=== PATIENT | female | born 1950 | race Caucasian/White ===

== ENCOUNTER → 2016-10-27 | Outpatient (CLI) | payer OTHER ==
[~2016-10-27] MED LIST: ADVIN25/60 INH; ALBINS/ INH; ATEN-173 PO; CHOL1000 PO; CMD5 PO; GABA600T PO; LACT1CAP4; LORA10TA5 PO; LSX/40 PO; MAGN400T5 PO; MONT1TAB3 PO; PANT40TA PO; PHEN1TAB85 PO; POLY335019 PO; POTA-327 PO; SENNTAB23; ZCRT/40 PO
[2016-10-27 19:17] LABS: URINE APPEARANCE CLEAR (CLEAR); URINE BILIRUBIN NEG (NEG); URINE COLOR YELLOW; URINE NITRITE NEG (NEG); URINE SPECIFIC GRAVITY 1.017 (1.000-1.030); UROBILINOGEN NEG (NEG)
[2016-10-27 19:32] LABS: MANUAL MICROSCOPIC REQUIRED? NO; REVIEW REQ? NO
== END | disposition home or self-care (01) ==
LOC: C.LABSPEC 17:30
PROVIDERS: ATTEND Family Medicine
DX: R53.83 Other fatigue (principal)

== ENCOUNTER → 2017-03-07 | Outpatient (CLI) | payer OTHER ==
--- NOTE | 2017-03-07 11:56 | DIAGNOSTIC IMAGING REPORT ---
CHEST CT WITHOUT CONTRAST CT DOSE: 642.27 mGycm HISTORY: Colon carcinoma Z12.11 Screening for colon [id number] Abnormal finding on imagist TECHNIQUE: Multiaxial CT images of the chest were performed without contrast. COMPARISON: None. FINDINGS: Stable postoperative changes consistent with a median sternotomy. Mild stable cardiomegaly. Calcified granuloma left base unchanged. No significant pulmonary nodularity. No significant mediastinal or hilar adenopathy. Small Calcified mediastinal and/or hilar nodes. Moderate atherosclerotic change thoracic aorta. IMPRESSION: Chronic and postoperative change. No acute process. Electronically signed by: Jean Mejia M.D. 03/07/2017 11:55 AM Dictated Date/Time: 03/07/2017 11:47 AM
== END | disposition home or self-care (01) ==
LOC: C.CTS 11:16
PROVIDERS: ATTEND Nurse Practitioner Adult Health
DX: R93.8 Abnormal findings on diagnostic imaging of other specified body structures (principal); Z12.11 Encounter for screening for malignant neoplasm of colon

== ENCOUNTER → 2017-09-04 | Outpatient (CLI) | payer OTHER ==
[~2017-09-04] MED LIST changes: -LORA10TA5 PO; +LORA10TA6 PO
[2017-09-04 13:05] LABS: BASO % 0.1 %; BASO ABS # 0.01 K/uL (0-0.2); EOS % 2.3 %; EOS ABS # 0.16 K/uL (0-0.5); HEMATOCRIT 47.3 % (37-47); HEMOGLOBIN 15.1 g/dL (12.0-16.0); IG# 0.01 K/uL (0.00-0.02); LYMPH % 28.1 %; LYMPH ABS # 1.98 K/uL (1.2-3.4); MEAN CELL VOLUME 92.7 fL (80-100); MEAN CORPUSCULAR HEMOGLOBIN 29.6 pg (25-34); MEAN CORPUSCULAR HGB CONC 31.9 g/dl (32-36); MEAN PLATELET VOLUME 11.1 fL (7.4-10.4); MONO % 9.2 %; MONO ABS # 0.65 K/uL (0.11-0.59); NEUT % 60.2 %; NEUT ABS # 4.24 K/uL (1.4-6.5); PLATELET COUNT 206 K/uL (130-400); RED CELL DISTRIBUTION WIDTH CV 14.4 % (11.5-14.5); RED CELL DISTRIBUTION WIDTH SD 48.9 fL (36.4-46.3); WHITE BLOOD COUNT 7.05 K/uL (4.8-10.8)
[2017-09-04 13:21] LABS: HEMOGLOBIN A1C 6.3 % (4.5-5.6)
[2017-09-04 13:29] LABS: ALBUMIN 3.5 gm/dl (3.4-5.0); ALKALINE PHOSPHATASE 96 U/L (45-117); ALT/SGPT 25 U/L (12-78); BLOOD UREA NITROGEN 23 mg/dl (7-18); CALCIUM 8.6 mg/dl (8.5-10.1); CARBON DIOXIDE 30 mmol/L (21-32); CHOLESTEROL 147 mg/dl (0-200); CREATININE 0.72 mg/dl (0.60-1.20); GLUCOSE 112 mg/dl (70-99); POTASSIUM 4.1 mmol/L (3.5-5.1); SODIUM 139 mmol/L (136-145); URIC ACID 6.7 mg/dl (2.6-7.2)
[2017-09-04 13:40] LABS: AST/SGOT 28 U/L (15-37); LDL CHOLESTEROL CALCULATED 72 mg/dl; TOTAL PROTEIN 8.1 gm/dl (6.4-8.2)
== END | disposition home or self-care (01) ==
LOC: C.LABPBG 07:42
PROVIDERS: ATTEND Family Medicine
DX: E78.5 Hyperlipidemia, unspecified (principal); I10 Essential (primary) hypertension; R73.03 Prediabetes; E79.0 Hyperuricemia without signs of inflammatory arthritis and tophaceous disease

== ENCOUNTER 2017-09-30 07:20 | Emergency (ER) | payer OTHER ==
[~2017-09-30] VITALS: Ht 165.1 cm; Wt 102.5 kg
[~2017-09-30 07:20] MED LIST changes: -SENNTAB23; +SENNTAB23 PO
[2017-09-30 07:25] VITALS: TEMP 36.5; Ht 165.1 cm; Wt 102.5 kg
[2017-09-30] MEDS ORDERED: SODIUM CHLORIDE 0.9% 1000ML 1,000 ML IV STA (07:50)
[2017-09-30] MEDS ORDERED: RANITIDINE HCL 50 MG/100 ML D5W IV STA (07:50)
[2017-09-30] MEDS ORDERED: ONDANSETRON INJ 2 MG/ML 2 ML VIAL IV STA (07:50)
[2017-09-30] MEDS ORDERED: ACETAMINOPHEN IV 650 MG in EMPTY BAG 0 ML IV ONE (08:00)
[2017-09-30] MEDS ORDERED: CETI10TA84 PO (08:27)
[2017-09-30] MEDS ORDERED: FLUT0.15 NAE (08:27)
[2017-09-30] MEDS ORDERED: GABA-112 PO (08:27)
[2017-09-30] MEDS ORDERED: FLUT1INH INH (08:27)
[2017-09-30] MEDS ORDERED: CHOL1TAB42 PO (08:27)
[2017-09-30] MEDS ORDERED: ESCI1TAB6 PO (08:27)
[2017-09-30] MEDS ORDERED: POTA10CA28 PO (08:27)
[2017-09-30] MEDS ORDERED: PHEN32.44 PO (08:27)
[2017-09-30] MEDS ORDERED: ATEN25TA PO (08:27)
[2017-09-30] MEDS ORDERED: ALLO100T57 PO (08:27)
[2017-09-30] MEDS ORDERED: RANI300T2 PO (08:27)
[2017-09-30] MEDS ORDERED: METO25TA56 PO (08:27)
[2017-09-30] MEDS ORDERED: WARF5TAB7 PO ×2 (08:27)
[2017-09-30 08:42] LABS: BASO % 0.2 %; BASO ABS # 0.01 K/uL (0-0.2); EOS % 1.2 %; EOS ABS # 0.06 K/uL (0-0.5); HEMOGLOBIN 15.7 g/dL (12.0-16.0); LYMPH ABS # 2.08 K/uL (1.2-3.4); MEAN CELL VOLUME 91.8 fL (80-100); MEAN CORPUSCULAR HGB CONC 32.7 g/dl (32-36); MEAN PLATELET VOLUME 10.9 fL (7.4-10.4); MONO % 13.7 %; MONO ABS # 0.71 K/uL (0.11-0.59); NEUT % 44.9 %; NEUT ABS # 2.34 K/uL (1.4-6.5); PLATELET COUNT 193 K/uL (130-400); RED CELL DISTRIBUTION WIDTH CV 14.2 % (11.5-14.5); RED CELL DISTRIBUTION WIDTH SD 48.1 fL (36.4-46.3)
[2017-09-30 08:50] LABS: ALBUMIN 3.5 gm/dl (3.4-5.0); CALCIUM 8.2 mg/dl (8.5-10.1); CREATININE 0.91 mg/dl (0.60-1.20); POTASSIUM 3.4 mmol/L (3.5-5.1)
[2017-09-30 08:53] LABS: TOTAL PROTEIN 8.1 gm/dl (6.4-8.2)
[2017-09-30 08:58] LABS: PTT PATIENT 40.6 SECONDS (21.0-31.0)
--- NOTE | 2017-09-30 09:05 | DIAGNOSTIC IMAGING REPORT ---
PA CHEST RADIOGRAPH AND UPRIGHT AND SUPINE AP RADIOGRAPHS OF THE ABDOMEN CLINICAL HISTORY: Abdominal pain. COMPARISON STUDY: CT of the abdomen and pelvis February 04, [address] March 07, 2017. FINDINGS: No pneumothorax or pleural effusion is noted. There is no consolidation or evidence for pulmonary edema. There are median sternotomy wires and a prosthetic mitral valve. Moderate cardiomegaly is noted. There is no free air. A few mildly dilated loops of small bowel are noted. However, there is scattered colonic gas. There is no convincing evidence for a small bowel obstruction. IMPRESSION: 1. No free air. 2. A few minimally dilated loops of small bowel without convincing evidence for a small bowel obstruction. 3. No acute cardiopulmonary findings. Electronically signed by: Aj Villegas M.D. 09/30/2017 9:04 AM Dictated Date/Time: 09/30/2017 9:01 AM
[2017-09-30 10:56] VITALS: BP 121/62; PULSE 78; O2SAT 95
--- NOTE | 2017-10-01 07:52 | EMERGENCY ROOM VISIT NOTE ---
ED Visit Note First contact with patient: 07:30 Chief Complaint: Abdominal pain, vomiting and diarrhea. History of Present Illness: Ms. Kong is a 67 year-old white female who ambulates into the ED accompanied by her complaining of diffuse abdominal pain. Historically patient reports gastric reflux, ventral hernia, is currently on anticoagulation therapy for mitral valve replacement and atrial fibrillation and status post appendectomy, hysterectomy and cholecystectomy. Patient reports a gradual onset of diffuse abdominal pain that started 3 days ago. Since that time her pain has been constant but has waxed and waned in intensity with her vomiting and diarrhea. She describes her pain as a crampy sensation. She currently rates her discomfort 7/10. She has not taken any medications for her pain but does report she has taken Pepto-Bismol for her diarrhea and nausea/vomiting. Associated with her pain she reports she's been having intermittent sensations of feeling hot and cold but has denied jose a fevers or diaphoresis. She reports having intermittent nausea and vomiting and since the onset of her pain she reports she has been having multiple episodes of watery stools. She does report today she had a bowel movement and reports that she felt like it was black and tarry which prompted her ED visit. Patient denies lightheadedness, dizziness, skin eruptions, skin color changes, upper respiratory tract symptoms, shortness of breath, chest pain, urinary symptoms, hematuria, vaginal bleeding, vaginal discharge, back/flank pain. Review of Systems: As noted above in history of present illness. All body systems were reviewed and found to be negative as noted above. Past Medical History: As previously noted and TIA, atrial fibrillation, seizure disorder, asthma, rheumatic heart disease, diabetes. Current Medications: Medications Dose Route/Sig Max Daily Dose Days Date Category Dose Instructions Vitamin D (Cholecalciferol) 5,000 Unit Tab 5,000 Units PO DAILY 09/30/17 Reported Phenobarbital 32.4 Mg Tab 32.4 Mg PO AMPM 09/30/17 Reported Neurontin (Gabapentin) 100 Mg Cap 100 Mg PO TID 09/30/17 Reported Tenormin (Atenolol) 25 Mg Tab 12.5 Mg PO QPM 09/30/17 Reported Micro-K Ext Rel (Potassium Chloride) 10 Meq Capcr 10 Meq PO DAILY 09/30/17 Reported Zyloprim (Allopurinol) 100 Mg Tab 100 Mg PO DAILY PRN 09/30/17 Reported Lexapro (Escitalopram Oxalate) 5 Mg Tab 5 Mg PO DAILY 09/30/17 Reported Jantoven (Warfarin Sodium) 5 Mg Tab 7.5 Mg PO WK 09/30/17 Reported FRIDAYS Jantoven (Warfarin Sodium) 5 Mg Tab 5 Mg PO 6XWK 09/30/17 Reported EVERYDAY EXCEPT FRIDAYS Lopressor (Metoprolol Tartrate) 25 Mg Tab 25 Mg PO BID 09/30/17 Reported Breo Ellipta (Fluticasone Furoate-Vilanterol) 1 Inh Inh 1 Puff INH DAILY 09/30/17 Reported Zyrtec (Cetirizine HCl) 10 Mg Tab 10 Mg PO DAILY 09/30/17 Reported Flonase Allergy Relief (Fluticasone Propionate (Nasal)) 50 Mcg/Act Spr 1 [place] OPHELIA BID 09/30/17 Reported Zantac (Ranitidine HCl) 300 Mg Tab 300 Mg PO HS 09/30/17 Reported Miralax (Polyethylene Glycol 3350) 1 Pow Pow 17 Gm PO DAILY 03/28/15 Reported Stool Softener (Sennosides-Docusate Sodium) 1 Tab Tab 1 Tab PO HS 03/28/15 Reported Zocor (Simvastatin) 40 Mg Tab 40 Mg PO QPM 03/28/15 Reported Singulair (Montelukast Sodium) 10 Mg Tab 10 Mg PO QPM 03/28/15 Reported Tenormin (Atenolol) 25 Mg Tab 25 Mg PO QAM 03/28/15 Reported Protonix (Pantoprazole Sodium) 40 Mg Tab 40 Mg PO BID 30 02/07/12 Rx Mag-Ox (Magnesium Oxide) 400 Mg Tab 400 Mg PO BID 02/05/12 Reported Lasix (Furosemide) 40 Mg Tab 40 Mg PO BID 02/05/12 Reported Proventil 0.083% 2.5MG/3ML (Albuterol Sulf) 2.5 Mg/3 Ml Nebu 2.5 Mg INH Q4-6HR PRN 02/04/12 Reported Allergies to Medications: Amlodipine, aspirin, astemizole, atorvastatin, caffeine, cephalosporins, codeine, dexamethasone, diphenhydramine erythromycin, hydrochlorothiazide, hydromorphone, ibuprofen, methylprednisone, metoprolol, orphenadrine, sodium benzoate, itch or psych clean, theophylline, sucralfate, omeprazole, ramipril, valacyclovir, contrast media. Social History: Patient is not employed; she feels safe in her home environment ; she denies tobacco and alcohol use. Physical Examination: Vital Signs: Date Time Temp Pulse Resp B/P (MAP) Pulse Ox O2 Delivery O2 Flow Rate FiO2 09/30/17 10:56 78 18 121/62 95 09/30/17 09:04 86 18 122/75 96 Room Air 09/30/17 07:43 109 09/30/17 07:25 36.5 96 18 102/62 95 Room Air GENERAL: 67-year-old female in mild to moderate distress due to pain, nontoxic- appearing, afebrile and hemodynamically stable. NEUROLOGICAL: Awake, alert and oriented to person, place and time. Answering questions appropriately and following commands. Normal gait. Good hand eye coordination. SKIN: Warm, dry and pink. No soft tissue eruptions or trauma noted. HEENT: Atraumatic and normocephalic. PERRLA. Sclera white and conjunctiva pink. Oral cavity moist and pink. Pharynx is nonerythematous or edematous. Speech normal. No lymphadenopathy. Trachea midline. No jugular venous distention. BACK: No tenderness over the bony spine. No CVA tenderness. THORAX: Lungs sounds are clear to auscultation and equal bilaterally with symmetrical chest wall. No wheezing, rales or rhonchi. No crepitus, tenderness , subcutaneous air or deformities noted. HEART: Regular rate and rhythm. No gallops, rubs or murmurs are appreciated. ABDOMEN: Obese and soft with mild diffuse pain with prominence in the epigastrium and left upper quadrant. Positive bowel sounds in all quadrants. No guarding, rigidity or organomegaly. EXTREMITIES: Moves all extremities well on command and with purpose. All distal neurovascular statuses are intact and equal bilaterally. ED Course: Patient is assessed as noted above. Patient's medication list was reviewed. Laboratory Testing: Test 09/30/17 07:40 09/30/17 07:45 Range/Units Urine Color DK YELLOW Urine Appearance CLEAR CLEAR Urine pH 5.0 4.5-7.5 Urine Specific [place] 1.025 1.000-1.030 Urine Protein NEG NEG Urine Glucose (UA) NEG NEG Urine Ketones NEG NEG Urine Occult Blood NEG NEG Urine Nitrite NEG NEG Urine Bilirubin NEG NEG Urine Urobilinogen NEG NEG Urine Leukocyte Esterase NEG NEG White Blood Count 5.20 4.8-10.8 K/uL Red Blood Count 5.23 4.2-5.4 M/uL Hemoglobin 15.7 12.0-16.0 g/dL Hematocrit 48.0 37-47 % Mean Corpuscular Volume 91.8 80-100 fL Mean Corpuscular Hemoglobin 30.0 25-34 pg Mean Corpuscular Hemoglobin Concent 32.7 32-36 g/dl Platelet Count 193 130-400 K/uL Mean Platelet Volume 10.9 7.4-10.4 fL Neutrophils (%) (Auto) 44.9 % Lymphocytes (%) (Auto) 40.0 % Monocytes (%) (Auto) 13.7 % Eosinophils (%) (Auto) 1.2 % Basophils (%) (Auto) 0.2 % Neutrophils # (Auto) 2.34 1.4-6.5 K/uL Lymphocytes # (Auto) 2.08 1.2-3.4 K/uL Monocytes # (Auto) 0.71 0.11-0.59 K/uL Eosinophils # (Auto) 0.06 0-0.5 K/uL Basophils # (Auto) 0.01 0-0.2 K/uL RDW Standard Deviation 48.1 36.4-46.3 fL RDW Coefficient of Variation 14.2 11.5-14.5 % Immature Granulocyte % (Auto) 0.0 % Immature Granulocyte # (Auto) 0.00 0.00-0.02 K/uL Prothrombin Time 31.3 9.0-12.0 SECONDS Prothromb Time International Ratio 3.0 0.9-1.1 Activated Partial Thromboplast Time 40.6 21.0-31.0 SECONDS Partial Thromboplastin Ratio 1.6 Sodium Level 137 136-145 mmol/L Potassium Level 3.4 3.5-5.1 mmol/L Chloride Level 101 98-107 mmol/L Carbon Dioxide Level 30 21-32 mmol/L Anion Gap 6.0 3-11 mmol/L Blood Urea Nitrogen 13 7-18 mg/dl Creatinine 0.91 0.60-1.20 mg/dl Est Creatinine Clear Calc Drug Dose 69.3 ml/min Estimated GFR () 74.6 Estimated GFR (Non- 64.4 BUN/Creatinine Ratio 14.1 10-20 Random Glucose 111 70-99 mg/dl Calcium Level 8.2 8.5-10.1 mg/dl Total Bilirubin 0.5 0.2-1 mg/dl Direct Bilirubin 0.2 0-0.2 mg/dl Aspartate Amino Transf (AST/SGOT) 44 15-37 U/L Alanine Aminotransferase (ALT/SGPT) 41 12-78 U/L Alkaline Phosphatase 87 45-117 U/L Total Protein 8.1 6.4-8.2 gm/dl Albumin 3.5 3.4-5.0 gm/dl Lipase 256 73-393 U/L Microbiology Results 09/30/17 C.difficile Toxin B Gene (PCR): No C. difficile toxin B gene detected 09/30/17 Rotavirus Antigen: Positive for Rotavirus Antigen 09/30/17 [place] Toxin Test: Pending 09/30/17 Stool Culture: Pending Prior to rectal examination patient was able to give me a stool sample. The sample was a dark greenish color but did not have the appearance or odor of melena. The sample was heme positive. Acute Abdominal X-Ray Series: Were read by myself and the radiologist and shows no acute infiltrates, effusions or pneumothorax. Enlarged heart silhouette and bony anatomy. Prosthetic mitral valve was noted. Abdominal component shows no free air, a few mildly dilated loops of small bowel without evidence of small bowel obstruction., they received for pain Patient was hydrated with normal saline, she was given 4 mg of Zofran IV for nausea, 650 mg of acetaminophen IV for pain and 50 mg of Zantac IV. Patient was reassessed multiple times during her stay in the emergency department. A gastric bleed score was performed and was 0. Patient's case was reviewed with Dr. Little; he independently assessed the patient we agreed on diagnostic approach, treatment, disposition and plan. Patient was educated about today's findings and instructed on her treatment plan ; she verbalized understanding and agreement with this plan. Clinical Impression: Acute abdominal pain. Diarrhea; positive rotavirus. Decision-Making: Initially my differential diagnosis I considered gastrointestinal bleeding, reflux, diverticulitis, bowel obstruction, colitis and other causes. Disposition: Patient discharged home in stable condition accompanied by her ; prior to departure she was reassessed and subjectively reported she was feeling better and rated her discomfort 2/10. Plan: Patient was encouraged to continue her current medications as prescribed. Patient was encouraged use acetaminophen 650 mg every 6 hours as needed for pain. Patient was encouraged to avoid Pepto-Bismol. Patient was encouraged to stay well-hydrated with increased clear fluids. Patient was encouraged to call her primary care provider and request follow-up care and treatment; specifically to reevaluate her H&H, obtain her stool culture results and recheck her INR. Patient was encouraged return ED for worsening pain, fevers, vomiting, bloody vomitus, worsening diarrhea, right red blood per rectum, any abnormal bleeding, any chest pain/shortness of breath, any episodes of passing out or any new/ concerning symptoms.
--- NOTE | 2017-10-03 02:19 | EMERGENCY ROOM VISIT NOTE ---
ED Visit Note First contact with patient: 07:30 I reviewed the patient's past medical history, medications, and visit nursing notes. I discussed the case with the physician stylist assistant, examined the patient, and agree with the findings and plan as documented in the physician assistants note.
== END 2017-09-30 10:55 | disposition home or self-care (01) ==
LOC: C.EDB 07:22
DX: A08.0 Rotaviral enteritis (principal); K21.9 Gastro-esophageal reflux disease without esophagitis; Z79.01 Long term (current) use of anticoagulants; I48.91 Unspecified atrial fibrillation; Z95.2 Presence of prosthetic heart valve; Z90.710 Acquired absence of both cervix and uterus; Z90.49 Acquired absence of other specified parts of digestive tract; Z86.73 Personal history of transient ischemic attack (TIA), and cerebral infarction without residual deficits; G40.909 Epilepsy, unspecified, not intractable, without status epilepticus; J45.909 Unspecified asthma, uncomplicated; E11.9 Type 2 diabetes mellitus without complications; Z79.899 Other long term (current) drug therapy

== ENCOUNTER → 2017-11-08 | Outpatient (CLI) | payer OTHER ==
[~2017-11-08] MED LIST changes: -ADVIN25/60 INH; +ALLO100T57 PO; +ATEN25TA PO; +CETI10TA84 PO; -CHOL1000 PO; +CHOL1TAB42 PO; -CMD5 PO; +ESCI1TAB6 PO; +FLUT0.15 NAE; +FLUT1INH INH; +GABA-112 PO; -GABA600T PO; -LACT1CAP4; -LORA10TA6 PO; +METO25TA56 PO; -PHEN1TAB85 PO; +PHEN32.44 PO; -POTA-327 PO; +POTA10CA28 PO; +RANI300T2 PO; +WARF5TAB7 PO
== END | disposition home or self-care (01) ==
LOC: C.LABPBG 07:47
PROVIDERS: ATTEND Physician Assistant
DX: R30.0 Dysuria (principal)

== ENCOUNTER → 2017-11-30 | Outpatient (CLI) | payer OTHER | END | disposition home or self-care (01) | LOC: C.LABPBG 10:16 | PROVIDERS: ATTEND Family Medicine | DX: N76.0 Acute vaginitis (principal); R63.5 Abnormal weight gain ==

== ENCOUNTER → 2018-03-16 | Outpatient (CLI) | payer OTHER | END | disposition home or self-care (01) | LOC: C.LABSPEC 13:56 | PROVIDERS: ATTEND Family Medicine | DX: N76.0 Acute vaginitis (principal); N89.8 Other specified noninflammatory disorders of vagina ==

== ENCOUNTER → 2018-04-17 | Outpatient (CLI) | payer OTHER ==
[~2018-04-17] MED LIST changes: +ACET-1256 PO; +AZIT-57 PO; +CHOL200010 PO; +LPR25 PO; +LSX80 PO; +VNTHFA/IN INH
--- NOTE | 2018-04-17 15:12 | MAMMOGRAPHY REPORT ---
BILATERAL DIGITAL SCREENING MAMMOGRAM TOMOSYNTHESIS WITH CAD: 04/17/2018 CLINICAL HISTORY: Routine screening. TECHNIQUE: The study was acquired using full field digital technology and interpreted from soft copy. Breast tomosynthesis in addition to standard 2D mammography was performed. Current study was also ev aluated with a Computer Aided Detection (CAD) system. COMPARISON: Comparison is made to exams dated: 08/15/2015 mammogram - [facility], 05/20/2014 mammogram, 07/13/2011 mammogram, 03/17/2010 mammogram, and 03/02/2009 mammogram - [facility]. BREAST COMPOSITION: The tissue of both breasts is almost entirely fatty. FINDINGS: There are benign calcifications in both breasts. No suspicious mass, architectural distortion or clu ster of microcalcifications is seen. IMPRESSION: ACR BI-RADS CATEGORY 2: BENIGN There is no mammographic evidence of malignancy. A 1 year screening mammogram is recommended.( [id number]) The patient will receive written notification of the results. Some breast cancers are not detected with mammography. A negative mammographic report should not chris y biopsy if a clinically suggestive mass is present. Angie Urbano M.D. ay/:04/17/2018 14:47:15 [employer]man: RT Gwen(Izabella)(M), [facility] letter sent: Normal 1/2 BI-RADS Code: ACR BI-RADS Category 2: Benign
== END | disposition home or self-care (01) ==
LOC: C.MAMM 13:33
PROVIDERS: ATTEND Family Medicine
DX: Z12.31 Encounter for screening mammogram for malignant neoplasm of breast (principal)

== ENCOUNTER → 2018-04-18 | Outpatient (CLI) | payer OTHER ==
[2018-04-18 12:55] LABS: HEMATOCRIT 46.2 % (37-47); HEMOGLOBIN 14.8 g/dL (12.0-16.0); MEAN CELL VOLUME 92.8 fL (80-100); MEAN CORPUSCULAR HEMOGLOBIN 29.7 pg (25-34); MEAN PLATELET VOLUME 11.6 fL (7.4-10.4); PLATELET COUNT 203 K/uL (130-400); RED CELL DISTRIBUTION WIDTH CV 14.7 % (11.5-14.5); RED CELL DISTRIBUTION WIDTH SD 49.7 fL (36.4-46.3); WHITE BLOOD COUNT 6.74 K/uL (4.8-10.8)
[2018-04-18 13:30] LABS: HEMOGLOBIN A1C 6.5 % (4.5-5.6)
[2018-04-18 13:48] LABS: ALBUMIN 3.5 gm/dl (3.4-5.0); ALKALINE PHOSPHATASE 89 U/L (45-117); ALT/SGPT 31 U/L (12-78); AST/SGOT 28 U/L (15-37); BLOOD UREA NITROGEN 22 mg/dl (7-18); CALCIUM 8.6 mg/dl (8.5-10.1); CARBON DIOXIDE 29 mmol/L (21-32); CHOLESTEROL 151 mg/dl (0-200); CREATININE 0.73 mg/dl (0.60-1.20); GLUCOSE 111 mg/dl (70-99); LDL CHOLESTEROL CALCULATED 78 mg/dl; POTASSIUM 4.1 mmol/L (3.5-5.1); SODIUM 139 mmol/L (136-145)
== END | disposition home or self-care (01) ==
LOC: C.LABPBG 08:27
PROVIDERS: ATTEND Family Medicine
DX: I48.91 Unspecified atrial fibrillation (principal); E78.5 Hyperlipidemia, unspecified; I10 Essential (primary) hypertension; I25.10 Atherosclerotic heart disease of native coronary artery without angina pectoris; R73.03 Prediabetes; E55.9 Vitamin D deficiency, unspecified

== ENCOUNTER 2018-04-24 16:57 | Emergency (ER) | payer OTHER ==
[~2018-04-24] VITALS: Ht 162.6 cm; Wt 103.8 kg
[~2018-04-24 16:57] MED LIST changes: -ACET-1256 PO; -AZIT-57 PO; -CHOL200010 PO; -LPR25 PO; -LSX80 PO; -VNTHFA/IN INH
[2018-04-24 16:59] VITALS: TEMP 36.7; Ht 162.6 cm; Wt 103.8 kg
[2018-04-24] MEDS ORDERED: SODIUM CHLORIDE 0.9% 1000ML 500 ML IV STA (17:12)
[2018-04-24] MEDS ORDERED: ONDANSETRON INJ 2 MG/ML 2 ML VIAL IV STA (17:12)
--- NOTE | 2018-04-24 17:27 | EMERGENCY ROOM VISIT NOTE ---
History Report prepared by Daly: Annmarie Mortensen Under the Supervision of: Dr. De Stiles M.D. First contact with patient: 17:02 Chief Complaint: DIZZY Stated Complaint: DIZZY STOMACH HURTS History of Present Illness The patient is a 67 year old female who presents to the Emergency Room with complaints of intermittent abdominal pain beginning 3 days ago. She reports the pain is a 9/10 in severity, and worsens with breathing. The patient states she is also experiencing weakness, dizziness, nausea, left ear pain, and a rapid heart rate. She also notes recent diarrhea, but notes only one episode today. The patient states her stools have been "like water" and much more frequent the past couple days. She notes all of these symptoms began following a recent camping trip in [facility]. The patient states she was seen by her PCP, Dr. Rayo, yesterday, who doubled her Metoprolol dose and prescribed Zithromax for a left ear infection. She notes her PCP was concerned due to her HR of 120 yesterday, and wanted the patient to be seen by Dr. Son. The patient denies vomiting, fever, cough, congestion, or burning or frequency of urinating. She denies recent drinking from streams or any trauma. The patient notes she has stayed hydrated recently. She reports a history of Afib, appendectomy, cholecystectomy, and hysterectomy. 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 Source of History: patient Onset: 3 days ago Position: abdomen Symptom Intensity: 9/10 Timing: intermittent Associated Symptoms: + diarrhea, + weakness, No fevers, No cough, No vomiting, No urinary symptoms Note: Associated symptoms: dizziness, left ear pain, rapid heart rate. Denies: congestion Review of Systems See HPI for pertinent positives & negatives. A total of 10 systems reviewed and were otherwise negative. Past Medical & Surgical Medical Problems: (1) Atrial fibrillation (2) Replacement of mitral valve (3) Transient ischemic attack Family History Cancer Gallbladder disease Heart disease Kidney disease Seizures Social History Smoking Status: Never Smoker Alcohol Use: none Marital Status: Housing Status: lives with family Current/Historical Medications Scheduled Albuterol Sulf (Proventil 0.083% 2.5MG/3ML), 2.5 MG INH Q4-6HR PRN Azithromycin (Azithromycin), PO UD Cetirizine (Zyrtec), 10 MG PO DAILY Cholecalciferol (Vitamin D), 1 TAB PO DAILY Fluticasone Furoate-Vilanterol (Breo Ellipta), 1 PUFFS INH DAILY Fluticasone Propionate (Nasal) (Flonase Allergy Relief), 1 SPRAY OPHELIA BID Furosemide (Furosemide), 40 MG PO BID Metoprolol Tartrate (Lopressor), 50 MG PO BID Montelukast Sodium (Singulair), 10 MG PO QAM Pantoprazole (Protonix), 40 MG PO BID Phenobarbital (Phenobarbital), 32.4 MG PO AMPM Polyethylene Glycol 3350 (Miralax), 17 GM PO DAILY Potassium Chloride (Micro-K Ext Rel), 10 MEQ PO DAILY Ranitidine Hcl (Zantac), 300 MG PO HS Simvastatin (Zocor), 40 MG PO QAM Warfarin Sod (Jantoven), 5 MG PO 6XWK Warfarin Sod (Jantoven), 7.5 MG PO WK Scheduled PRN Acetaminophen (Tylenol), 1,000 MG PO Q6 PRN for Headache or Pain Albuterol Hfa (Ventolin Hfa), 2 PUFF INH Q4 PRN for SOB/Wheezing Allopurinol (Zyloprim), 100 MG PO DAILY PRN for GOUT Allergies Coded Allergies: Irbesartan (Verified Allergy, Intermediate, hives, 03/28/15) Amlodipine (Unverified Allergy, Unknown, HIVES, 09/30/17) Aspirin (Verified Allergy, Unknown, UNKNOWN, 03/28/15) Astemizole (Verified Allergy, Unknown, UNKNOWN, 09/30/17) Atorvastatin (Unverified Allergy, Unknown, , 09/30/17) Caffeine (Verified Allergy, Unknown, UNKNOWN, 03/28/15) Cefixime (Verified Allergy, Unknown, UNKNOWN, 09/30/17) Cephalexin (Verified Allergy, Unknown, UNKNOWN, 09/30/17) Cephalosporins (Unverified Allergy, Unknown, , 09/30/17) Codeine (Verified Allergy, Unknown, UNKNOWN, 09/30/17) Dexamethasone (Verified Allergy, Unknown, UNKNOWN, 09/30/17) Diphenhydramine (Verified Allergy, Unknown, UNKNOWN, 09/30/17) Erythromycin (Verified Allergy, Unknown, UNKNOWN, 09/30/17) Hydrochlorothiazide (Unverified Allergy, Unknown, , 09/30/17) Hydromorphone (Verified Allergy, Unknown, UNKNOWN, 09/30/17) Ibuprofen (Verified Allergy, Unknown, UNKNOWN, 09/30/17) Iodinated Contrast Media (Verified Allergy, Unknown, UNKNOWN, 09/30/17) Methylprednisolone (Verified Allergy, Unknown, UNKNOWN, 09/30/17) Metoprolol (Verified Allergy, Unknown, UNKNOWN, 09/30/17) Omeprazole (Unverified Allergy, Unknown, , 09/30/17) Orphenadrine (Verified Allergy, Unknown, UNKNOWN, 09/30/17) Penicillins (Verified Allergy, Unknown, UNKNOWN, 09/30/17) Pentazocine (Verified Allergy, Unknown, UNKNOWN, 04/24/18) Ramipril (Verified Allergy, Unknown, UNKNOWN, 09/30/17) Sodium Benzoate (Verified Allergy, Unknown, UNKNOWN, 09/30/17) Sucralfate (Verified Allergy, Unknown, UNKNOWN, 09/30/17) Tetracycline (Verified Allergy, Unknown, UNKNOWN, 09/30/17) Theophylline (Verified Allergy, Unknown, UNKNOWN, 09/30/17) Valacyclovir (Unverified Allergy, Unknown, , 09/30/17) Physical Exam Vital Signs Date Time Temp Pulse Resp B/P (MAP) Pulse Ox O2 Delivery O2 Flow Rate FiO2 04/24/18 23:14 78 16 128/68 98 Room Air 04/24/18 20:45 127/62 04/24/18 20:44 111/71 04/24/18 20:42 109 04/24/18 20:41 105 129/74 04/24/18 20:40 129/74 04/24/18 18:58 106 18 146/85 93 Room Air 04/24/18 16:59 36.7 119 17 124/75 92 Room Air Physical Exam GENERAL: Patient is in no acute distress. HEENT: No acute trauma, normocephalic atraumatic, mucous membranes moist, no nasal congestion, no scleral icterus. Mild erythema to left TM, right TM clear. NECK: No stridor, no adenopathy, no meningismus, trachea is midline. LUNGS: Clear to auscultation bilaterally, no wheeze, no rhonchi, breath sounds equal. HEART: Tachycardic and irregular. No murmurs. CHEST: Tender to compression of bilateral ribs. ABDOMEN: Soft, bowel sounds positive, no hernias, no peritonitis. Diffusely moderately tender. EXTREMITIES: No cyanosis or edema, full range of motion of all the joints without pain or difficulty, no signs for acute trauma. NEUROLOGIC: Oriented x 3, no acute motor or sensory deficits, no focal weakness. SKIN: No rash, no jaundice, no diaphoresis. Medical Decision & Procedures ER Provider Diagnostic Interpretation: Radiology results as stated below per my review and radiologist interpretation: CHEST ONE VIEW PORTABLE CLINICAL HISTORY: Abdominal pain. COMPARISON STUDY: Chest radiograph October 10, 2017. FINDINGS: There is no pneumothorax or pleural effusion. There is no consolidation to suggest pneumonia. Moderate cardiomegaly is unchanged. There are median sternotomy wires and a prosthetic mitral valve. Note is made of pulmonary vascular congestion without evidence for pulmonary edema. IMPRESSION: 1. Pulmonary vascular congestion. 2. Moderate cardiomegaly. Electronically signed by: Aj Villegas M.D. 04/24/2018 5:36 PM Dictated Date/Time: 04/24/2018 5:[address] SCAN OF THE ABDOMEN AND PELVIS WITHOUT CONTRAST CLINICAL HISTORY: Lower abdominal pain. Possible diverticulitis. COMPARISON STUDY: January 2012 TECHNIQUE: CT scan of the abdomen and pelvis was performed from the lung bases to the proximal femurs. Images are reviewed in the axial, sagittal, and coronal planes. IV contrast was not administered for this examination. A dose lowering technique was utilized adhering to the principles of ALARA. CT DOSE: 1488.54 mGy.cm FINDINGS: Lower chest: There are coronary artery calcifications present. There is a left lower lobe calcified granuloma. The heart is mildly enlarged Liver: The unenhanced liver is normal in size, contour, and attenuation. There is no intrahepatic biliary ductal dilatation. Gallbladder: Surgically absent Spleen: Normal in size and attenuation. Pancreas: Unremarkable. Adrenal glands: Unremarkable. Kidneys: There is bilateral perinephric stranding. No renal, ureteral, or bladder calculi are visualized. Bowel: There are no transition zones indicate bowel obstruction. There is colonic diverticulosis. No acute peridiverticular inflammatory changes are visualized. The appendix was not visualized with certainty. Peritoneum: There is no intraperitoneal free air or abdominal ascites. Vasculature: The abdominal aorta is normal in course and caliber. Adenopathy: None. Pelvic viscera: The uterus is surgically absent. There is suspected pelvic floor relaxation. Skeletal structures: No destructive osseous lesions are seen. IMPRESSION: 1. No evidence of bowel obstruction. No evidence of free air 2. Diverticulosis. No evidence of acute diverticulitis 3. No renal, ureteral, or bladder calculi identified. Electronically signed by: Smith Kaiser M.D. 04/24/2018 7:56 PM Dictated Date/Time: 04/24/2018 7:52 PM Laboratory Results 04/24/18 17:44 Red Blood Count 4.99, Mean Corpuscular Volume 92.2, Mean Corpuscular Hemoglobin 29.3, Mean Corpuscular Hemoglobin Concent 31.7, Mean Platelet Volume 10.9, Neutrophils (%) (Auto) 72.2, Lymphocytes (%) (Auto) 19.2, Monocytes (%) (Auto) 7.8, Eosinophils (%) (Auto) 0.5, Basophils (%) (Auto) 0.1, Neutrophils # (Auto) 5.80, Lymphocytes # (Auto) 1.54, Monocytes # (Auto) 0.63, Eosinophils # (Auto) 0.04, Basophils # (Auto) 0.01 04/24/18 17:44 Test 04/24/18 17:44 04/24/18 18:43 04/24/18 18:56 04/24/18 22:02 White Blood Count 8.04 K/uL (4.8-10.8) Red Blood Count 4.99 M/uL (4.2-5.4) Hemoglobin 14.6 g/dL (12.0-16.0) Hematocrit 46.0 % (37-47) Mean Corpuscular Volume 92.2 fL (80-100) Mean Corpuscular Hemoglobin 29.3 pg (25-34) Mean Corpuscular Hemoglobin Concent 31.7 g/dl (32-36) Platelet Count 159 K/uL (130-400) Mean Platelet Volume 10.9 fL (7.4-10.4) Neutrophils (%) (Auto) 72.2 % Lymphocytes (%) (Auto) 19.2 % Monocytes (%) (Auto) 7.8 % Eosinophils (%) (Auto) 0.5 % Basophils (%) (Auto) 0.1 % Neutrophils # (Auto) 5.80 K/uL (1.4-6.5) Lymphocytes # (Auto) 1.54 K/uL (1.2-3.4) Monocytes # (Auto) 0.63 K/uL (0.11-0.59) Eosinophils # (Auto) 0.04 K/uL (0-0.5) Basophils # (Auto) 0.01 K/uL (0-0.2) RDW Standard Deviation 50.2 fL (36.4-46.3) RDW Coefficient of Variation 14.8 % (11.5-14.5) Immature Granulocyte % (Auto) 0.2 % Immature Granulocyte # (Auto) 0.02 K/uL (0.00-0.02) Anion Gap 8.0 mmol/L (3-11) Est Creatinine Clear Calc Drug Dose 56.2 ml/min Estimated GFR () 58.7 Estimated GFR (Non- 50.6 BUN/Creatinine Ratio 16.8 (10-20) Calcium Level 8.8 mg/dl (8.5-10.1) Magnesium Level 2.1 mg/dl (1.8-2.4) Total Bilirubin 0.4 mg/dl (0.2-1) Aspartate Amino Transf (AST/SGOT) 33 U/L (15-37) Alanine Aminotransferase (ALT/SGPT) 26 U/L (12-78) Alkaline Phosphatase 86 U/L (45-117) Troponin I < 0.015 ng/ml (0-0.045) Pro-B-Type Natriuretic Peptide 1931 pg/ml (0-900) Total Protein 8.2 gm/dl (6.4-8.2) Albumin 3.4 gm/dl (3.4-5.0) Globulin 4.8 gm/dl (2.5-4.0) Albumin/Globulin Ratio 0.7 (0.9-2) Lipase 192 U/L (73-393) Thyroid Stimulating Hormone (TSH) 1.380 uIu/ml (0.300-4.500) Free Thyroxine 0.99 ng/dl (0.80-1.60) Chemistry Specimen Hemolysis Phenobarbital Level 15.4 mcg/mL (15.0-40.0) Prothrombin Time 21.0 SECONDS (9.0-12.0) Prothromb Time International Ratio 2.0 (0.9-1.1) Activated Partial Thromboplast Time 40.4 SECONDS (21.0-31.0) Partial Thromboplastin Ratio 1.6 Urine Color DK YELLOW Urine Appearance CLEAR (CLEAR) Urine pH 5.0 (4.5-7.5) Urine Specific [place] 1.026 (1.000-1.030) Urine Protein 1+ (NEG) Urine Glucose (UA) NEG (NEG) Urine Ketones TRACE (NEG) Urine Occult Blood NEG (NEG) Urine Nitrite NEG (NEG) Urine Bilirubin NEG (NEG) Urine Urobilinogen NEG (NEG) Urine Leukocyte Esterase NEG (NEG) Urine WBC (Auto) 1-5 /hpf (0-5) Urine RBC (Auto) 0-4 /hpf (0-4) Urine Hyaline Casts (Auto) 1-5 /lpf (0-5) Urine Epithelial Cells (Auto) 5-10 /lpf (0-5) Urine Bacteria (Auto) NEG (NEG) Lactic Acid Level 1.1 mmol/L (0.4-2.0) Date/Time Source Procedure Growth Status 04/24/18 00:00 Stool C.difficile Toxin B Gene (PCR) - Final No C. difficile toxin B gene detected Complete Laboratory results reviewed by me. Medications Administered Medications (Trade) Dose Ordered Sig/Rebekah Route Start Time Stop Time Status Last Admin Dose Admin Sodium Chloride 500 ml @ 999 mls/hr Q31M STAT IV 04/24/18 17:12 04/24/18 17:42 DC 04/24/18 17:12 999 MLS/HR Acetaminophen (Tylenol Tab) 1,000 mg NOW STAT PO 04/24/18 18:05 04/24/18 18:07 DC 04/24/18 18:12 1,000 MG Metoprolol Tartrate (Lopressor Iv) 5 mg NOW STAT IV 04/24/18 20:34 04/24/18 20:36 DC 04/24/18 20:41 5 MG Potassium Chloride (Klor-Con M10) 40 meq NOW STAT PO 04/24/18 21:31 04/24/18 21:36 DC 04/24/18 21:50 40 MEQ ECG Per My Interpretation Indication: abdominal pain Rate (beats per minute): 125 Rhythm: atrial fibrillation Findings: nonspecific-ST abn (diffusely), other (no PVCs) ED Course 1703: The patient was evaluated in room B2. A complete history and physical exam was performed. 1711: Ordered Zofran Inj 4 mg IV, Sodium Chloride 500 ml @ 999 mls/hr IV. 1804: Ordered Tylenol Tab 1000 mg PO. 2027: I reevaluated and updated the patient. 2033: Ordered Lopressor Iv 5 mg IV. 2107: Discussed the patient's case with Dr. Xiong, [facility] hospitalist. He will evaluate the patient. 2202: Discussed the patient's case with Dr. Xiong [facility] hospitalist. If the patient's lactic acid is not elevated, he recommends discharge home. 2257: Reevaluated the patient. Discussed results and discharge instructions: she verbalized understanding and agreement. The patient is ready for discharge. Medical Decision Differential diagnoses include: viral illness, dehydration, PA, diverticulitis, foodborne or viral illness, bacterial intestinal infection, C diff. infection, hernia, renal failure. There is no leukocytosis or concerning anemia. Renal panel testing shows a mildly low potassium, this is of no emergent concern. No evidence for hepatitis. The patient appeared to be in a euthyroid state. EKG showed a rapid A. fib, no acute ischemic change. Cardiac enzyme testing 1 did not show evidence for acute cardiac injury. Chest film showed some potential mild CHF versus changes just from her body habitus, no pneumonia. Abdominal and pelvis CT did not show diverticulitis or abscess. There was no bowel obstruction. Urinalysis did not show infection. Phenobarbital level was not toxic. The patient presents with several complaints. She was diffusely tender on abdominal exam but there was no true peritonitis. She received IV saline, IV Zofran, IV Lopressor and oral Tylenol. She feels improved. Her heart rate is improved. I talked with the patient, I talked with her . Case management was involved. I discussed the case with the on-call hospitalist. The patient was seen by the hospitalist service. They felt the patient could be discharged if her lactic acid level returned normal. They ordered for this test and it did in fact return normal. The hospitalist service felt discharge was appropriate as the patient did seem improved. She is being discharged to follow with her doctor and to return here for worsening symptoms. At this point , the cause for her entire presentation is unclear. She will continue her Zithromax. Medication Reconcilliation Current Medication List: was personally reviewed by me Blood Pressure Screening Patient's blood pressure: Normal blood pressure Consults Time Called: 2051 Consulting Physician: Dr. Xiong [facility] hospitalist Returned Call: [phone]: Discussed the patient's case with Dr. Xiong [facility] hospitalist. He will evaluate the patient. 2202: Discussed the patient's case with Dr. Xiong [facility] hospitalist. If the patient's lactic acid is not elevated, he recommends discharge home. Impression Primary Impression: Atrial fibrillation, rapid Additional Impressions: Weakness Diffuse abdominal pain Diarrhea Failure of outpatient treatment Scribe Attestation The scribe's documentation has been prepared under my direction and personally reviewed by me in its entirety. I confirm that the note above accurately reflects all work, treatment, procedures, and medical decision making performed by me. Departure Information Dispostion Being Evaluated By Hospitalist Referrals Zainab Rayo DO (PCP) Forms HOME CARE DOCUMENTATION FORM, IMPORTANT VISIT INFORMATION Patient Instructions My [facility] Additional Instructions take your regular meds when you get home bland diet--crackers, soup, toast, gatorade, crackers, yougart see clotilde boyer this week return if worsening as we discussed lab testing today was all ok Problem Qualifiers Additional Impressions: Diarrhea Diarrhea type: unspecified type Qualified Codes: R19.7 - Diarrhea, unspecified
--- NOTE | 2018-04-24 17:37 | DIAGNOSTIC IMAGING REPORT ---
CHEST ONE VIEW PORTABLE CLINICAL HISTORY: Abdominal pain. COMPARISON STUDY: Chest radiograph October 10, 2017. FINDINGS: There is no pneumothorax or pleural effusion. There is no consolidation to suggest pneumonia. Moderate cardiomegaly is unchanged. There are median sternotomy wires and a prosthetic mitral valve. Note is made of pulmonary vascular congestion without evidence for pulmonary edema. IMPRESSION: 1. Pulmonary vascular congestion. 2. Moderate cardiomegaly. Electronically signed by: Aj Villegas M.D. 04/24/2018 5:36 PM Dictated Date/Time: 04/24/2018 5:34 PM
[2018-04-24] MEDS ORDERED: LSX80 PO (17:51)
[2018-04-24] MEDS ORDERED: AZIT-57 PO (17:51)
[2018-04-24] MEDS ORDERED: POTA10CA28 PO (17:51)
[2018-04-24] MEDS ORDERED: LPR25 PO (17:51)
[2018-04-24] MEDS ORDERED: CHOL200010 PO (17:51)
[2018-04-24] MEDS ORDERED: ACET-1256 PO (17:51)
[2018-04-24] MEDS ORDERED: FLUT1INH INH (17:51)
[2018-04-24 17:54] LABS: BASO % 0.1 %; BASO ABS # 0.01 K/uL (0-0.2); EOS % 0.5 %; EOS ABS # 0.04 K/uL (0-0.5); HEMOGLOBIN 14.6 g/dL (12.0-16.0); IG# 0.02 K/uL (0.00-0.02); LYMPH % 19.2 %; LYMPH ABS # 1.54 K/uL (1.2-3.4); MEAN CELL VOLUME 92.2 fL (80-100); MEAN CORPUSCULAR HEMOGLOBIN 29.3 pg (25-34); MEAN CORPUSCULAR HGB CONC 31.7 g/dl (32-36); MEAN PLATELET VOLUME 10.9 fL (7.4-10.4); MONO % 7.8 %; MONO ABS # 0.63 K/uL (0.11-0.59); NEUT % 72.2 %; PLATELET COUNT 159 K/uL (130-400); RED CELL DISTRIBUTION WIDTH CV 14.8 % (11.5-14.5); RED CELL DISTRIBUTION WIDTH SD 50.2 fL (36.4-46.3); WHITE BLOOD COUNT 8.04 K/uL (4.8-10.8)
[2018-04-24] MEDS ORDERED: VNTHFA/IN INH (17:56)
[2018-04-24] MEDS ORDERED: ACETAMINOPHEN 500 MG TAB PO STA (18:05)
[2018-04-24 18:20] LABS: ALBUMIN 3.4 gm/dl (3.4-5.0); ALT/SGPT 26 U/L (12-78); AST/SGOT 33 U/L (15-37); BLOOD UREA NITROGEN 19 mg/dl (7-18); CALCIUM 8.8 mg/dl (8.5-10.1); CARBON DIOXIDE 30 mmol/L (21-32); CREATININE 1.11 mg/dl (0.60-1.20); GLUCOSE 142 mg/dl (70-99); LIPASE 192 U/L (73-393); POTASSIUM 3.1 mmol/L (3.5-5.1); SODIUM 138 mmol/L (136-145)
[2018-04-24 18:34] LABS: ALKALINE PHOSPHATASE 86 U/L (45-117); TOTAL PROTEIN 8.2 gm/dl (6.4-8.2)
[2018-04-24 19:24] LABS: PTT PATIENT 40.4 SECONDS (21.0-31.0)
--- NOTE | 2018-04-24 19:58 | DIAGNOSTIC IMAGING REPORT ---
CT SCAN OF THE ABDOMEN AND PELVIS WITHOUT CONTRAST CLINICAL HISTORY: Lower abdominal pain. Possible diverticulitis. COMPARISON STUDY: January 2012 TECHNIQUE: CT scan of the abdomen and pelvis was performed from the lung bases to the proximal femurs. Images are reviewed in the axial, sagittal, and coronal planes. IV contrast was not administered for this examination. A dose lowering technique was utilized adhering to the principles of ALARA. CT DOSE: 1488.54 mGy.cm FINDINGS: Lower chest: There are coronary artery calcifications present. There is a left lower lobe calcified granuloma. The heart is mildly enlarged Liver: The unenhanced liver is normal in size, contour, and attenuation. There is no intrahepatic biliary ductal dilatation. Gallbladder: Surgically absent Spleen: Normal in size and attenuation. Pancreas: Unremarkable. Adrenal glands: Unremarkable. Kidneys: There is bilateral perinephric stranding. No renal, ureteral, or bladder calculi are visualized. Bowel: There are no transition zones indicate bowel obstruction. There is colonic diverticulosis. No acute peridiverticular inflammatory changes are visualized. The appendix was not visualized with certainty. Peritoneum: There is no intraperitoneal free air or abdominal ascites. Vasculature: The abdominal aorta is normal in course and caliber. Adenopathy: None. Pelvic viscera: The uterus is surgically absent. There is suspected pelvic floor relaxation. Skeletal structures: No destructive osseous lesions are seen. IMPRESSION: 1. No evidence of bowel obstruction. No evidence of free air 2. Diverticulosis. No evidence of acute diverticulitis 3. No renal, ureteral, or bladder calculi identified. Electronically signed by: Smith Kaiser M.D. 04/24/2018 7:56 PM Dictated Date/Time: 04/24/2018 7:52 PM
[2018-04-24] MEDS ORDERED: METOPROLOL TARTRATE 1 MG/ML VIAL IV STA (20:34)
[2018-04-24] MEDS ORDERED: POTASSIUM CHLORIDE 10 MEQ TABCR PO STA (21:31)
--- NOTE | 2018-04-24 22:03 | Medical Consult ---
Consultation Date of Consultation: Apr 24, 2018. Attending Physician: Reason for Consultation: Dizziness History of Present Illness Patient is a 67 year old female with a PMH of Afib, asthma, gout, gerd and recent otitis media that presented to [facility] with 2 day history of diarrhea, abdominal pain and dizziness. She notes that her symptoms started on Monday after she returned from a camping trip. Since coming back from the trip she has had 3 episodes of non painful, non bloody diarrhea per day. She has had diffuse abdominal pain that is crampy in nature. She notes that she occasionally becomes dizzy when walking. She feels slightly nauseated, but has not vomited. She denies any fevers, decrease appetite, urinary symptoms, sore throat, nasal congestion, rashes, joint pain. She notes she went to see her PCP on Monday morning and was found to have an elevated HR and a left otitis media. She was therefore put on antibiotics yesterday. She does note that her symptoms of diarrhea and abdominal pain have been improving. She notes she is able to tolerate a diet, she is drinking plenty of water and she is able to ambulate without difficulty. Her is able to look after her at home. In the ED her vitals were remarkable for an elevated HR in 106 and was in afib. Her labs were significant for a potassium of 3.1 and her BNP was 1931. Her CXR showed pulmonary vascular congestion without pulmonary edema. Her CT of the abdomen/pelvis did not show any acute findings. She was given 5mg of metoprolol, 4mg of zofran and 1 Litre of IVF Resident Physician Supervision Note: I was present with Dr. Neely during the history and exam. I discussed the case with the resident and agree with the findings and plan as documented in the note. Any exceptions or clarifications are listed here: 67 y/o F Hx AF, asthma, gout, obese - presenting with abdominal pain and diarrhea - denies n/v and has been tolerating a full diet. She was mildly tachycardic on arrival, however, her rate trended toward normal with IVF. OE AAO x 3 S1, 2 - borderline tachy/irreg Abdomen is diffusely tender - no guarding No CCE No defecits P: As the lactic is WNL and no findings are present on imaging, we believe her diarrhea is more likely due to viral etiology She will be DCd from the ER We have instructed her to return if she develops worsening symptoms, fever, N/V or if her condition does not improve. Documented By: Chalino Xiong Past Medical/Surgical History Medical Problems: (1) Abdominal pain Status: Acute (2) Atrial fibrillation, rapid Status: Acute (3) Diarrhea Status: Acute (4) Diffuse abdominal pain Status: Acute (5) Failure of outpatient treatment Status: Acute (6) Weakness Status: Acute Family History Cancer Gallbladder disease Heart disease Kidney disease Seizures Social History Smoking Status: Never Smoker Alcohol Use: none Drug Use: none Marital Status: Housing Status: lives with family Allergies Coded Allergies: Irbesartan (Verified Allergy, Intermediate, hives, 03/28/15) Amlodipine (Unverified Allergy, Unknown, HIVES, 09/30/17) Aspirin (Verified Allergy, Unknown, UNKNOWN, 03/28/15) Astemizole (Verified Allergy, Unknown, UNKNOWN, 09/30/17) Atorvastatin (Unverified Allergy, Unknown, , 09/30/17) Caffeine (Verified Allergy, Unknown, UNKNOWN, 03/28/15) Cefixime (Verified Allergy, Unknown, UNKNOWN, 09/30/17) Cephalexin (Verified Allergy, Unknown, UNKNOWN, 09/30/17) Cephalosporins (Unverified Allergy, Unknown, , 09/30/17) Codeine (Verified Allergy, Unknown, UNKNOWN, 09/30/17) Dexamethasone (Verified Allergy, Unknown, UNKNOWN, 09/30/17) Diphenhydramine (Verified Allergy, Unknown, UNKNOWN, 09/30/17) Erythromycin (Verified Allergy, Unknown, UNKNOWN, 09/30/17) Hydrochlorothiazide (Unverified Allergy, Unknown, , 09/30/17) Hydromorphone (Verified Allergy, Unknown, UNKNOWN, 09/30/17) Ibuprofen (Verified Allergy, Unknown, UNKNOWN, 09/30/17) Iodinated Contrast Media (Verified Allergy, Unknown, UNKNOWN, 09/30/17) Methylprednisolone (Verified Allergy, Unknown, UNKNOWN, 09/30/17) Metoprolol (Verified Allergy, Unknown, UNKNOWN, 09/30/17) Omeprazole (Unverified Allergy, Unknown, , 09/30/17) Orphenadrine (Verified Allergy, Unknown, UNKNOWN, 09/30/17) Penicillins (Verified Allergy, Unknown, UNKNOWN, 09/30/17) Pentazocine (Verified Allergy, Unknown, UNKNOWN, 04/24/18) Ramipril (Verified Allergy, Unknown, UNKNOWN, 09/30/17) Sodium Benzoate (Verified Allergy, Unknown, UNKNOWN, 09/30/17) Sucralfate (Verified Allergy, Unknown, UNKNOWN, 09/30/17) Tetracycline (Verified Allergy, Unknown, UNKNOWN, 09/30/17) Theophylline (Verified Allergy, Unknown, UNKNOWN, 09/30/17) Valacyclovir (Unverified Allergy, Unknown, , 09/30/17) Home Medications Albuterol Allopurinol Azithromycin Zyrtec Fluticasone Furosemide Metoprolol Singulair Pantoprazole Ranitidine Simvastatin Warfarin Current Inpatient Medications Current Inpatient Medications Medications (Trade) Dose Ordered Sig/Rebekah Route Start Time Stop Time Status Last Admin Dose Admin Potassium Chloride (Klor-Con M10) 40 meq NOW STAT PO 04/24/18 21:31 04/24/18 21:32 Review of Systems 10 systems reviewed and negative except as noted in the HPI Physical Exam Date Time Temp Pulse Resp B/P (MAP) Pulse Ox O2 Delivery O2 Flow Rate FiO2 04/24/18 20:45 127/62 04/24/18 20:44 111/71 04/24/18 20:42 109 04/24/18 20:41 105 129/74 04/24/18 20:40 129/74 04/24/18 18:58 106 18 146/85 93 Room Air 04/24/18 16:59 36.7 119 17 124/75 92 Room Air General Appearance: WD/WN, no apparent distress Eyes: PERRL, EOMI ENT: hearing grossly normal, pharynx normal Neck: supple, no adenopathy, no JVD, no carotid bruits, trachea midline Respiratory/Chest: lungs clear, no respiratory distress, no accessory muscle use Cardiovascular: no edema, no murmur, normal peripheral pulses, + irregularly irregular Abdomen/GI: normal bowel sounds, soft, + tenderness (mild diffuse tenderness, no rebound or guarding) Back: normal inspection, no muscle spasm Extremities/Musculoskelatal: normal inspection, no calf tenderness, no pedal edema, non-tender Neurologic/Psych: no motor/sensory deficits, alert, normal mood/affect, oriented x 3 Skin: normal color, warm/dry, no rash Laboratory Results Last 24 Hours Test 04/24/18 17:44 04/24/18 18:43 04/24/18 18:56 White Blood Count 8.04 K/uL Red Blood Count 4.99 M/uL Hemoglobin 14.6 g/dL Hematocrit 46.0 % Mean Corpuscular Volume 92.2 fL Mean Corpuscular Hemoglobin 29.3 pg Mean Corpuscular Hemoglobin Concent 31.7 g/dl Platelet Count 159 K/uL Mean Platelet Volume 10.9 fL Neutrophils (%) (Auto) 72.2 % Lymphocytes (%) (Auto) 19.2 % Monocytes (%) (Auto) 7.8 % Eosinophils (%) (Auto) 0.5 % Basophils (%) (Auto) 0.1 % Neutrophils # (Auto) 5.80 K/uL Lymphocytes # (Auto) 1.54 K/uL Monocytes # (Auto) 0.63 K/uL Eosinophils # (Auto) 0.04 K/uL Basophils # (Auto) 0.01 K/uL RDW Standard Deviation 50.2 fL RDW Coefficient of Variation 14.8 % Immature Granulocyte % (Auto) 0.2 % Immature Granulocyte # (Auto) 0.02 K/uL Sodium Level 138 mmol/L Potassium Level 3.1 mmol/L Chloride Level 100 mmol/L Carbon Dioxide Level 30 mmol/L Anion Gap 8.0 mmol/L Blood Urea Nitrogen 19 mg/dl Creatinine 1.11 mg/dl Est Creatinine Clear Calc Drug Dose 56.2 ml/min Estimated GFR () 58.7 Estimated GFR (Non- 50.6 BUN/Creatinine Ratio 16.8 Random Glucose 142 mg/dl Calcium Level 8.8 mg/dl Magnesium Level 2.1 mg/dl Total Bilirubin 0.4 mg/dl Aspartate Amino Transf (AST/SGOT) 33 U/L Alanine Aminotransferase (ALT/SGPT) 26 U/L Alkaline Phosphatase 86 U/L Troponin I < 0.015 ng/ml Pro-B-Type Natriuretic Peptide 1931 pg/ml Total Protein 8.2 gm/dl Albumin 3.4 gm/dl Globulin 4.8 gm/dl Albumin/Globulin Ratio 0.7 Lipase 192 U/L Thyroid Stimulating Hormone (TSH) 1.380 uIu/ml Free Thyroxine 0.99 ng/dl Chemistry Specimen Hemolysis Phenobarbital Level 15.4 mcg/mL Prothrombin Time 21.0 SECONDS Prothromb Time International Ratio 2.0 Activated Partial Thromboplast Time 40.4 SECONDS Partial Thromboplastin Ratio 1.6 Urine Color DK YELLOW Urine Appearance CLEAR Urine pH 5.0 Urine Specific [place] 1.026 Urine Protein 1+ Urine Glucose (UA) NEG Urine Ketones TRACE Urine Occult Blood NEG Urine Nitrite NEG Urine Bilirubin NEG Urine Urobilinogen NEG Urine Leukocyte Esterase NEG Urine WBC (Auto) 1-5 /hpf Urine RBC (Auto) 0-4 /hpf Urine Hyaline Casts (Auto) 1-5 /lpf Urine Epithelial Cells (Auto) 5-10 /lpf Urine Bacteria (Auto) NEG Assessment & Plan Patient is a 67 year old female with a PMH of Afib, asthma, gout, gerd and recent otitis media that presented to [facility] with 2 day history of diarrhea, abdominal pain and dizziness. She notes that her symptoms started on Monday after she returned from a camping trip. Since coming back from the trip she has had 3 episodes of non painful, non bloody diarrhea per day. She has had diffuse abdominal pain that is crampy in nature. She notes that she occasionally becomes dizzy when walking. She feels slightly nauseated, but has not vomited. She denies any fevers, decrease appetite, urinary symptoms, sore throat, nasal congestion, rashes, joint pain. She notes she went to see her PCP on Monday morning and was found to have an elevated HR and a left otitis media. She was therefore put on antibiotics yesterday. She does note that her symptoms of diarrhea and abdominal pain have been improving. She notes she is able to tolerate a diet, she is drinking plenty of water and she is able to ambulate without difficulty. Her is able to look after her at home. In the ED her vitals were remarkable for an elevated HR in 106 and was in afib. Her labs were significant for a potassium of 3.1 and her BNP was 1931. Her CXR showed pulmonary vascular congestion without pulmonary edema. Her CT of the abdomen/pelvis did not show any acute findings. She was given 5mg of metoprolol, 4mg of zofran and 1 Litre of IVF After evaluating the patient and talking to Dr. Xiong it was decided that the patient likely has a viral illness causing her symptoms. She notes that her symptoms have been resolving since yesterday. She is able to tolerate a diet, she is able to ambulate without difficulty and she has someone to help her at home. We will replete her potassium with 40meq of PO potassium. Her heart rates appears to be better controlled after receiving metoprolol and IV fluids. We will check a lactate to rule out an ischemic bowel. If this lab result is negative then the patient would be able to be discharged safely with PCP follow up.
[2018-04-24 23:14] VITALS: BP 128/68; PULSE 78; O2SAT 98
== END 2018-04-24 23:00 | disposition home or self-care (01) ==
LOC: C.EDB 16:58
DX: I48.91 Unspecified atrial fibrillation (principal); R53.1 Weakness; R19.7 Diarrhea, unspecified; R10.9 Unspecified abdominal pain; Z95.2 Presence of prosthetic heart valve; Z79.01 Long term (current) use of anticoagulants; Z88.0 Allergy status to penicillin; Z88.1 Allergy status to other antibiotic agents; Z88.6 Allergy status to analgesic agent; Z88.8 Allergy status to other drugs, medicaments and biological substances; Z91.048 Other nonmedicinal substance allergy status; Z91.041 Radiographic dye allergy status

== ENCOUNTER 2020-04-21 15:16 | Observation (INO) ==
[2020-04-21] MEDS ORDERED: ERTAPENEM SODIUM 10 ML IV STA (15:31)
[2020-04-21] MEDS ORDERED: METOPROLOL TARTRATE 1 MG/ML VIAL IV STA (15:31)
--- NOTE | 2020-04-21 15:42 | Emergency Department Note ---
Impression & Plan Sepsis, Atrial fibrillation with RVR, Acute UTI, Failure of outpatient treatment, Low back pain ED Provider Note NAME: GRZEGORZ BEARD AGE: 69 SEX: F : 1950 ARRIVES VIA: Ambulance INFORMANT: [Patient][ems, nurses] ED PROVIDER(S): [De Stiles MD] CHIEF COMPLAINT: Weakness, infection HISTORY OF PRESENT ILLNESS: The patient is a 69-year-old female who was brought by EMS. The patient has had 3 to 4 days of urinary burning and some urinary symptoms. She saw her doctors office yesterday and was diagnosed with a UTI. She was placed on Macrobid and Pyridium. Patient states that she has felt awful all day today, she has been in bed, she has been fatigued. The patient states that she has been weak. She was nauseated. She slid out of bed and since the slide, her low back is sore. The patient describes the pain in the area of the bladder as a moderate discomfort. It is worse with urination. Patient has not noticed a fever at home but she was told by the EMS crew that they recorded a temperature of over 100 degrees. She received some Zofran on t he way here for nausea. The patient does have a history of A. fib, she takes Coumadin and some rate controlling meds, she states she took her medications this morning as prescribed. There has been some slight shortness of breath, no increased cough. No stuffy nose or sore throat. No known coronavirus exposures. She has not had chest pain. No diarrhea. She has been quite nauseated but there has been no actual vomiting. REVIEW OF SYSTEMS: See HPI for pertinent positives and negatives. A total of ten systems were reviewed and were otherwise negative. PMHx/PSHx: See Below SOCIAL HISTORY: See Below. PHYSICAL EXAM: GENERAL: Patient is in no acute distress. HEENT: No acute trauma, normocephalic atraumatic, mucous membranes moist, no nasal congestion, no scleral icterus. NECK: No stridor, no adenopathy, no meningismus, trachea is midline. LUNGS: Clear to auscultation bilaterally when listening anterior, no wheeze, no rhonchi, breath sounds equal. HEART: Tachycardic, irregular rhythm, no murmurs. ABDOMEN: Soft, tender to palpate in the area of the bladder, bowel sounds positive, no hernias, no peritonitis. EXTREMITIES: No cyanosis or edema, full range of motion of all the joints without pain or difficulty, no signs for acute trauma. NEUROLOGIC: Oriented x 3, no acute motor or sensory deficits, no focal weakness. SKIN: No rash, no jaundice, no diaphoresis. DIFFERENTIAL DIAGNOSIS: Sepsis, UTI, pneumonia, metabolic, electrolyte abnormalities, pyelonephritis, hydronephrosis, lumbar fracture, coronavirus, uncontrolled A. fib, NM, failed o utpatient treatment, cardiac sources, intracerebral event, toxicologic, neurologic, as well as other pathologies. EMERGENCY DEPARTMENT COURSE/PROCEDURES: ECG: Indication was tachycardia. The ECG shows a rapid atrial fibrillation with a rate of 125. There is no ST elevation, no PVCs. The QTc is 430. Continuous Cardiac Monitoring: An order was placed for continuous cardiac monitoring. The monitor shows a rate of 91 with atrial fibrillation. Critical Care Note: I have personally spent greater than 54 minutes of critical care time in the direct management of this patient. This includes bedside care, interpretation of diagnostic studies, and testing, discussion with consultants, patient, and family members, and other required patient management activities. This 54 minutes is in excess of all separately billable procedures. MEDICAL DECISION MAKING: There is a mild leukocytosis, this could be consistent with infection. No anemia. INR is elevated at 5.3, consistent with her Coumadin use although, she is over anticoagulated. No significant electrolyte abnormality or kidney failure. Lactic acid level was somewhat elevated at 2.3 consistent with infection. No worrisome liver enzyme elevation. BNP was not elevated making fluid overload less likely. Procalcitonin level was normal. ECG showed a rapid A. fib, no acute ischemia. Cardiac enzyme testing x1 is not consistent with acute cardiac injury. Urinalysis does not show any obvious infection. Urine culture from yesterday has grown out E. coli. Phenobarbital level was low at 12.5. Coronavirus testing is pending. Chest film showed potential fluid overload versus changes from her body habitus. No pneumonia. Lumbar CT scan does not show any evidence for acute fracture. Abdominal and pelvis CT does not show any evidence for hydronephrosis or ureteral stone. No bowel obstruction. The patient was given IV saline, 1 L. She received IV Lopressor, 2.5 mg. She received IV ertapenem, she received albuterol via MDI. The patient presents with what appears to be sepsis from a urinary source. She was in rapid A. fib. Despite the x-ray findings of potential fluid overload, I doubt CHF as the BNP is not elevated and as the patient clinically seems dehydrated. Given her findings, given her presentation, hospitalization is warranted. She has done well with her treatment while here in the ED. I did speak to the patient and case management. The on-call hospitalist was consulted. Past Med/Surg History Medical History Arthritis Asthma Atrial fibrillation (02/04/12) Bilateral carotid artery stenosis Bladder prolapse Chronic anticoagulation Chronic constipation Chronic diastolic heart failure, NYHA class 1 Chronic obstructive pulmonary disease Coronary artery disease Depression with anxiety Diabetes Gastroparesis GERD (gastroesophageal reflux disease) History of DVT (deep vein thrombosis) History of TIA (transient ischemic attack) Hx of rheumatic fever Hyperlipidemia Hypertension Kidney stones Mitral valve disorder Obese Osteoarthritis Pulmonary nodule Restrictive lung disease secondary to obesity Seizure Tubular adenoma of colon Vitamin D deficiency Surgical History History of appendectomy History of cholecystectomy History of esophagogastroduodenoscopy (EGD) History of mitral valve replacement (11/2011) 11[place]2011 [place] [facility] [place]follows with Dr. Son History of total abdominal hysterectomy and bilateral salpingo-oophorectomy Replacement of mitral valve (02/04/12) S/P balloon mitral valvuloplasty Status post biopsy of thyroid gland benign Family History Brother Congestive heart failure Family/Other Family history of diabetes mellitus maternal aunt Family hx of colon cancer maternal aunt Mother Colorectal cancer Migraine headache Ovarian cancer Father Prostate cancer Denies family history of Breast cancer Lung cancer Social History Smoking Status: Never smoker Second Hand Exposure: Yes (father smoked); Hx Alcohol Use: Yes Alcohol type: beer Hx Substance Use: No Preferred Language: Czech Communication Ability: Effective Visual Impairment: No Limitations Hearing Ability: Normal Eligibility Supervisor Required: No Beliefs That Will Affect Care: Gnosticism Gnosticism Beliefs: Sabianism marital status: Current Living Situation: Spouse current occupational status: retired Feels Safe at Home: Yes Childhood Exposure to Second-Hand Smoke: Yes Diet Comment: liquid , caffeine: No during the past year weight has: other Dental Care, Regularly: No Physical Activity Frequency: Other Physical Activity Frequency Comment: housework Seatbelt Use: always Sunscreen Use: No Allergies Allergies Allergy/AdvReac Type Severity Reaction Status Date / Time irbesartan Allergy Intermediate hives Verified 04/20/20 11:32 amlodipine Allergy Unknown HIVES Verified 04/20/20 11:32 aspirin Allergy Unknown UNKNOWN Verified 04/20/20 11:32 astemizole Allergy Unknown UNKNOWN Verified 04/20/20 11:32 atorvastatin Allergy Unknown Verified 04/20/20 11:32 caffeine Allergy Unknown UNKNOWN Verified 04/20/20 11:32 cefixime Allergy Unknown UNKNOWN Verified 04/20/20 11:32 cephalexin Allergy Unknown UNKNOWN Verified 04/20/20 11:32 Cephalosporins Allergy Unknown Verified 04/20/20 11:32 codeine Allergy Unknown UNKNOWN Verified 04/20/20 11:32 dexamethasone Allergy Unknown UNKNOWN Verified 04/20/20 11:32 diphenhydramine Allergy Unknown UNKNOWN Verified 04/20/20 11:32 erythromycin base Allergy Unknown UNKNOWN Verified 04/20/20 11:32 hydrochlorothiazide Allergy Unknown Verified 04/20/20 11:32 hydromorphone Allergy Unknown UNKNOWN Verified 04/20/20 11:32 ibuprofen Allergy Unknown UNKNOWN Verified 04/20/20 11:32 Iodinated Contrast Media Allergy Unknown UNKNOWN Verified 04/20/20 11:32 methylprednisolone Allergy Unknown UNKNOWN Verified 04/20/20 11:32 omeprazole Allergy Unknown Verified 04/20/20 11:32 orphenadrine Allergy Unknown UNKNOWN Verified 04/20/20 11:32 Penicillins Allergy Unknown UNKNOWN Verified 04/20/20 11:32 pentazocine Allergy Unknown UNKNOWN Verified 04/20/20 11:32 ramipril Allergy Unknown UNKNOWN Verified 04/20/20 11:32 sodium benzoate Allergy Unknown UNKNOWN Verified 04/20/20 11:32 sucralfate Allergy Unknown UNKNOWN Verified 04/20/20 11:32 tetracycline Allergy Unknown UNKNOWN Verified 04/20/20 11:32 theophylline Allergy Unknown UNKNOWN Verified 04/20/20 11:32 valacyclovir Allergy Unknown Verified 04/20/20 11:32 metoprolol [From Toprol XL] Allergy Unknown Verified 08/25/20 16:53 polymyxin B Allergy Unknown Verified 04/21/20 16:53 sodium bicarbonate Allergy Unknown Verified 04/21/20 16:53 [From Zegerid] nitrofurantoin AdvReac Severe shaky, Verified 04/21/20 16:53 chills, landeros, nausea Home Meds Home Medications Medication Instructions Recorded Confirmed cetirizine [Zyrtec] 10 mg PO QAM 06/20/18 04/21/20 fluticasone propionate [Flonase 1 spray INTRANASAL BID PRN 06/20/18 04/21/20 Allergy Relief] polyethylene glycol 3350 [Miralax] 1 dose PO QPM 06/20/18 04/21/20 potassium chloride 10 meq PO QAM 06/20/18 04/21/20 allopurinol 100 mg PO DAILY 10/02/18 04/21/20 furosemide [Lasix] 40 mg PO BID 04/21/20 04/21/20 warfarin [Jantoven] 5 mg PO DAILY 04/21/20 04/21/20 Previous Rx's Medication Instructions Recorded ondansetron HCl 4 mg tablet See Rx Instructions .ROUTE 05/15/19 .COMPLEX #30 tablet cholecalciferol (vitamin D3) 50 2,000 units PO DAILY #90 cap 06/20/19 mcg (2,000 unit) capsule metformin 500 mg tablet 500 mg PO DAILY #90 tab 10/24/19 albuterol sulfate 90 mcg/actuation See Rx Instructions .ROUTE 11/25/19 breath activated powder inhaler .COMPLEX #1 ea famotidine 20 mg tablet 20 mg PO BID #180 tab 11/25/19 fluticasone furoate 100 1 inh INHALATION QAM #28 ea 11/25/19 mcg-vilanterol 25 mcg/dose inhalation powder pantoprazole 40 mg tablet,delayed 40 mg PO BID #60 tab 12/02/19 release montelukast 10 mg tablet 10 mg PO DAILY #90 tab 12/11/19 phenobarbital 32.4 mg tablet 32.4 mg PO BID #60 tab 01/13/20 metoprolol tartrate 100 mg tablet 100 mg PO BID #180 tab 03/11/20 simvastatin 40 mg tablet 40 mg PO HS #90 tab 04/01/20 nitrofurantoin 100 mg PO BID 7 Days #14 cap 04/20/20 monohydrate/macrocrystals 100 mg capsule Results & Data (ED) Vital Signs Vital Signs - 24 hr 04/21/20 15:25 04/21/20 15:27 04/21/20 15:30 Temperature Temperature Source Pulse Rate 115 H 142 H 122 H Pulse Rate from SpO2 Sensor 122 H 140 H Respiratory Rate 26 H 23 22 Respiratory Effort / Characteristics Respiratory Depth Respiratory Pattern Blood Pressure 151/90 H Blood Pressure Mean 109 Blood Pressure Position Pulse Oximetry 89 L 88 L Oxygen Delivery Method Oxygen Flow Rate Sepsis Recent Fever Within 48 Hours Sepsis New/Unexplained Change in Mental Status Sepsis Action Taken by Nursing 04/21/20 15:33 04/21/20 15:41 04/21/20 15:46 Temperature 36.9 C Temperature Source Oral Pulse Rate 133 H 130 H 110 H Pulse Rate from SpO2 Sensor 132 H 111 H Respiratory Rate 30 H 27 H 25 H Respiratory Effort / Characteristics Spontaneous Labored Short of Breath Respiratory Depth Shallow Respiratory Pattern Tachypnea Blood Pressure 150/84 H 115/62 Blood Pressure Mean 106 82 Blood Pressure Position Sitting Pulse Oximetry 93 83 L 99 Oxygen Delivery Method Room Air Room Air Nasal Cannula Oxygen Flow Rate 3 Sepsis Recent Fever Within 48 Hours Yes Sepsis New/Unexplained Change in Mental Status No Sepsis Action Taken by Nursing Physician Notified 04/21/20 15:50 04/21/20 15:54 04/21/20 15:55 Temperature Temperature Source Pulse Rate 113 H 111 H 106 H Pulse Rate from SpO2 Sensor 127 H 112 H 111 H Respiratory Rate 26 H 30 H 27 H Respiratory Effort / Characteristics Respiratory Depth Respiratory Pattern Blood Pressure 119/84 Blood Pressure Mean 89 Blood Pressure Position Pulse Oximetry 99 100 99 Oxygen Delivery Method Oxygen Flow Rate Sepsis Recent Fever Within 48 Hours Sepsis New/Unexplained Change in Mental Status Sepsis Action Taken by Nursing 04/21/20 15:57 04/21/20 16:00 04/21/20 16:01 Temperature Temperature Source Pulse Rate 97 H 107 H Pulse Rate from SpO2 Sensor 107 H 105 H Respiratory Rate 27 H 27 H Respiratory Effort / Characteristics Respiratory Depth Respiratory Pattern Blood Pressure 150/63 H Blood Pressure Mean 92 Blood Pressure Position Pulse Oximetry 99 99 99 Oxygen Delivery Method Nasal Cannula Oxygen Flow Rate 3 Sepsis Recent Fever Within 48 Hours Sepsis New/Unexplained Change in Mental Status Sepsis Action Taken by Nursing 04/21/20 16:10 04/21/20 16:15 04/21/20 16:20 Temperature Temperature Source Pulse Rate 101 H 108 H 101 H Pulse Rate from SpO2 Sensor 101 H 110 H 104 H Respiratory Rate 25 H 27 H 28 H Respiratory Effort / Characteristics Respiratory Depth Respiratory Pattern Blood Pressure 128/73 Blood Pressure Mean 119 Blood Pressure Position Pulse Oximetry 100 99 98 Oxygen Delivery Method Oxygen Flow Rate Sepsis Recent Fever Within 48 Hours Sepsis New/Unexplained Change in Mental Status Sepsis Action Taken by Nursing 04/21/20 16:30 04/21/20 16:31 04/21/20 16:40 Temperature Temperature Source Pulse Rate 106 H 94 H 108 H Pulse Rate from SpO2 Sensor 105 H 95 H 103 H Respiratory Rate 28 H 30 H 29 H Respiratory Effort / Characteristics Respiratory Depth Respiratory Pattern Blood Pressure 117/85 Blood Pressure Mean 94 Blood Pressure Position Pulse Oximetry 98 98 99 Oxygen Delivery Method Oxygen Flow Rate Sepsis Recent Fever Within 48 Hours Sepsis New/Unexplained Change in Mental Status Sepsis Action Taken by Nursing 04/21/20 16:45 04/21/20 16:46 04/21/20 16:49 Temperature Temperature Source Pulse Rate 98 H 108 H Pulse Rate from SpO2 Sensor 111 H 113 H Respiratory Rate 22 28 H Respiratory Effort / Characteristics Labored Short of Breath Respiratory Depth Shallow Respiratory Pattern Tachypnea Blood Pressure 139/66 Blood Pressure Mean 82 Blood Pressure Position Pulse Oximetry 98 99 Oxygen Delivery Method Oxygen Flow Rate Sepsis Recent Fever Within 48 Hours Sepsis New/Unexplained Change in Mental Status Sepsis Action Taken by Nursing 04/21/20 16:50 04/21/20 17:00 04/21/20 17:01 Temperature Temperature Source Pulse Rate 92 H 95 H 91 H Pulse Rate from SpO2 Sensor 94 H 93 H 91 H Respiratory Rate 23 23 25 H Respiratory Effort / Characteristics Respiratory Depth Respiratory Pattern Blood Pressure 118/63 Blood Pressure Mean 72 Blood Pressure Position Pulse Oximetry 98 98 98 Oxygen Delivery Method Oxygen Flow Rate Sepsis Recent Fever Within 48 Hours Sepsis New/Unexplained Change in Mental Status Sepsis Action Taken by Nursing 04/21/20 17:26 04/21/20 17:30 04/21/20 17:31 Temperature Temperature Source Pulse Rate 103 H 102 H 113 H Pulse Rate from SpO2 Sensor 110 H 110 H 114 H Respiratory Rate 23 23 22 Respiratory Effort / Characteristics Respiratory Depth Respiratory Pattern Blood Pressure 120/82 Blood Pressure Mean 98 Blood Pressure Position Pulse Oximetry 98 98 98 Oxygen Delivery Method Oxygen Flow Rate Sepsis Recent Fever Within 48 Hours Sepsis New/Unexplained Change in Mental Status Sepsis Action Taken by Nursing 04/21/20 17:40 04/21/20 17:45 04/21/20 17:50 Temperature Temperature Source Pulse Rate 105 H 106 H 94 H Pulse Rate from SpO2 Sensor 121 H 107 H 103 H Respiratory Rate 23 23 24 Respiratory Effort / Characteristics Respiratory Depth Respiratory Pattern Blood Pressure 127/64 Blood Pressure Mean 67 Blood Pressure Position Pulse Oximetry 98 99 98 Oxygen Delivery Method Oxygen Flow Rate Sepsis Recent Fever Within 48 Hours Sepsis New/Unexplained Change in Mental Status Sepsis Action Taken by Prison Medications Current Medication List: was personally reviewed by me Laboratory Data Attestation: I reviewed the patient's lab results. Result diagrams: 04/21/20 15:01 04/21/20 15:01 Lab Results 04/21/20 04/21/20 04/21/20 Range/Units 15:01 15:01 15:01 WBC 12.09 H (4.8-10.8) K/uL RBC 4.59 (4.2-5.4) M/uL Hgb 13.8 (12.0-16.0) g/dL Hct 43.0 (37-47) % MCV 93.7 (80-100) fL MCH 30.1 (25-34) pg MCHC 32.1 (32-36) g/dL RDW Std Deviation 47.7 H (36.4-46.3) fL RDW Coeff of Trey 13.9 (11.5-14.5) % Plt Count 195 (130-400) K/uL MPV 10.8 H (7.4-10.4) fL Immature Gran % (Auto) 0.2 % Neut % (Auto) 89.2 % Lymph % (Auto) 5.1 % Desha % (Auto) 5.1 % Eos % (Auto) 0.3 % Baso % (Auto) 0.1 % Neut # (Auto) 10.77 H (1.4-6.5) K/uL Lymph # (Auto) 0.62 L (1.2-3.4) K/uL Desha # (Auto) 0.62 H (0.11-0.59) K/uL Eos # (Auto) 0.04 (0-0.5) K/uL Baso # (Auto) 0.01 (0-0.2) K/uL Immature Gran # (Auto) 0.03 H (0.00-0.02) K/uL PT 51.0 H (9.0-12.0) Seconds INR 5.3 H (0.9-1.1) APTT 45.0 H (21.0-31.0) Seconds PTT Ratio 1.6 Sodium 137 (136-145) mmol/L Potassium 3.8 (3.5-5.1) mmol/L Chloride 102 (98-107) mmol/L Carbon Dioxide 29 (21-32) mmol/L Anion Gap 7.0 (3-11) BUN 16 (7-18) mg/dl Creatinine 0.81 (0.6-1.2) mg/dl Est Cr Clr Drug Dosing 76.8 ml/min Est GFR ( Amer) 84.7 Est GFR (Non-Af Amer) 73.1 BUN/Creatinine Ratio 19.9 (10-20) Glucose 151 H (70-99) mg/dl Lactate (0.4-2.0) mmol/L Calcium 8.7 (8.5-10.1) mg/dl Magnesium 2.1 (1.8-2.4) mg/dl Total Bilirubin 0.5 (0.2-1) mg/dl AST 29 (15-37) U/L ALT 28 (12-78) U/L Alkaline Phosphatase 85 (45-117) U/L Troponin I < 0.015 (0-0.045) ng/ml NT-Pro-B Natriuret Pep 708 (0-900) pg/ml Total Protein 8.1 (6.4-8.2) gm/dl Albumin 3.2 L (3.4-5.0) gm/dl Globulin 4.9 H (2.5-4.0) gm/dl Albumin/Globulin Ratio 0.7 L (0.9-2) Procalcitonin (0-0.5) ng/ml Urine Color Urine Appearance (Clear) Urine pH (4.5-7.5) Ur Specific [place] (1.000-1.030) Urine Protein (Negative) Urine Glucose (UA) (Negative) Urine Ketones (Negative) Urine Blood (Negative) Urine Nitrite (Negative) Urine Bilirubin (Negative) Urine Urobilinogen (Negative) Ur Leukocyte Esterase (Negative) Urine WBC (Auto) (0-5) /hpf Urine RBC (Auto) (0-4) /hpf U Hyaline Cast (Auto) (0-5) /lpf U Epithel Cells (Auto) (0-5) /lpf Urine Bacteria (Auto) (Negative) Phenobarbital (15-40) mcg/mL COVID-19 Eval Order SARS-CoV-2 RNA (RT-PCR) 04/21/20 04/21/20 04/21/20 Range/Units 15:01 15:01 15:01 WBC (4.8-10.8) K/uL RBC (4.2-5.4) M/uL Hgb (12.0-16.0) g/dL Hct (37-47) % MCV (80-100) fL MCH (25-34) pg MCHC (32-36) g/dL RDW Std Deviation (36.4-46.3) fL RDW Coeff of Trey (11.5-14.5) % Plt Count (130-400) K/uL MPV (7.4-10.4) fL Immature Gran % (Auto) % Neut % (Auto) % Lymph % (Auto) % Desha % (Auto) % Eos % (Auto) % Baso % (Auto) % Neut # (Auto) (1.4-6.5) K/uL Lymph # (Auto) (1.2-3.4) K/uL Desha # (Auto) (0.11-0.59) K/uL Eos # (Auto) (0-0.5) K/uL Baso # (Auto) (0-0.2) K/uL Immature Gran # (Auto) (0.00-0.02) K/uL PT (9.0-12.0) Seconds INR (0.9-1.1) APTT (21.0-31.0) Seconds PTT Ratio Sodium (136-145) mmol/L Potassium (3.5-5.1) mmol/L Chloride (98-107) mmol/L Carbon Dioxide (21-32) mmol/L Anion Gap (3-11) BUN (7-18) mg/dl Creatinine (0.6-1.2) mg/dl Est Cr Clr Drug Dosing ml/min Est GFR ( Amer) Est GFR (Non-Af Amer) BUN/Creatinine Ratio (10-20) Glucose (70-99) mg/dl Lactate (0.4-2.0) mmol/L Calcium (8.5-10.1) mg/dl Magnesium (1.8-2.4) mg/dl Total Bilirubin (0.2-1) mg/dl AST (15-37) U/L ALT (12-78) U/L Alkaline Phosphatase (45-117) U/L Troponin I (0-0.045) ng/ml NT-Pro-B Natriuret Pep Cancelled (0-900) pg/ml Total Protein (6.4-8.2) gm/dl Albumin (3.4-5.0) gm/dl Globulin (2.5-4.0) gm/dl Albumin/Globulin Ratio (0.9-2) Procalcitonin < 0.05 (0-0.5) ng/ml Urine Color Urine Appearance (Clear) Urine pH (4.5-7.5) Ur Specific [place] (1.000-1.030) Urine Protein (Negative) Urine Glucose (UA) (Negative) Urine Ketones (Negative) Urine Blood (Negative) Urine Nitrite (Negative) Urine Bilirubin (Negative) Urine Urobilinogen (Negative) Ur Leukocyte Esterase (Negative) Urine WBC (Auto) (0-5) /hpf Urine RBC (Auto) (0-4) /hpf U Hyaline Cast (Auto) (0-5) /lpf U Epithel Cells (Auto) (0-5) /lpf Urine Bacteria (Auto) (Negative) Phenobarbital 12.5 L (15-40) mcg/mL COVID-19 Eval Order SARS-CoV-2 RNA (RT-PCR) 04/21/20 04/21/20 04/21/20 Range/Units 16:01 16:15 16:15 WBC (4.8-10.8) K/uL RBC (4.2-5.4) M/uL Hgb (12.0-16.0) g/dL Hct (37-47) % MCV (80-100) fL MCH (25-34) pg MCHC (32-36) g/dL RDW Std Deviation (36.4-46.3) fL RDW Coeff of Trey (11.5-14.5) % Plt Count (130-400) K/uL MPV (7.4-10.4) fL Immature Gran % (Auto) % Neut % (Auto) % Lymph % (Auto) % Desha % (Auto) % Eos % (Auto) % Baso % (Auto) % Neut # (Auto) (1.4-6.5) K/uL Lymph # (Auto) (1.2-3.4) K/uL Desha # (Auto) (0.11-0.59) K/uL Eos # (Auto) (0-0.5) K/uL Baso # (Auto) (0-0.2) K/uL Immature Gran # (Auto) (0.00-0.02) K/uL PT (9.0-12.0) Seconds INR (0.9-1.1) APTT (21.0-31.0) Seconds PTT Ratio Sodium (136-145) mmol/L Potassium (3.5-5.1) mmol/L Chloride (98-107) mmol/L Carbon Dioxide (21-32) mmol/L Anion Gap (3-11) BUN (7-18) mg/dl Creatinine (0.6-1.2) mg/dl Est Cr Clr Drug Dosing ml/min Est GFR ( Amer) Est GFR (Non-Af Amer) BUN/Creatinine Ratio (10-20) Glucose (70-99) mg/dl Lactate (0.4-2.0) mmol/L Calcium (8.5-10.1) mg/dl Magnesium (1.8-2.4) mg/dl Total Bilirubin (0.2-1) mg/dl AST (15-37) U/L ALT (12-78) U/L Alkaline Phosphatase (45-117) U/L Troponin I (0-0.045) ng/ml NT-Pro-B Natriuret Pep (0-900) pg/ml Total Protein (6.4-8.2) gm/dl Albumin (3.4-5.0) gm/dl Globulin (2.5-4.0) gm/dl Albumin/Globulin Ratio (0.9-2) Procalcitonin (0-0.5) ng/ml Urine Color Dark Yellow Urine Appearance Clear (Clear) Urine pH 6.0 (4.5-7.5) Ur Specific [place] 1.021 (1.000-1.030) Urine Protein Trace H (Negative) Urine Glucose (UA) Negative (Negative) Urine Ketones Negative (Negative) Urine Blood Negative (Negative) Urine Nitrite Negative (Negative) Urine Bilirubin Negative (Negative) Urine Urobilinogen Negative (Negative) Ur Leukocyte Esterase Trace H (Negative) Urine WBC (Auto) 1-5 (0-5) /hpf Urine RBC (Auto) 0-4 (0-4) /hpf U Hyaline Cast (Auto) 1-5 (0-5) /lpf U Epithel Cells (Auto) 10-20 H (0-5) /lpf Urine Bacteria (Auto) Negative (Negative) Phenobarbital (15-40) mcg/mL COVID-19 Eval Order Covid19 Sent to[facility] SARS-CoV-2 RNA (RT-PCR) Cancelled 04/21/20 Range/Units 16:21 WBC (4.8-10.8) K/uL RBC (4.2-5.4) M/uL Hgb (12.0-16.0) g/dL Hct (37-47) % MCV (80-100) fL MCH (25-34) pg MCHC (32-36) g/dL RDW Std Deviation (36.4-46.3) fL RDW Coeff of Trey (11.5-14.5) % Plt Count (130-400) K/uL MPV (7.4-10.4) fL Immature Gran % (Auto) % Neut % (Auto) % Lymph % (Auto) % Desha % (Auto) % Eos % (Auto) % Baso % (Auto) % Neut # (Auto) (1.4-6.5) K/uL Lymph # (Auto) (1.2-3.4) K/uL Desha # (Auto) (0.11-0.59) K/uL Eos # (Auto) (0-0.5) K/uL Baso # (Auto) (0-0.2) K/uL Immature Gran # (Auto) (0.00-0.02) K/uL PT (9.0-12.0) Seconds INR (0.9-1.1) APTT (21.0-31.0) Seconds PTT Ratio Sodium (136-145) mmol/L Potassium (3.5-5.1) mmol/L Chloride (98-107) mmol/L Carbon Dioxide (21-32) mmol/L Anion Gap (3-11) BUN (7-18) mg/dl Creatinine (0.6-1.2) mg/dl Est Cr Clr Drug Dosing ml/min Est GFR ( Amer) Est GFR (Non-Af Amer) BUN/Creatinine Ratio (10-20) Glucose (70-99) mg/dl Lactate 2.3 H* (0.4-2.0) mmol/L Calcium (8.5-10.1) mg/dl Magnesium (1.8-2.4) mg/dl Total Bilirubin (0.2-1) mg/dl AST (15-37) U/L ALT (12-78) U/L Alkaline Phosphatase (45-117) U/L Troponin I (0-0.045) ng/ml NT-Pro-B Natriuret Pep (0-900) pg/ml Total Protein (6.4-8.2) gm/dl Albumin (3.4-5.0) gm/dl Globulin (2.5-4.0) gm/dl Albumin/Globulin Ratio (0.9-2) Procalcitonin (0-0.5) ng/ml Urine Color Urine Appearance (Clear) Urine pH (4.5-7.5) Ur Specific [place] (1.000-1.030) Urine Protein (Negative) Urine Glucose (UA) (Negative) Urine Ketones (Negative) Urine Blood (Negative) Urine Nitrite (Negative) Urine Bilirubin (Negative) Urine Urobilinogen (Negative) Ur Leukocyte Esterase (Negative) Urine WBC (Auto) (0-5) /hpf Urine RBC (Auto) (0-4) /hpf U Hyaline Cast (Auto) (0-5) /lpf U Epithel Cells (Auto) (0-5) /lpf Urine Bacteria (Auto) (Negative) Phenobarbital (15-40) mcg/mL COVID-19 Eval Order SARS-CoV-2 RNA (RT-PCR) Administered Medications Discontinued Medications Albuterol (Albuterol Hfa 8 Gm Inhaler) 2 puffs INH NOW ONE Stop: 04/21/20 17:00 Last Admin: 04/21/20 17:05 Dose: 2 puffs Documented by: [id number] Sodium Chloride (Nss 1000ml) 1,000 mls @ 999 mls/hr IV .Q1H1M LEE Stop: 04/21/20 16:45 Last Infusion: 04/21/20 16:48 Dose: 0 mls/hr Documented by: [id number] Admin: 04/21/20 15:46 Dose: 999 mls/hr Documented by: [id number] Ertapenem (Invanz) 10 mls @ 2 mls/min IV NOW STA Stop: 04/21/20 15:35 Last Admin: 04/21/20 16:47 Dose: 2 mls/min Documented by: [id number] Metoprolol Tartrate (Metoprolol Tartrate 1 Mg/Ml Vial) 2.5 mg IV NOW STA Stop: 04/21/20 15:32 Last Admin: 04/21/20 15:46 Dose: 2.5 mg Documented by: [id number] Imaging Data Radiologist's Impression: XR chest 1V portable CLINICAL HISTORY: SEPSIS COMPARISON STUDY: 10/02/2018 FINDINGS: The heart remains enlarged. There are postsurgical changes of a midline sternotomy and valvular replacement. There is an atrial band occluder. There is soft tissue prominence of the main pulmonary artery segment, similar to the prior study. There is diffuse elevation of interstitium consistent with congestive failure/fluid overload. There is no lobar consolidation..[ IMPRESSION: Cardiomegaly and radiographic evidence of congestive failure/fluid overload. LUMBAR SPINE CT CT DOSE: HISTORY: fall, back pain TECHNIQUE: Multiaxial CT images of the lumbar spine were performed and reformat chucky in the sagittal and coronal plane without the use of contrast. A dose lowering technique was utilized adhering to the principles of ALARA. COMPARISON: None. FINDINGS: No fracture or subluxation. Paraspinal soft tissues are unremarkable. Severe disc space narrowing with probable fusion of the L5-S1 level. The remaining disc spaces demonstrate mild disc space narrowing. The visualized sacrum appears intact. Mild central canal and mild bilateral neural foraminal narrowing at L3-L4, L4-L5. IMPRESSION: No fractures within the lumbar spine. ABDOMEN AND PELVIS CT WITHOUT CONTRAST CT DOSE: 1265.78 mGycm HISTORY: Back pain. poss hydro TECHNIQUE: Multiaxial CT images of the abdomen and pelvis were performed without contrast. A dose lowering technique was utilized adhering to the principles of ALARA. COMPARISON STUDY: Abdomen and pelvis CT 04/16/2018. FINDINGS: Interlobular thickening within the lung bases. This calcified granuloma within the left lower lobe. There are poststernotomy changes. A mitral valve prosthesis is noted. The heart is mildly enlarged. No pleural effusions. No pneumoperitoneum. No pneumatosis. No acute fractures within the visualized osseous structures. Prior cholecystectomy. The unenhanced liver, spleen, adrenal glands, pancreas, and kidneys are within normal limits. Mild bilateral perinephric edema, unchanged. This is likely chronic. No renal or ureteral stones. No hydronephrosis. The bladder is completely decompressed by Basurto catheter. The uterus is surgically absent. No retroperitoneal lymphadenopathy. Moderate calcified plaque within the normal caliber abdominal aorta. No pelvic lymphadenopathy. Suboptimal evaluation for bowel pathology due to the lack of intravenous and oral contrast. However, there is no definite bowel wall thickening or obstruction. The appendix is not identified and likely surgically absent. A few scattered colonic diverticula. No evidence for diverticulitis. IMPRESSION: 1. No bowel wall thickening or obstruction. 2. Colonic diverticulosis. No evidence for diverticulitis. 3. The bladder is completely decompressed by a Basurto catheter. 4. No hydronephrosis. 5. Cholecystectomy and hysterectomy. Blood Pressure Blood Pressure Findings: Elevated blood pressure Blood Pressure Disposition: further management by hospitalist Head Trauma GCS Score: 15 Discharge Plan Visit Data Chief Complaint: Urinary Symptoms Stated Complaint: AB & BACK PAIN, FEVER, URINARY SX ED Provider: De Stiles Discharge Problem: Sepsis, Atrial fibrillation with RVR, Acute UTI, Failure of outpatient treatment, Low back pain Patient Disposition: Admitted As Inpatient Condition: Fair Forms Stand Alone Forms: My [facility] Prescriptions Prescriptions: No Action ondansetron HCl 4 mg tablet See Rx Instructions .ROUTE .COMPLEX Qty: 30 RF: 0 cholecalciferol (vitamin D3) 2,000 unit capsule 2,000 units PO DAILY Qty: 90 RF: 0 metformin 500 mg tablet 500 mg PO DAILY Qty: 90 RF: 2 pantoprazole [Protonix] 40 mg tablet,delayed release (DR/EC) 40 mg PO BID Qty: 60 RF: 5 montelukast 10 mg tablet 10 mg PO DAILY Qty: 90 RF: 1 phenobarbital 32.4 mg tablet 32.4 mg PO BID Qty: 60 RF: 3 metoprolol tartrate 100 mg tablet 100 mg PO BID Qty: 180 RF: 1 simvastatin 40 mg tablet 40 mg PO HS Qty: 90 RF: 1 nitrofurantoin monohyd/m-cryst [Macrobid] 100 mg capsule 100 mg PO BID 7 Days Qty: 14 RF: 0 albuterol sulfate 90 mcg/actuation aerosol powdr breath activated See Rx Instructions .Route .COMPLEX Qty: 1 RF: 0 famotidine 20 mg tablet 20 mg PO BID Qty: 180 RF: 1 Breo Ellipta 100-25 mcg/dose blister with device 1 inh INHALATION QAM Qty: 28 RF: 0 cetirizine [Zyrtec] 10 mg Tablet 10 mg PO QAM RF: 0 potassium chloride 10 mEq Tablet Extended Release 10 meq PO QAM RF: 0 polyethylene glycol 3350 [Miralax] 17 gram/dose Powder 1 dose PO QPM RF: 0 fluticasone propionate [Flonase Allergy Relief] 50 mcg/actuation [place],Suspension 1 spray INTRANASAL BID PRN (Reason: Nasal Congestion) RF: 0 warfarin [Jantoven] 5 mg tablet 5 mg PO DAILY RF: 0 furosemide [Lasix] 80 mg tablet 40 mg PO BID RF: 0 allopurinol 100 mg Tablet 100 mg PO DAILY RF: 0 Referrals Referrals: Zainab Rayo DO [Primary Care Provider] - Discharge Problem: Sepsis Qualifiers: Sepsis type: sepsis due to unspecified organism Sepsis acute organ dysfunction status: without acute organ dysfunction Qualified Code(s): A41.9 - Sepsis, unspecified organism Low back pain Qualifiers: Chronicity: acute Back pain laterality: midline Sciatica presence: without sciatica Qualified Code(s): M54.5 - Low back pain
[2020-04-21] MEDS ORDERED: SODIUM CHLORIDE 0.9% 1000ML 1,000 ML IV SCH (15:45)
[2020-04-21 16:14] LABS: Basophils # (auto) 0.01 K/uL (0-0.2); Basophils % (auto) 0.1 %; Eosinophils # (auto) 0.04 K/uL (0-0.5); Eosinophils % (auto) 0.3 %; Hemoglobin 13.8 g/dL (12.0-16.0); Immature Granulocytes # (auto) 0.03 K/uL (0.00-0.02); Immature Granulocytes % (auto) 0.2 %; Lymphocytes # (auto) 0.62 K/uL (1.2-3.4); Lymphocytes % (auto) 5.1 %; Mean Corpuscular Hemoglobin 30.1 pg (25-34); Mean Corpuscular Hgb Conc 32.1 g/dL (32-36); Mean Corpuscular Volume 93.7 fL (80-100); Mean Platelet Volume 10.8 fL (7.4-10.4); Monocytes # (auto) 0.62 K/uL (0.11-0.59); Monocytes % (auto) 5.1 %; Neutrophils # (auto) 10.77 K/uL (1.4-6.5); Neutrophils % (auto) 89.2 %; Platelet Count 195 K/uL (130-400); RDW Coefficient of Variation 13.9 % (11.5-14.5); RDW Standard Deviation 47.7 fL (36.4-46.3); Red Blood Count 4.59 M/uL (4.2-5.4); White Blood Count 12.09 K/uL (4.8-10.8)
[2020-04-21 16:15] LABS: Appearance Urine Clear (Clear); Bacteria Urine Automated Negative (Negative); Bilirubin Urine Negative (Negative); Blood Urine Negative (Negative); Color Urine Dark Yellow; Glucose Urine UA Negative (Negative); Ketones Urine Negative (Negative); Leukocyte Esterase Urine Trace (Negative); Nitrite Urine Negative (Negative); Protein Urine Trace (Negative); RBC Urine Automated 0-4 /hpf (0-4); Specific Gravity Urine 1.021 (1.000-1.030); Urobilinogen Urine Negative (Negative)
[2020-04-21 16:37] LABS: Alanine Aminotransferase 28 U/L (12-78); Albumin Level 3.2 gm/dl (3.4-5.0); Aspartate Aminotransferase 29 U/L (15-37); BUN Creatinine Ratio 19.9 (10-20); Blood Urea Nitrogen 16 mg/dl (7-18); Calcium 8.7 mg/dl (8.5-10.1); Carbon Dioxide 29 mmol/L (21-32); Chloride 102 mmol/L (98-107); Creatinine Clr Calc Pharmacy 76.8 ml/min; Est GFR (African American) 84.7; Est GFR (Non-African American) 73.1; Glucose 151 mg/dl (70-99); Magnesium 2.1 mg/dl (1.8-2.4); Potassium 3.8 mmol/L (3.5-5.1); Sodium 137 mmol/L (136-145)
--- NOTE | 2020-04-21 16:37 | XRay Report ---
XR chest 1V portable CLINICAL HISTORY: SEPSIS COMPARISON STUDY: 10/02/2018 FINDINGS: The heart remains enlarged. There are postsurgical changes of a midline sternotomy and valv ular replacement. There is an atrial band occluder. There is soft tissue prominence of the main pulmo nary artery segment, similar to the prior study. There is diffuse elevation of interstitium consisten t with congestive failure/fluid overload. There is no lobar consolidation..[ IMPRESSION: Cardiomegaly and radiographic evidence of congestive failure/fluid overload. ACT 112: Negative or not required by law. Electronically signed by: Smith Kaiser M.D. 04/21/2020 4:35 PM
[2020-04-21 16:39] LABS: INR 5.3 (0.9-1.1); Partial Thromboplastin Ratio 1.6
[2020-04-21 16:41] LABS: Albumin Globulin Ratio 0.7 (0.9-2); Alkaline Phosphatase 85 U/L (45-117); Bilirubin,Total 0.5 mg/dl (0.2-1); Globulin 4.9 gm/dl (2.5-4.0); Total Protein 8.1 gm/dl (6.4-8.2); Troponin I < 0.015 ng/ml (0-0.045)
[2020-04-21] MEDS ORDERED: ALBUTEROL HFA 8 GM INHALER INH ONE (16:59)
[2020-04-21 17:02] LABS: NT Pro B Type Natriuretic Pept 708 pg/ml (0-900)
--- NOTE | 2020-04-21 17:16 | Electrocardiogram Report ---
Test Reason : Blood Pressure : / mmHG Vent. Rate : 125 BPM Atrial Rate : 147 BPM P-R Int : 000 ms QRS Dur : 076 ms QT Int : 298 ms P-R-T Axes : 000 090 055 degrees QTc Int : 430 ms Atrial fibrillation with rapid ventricular response Rightward axis Abnormal ECG When compared with ECG of 02-OCT-2018 14:01, HR has increased by 29 bpm Otherwise no significant change Confirmed by Giancarlo Tinoco ([id number]) on 04/21/2020 5:16:19 PM Referred By: Confirmed By:Giancarlo Tinoco
--- NOTE | 2020-04-21 17:20 | History & Physical Report ---
Date of Service April 21, 2020 Assessment & Plan (1) Sepsis: -Admit to PCU -Appears to be due to to UTI versus COVID-19 which is currently in process -Tachycardia, elevated lactic acid, subjective fever/chills/rigors, WBC = 12.09 (2) UTI (urinary tract infection): Admit to PCU -Patient received 1 mL NSS in the ER, no further fluids at this time with possible CHF exacerbation -Continue IV ertapenem started in the ER, had taken 2 doses of Macrobid prior to ER arrival - multiple allergies to antibiotics -Follow urine culture, growing >80,000 gram-negative bacilli -Basurto catheter inserted in the ER -LA elevated at 2.3 on arrival, recheck in process (3) Chronic obstructive pulmonary disease: -Non-smoker, secondhand exposure(father and ) -restrictive lung disease due to body habitus -Checking COVID-19 with sepsis and increased work of breathing. More likely fluid accumulation associated with cardiac standpoint but need to rule out. (4) Atrial fibrillation with RVR: -Chronic A. fib - RVR worsened with acute infection as above -INR elevated at >5, hold home Coumadin dosing with supratherapeutic level, follow am INR -Patient did not miss any morning medications, will give evening dose of metoprolol now, can use IV Lopressor as needed -holding coumadin as above (5) Chronic diastolic heart failure, NYHA class 1: -Lasix as above -CXR demonstrates mild pulmonary vascular congestion -Continue beta-blockade -Patient reports her dry weight is 228, trigger weight up to 31 pounds, she reports being up around 231 on admission -Check 2D echo (6) History of mitral valve replacement: -hx of rheumatic mitral valve disease, 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 Son as an outpatient (7) Hyperlipidemia: -Continue simvastatin 40mg HS (8) Hypertension: -Continue metoprolol, Lasix (9) Coronary artery disease: -Lipid panel in January 2020 well-controlled. No need for repeat (10) Bilateral carotid artery stenosis: - Included in record, cannot find imaging or written in the records (11) History of DVT (deep vein thrombosis): (12) Diabetes: - a1c= 6.5 in January - ISS with acuchecks achs - Hold metformin while inpt (13) Gastroparesis: - hx of such, pt c/o abdominal pain on admission- reports diarrhea x 1 day. Was placed on macrobid as outpt and took 2 doses. Most likely gastritis vs antibiotic adverse reaction from macrobid vs c. diff. - Checking CT abd/pelvis (14) Depression with anxiety: - well controlled on phenobarbital (15) DVT prophylaxis: - teds, scds, supratherapeutic INR, holding Coumadin for now CODE: DNR Dispo: From home, likely to remain in the hospital x 1-2 days History of Present Illness Primary Care Provider: Zainab Rayo DO This is a 69 yo F with PMHx of chronic CAD, afib on coumadin, HTN, HLD, bilateral carotid artery stenosis, hx of mitral valve replacement,seizure, hx of TIA, Vit D, COPD, DVT, arthritis, obesity with BMI of 38.7, and gastroparesis who presents with urinary symptoms including which started several days ago. She went to her PCPs office yesterday for a urine culture was taken, it is currently growing >80,000 gram-negative bacilli, and she was started on Macrobid. She had taken 1 dose last evening. This morning the patient woke up to take her regularly scheduled medications at 8 AM including the Macrobid, but then proceeded to feel very lousy, chills, shakes, states that she "could just not get warm" and crawl back in bed. She awoke to the phone ringing and attempted to answer it, however fell out of bed and was too weak that she was unable to get herself back up, duration of time on the ground unknown, patient states "I layed there all afternoon". She denies fever, took her temperature this morning which was 98.5, but had taken Tylenol with her morning medications. She reports that she went camping last week and was around a cousin who had come up to visit 1 day. He had been wearing a mask and reported a cough, diarrhea, weakness and fatigue and was considering going to be tested for COVID- 19. Pt is unaware if he got tested or whereabouts of the results. She admits to having diarrhea today. Denies cough, sore throat, headache loss of taste or smell. She admits to eating more junk food while camping last week, and reports her dry weight is 228 pounds however has gained ~3 pounds, she denies feeling significantly short of breath but notices increased work of breathing on exertion. At baseline she does not require supplemental O2, and currently needs 3 L to maintain sats of 97 to 98%. Another complaint is increased swelling of her abdomen today which typically occurs whenever her weight increases due to fl uid. Allergies Allergy/AdvReac Type Severity Reaction Status Date / Time irbesartan Allergy Intermediate hives Verified 04/21/20 18:48 amlodipine Allergy Unknown HIVES Verified 04/21/20 18:48 aspirin Allergy Unknown UNKNOWN Verified 04/21/20 18:48 astemizole Allergy Unknown UNKNOWN Verified 04/21/20 18:48 atorvastatin Allergy Unknown Verified 04/21/20 18:48 caffeine Allergy Unknown UNKNOWN Verified 04/21/20 18:48 cefixime Allergy Unknown UNKNOWN Verified 04/21/20 18:48 cephalexin Allergy Unknown UNKNOWN Verified 04/21/20 18:48 Cephalosporins Allergy Unknown Verified 04/21/20 18:48 codeine Allergy Unknown UNKNOWN Verified 04/21/20 18:48 dexamethasone Allergy Unknown UNKNOWN Verified 04/21/20 18:48 diphenhydramine Allergy Unknown UNKNOWN Verified 04/21/20 18:48 erythromycin base Allergy Unknown UNKNOWN Verified 04/21/20 18:48 hydrochlorothiazide Allergy Unknown Verified 04/21/20 18:48 hydromorphone Allergy Unknown UNKNOWN Verified 04/21/20 18:48 ibuprofen Allergy Unknown UNKNOWN Verified 04/21/20 18:48 Iodinated Contrast Media Allergy Unknown UNKNOWN Verified 04/21/20 18:48 methylprednisolone Allergy Unknown UNKNOWN Verified 04/21/20 18:48 omeprazole Allergy Unknown Verified 04/21/20 18:48 orphenadrine Allergy Unknown UNKNOWN Verified 04/21/20 18:48 Penicillins Allergy Unknown UNKNOWN Verified 04/21/20 18:48 pentazocine Allergy Unknown UNKNOWN Verified 04/21/20 18:48 ramipril Allergy Unknown UNKNOWN Verified 04/21/20 18:48 sodium benzoate Allergy Unknown UNKNOWN Verified 04/21/20 18:48 sucralfate Allergy Unknown UNKNOWN Verified 04/21/20 18:48 tetracycline Allergy Unknown UNKNOWN Verified 04/21/20 18:48 theophylline Allergy Unknown UNKNOWN Verified 04/21/20 18:48 valacyclovir Allergy Unknown Verified 04/21/20 18:48 metoprolol [From Toprol XL] Allergy Unknown Verified 04/21/20 18:48 polymyxin B Allergy Unknown Verified 04/21/20 18:48 sodium bicarbonate Allergy Unknown Verified 04/21/20 18:48 [From Zegerid] nitrofurantoin AdvReac Severe shaky, Verified 04/21/20 18:48 chills, landeros, nausea Home Medications Home Medications Medication Instructions Recorded Confirmed Type cetirizine [Zyrtec] 10 mg PO QAM 06/20/18 04/21/20 History fluticasone propionate [Flonase 1 spray INTRANASAL BID PRN 06/20/18 04/21/20 History Allergy Relief] polyethylene glycol 3350 [Miralax] 1 dose PO QPM 06/20/18 04/21/20 History potassium chloride 10 meq PO QAM 06/20/18 04/21/20 History allopurinol 100 mg PO DAILY 10/02/18 04/21/20 History ondansetron HCl 4 mg tablet See Rx Instructions .ROUTE 05/15/19 04/21/20 Rx .COMPLEX #30 tablet cholecalciferol (vitamin D3) 50 2,000 units PO DAILY #90 cap 06/20/19 04/21/20 Rx mcg (2,000 unit) capsule metformin 500 mg tablet 500 mg PO DAILY #90 tab 10/24/19 04/21/20 Rx albuterol sulfate 90 mcg/actuation See Rx Instructions .ROUTE 11/25/19 04/21/20 Rx breath activated powder inhaler .COMPLEX #1 ea famotidine 20 mg tablet 20 mg PO BID #180 tab 11/25/19 04/21/20 Rx fluticasone furoate 100 1 inh INHALATION QAM #28 ea 11/25/19 04/21/20 Rx mcg-vilanterol 25 mcg/dose inhalation powder pantoprazole 40 mg tablet,delayed 40 mg PO BID #60 tab 12/02/19 04/21/20 Rx release montelukast 10 mg tablet 10 mg PO DAILY #90 tab 12/11/19 04/21/20 Rx phenobarbital 32.4 mg tablet 32.4 mg PO BID #60 tab 01/13/20 04/21/20 Rx metoprolol tartrate 100 mg tablet 100 mg PO BID #180 tab 03/11/20 04/21/20 Rx simvastatin 40 mg tablet 40 mg PO HS #90 tab 04/01/20 04/21/20 Rx nitrofurantoin 100 mg PO BID 7 Days #14 cap 04/20/20 04/21/20 Rx monohydrate/macrocrystals 100 mg capsule furosemide [Lasix] 40 mg PO BID 04/21/20 04/21/20 History warfarin [Jantoven] 5 mg PO DAILY 04/21/20 04/21/20 History Past Med/Surg History Medical History Arthritis Asthma Atrial fibrillation (02/04/12) Bilateral carotid artery stenosis Bladder prolapse Chronic anticoagulation Chronic constipation Chronic diastolic heart failure, NYHA class 1 Chronic obstructive pulmonary disease Coronary artery disease Depression with anxiety Diabetes Gastroparesis GERD (gastroesophageal reflux disease) History of DVT (deep vein thrombosis) History of TIA (transient ischemic attack) Hx of rheumatic fever Hyperlipidemia Hypertension Kidney stones Mitral valve disorder Obese Osteoarthritis Pulmonary nodule Restrictive lung disease secondary to obesity Seizure Tubular adenoma of colon Vitamin D deficiency Surgical History History of appendectomy History of cholecystectomy History of esophagogastroduodenoscopy (EGD) History of mitral valve replacement (11/2011) 11/2011 @ [facility] – [place]--follows with Dr. Son History of total abdominal hysterectomy and bilateral salpingo-oophorectomy Replacement of mitral valve (02/04/12) S/P balloon mitral valvuloplasty Status post biopsy of thyroid gland benign Family History Brother Congestive heart failure Family/Other Family history of diabetes mellitus maternal aunt Family hx of colon cancer maternal aunt Mother Colorectal cancer Migraine headache Ovarian cancer Father Prostate cancer Denies family history of Breast cancer Lung cancer Social History Smoking Status: Never smoker Second Hand Exposure: Yes (father smoked); Hx Alcohol Use: Yes Alcohol type: beer Hx Substance Use: No Preferred Language: Bulgarian Communication Ability: Effective Visual Impairment: No Limitations Hearing Ability: Normal Plastic Mould Maker Required: No Beliefs That Will Affect Care: Zoroastrian Zoroastrian Beliefs: Temple marital status: Current Living Situation: Spouse current occupational status: retired Feels Safe at Home: Yes Childhood Exposure to Second-Hand Smoke: Yes Diet Comment: liquid , caffeine: No during the past year weight has: other Dental Care, Regularly: No Physical Activity Frequency: Other Physical Activity Frequency Comment: housework Seatbelt Use: always Sunscreen Use: No Review of Systems Review of Systems: Constitutional: As per HPI, afebrile, + sweats, chills and rigors Eyes: No diplopia, no worsening or blurred vision ENT: normal hearing, no trouble swallowing, no sore throat Respiratory: No cough, sputum, dyspnea at rest, + dyspnea on exertion Cardiovascular: No chest pain, tightness or palpitations Abdomen: Increased swelling, no pain, nausea, vomiting, + diarrhea, no constipation Musculoskeletal: No joint pain, calf pain, swelling Neurologic: + Generalized weakness, + fall while attempting to get out of bed today, no numbness/tingling, no LOC, typically no balance problems Psychiatric: No anxiety or depression Skin: No rash or itch Physical Exam Physical Exam: General: awake, alert, no apparent distress, morbidly obese, fatigued Head: Normocephalic, atraumatic ENT: PERRL, EOMI, no pharyngeal exudate, mucous membranes slightly dry Chest: On 3L via NC, crackles at bases bilaterally, no wheeze or Rales Cardiac: +Irregularly irregular, HR between 90s to low 100s at bedside, no murmur, unable to determine JVD due to body habitus, normal peripheral pulses, good capillary refill Abdominal: NABS x 4 quadrants, soft, + slightly distended, +tender to palpation, no rebound, guarding or tenderness : Basurto catheter in place, draining dark yellow urine Extremities: Normal inspection, no peripheral edema or erythema, calfs nontender to palpation Psych: Normal mood and affect Neuro: AAO x 3, no gross motor deficits, speech is clear, no peripheral sensory deficits Skin: no rash or erythema Results & Data Results & Data ([facility]) Vital Signs (Past 12 Hours) Vital Signs Temp Pulse Resp BP Pulse Ox 04/21/20 16:45 98 H 22 139/66 98 04/21/20 16:40 108 H 29 H 99 04/21/20 16:31 94 H 30 H 98 04/21/20 16:30 106 H 28 H 117/85 98 04/21/20 16:20 101 H 28 H 98 04/21/20 16:15 108 H 27 H 128/73 99 04/21/20 16:10 101 H 25 H 100 04/21/20 16:01 107 H 27 H 99 04/21/20 16:00 97 H 27 H 150/63 H 99 04/21/20 15:57 99 04/21/20 15:55 106 H 27 H 99 04/21/20 15:54 111 H 30 H 119/84 100 04/21/20 15:50 113 H 26 H 99 04/21/20 15:46 110 H 25 H 115/62 99 04/21/20 15:41 130 H 27 H 83 L 04/21/20 15:33 36.9 C 133 H 30 H 150/84 H 93 04/21/20 15:30 122 H 22 04/21/20 15:27 142 H 23 88 L 04/21/20 15:25 115 H 26 H 151/90 H 89 L Diagnostic Findings XR chest 1V portable CLINICAL HISTORY: SEPSIS COMPARISON STUDY: 10/02/2018 FINDINGS: The heart remains enlarged. There are postsurgical changes of a midline sternotomy and valvular replacement. There is an atrial band occluder. There is soft tissue prominence of the main pulmonary artery segment, similar to the prior study. There is diffuse elevation of interstitium consistent with congestive failure/fluid overload. There is no lobar consolidation..[ IMPRESSION: Cardiomegaly and radiographic evidence of congestive failure/fluid overload. ECG Additional Comments: 21-APR-2020 15:29:06 [facility]-EDSTAT ROUTINE RETRIEVAL Atrial fibrillation with rapid ventricular response Rightward axis Abnormal ECG When compared with ECG of 02-OCT-2018 14:01, HR has increased by 29 bpm Otherwise no significant change Confirmed by Giancarlo Tinoco ([id number]) on 04/21/2020 5:16:19 PM 25mm/s 10mm/mV 150Hz 9.0.9 12SL 241 CORA: 15 Confirmed By: Giancarlo Tinoco Vent. rate 125 BPM AK interval * ms QRS duration 76 ms QT/QTc 298/430 ms P-R-T axes * 90 55 Code Status & VTE Plan Code Status DNR-discussed with the patient at bedside Supervising Physician Co-Signing Physician Notes Patient was seen and examined independently I discussed the case with Yahaira Gomez PAC I reviewed pertinent past medical social family history and also the plan of care and agree with the plan of care. Patient is somewhat lethargic complained of diffuse abdominal pain reportedly her exposure was to an ill family member who never was tested for COVID approximately 1 week ago she kept her social distance and both parties had masks on. There is a cover test pending on presentation. Patient has an previous urine culture with 80,000 gram-negative bacteria and with multiple drug allergies she will be continued on ertapenem. There is a pending CT scan abdomen pelvis on presentation due to her diffuse nature of abdominal pain to try to evaluate for any anatomic anomaly of her urinary system which could predispose her to a more serious upper urinary tract infection. Physical exam she is awake alert appropriate her cardiac exam does contain a systolic murmur she does have a history of aortic valve replacement. Patient's lungs are clear but diminished at the bases due to likely her obese body habitus her abdomen is normal active bowel sounds soft and diffusely tender without rebound or guarding In for sepsis from urinary source present on admission with treatment with ertapenem with a pending COVID test for possible exposure to an ill family member Any exceptions will be noted below PG Care Time/CCT Total # of Minutes Spent Total Time Spent with Patient: Total time spent is greater than 50% in coordination of care (as documented) at patient's floor/unit and/or counseling patient: Coding Level of Care Code 00521 Initial Inpt Care Lvl 3 Diagnoses Sepsis A41.9 UTI (urinary tract infection) N39.0 Chronic obstructive pulmonary disease J44.9 Atrial fibrillation with RVR I48.91 Chronic diastolic heart failure, NYHA class 1 I50.32 History of mitral valve replacement Z95.2 Hyperlipidemia E78.5 Hypertension I10 Coronary artery disease I25.10 Bilateral carotid artery stenosis I65.23 History of DVT (deep vein thrombosis) Z86.718 Diabetes E11.9 Gastroparesis K31.84 Depression with anxiety F41.8 DVT prophylaxis Z29.9
--- NOTE | 2020-04-21 17:35 | CT Scan Report ---
LUMBAR SPINE CT CT DOSE: HISTORY: fall, back pain TECHNIQUE: Multiaxial CT images of the lumbar spine were performed and reformatted in the sagittal an d coronal plane without the use of contrast. A dose lowering technique was utilized adhering to the principles of ALARA. COMPARISON: None. FINDINGS: No fracture or subluxation. Paraspinal soft tissues are unremarkable. Severe disc space zoey rowing with probable fusion of the L5-S1 level. The remaining disc spaces demonstrate mild disc space narrowing. The visualized sacrum appears intact. Mild central canal and mild bilateral neural forami nal narrowing at L3-L4, L4-L5. IMPRESSION: No fractures within the lumbar spine. ACT 112: Negative or not required by law. Electronically signed by: Blane Stewart M.D. 04/21/2020 5:34 PM
--- NOTE | 2020-04-21 17:41 | CT Scan Report ---
ABDOMEN AND PELVIS CT WITHOUT CONTRAST CT DOSE: 1265.78 mGycm HISTORY: Back pain. poss hydro TECHNIQUE: Multiaxial CT images of the abdomen and pelvis were performed without contrast. A dose lo wering technique was utilized adhering to the principles of ALARA. COMPARISON STUDY: Abdomen and pelvis CT 04/16/2018. FINDINGS: Interlobular thickening within the lung bases. This calcified granuloma within the left low er lobe. There are poststernotomy changes. A mitral valve prosthesis is noted. The heart is mildly en larged. No pleural effusions. No pneumoperitoneum. No pneumatosis. No acute fractures within the visu alized osseous structures. Prior cholecystectomy. The unenhanced liver, spleen, adrenal glands, pancr eas, and kidneys are within normal limits. Mild bilateral perinephric edema, unchanged. This is likel y chronic. No renal or ureteral stones. No hydronephrosis. The bladder is completely decompressed by Basurto catheter. The uterus is surgically absent. No retroperitoneal lymphadenopathy. Moderate calcifi ed plaque within the normal caliber abdominal aorta. No pelvic lymphadenopathy. Suboptimal evaluation for bowel pathology due to the lack of intravenous and oral contrast. However, there is no definite bowel wall thickening or obstruction. The appendix is not identified and likely surgically absent. A few scattered colonic diverticula. No evidence for diverticulitis. IMPRESSION: 1. No bowel wall thickening or obstruction. 2. Colonic diverticulosis. No evidence for diverticulitis. 3. The bladder is completely decompressed by a Basurto catheter. 4. No hydronephrosis. 5. Cholecystectomy and hysterectomy. ACT 112: Negative or not required by law. Electronically signed by: Blane Stewart M.D. 04/21/2020 5:40 PM
[2020-04-21] MEDS ORDERED: FUROSEMIDE 40 MG/4 ML VIAL IV STA (18:14)
[2020-04-21] MEDS ORDERED: METOPROLOL TARTRATE 100 MG TAB PO SCH (18:15)
[2020-04-21] MEDS ORDERED: GLUCAGON FOR INJ 1 MG VIAL SQ PRN (20:52)
[2020-04-21] MEDS ORDERED: GLUCOSE 40% GEL 15 GM TUBE PO PRN (20:52)
[2020-04-21] MEDS ORDERED: DEXTROSE 50% 50 ML SYRINGE IV PRN (20:52)
[2020-04-21] MEDS ORDERED: METOPROLOL TARTRATE 1 MG/ML VIAL IV PRN (20:52)
[2020-04-21] MEDS ORDERED: GLUCOSE 10 TABS/TUBE PO PRN (20:52)
[2020-04-21] MEDS ORDERED: ONDANSETRON INJ 2 MG/ML 2 ML VIAL IV PRN (20:52)
[2020-04-21] MEDS ORDERED: FLUTICASONE PROPIONATE NA SPR 16 GM BTL PRN (20:52)
[2020-04-21] MEDS ORDERED: CARBOHYDRATES FOR HYPOGLYCEMIA PO PRN (20:52)
[2020-04-21] MEDS ORDERED: ALBUTEROL HFA 8 GM INHALER INH PRN (21:15)
[2020-04-21] MEDS: METOPROLOL TARTRATE 100 MG TAB PO SCH (21:25)
[2020-04-21] MEDS: ACETAMINOPHEN 325 MG TAB PO PRN (22:12)
[2020-04-21] MEDS: PANTOprazole 40 MG TAB PO SCH (22:13)
[2020-04-21] MEDS: FAMOTIDINE 20 MG TAB PO SCH (22:13)
[2020-04-21] MEDS: SIMVASTATIN 40 MG TAB PO SCH (22:13)
[2020-04-21] MEDS: POLYETHYLENE (MIRALAX) 17 GM PACK PO SCH (22:28)
[2020-04-21] MEDS: INSULIN ASPART 100 UNITS/ML 3 ML PEN SC SCH (22:28)
[2020-04-22 06:36] LABS: Hematocrit (blood only) 41.4 % (37-47); Hemoglobin 12.6 g/dL (12.0-16.0); Mean Corpuscular Hemoglobin 29.1 pg (25-34); Mean Corpuscular Hgb Conc 30.4 g/dL (32-36); Mean Corpuscular Volume 95.6 fL (80-100); Mean Platelet Volume 9.9 fL (7.4-10.4); Platelet Count 157 K/uL (130-400); RDW Coefficient of Variation 14.2 % (11.5-14.5); Red Blood Count 4.33 M/uL (4.2-5.4); White Blood Count 11.66 K/uL (4.8-10.8)
[2020-04-22 06:55] LABS: INR 5.1 (0.9-1.1); Prothrombin Time 49.6 Seconds (9.0-12.0)
[2020-04-22] MEDS ORDERED: PERFLUTREN LIPID MICROSPHERE (DEFINITY) IV ONE (06:59)
[2020-04-22 07:05] LABS: Alanine Aminotransferase 22 U/L (12-78); Albumin Level 2.7 gm/dl (3.4-5.0); Aspartate Aminotransferase 23 U/L (15-37); BUN Creatinine Ratio 18.8 (10-20); Blood Urea Nitrogen 17 mg/dl (7-18); Calcium 8.3 mg/dl (8.5-10.1); Carbon Dioxide 33 mmol/L (21-32); Chloride 101 mmol/L (98-107); Creatinine Clr Calc Pharmacy 66.9 ml/min; Est GFR (African American) 72.6; Est GFR (Non-African American) 62.6; Glucose 113 mg/dl (70-99); Magnesium 2.2 mg/dl (1.8-2.4); Potassium 3.8 mmol/L (3.5-5.1); Sodium 139 mmol/L (136-145)
[2020-04-22 07:11] LABS: Albumin Globulin Ratio 0.6 (0.9-2); Alkaline Phosphatase 76 U/L (45-117); Bilirubin,Total 0.5 mg/dl (0.2-1); Globulin 4.6 gm/dl (2.5-4.0); Phosphorus 3.3 mg/dl (2.5-4.9); Total Protein 7.3 gm/dl (6.4-8.2); Troponin I < 0.015 ng/ml (0-0.045)
[2020-04-22] MEDS: METOPROLOL TARTRATE 100 MG TAB PO SCH ×2 (08:31→20:12)
[2020-04-22] MEDS: FLUTICASONE/VILANTEROL 100/25MCG 14 PUFFS/INHALER INH SCH (08:31)
[2020-04-22] MEDS: POTASSIUM CHLORIDE 10 MEQ TABCR PO SCH (08:31)
[2020-04-22] MEDS: allopurinoL 100 MG TAB PO SCH (08:31)
[2020-04-22] MEDS: MONTELUKAST SODIUM 10 MG TABLET PO SCH (08:31)
[2020-04-22] MEDS: INSULIN ASPART 100 UNITS/ML 3 ML PEN SC SCH ×4 (08:31→21:27)
[2020-04-22] MEDS: FAMOTIDINE 20 MG TAB PO SCH ×2 (08:31→20:12)
[2020-04-22] MEDS: CHOLECALCIFEROL 1,000 UNITS 25 MCG TAB PO SCH (08:31)
[2020-04-22] MEDS: PANTOprazole 40 MG TAB PO SCH ×2 (08:31→20:12)
[2020-04-22] MEDS: CETIRIZINE HCL 10 MG TABLET PO SCH (08:31)
[2020-04-22] MEDS: ACETAMINOPHEN 325 MG TAB PO PRN ×2 (09:25→20:11)
--- NOTE | 2020-04-22 10:43 | XCELERA ---
[id number] \\[id number]}___[id number]
--- NOTE | 2020-04-22 13:56 | Hospitalist Progress Note ---
Date of Service April 22, 2020 Assessment & Plan (1) UTI (urinary tract infection): Urine cx from 04/20 growing Klebsiella, resistant only to Bactrim. - Continue ertapenem (2) Sepsis: SIRS positive. Tachycardia, elevated lactic acid, subjective fe clayton/chills/rigors, WBC = 12.09. - Resolving with UTI treatment. (3) Chronic obstructive pulmonary disease: Non-smoker, second-hand exposure (father and ). - Breathing presently at baseline. (4) Atrial fibrillation with RVR: Chronic A. fib - RVR worsened with acute infection as above. - Continue home metoprolol 100 mg PO BID - Holding warfarin for INR > 5. No signs/symptoms of bleeding; no reversal at this time. (5) Chronic diastolic heart failure, NYHA class 1: EF 60-65% on echo this admission. - Continue beta-campbell as above - Patient reports her dry weight is 228 lbs; she reports being up around 231 on admission. - Given one dose of Lasix 40 mg IV on 04/21. Today's weight is 228 lbs. Appears euvolemic on exam. Hold Lasix for BP of 100/60 today. (6) Hypertension: BP 100/60 at present. - Continue metoprolol (7) History of mitral valve replacement: Hx of rheumatic mitral valve disease, bioprosthetic placed November 2011. - Follows with Dr. Son as an outpatient (8) Hyperlipidemia: Lipid panel in January 2020 well-controlled. No need for repeat. - Continue simvastatin 40mg HS (9) Bilateral carotid artery stenosis: - Included in record, cannot find imaging or written in the records (10) History of DVT (deep vein thrombosis): Unclear timeframe. No imaging in the chart to date this issue. - Continue monitoring INR and restart warfarin as needed. (11) Diabetes: A1c= 6.5 in January. - Refusing sliding scale insulin - Restart metformin on discharge (12) Gastroparesis: Hx of such, pt c/o abdominal pain on admission- reports diarrhea x 1 day. Was placed on Macrobid as outpt and took 2 doses. Most likely gastritis vs antibiotic adverse reaction from macrobid vs c. diff. - CT abd/pelvis on 04/21 showed no acute issues. (13) Depression with anxiety: Well controlled on phenobarbital. - Continue (14) DVT prophylaxis: - teds, scds, supratherapeutic INR, holding Coumadin for now Admission and Anticipated Discharge Date Admission Date: April 21, 2020 Subjective Reports general fatigue and dysuria. Otherwise, no focal issues. Reports no fevers/chills, chest pain, shortness of breath, abdominal pain, nausea, or vomiting. Physical Exam Constitutional: WD/WN, vitals as above Eyes: EOM intact bilaterally; no conjunctival abnormality ENMT: external ear and nose normal, oropharynx normal Neck: trachea midline, no thyromegaly normal visual inspection Respiratory: normal respiratory effort, lungs clear to auscultation no respiratory distress Cardiovascular: RRR, no murmur, no edema Gastrointestinal (Abdomen): Inspection/Auscultation: abdomen normal to inspection; abdomen not distended Musculoskeletal: no cyanosis or clubbing, extremities motor strength 5/5 Skin: no rashes, warm and dry Neurologic: moves all extremities and awake Psychiatric: Orientation: alert, oriented to person and cooperative Results & Data Results & Data ([facility]) Vital Signs (Past 12 Hours) Vital Signs Temp Pulse Pulse Pulse Resp BP Pulse Ox 04/22/20 11:08 36.9 C 95 H 18 99/59 L 91 04/22/20 08:00 88 04/22/20 07:13 36.9 C 98 H 20 113/67 99 04/22/20 04:00 36.9 C 86 18 105/65 96 PG Care Time/CCT Total # of Minutes Spent Total Time Spent with Patient: Total time spent is greater than 50% in coordination of care (as documented) at patient's floor/unit and/or counseling patient: Coding Level of Care Code 07152 Subseq Hosp Care Lvl 3 Diagnoses UTI (urinary tract infection) N39.0 Sepsis A41.9 Chronic obstructive pulmonary disease J44.9 Atrial fibrillation with RVR I48.91 Chronic diastolic heart failure, NYHA class 1 I50.32 Hypertension I10 History of mitral valve replacement Z95.2 Hyperlipidemia E78.5 Bilateral carotid artery stenosis I65.23 History of DVT (deep vein thrombosis) Z86.718 Diabetes E11.9 Gastroparesis K31.84 Depression with anxiety F41.8 DVT prophylaxis Z29.9
[2020-04-22] MEDS ORDERED: ERTAPENEM SODIUM 1,000 MG in SODIUM CHLORIDE 0.9% 50 ML IV SCH (16:00)
[2020-04-22] MEDS: POLYETHYLENE (MIRALAX) 17 GM PACK PO SCH (20:13)
[2020-04-22] MEDS: SIMVASTATIN 40 MG TAB PO SCH (20:13)
[2020-04-23 05:04] LABS: Hematocrit (blood only) 37.9 % (37-47); Hemoglobin 11.8 g/dL (12.0-16.0); Mean Corpuscular Hemoglobin 29.3 pg (25-34); Mean Corpuscular Hgb Conc 31.1 g/dL (32-36); Mean Platelet Volume 10.4 fL (7.4-10.4); Platelet Count 157 K/uL (130-400); RDW Coefficient of Variation 14.3 % (11.5-14.5); RDW Standard Deviation 49.2 fL (36.4-46.3); Red Blood Count 4.03 M/uL (4.2-5.4); White Blood Count 8.72 K/uL (4.8-10.8)
[2020-04-23 05:30] LABS: Albumin Level 2.6 gm/dl (3.4-5.0); BUN Creatinine Ratio 27.8 (10-20); Calcium 8.3 mg/dl (8.5-10.1); Creatinine Clr Calc Pharmacy 85.5 ml/min; Est GFR (African American) 97.7; Est GFR (Non-African American) 84.3; Magnesium 2.5 mg/dl (1.8-2.4); Potassium 3.7 mmol/L (3.5-5.1)
[2020-04-23 05:32] LABS: Albumin Globulin Ratio 0.6 (0.9-2); Bilirubin,Total 0.5 mg/dl (0.2-1); Globulin 4.5 gm/dl (2.5-4.0); Total Protein 7.1 gm/dl (6.4-8.2)
[2020-04-23 05:51] LABS: INR 2.3 (0.9-1.1); Prothrombin Time 23.2 Seconds (9.0-12.0)
[2020-04-23] MEDS: FLUTICASONE/VILANTEROL 100/25MCG 14 PUFFS/INHALER INH SCH (07:47)
[2020-04-23] MEDS: POTASSIUM CHLORIDE 10 MEQ TABCR PO SCH (07:47)
[2020-04-23] MEDS: METOPROLOL TARTRATE 100 MG TAB PO SCH (07:48)
[2020-04-23] MEDS: PANTOprazole 40 MG TAB PO SCH (07:48)
[2020-04-23] MEDS: FAMOTIDINE 20 MG TAB PO SCH (07:48)
[2020-04-23] MEDS: MONTELUKAST SODIUM 10 MG TABLET PO SCH (07:48)
[2020-04-23] MEDS: allopurinoL 100 MG TAB PO SCH (07:49)
[2020-04-23] MEDS: CHOLECALCIFEROL 1,000 UNITS 25 MCG TAB PO SCH (07:49)
[2020-04-23] MEDS: CETIRIZINE HCL 10 MG TABLET PO SCH (07:49)
[2020-04-23] MEDS: INSULIN ASPART 100 UNITS/ML 3 ML PEN SC SCH ×3 (07:52→12:14)
[2020-04-23] MEDS ORDERED: CIPROFLOXACIN 500 MG TAB PO STA (09:42)
--- NOTE | 2020-04-23 15:38 | Discharge Summary ---
Date of Service April 23, 2020 Admission HPI Per Admitting Provider This is a 69 yo F with PMHx of chronic CAD, afib on coumadin, HTN, HLD, bilateral carotid artery stenosis, hx of mitral valve replacement,seizure, hx of TIA, Vit D, COPD, DVT, arthritis, obesity with BMI of 38.7, and gastroparesis who presents with urinary symptoms including which started several days ago. She went to her PCPs office yesterday for a urine culture was taken, it is currently growing >80,000 gram-negative bacilli, and she was started on Macrobid. She had taken 1 dose last evening. This morning the patient woke up to take her regularly scheduled medications at 8 AM including the Macrobid, but then proceeded to feel very lousy, chills, shakes, states that she "could just not get warm" and crawl back in bed. She awoke to the phone ringing and attempted to answer it, however fell out of bed and was too weak that she was unable to get herself back up, duration of time on the ground unknown, patient states "I layed there all afternoon". She denies fever, took her temperature this morning which was 98.5, but had taken Tylenol with her morning medications. She reports that she went camping last week and was around a cousin who had come up to visit 1 day. He had been wearing a mask and reported a cough, diarrhea, weakness and fatigue and was considering going to be tested for COVID- 19. Pt is unaware if he got tested or whereabouts of the results. She admits to having diarrhea today. Denies cough, sore throat, headache loss of taste or smell. She admits to eating more junk food while camping last week, and reports her dry weight is 228 pounds however has gained ~3 pounds, she denies feeling significantly short of breath but notices increased work of breathing on exertion. At baseline she does not require supplemental O2, and currently needs 3 L to maintain sats of 97 to 98%. Another complaint is increased swelling of her abdomen today which typically occurs whenever her weight increases due to fluid. Principal Diagnosis UTI with sepsis Discharge Exam Constitutional WD/WN, vitals as above Eyes EOM intact bilaterally; no conjunctival abnormality ENMT external ear and nose normal, oropharynx normal Neck trachea midline, no thyromegaly normal visual inspection Respiratory normal respiratory effort, lungs clear to auscultation no respiratory distress Cardiovascular RRR, no murmur, no edema Gastrointestinal (Abdomen) Inspection/Auscultation: abdomen normal to inspection; abdomen not distended Musculoskeletal no cyanosis or clubbing, extremities motor strength 5/5 Skin no rashes, warm and dry Neurologic moves all extremities and awake Psychiatric Orientation: alert, oriented to person and cooperative Discharge Data Allergies Allergy/AdvReac Type Severity Reaction Status Date / Time irbesartan Allergy Intermediate hives Verified 04/21/20 18:48 amlodipine Allergy Unknown HIVES Verified 04/21/20 18:48 aspirin Allergy Unknown UNKNOWN Verified 04/21/20 18:48 astemizole Allergy Unknown UNKNOWN Verified 04/21/20 18:48 atorvastatin Allergy Unknown Verified 04/21/20 18:48 caffeine Allergy Unknown UNKNOWN Verified 04/21/20 18:48 cefixime Allergy Unknown UNKNOWN Verified 04/21/20 18:48 cephalexin Allergy Unknown UNKNOWN Verified 04/21/20 18:48 Cephalosporins Allergy Unknown Verified 04/21/20 18:48 codeine Allergy Unknown UNKNOWN Verified 04/21/20 18:48 dexamethasone Allergy Unknown UNKNOWN Verified 04/21/20 18:48 diphenhydramine Allergy Unknown UNKNOWN Verified 04/21/20 18:48 erythromycin base Allergy Unknown UNKNOWN Verified 04/21/20 18:48 hydrochlorothiazide Allergy Unknown Verified 04/21/20 18:48 hydromorphone Allergy Unknown UNKNOWN Verified 04/21/20 18:48 ibuprofen Allergy Unknown UNKNOWN Verified 04/21/20 18:48 Iodinated Contrast Media Allergy Unknown UNKNOWN Verified 04/21/20 18:48 methylprednisolone Allergy Unknown UNKNOWN Verified 04/21/20 18:48 omeprazole Allergy Unknown Verified 04/21/20 18:48 orphenadrine Allergy Unknown UNKNOWN Verified 04/21/20 18:48 Penicillins Allergy Unknown UNKNOWN Verified 04/21/20 18:48 pentazocine Allergy Unknown UNKNOWN Verified 04/21/20 18:48 ramipril Allergy Unknown UNKNOWN Verified 04/21/20 18:48 sodium benzoate Allergy Unknown UNKNOWN Verified 04/21/20 18:48 sucralfate Allergy Unknown UNKNOWN Verified 04/21/20 18:48 tetracycline Allergy Unknown UNKNOWN Verified 04/21/20 18:48 theophylline Allergy Unknown UNKNOWN Verified 04/21/20 18:48 valacyclovir Allergy Unknown Verified 04/21/20 18:48 metoprolol [From Toprol XL] Allergy Unknown Verified 04/21/20 18:48 polymyxin B Allergy Unknown Verified 04/21/20 18:48 sodium bicarbonate Allergy Unknown Verified 04/21/20 18:48 [From Zegerid] nitrofurantoin AdvReac Severe shaky, Verified 04/21/20 18:48 chills, landeros, nausea Consultations 04/21/20 20:52 Consult Case Management - Discharge Planning Routine Ordered Studies 04/21/20 15:31 CT abd pelvis wo con Stat CT lumbar spine wo con Stat Hospital Course (1) UTI (urinary tract infection): Urine cx from 04/20 growing Klebsiella, resistant only to Bactrim. - Switched to ciprofloxacin on discharge. Did a total of a 5-day course. Per UpToDate, fluoroquinolones only need 5-7 days, and given her age, shorter course would be preferable to avoid tendon injury. She was non-septic within 24 hours of antibiotics. (2) Chronic obstructive pulmonary disease: Non-smoker, second-hand exposure (father and ). - Breathing presently at baseline. - Patient was noted to be hypoxemic at times during admission. As low as 85-86% at rest on room air, and down to 80% transiently with exercise. She felt at her baseline and denied shortness of breath. I did discuss home O2 for her. She reported that given her minimal symptoms, she was not interested in home O2 given the extra hassles it would entail. I did reassure it would be paid for by insurance given her oxygen levels, but she deferred. I reassured her she could see her PCP for home O2 testing at any time if she changed her mind. (3) Sepsis: Gram(-) sepsis, POA. SIRS positive. Tachycardia, elevated lactic acid, subjective fever/chills/rigors, WBC = 12.09. - Resolved with UTI treatment. (4) Atrial fibrillation with RVR: Chronic A. fib - RVR worsened with acute infection as above. - Continue home metoprolol 100 mg PO BID - Holding warfarin for INR > 5. No signs/symptoms of bleeding; no reversal at this time. - By 04/23, INR was down to 2.3. Encouraged to restart warfarin tomorrow. Will need INR check in the next few days to make sure she doesn't get too high while on Cipro. (5) Chronic diastolic heart failure, NYHA class 1: EF 60-65% on echo this admission. - Continue beta-campbell as above - Patient reports her dry weight is 228 lbs; she reports being up around 231 on admission. - Given one dose of Lasix 40 mg IV on 04/21. Today's weight is 228 lbs. Appears euvolemic on exam. Return to home dosing. (6) Hypertension: BP 100/60 at present. - Continue metoprolol (7) History of mitral valve replacement: Hx of rheumatic mitral valve disease, bioprosthetic placed November 2011. - Follows with Dr. Son as an outpatient (8) Hyperlipidemia: Lipid panel in January 2020 well-controlled. No need for repeat. - Continue simvastatin 40mg HS (9) Bilateral carotid artery stenosis: - Included in record, cannot find imaging or written in the records (10) History of DVT (deep vein thrombosis): Unclear timeframe. No imaging in the chart to date this issue. - Continue monitoring INR and restart warfarin tomorrow. (11) Diabetes: A1c= 6.5 in January. - Refusing sliding scale insulin - Restart metformin on discharge (12) Gastroparesis: Hx of such, pt c/o abdominal pain on admission- reports diarrhea x 1 day. Was placed on Macrobid as outpt and took 2 doses. Most likely gastritis vs antibiotic adverse reaction from macrobid vs c. diff. - CT abd/pelvis on 04/21 showed no acute issues. (13) Depression with anxiety: Well controlled on phenobarbital. - Continue (14) DVT prophylaxis: - teds, scds, supratherapeutic INR, holding Coumadin for now Total Time Total Time Spent Total Time Spent (In Minutes): 35 Discharge Plan Discharge Items Patient Disposition: Home - Home Health Services Reason For Visit: UTI, SEPSIS, AFIB WITH RVR Discharge Diagnosis: UTI Condition on Discharge: Fair Activity: Resume your previous activity Non-emergency contact: Primary Care Provider Call non-emergency contact if: your symptoms worsen Follow-up/Referrals: Zainab Rayo DO [Primary Care Provider] - 04/27/20 9:20 am Diet: Heart Healthy Addtl Attending Provider Instructions: You were admitted to the hospital with concern for infection. Luckily Covid testing came back negative. However, you do have a UTI which we feel caused you to feel poorly. We have switched your antibiotic to one that comes in pill from and also does not cause a reaction. You can STOP the other antibiotic that your PCP prescribed for you. Please take your next dose of antibiotic tonight before bedtime, then twice a day after that for 3 more days. Then you should be done. Please see Dr. Rayo in 1-2 weeks to be sure you are feeling back to normal. Finally, your INR was high when you came in. This was likely because you had not been eating well for a few days when you were sick, and this allowed your warfarin to "build up" in your system. Please skip today's dose, then return to your usual dosing tomorrow. Please have your usual provider who monitors your warfarin check it Monday or Monday. Sometimes the ciprofloxacin can affect your warfarin, so I don't want you do go too high again. Pending Studies at Discharge: No Stand-Alone Forms: My [facility], Smoking Cessation Medications and DC Order Prescriptions: New ciprofloxacin HCl 500 mg tablet 500 mg PO BID Qty: 7 RF: 0 Continued ondansetron HCl 4 mg tablet See Rx Instructions .ROUTE .COMPLEX Qty: 30 RF: 0 cholecalciferol (vitamin D3) 2,000 unit capsule 2,000 units PO DAILY Qty: 90 RF: 0 metformin 500 mg tablet 500 mg PO DAILY Qty: 90 RF: 2 pantoprazole [Protonix] 40 mg tablet,delayed release (DR/EC) 40 mg PO BID Qty: 60 RF: 5 montelukast 10 mg tablet 10 mg PO DAILY Qty: 90 RF: 1 phenobarbital 32.4 mg tablet 32.4 mg PO BID Qty: 60 RF: 3 metoprolol tartrate 100 mg tablet 100 mg PO BID Qty: 180 RF: 1 simvastatin 40 mg tablet 40 mg PO HS Qty: 90 RF: 1 albuterol sulfate 90 mcg/actuation aerosol powdr breath activated See Rx Instructions .Route .COMPLEX Qty: 1 RF: 0 famotidine 20 mg tablet 20 mg PO BID Qty: 180 RF: 1 Breo Ellipta 100-25 mcg/dose blister with device 1 inh INHALATION QAM Qty: 28 RF: 0 cetirizine [Zyrtec] 10 mg Tablet 10 mg PO QAM RF: 0 potassium chloride 10 mEq Tablet Extended Release 10 meq PO QAM RF: 0 polyethylene glycol 3350 [Miralax] 17 gram/dose Powder 1 dose PO QPM RF: 0 fluticasone propionate [Flonase Allergy Relief] 50 mcg/actuation [place],Suspension 1 spray INTRANASAL BID PRN (Reason: Nasal Congestion) RF: 0 warfarin [Jantoven] 5 mg tablet 5 mg PO DAILY RF: 0 furosemide [Lasix] 80 mg tablet 40 mg PO BID RF: 0 allopurinol 100 mg Tablet 100 mg PO DAILY RF: 0 Discontinued nitrofurantoin monohyd/m-cryst [Macrobid] 100 mg capsule 100 mg PO BID 7 Days Qty: 14 RF: 0 Discharge Orders: Discharge Order (Routine); Ordered 04/23/20 Ordered By: Heri Guo Admission Data Admit Date/Time: 04/21/20 17:27 Attending Provider: Heri Guo Admit Provider: Miguel A Morales Primary Care Provider: Zainab Rayo Other Interventions: Discharge Summary Assessment (RN) Last Done: 04/23/20 13:11 Coding Level of Care Code D/C Day Management >30 mins Diagnoses UTI (urinary tract infection) N39.0 Chronic obstructive pulmonary disease J44.9 Sepsis A41.9 Atrial fibrillation with RVR I48.91 Chronic diastolic heart failure, NYHA class 1 I50.32 Hypertension I10 History of mitral valve replacement Z95.2 Hyperlipidemia E78.5 Bilateral carotid artery stenosis I65.23 History of DVT (deep vein thrombosis) Z86.718 Diabetes E11.9 Gastroparesis K31.84 Depression with anxiety F41.8 DVT prophylaxis Z29.9
--- NOTE | 2020-04-28 12:26 | Coding Query ---
To promote full compliance with coding requirements relating to patient care, provider participation is requested in all cases of v belt inspector uncertainty. Please assist us with the question(s) below: Coding Question(s): The diagnosis below was documented in the H&P then subsequently fell off all further documentation. Please indicate if it is still a possible diagnosis or ruled out. Physician's Response(s): CHRONIC DIASTOLIC HEART FAILURE EXACERBATION ( ) Diagnosed and POA ( ) Diagnosed and not POA ( x ) Ruled out ( ) Other (please specify) MTDD
== END 2020-04-23 16:31 | disposition home health service (06) ==
LOC: ED 15:16 → SUATTDRO 17:27 → INTOOBSV 17:27 → 2S 17:27

== ENCOUNTER 2024-09-30 16:03 | Inpatient (IN) ==
--- NOTE | 2024-09-30 17:14 | XRay Report ---
INDICATION: Shortness of breath. TECHNIQUE: Frontal radiograph of the chest. COMPARISON: Radiograph from 04/21/2020. FINDINGS: Cardiomegaly. Mild pulmonary vascular congestion. Sternal wires again noted. No infiltrate, pleural effusion or pneumothorax. No acute osseous abnormality evident. IMPRESSION: Mild pulmonary vascular congestion. Electronically signed by Schuyler Pendleton 09-30-2024 5:13 PM
[2024-09-30 17:19] LABS: Basophils # (auto) 0.02 K/uL (0.00-0.20); Basophils % (auto) 0.4 %; Eosinophils # (auto) 0.09 K/uL (0.00-0.50); Eosinophils % (auto) 1.7 %; Hematocrit (blood only) 42.6 % (37.0-47.0); Hemoglobin 13.2 g/dl (12.0-16.0); Immature Granulocytes # (auto) 0.02 K/uL (0.01-0.20); Immature Granulocytes % (auto) 0.4 %; Lymphocytes # (auto) 1.44 K/uL (1.20-3.40); Lymphocytes % (auto) 26.8 %; Mean Corpuscular Hemoglobin 28.6 pg (25.0-34.0); Mean Corpuscular Volume 92.4 fL (80.0-100.0); Mean Platelet Volume 11.1 fL (9.4-12.4); Monocytes # (auto) 0.69 K/uL (0.11-0.59); Monocytes % (auto) 12.8 %; Neutrophils # (auto) 3.11 K/uL (1.40-6.50); Neutrophils % (auto) 57.9 %; Platelet Count 170 K/uL (130-400); RDW Coefficient of Variation 15.4 % (11.5-14.5); RDW Standard Deviation 52.5 fL (36.4-46.3); Red Blood Count 4.61 M/uL (4.20-5.40); White Blood Count 5.37 K/ul (4.8-10.8)
[2024-09-30 17:36] LABS: INR 2.8 (0.9-1.1); Partial Thromboplastin Ratio 1.4; Partial Thromboplastin Time 38 Seconds (21-31); Prothrombin Time 27.4 Seconds (9.0-12.0)
[2024-09-30 17:42] LABS: Anion Gap 6 (3-11); Bilirubin,Total 0.8 mg/dl (0.2-1.0); Calcium 9.9 mg/dl (8.6-10.3); Carbon Dioxide 35 mmol/L (21-32); Chloride 99 mmol/L (98-107); Potassium 3.7 mmol/L (3.5-5.1); Sodium 140 mmol/L (136-145)
[2024-09-30 17:46] LABS: Adenovirus PCR Not Detected (NotDetected); Bordetella parapertussis PCR Not Detected (NotDetected); Bordetella pertussis PCR Not Detected (NotDetected); Chlamydia pneumoniae PCR Not Detected (NotDetected); Coronavirus 229E PCR Not Detected (NotDetected); Coronavirus CoV-2 (COVID19)PCR Not Detected (NotDetected); Coronavirus HKU1 PCR Not Detected (NotDetected); Coronavirus NL63 PCR Not Detected (NotDetected); Coronavirus OC43PCR Not Detected (NotDetected); Human Metapneumovirus PCR Not Detected (NotDetected); Influenza A PCR Not Detected (NotDetected); Influenza B PCR Not Detected (NotDetected); Mycoplasma pneumoniae PCR Not Detected (NotDetected); Parainfluenza Virus 1 PCR Not Detected (NotDetected); Parainfluenza Virus 2 PCR Not Detected (NotDetected); Parainfluenza Virus 3 PCR Not Detected (NotDetected); Parainfluenza Virus 4 PCR Not Detected (NotDetected); Respiratory Syncytial VirusPCR Not Detected (NotDetected); Rhinovirus/Enterovirus PCR Not Detected (NotDetected)
[2024-09-30 17:48] LABS: Alanine Aminotransferase 13 U/L (7-52); Alkaline Phosphatase 82 U/L (34-104); Aspartate Aminotransferase 26 U/L (13-39); BUN Creatinine Ratio 31.9 (10-20); Blood Urea Nitrogen 23 mg/dl (6-23); Globulin 4.2 gm/dl (2.5-4.0); Glucose 96 mg/dl (70-99(Fasting)); Total Protein 8.2 gm/dl (6.0-8.3)
[2024-09-30 17:52] LABS: Troponin I High Sensitivity 12.9 pg/ml (0-14)
[2024-09-30 20:00] LABS: Troponin I High Sensitivity 11.5 pg/ml (0-14)
[2024-09-30] MEDS: ACETAMINOPHEN 500 MG TAB PO STA (21:04)
--- NOTE | 2024-09-30 21:13 | Emergency Department Note ---
Impression & Plan Pulmonary vascular congestion, Atrial fibrillation, Chronic anticoagulation, Abdominal ascites ED Provider Note CHIEF COMPLAINT: Shortness of breath, chest pressure HISTORY OF PRESENT ILLNESS: This 74-year-old female patient with past medical history of COPD, sleep apnea, aortic stenosis, DVT, atrial fibrillation, asthma, carotid artery stenosis bilaterally, CAD, heart failure, gastroparesis presents to the emergency department with complaints of epigastric pain and chest pain since "Thanksgi." Patient states she has been tolerating the symptoms however over the last 24 hours things seem to have progressed. She came to the emergency department today because she promised her sister she would do so. She denies any recent fevers, chills, abdominal pain, vomiting or diarrhea. She does believe the symptoms in the epigastric region are worse after eating. She has been taking her medications as prescribed. REVIEW OF SYSTEMS: A review of systems was performed with positives and pertinent negatives listed in the history of present illness. 10 systems were reviewed and are otherwise negative. ALLERGIES: see below MEDICATIONS: see below PMH: see below SOCIAL HISTORY: see below DDx: Congestive heart failure, pneumonia, cardiac arrhythmia, electrolyte abnormality among others. PHYSICAL EXAM: Vital signs reviewed. General: Chronically ill-appearing 74-year-old female, in no significant distress. HEENT: No scleral icterus, PERRLA, neck supple. Moist mucous membranes Cardiovascular: Irregular but rate controlled, no extra sounds. Nasal cannula oxygen in place. Pulmonary: Clear to auscultation bilaterally, normal work of breathing. Abdomen: Soft, obese, nontender, nondistended, positive bowel sounds. Musculoskeletal: Atraumatic, no peripheral edema. Neurologic: Patient awake alert and oriented x 3, speech is clear Skin: Warm, dry, no rash EMERGENCY DEPARTMENT COURSE/MDM: This patient was evaluated and appeared to be in no significant distress. IV access was obtained and laboratory work was drawn. The patient was placed on the cafeteria monitor noted to be in atrial fibrillation with slight RVR. Patient's laboratory work reveals a negative troponin. INR is 2.8. Chest x-ray reveals some mild congestive changes. EKG reveals atrial fibrillation with RVR at 112. There is no evidence of acute ischemia. Patient's troponin is negative. The patient did receive 1 g of oral acetaminophen for headache. She was given 60 mg of IV Lasix. CT imaging of the abdomen pelvis was performed and reveals evidence of chronic liver disease, ascites and mild anasarca. Given the patient is atrial fibrillation with RVR, pulmonary vascular congestion, fluid overload, aortic stenosis and pulmonary hypertension, I feel is in her best interest to be evaluated by the hospitalist service for admission and further management. Patient and family are aware of plan and agreed. MONITORING: An order for cardiac monitoring was placed and the patient is noted to be in a atrial fibrillation at 91 beats per minute. RADIOLOGY: Chest x-ray to my interpretation reveals mild pulmonary vascular congestion, poststernotomy changes. CT of the abdomen pelvis: IMPRESSION: 1. No evidence of acute pancreatitis at present. 2. Mild free fluid in perihepatic, perisplenic regions and pelvis with mesenteric haziness and mild generalized anasarca. New interval finding 3. Chronic liver parenchymal disease, also seen in prior CT study. Recommended correlation with liver function tests. 4. Sections of the lower thorax show mild bilateral pleural effusion, predominant on right side. Moderate cardiomegaly with left atrial dilatation. New interval findings EKG: To my interpretation reveals atrial fibrillation at [address] segments. QTc of 464. PVC versus a barely conducted complexes. DISPOSITION: Admission Past Med/Surg History Problem List (Updated 10/05/24 @ 15:46 by Nieves Carson MD) Abdominal ascites (Acute) Pulmonary vascular congestion (Acute) Cor pulmonale, chronic Chronic obstructive pulmonary disease with hypoxia Mild aortic stenosis S/P mitral valve replacement with bioprosthetic valve (2011) Permanent atrial fibrillation (HFpEF) heart failure with preserved ejection fraction Moderate pulmonary hypertension Acute on chronic diastolic (congestive) heart failure Shortness of breath Lichen sclerosus Atrophic vaginitis Joana Omalley syndrome (geniculate herpes zoster) VALERIA (obstructive sleep apnea) Mild persistent asthma Urinary incontinence Aortic stenosis Thyroid Nodule Daytime hypersomnia Osteoarthritis History of DVT (deep vein thrombosis) Chronic obstructive pulmonary disease History of mitral valve replacement (11/2011) 11/2011 @ [facility] [place]follows with Dr. Son Hiatal hernia GERD (gastroesophageal reflux disease) Diabetes Hx of rheumatic fever Hypertension Hyperlipidemia Seizure Obese History of TIA (transient ischemic attack) Vitamin D deficiency Restrictive lung disease secondary to obesity Pulmonary nodule Mitral valve disorder Gastroparesis Depression with anxiety Coronary artery disease Chronic diastolic heart failure, NYHA class 1 Chronic constipation Bladder prolapse Bilateral carotid artery stenosis Asthma Chronic anticoagulation (Acute) Atrial fibrillation (02/04/12) Medical History Dyspnea on exertion Vaccination hesitancy by patient Respiratory failure Tubular adenoma of colon Kidney stones Surgical History S/P balloon mitral valvuloplasty History of total abdominal hysterectomy and bilateral salpingo-oophorectomy History of appendectomy History of cholecystectomy History of esophagogastroduodenoscopy (EGD) Status post biopsy of thyroid gland benign Family History Brother Congestive heart failure Family/Other Family history of diabetes mellitus maternal aunt Family hx of colon cancer maternal aunt Mother Colorectal cancer Migraine headache Ovarian cancer Father Prostate cancer Denies family history of Breast cancer Lung cancer Social History Smoking Status: Never smoker Second Hand Exposure: Yes (father smoked); Do You Dip or Chew Tobacco: No; Hx Alcohol Use: Yes Alcohol type: wine Hx Substance Use: No Preferred Language: Azeri Communication Ability: Effective Visual Impairment: No Limitations Hearing Ability: Normal Archivist Economic History Required: No Beliefs That Will Affect Care: None marital status: Current Living Situation: Spouse current occupational status: retired How many Children do You have: 4 Feels Safe at Home: Yes Childhood Exposure to Second-Hand Smoke: Yes Diet: regular Diet Comment: regular caffeine: No during the past year weight has: remained stable Dental Care, Regularly: No Physical Activity Frequency: Other Physical Activity Frequency Comment: housework Seatbelt Use: always Sunscreen Use: No Assistive Devices: Glasses and Oxygen - Continuous Allergies Allergies Allergy/AdvReac Type Severity Reaction Status Date / Time irbesartan Allergy Intermediate hives Verified 09/24/24 11:02 prednisone Allergy Intermediate Hives Verified 09/24/24 11:02 amlodipine Allergy Unknown HIVES Verified 09/24/24 11:02 aspirin Allergy Unknown UNKNOWN Verified 09/24/24 11:02 astemizole Allergy Unknown UNKNOWN Verified 09/24/24 11:02 atorvastatin Allergy Unknown Verified 09/24/24 11:02 caffeine Allergy Unknown UNKNOWN Verified 09/24/24 11:02 cefixime Allergy Unknown UNKNOWN Verified 09/24/24 11:02 cephalexin Allergy Unknown UNKNOWN Verified 09/24/24 11:02 Cephalosporins Allergy Unknown Verified 09/24/24 11:02 codeine Allergy Unknown UNKNOWN Verified 09/24/24 11:02 dexamethasone Allergy Unknown UNKNOWN Verified 09/24/24 11:02 diphenhydramine Allergy Unknown UNKNOWN Verified 09/24/24 11:02 erythromycin base Allergy Unknown UNKNOWN Verified 09/24/24 11:02 hydrochlorothiazide Allergy Unknown Verified 09/24/24 11:02 hydromorphone Allergy Unknown UNKNOWN Verified 09/24/24 11:02 ibuprofen Allergy Unknown UNKNOWN Verified 09/24/24 11:02 Iodinated Contrast Media Allergy Unknown UNKNOWN Verified 09/24/24 11:02 methylprednisolone Allergy Unknown UNKNOWN Verified 09/24/24 11:02 omeprazole Allergy Unknown Verified 09/24/24 11:02 orphenadrine Allergy Unknown UNKNOWN Verified 09/24/24 11:02 Penicillins Allergy Unknown UNKNOWN Verified 09/24/24 11:02 pentazocine Allergy Unknown UNKNOWN Verified 09/24/24 11:02 ramipril Allergy Unknown UNKNOWN Verified 09/24/24 11:02 sodium benzoate Allergy Unknown UNKNOWN Verified 09/24/24 11:02 sucralfate Allergy Unknown UNKNOWN Verified 09/24/24 11:02 tetracycline Allergy Unknown UNKNOWN Verified 09/24/24 11:02 theophylline Allergy Unknown UNKNOWN Verified 09/24/24 11:02 valacyclovir Allergy Unknown Verified 09/24/24 11:02 metoprolol [From Toprol XL] Allergy Unknown Verified 09/24/24 11:02 polymyxin B Allergy Unknown Verified 09/24/24 11:02 sodium bicarbonate Allergy Unknown Verified 09/24/24 11:02 [From Zegerid] nitrofurantoin AdvReac Severe shaky, Verified 09/24/24 11:02 chills, landeros, nausea Home Meds Home Medications Medication Instructions Recorded Confirmed polyethylene glycol 3350 17 1 dose PO QPM 06/20/18 09/30/24 gram/dose oral powder (Miralax) potassium chloride 10 mEq 10 meq PO QAM 06/20/18 09/30/24 tablet,extended release allopurinol 100 mg tablet 100 mg PO DAILY 10/02/18 09/30/24 ondansetron HCl 4 mg tablet See Rx Instructions .Route 08/30/21 09/30/24 .COMPLEX PRN Nausea clindamycin phosphate 1 % topical 1 applic topical DAILY PRN Back 01/03/23 09/30/24 gel Pain cholecalciferol (vitamin D3) 125 125 mcg PO DAILY 05/05/23 09/30/24 mcg (5,000 unit) capsule cetirizine 10 mg tablet (Zyrtec) 10 mg PO BID 08/14/23 09/30/24 Oil of Oregano 1,500 mg PO DAILY 09/07/23 09/30/24 ascorbate calcium (vitamin C) 500 500 mg PO DAILY 09/07/23 09/30/24 mg tablet milk thistle mg PO DAILY 09/07/23 09/24/24 clobetasol 0.05 % topical cream 1 applic topical DAILY 04/01/24 09/24/24 conjugated estrogens 0.625 mg/gram 0.625 mg vaginal .2 times per week 04/01/24 09/24/24 vaginal cream (Premarin) clobetasol 0.05 % topical ointment 1 applic topical BID 04/12/24 09/24/24 estradiol 0.01% (0.1 mg/gram) 1 appful vaginal .2 times per week 04/12/24 09/24/24 vaginal cream budesonide 160 mcg-glycopyr 9 2 inh inhalation BID 09/30/24 09/30/24 mcg-formot 4.8 mcg/actuation HFA inhaler Previous Rx's Medication Instructions Recorded Oxygen Home #1 ea 04/27/20 spironolactone 25 mg tablet 25 mg PO DAILY #30 tabs 09/07/20 CPAP Machine #1 ea 02/11/21 CPAP Supplies #1 ea 07/14/21 fluticasone propionate 50 1 spray intranasal BID PRN Nasal 04/21/22 mcg/actuation nasal Congestion #15.8 mL spray,suspension (Flonase Allergy Relief) cyclobenzaprine 5 mg tablet 5 mg PO TID PRN muscle spasm #10 10/24/22 tabs nystatin 100,000 unit/gram topical 1 applic topical DAILY #30 grams 12/19/22 cream betamethasone dipropionate 0.05 % 1 applic topical BID PRN skin 01/10/23 topical cream irritation #45 grams omega 2-dqc-ygg-fish oil 60 mg-90 1 cap PO DAILY #30 caps 01/12/23 mg-500 mg capsule (Fish Oil) levalbuterol tartrate 45 1 inh inhalation Q6H #15 grams 03/13/23 mcg/actuation aerosol inhaler warfarin 4 mg tablet 4 mg PO .COMPLEX #90 tabs 05/17/23 warfarin 1 mg tablet 1 mg PO DAILY #90 tabs 07/05/23 hydroxyzine pamoate 25 mg capsule 25 mg PO Q8H PRN itching #30 caps 08/14/23 (Vistaril) triamcinolone acetonide 0.1 % 1 applic topical BID #30 grams 08/14/23 topical cream famotidine 20 mg tablet 20 mg PO BID #180 tabs 10/06/23 pantoprazole 40 mg tablet,delayed 40 mg PO DAILY #90 tabs 12/25/23 release (Protonix) furosemide 80 mg tablet (Lasix) See Rx Instructions .Route 01/05/24 .COMPLEX #90 tabs simvastatin 40 mg tablet 40 mg PO HS #90 tabs 03/22/24 phenobarbital 32.4 mg tablet 32.4 mg PO BID #180 tabs 04/02/24 metformin 500 mg tablet 500 mg PO DAILY #100 tabs 05/13/24 montelukast 10 mg tablet 10 mg PO DAILY #90 tabs 05/13/24 fluticasone 100 mcg-salmeterol 50 1 inh inhalation BID #60 ea 08/13/24 mcg/dose blistr powdr for inhalation warfarin 5 mg tablet (Jantoven) 5 mg PO DAILY #90 tabs 08/13/24 metoprolol tartrate 100 mg tablet 100 mg PO BID #180 tabs 09/02/24 ipratropium 0.5 mg-albuterol 3 mg 3 ml inhalation Q6H PRN wheezing 09/24/24 (2.5 mg base)/3 mL nebulization #180 mL soln nebulizer accessories #1 ea 09/24/24 Results & Data (ED) Vital Signs Vital Signs - 24 hr 09/30/24 16:15 09/30/24 16:23 09/30/24 18:24 Temperature 36.9 C Temperature Source Temporal Artery Scan Pulse Rate 77 Pulse Rate [Apical] 93 H Pulse Rhythm [Apical] Irregular Respiratory Rate 24 20 Respiratory Effort / Characteristics Non-Labored Respiratory Depth Normal Respiratory Pattern Blood Pressure 118/60 Blood Pressure [Left Arm] 138/51 L Blood Pressure Mean 79 Blood Pressure Mean [Left Arm] 80 Pulse Oximetry 88 L 88 L 93 Oxygen Delivery Method Room Air Room Air Nasal Cannula Oxygen Flow Rate 0 2 Sepsis Recent Fever Within 48 Hours No Sepsis New/Unexplained Change in Mental Status No Sepsis Action Taken by Nursing No Action Required Oxygen Flow Rate - Titration 2 Pulse Oximetry Post Tiitration 94 09/30/24 18:24 09/30/24 18:24 09/30/24 18:26 Temperature Temperature Source Pulse Rate 105 H Pulse Rate [Apical] Pulse Rhythm [Apical] Respiratory Rate Respiratory Effort / Characteristics Respiratory Depth Respiratory Pattern Blood Pressure Blood Pressure [Left Arm] Blood Pressure Mean Blood Pressure Mean [Left Arm] Pulse Oximetry 95 95 Oxygen Delivery Method Nasal Cannula Nasal Cannula Oxygen Flow Rate 2 2 Sepsis Recent Fever Within 48 Hours Sepsis New/Unexplained Change in Mental Status Sepsis Action Taken by Nursing Oxygen Flow Rate - Titration Pulse Oximetry Post Tiitration 09/30/24 20:00 09/30/24 22:00 09/30/24 22:22 Temperature Temperature Source Pulse Rate 90 Pulse Rate [Apical] 91 H 99 H Pulse Rhythm [Apical] Irregular Respiratory Rate 18 26 H Respiratory Effort / Characteristics Non-Labored Spontaneous Spontaneous Labored Respiratory Depth Normal Normal Respiratory Pattern Regular Blood Pressure Blood Pressure [Left Arm] 147/69 H 128/66 Blood Pressure Mean Blood Pressure Mean [Left Arm] 95 86 Pulse Oximetry 94 94 Oxygen Delivery Method Room Air Nasal Cannula Oxygen Flow Rate 2 Sepsis Recent Fever Within 48 Hours Sepsis New/Unexplained Change in Mental Status Sepsis Action Taken by Nursing Oxygen Flow Rate - Titration Pulse Oximetry Post Tiitration Home Medications Current Medication List: was personally reviewed by me Laboratory Data Attestation: I reviewed the patient's lab results. 10/03/24 09:13 10/04/24 05:44 Lab Results 09/30/24 09/30/24 Range/Units 16:40 19:19 WBC 5.37 (4.8-10.8) K/ul RBC 4.61 (4.20-5.40) M/uL Hgb 13.2 (12.0-16.0) g/dl Hct 42.6 (37.0-47.0) % MCV 92.4 (80.0-100.0) fL MCH 28.6 (25.0-34.0) pg MCHC 31.0 L (32.0-36.0) g/dL RDW Std Deviation 52.5 H (36.4-46.3) fL RDW Coeff of Trey 15.4 H (11.5-14.5) % Plt Count 170 (130-400) K/uL MPV 11.1 (9.4-12.4) fL Immature Gran % (Auto) 0.4 % Neut % (Auto) 57.9 % Lymph % (Auto) 26.8 % [place] % (Auto) 12.8 % Eos % (Auto) 1.7 % Baso % (Auto) 0.4 % Neut # (Auto) 3.11 (1.40-6.50) K/uL Lymph # (Auto) 1.44 (1.20-3.40) K/uL [place] # (Auto) 0.69 H (0.11-0.59) K/uL Eos # (Auto) 0.09 (0.00-0.50) K/uL Baso # (Auto) 0.02 (0.00-0.20) K/uL Immature Gran # (Auto) 0.02 (0.01-0.20) K/uL PT 27.4 H (9.0-12.0) Seconds INR 2.8 H (0.9-1.1) APTT 38 H (21-31) Seconds PTT Ratio 1.4 Sodium 140 (136-145) mmol/L Potassium 3.7 (3.5-5.1) mmol/L Chloride 99 (98-107) mmol/L Carbon Dioxide 35 H (21-32) mmol/L Anion Gap 6 (3-11) BUN 23 (6-23) mg/dl Creatinine 0.72 (0.6-1.2) mg/dl Est Cr Clr Drug Dosing Not Reportable eGFR 86.60 BUN/Creatinine Ratio 31.9 H (10-20) Glucose 96 (70-99(Fasting)) mg/dl Calcium 9.9 (8.6-10.3) mg/dl Phosphorus 4.1 (2.5-4.9) mg/dl Magnesium 2.0 (1.7-2.4) mg/dl Total Bilirubin 0.8 (0.2-1.0) mg/dl AST 26 (13-39) U/L ALT 13 (7-52) U/L Alkaline Phosphatase 82 (34-104) U/L Troponin I High Sens 12.9 11.5 (0-14) pg/ml B-Natriuretic Peptide 468 H (0-100) pg/ml Total Protein 8.2 (6.0-8.3) gm/dl Albumin 4.0 (3.4-5.0) gm/dl Globulin 4.2 H (2.5-4.0) gm/dl Albumin/Globulin Ratio 1.0 (0.9-2) Adenovirus (PCR) Not Detected (NotDetected) B. pertussis DNA (PCR) Not Detected (NotDetected) B.parapertussis DNA PCR Not Detected (NotDetected) C. pneumoniae DNA (PCR) Not Detected (NotDetected) Coronavirus OC43 (PCR) Not Detected (NotDetected) Coronavirus HKU1 (PCR) Not Detected (NotDetected) Coronavirus 229E (PCR) Not Detected (NotDetected) SARS-CoV-2 (PCR) Not Detected (NotDetected) Coronavirus NL63 (PCR) Not Detected (NotDetected) Human Metapneumovir PCR Not Detected (NotDetected) Influenza Type A (PCR) Not Detected (NotDetected) Influenza Type B (PCR) Not Detected (NotDetected) M. pneumoniae (PCR) Not Detected (NotDetected) Parainfluenza 1 (PCR) Not Detected (NotDetected) Parainfluenza 2 (PCR) Not Detected (NotDetected) Parainfluenza 3 (PCR) Not Detected (NotDetected) Parainfluenza 4 (PCR) Not Detected (NotDetected) RSV (PCR) Not Detected (NotDetected) Entero/Rhino (PCR) Not Detected (NotDetected) Administered Medications Acetaminophen (Acetaminophen 325 Mg Tab) 650 mg PO Q4H PRN PRN Reason: Pain or Fever Stop: 10/31/24 01:16 Last Admin: 10/04/24 14:38 Dose: 650 mg Documented By: Admin: 10/03/24 20:09 Dose: 650 mg Documented By: Admin: 10/03/24 12:35 Dose: 650 mg Documented By: Admin: 10/03/24 03:01 Dose: 650 mg Documented By: Admin: 10/01/24 23:47 Dose: 650 mg Documented By: Admin: 10/01/24 07:44 Dose: 650 mg Documented By: KAILA Allopurinol (Allopurinol 100 Mg Tab) 100 mg PO DAILY LEE Stop: 10/31/24 08:59 Last Admin: 10/05/24 08:45 Dose: 100 mg Documented By: Admin: 10/04/24 07:28 Dose: 100 mg Documented By: Admin: 10/03/24 08:21 Dose: 100 mg Documented By: Admin: 10/02/24 08:41 Dose: 100 mg Documented By: Admin: 10/01/24 09:15 Dose: 100 mg Documented By: KAILA Cetirizine HCl (Cetirizine Hcl 10 Mg Tablet) 10 mg PO BID LEE Stop: 10/31/24 08:59 Last Admin: 10/05/24 08:45 Dose: 10 mg Documented By: Admin: 10/04/24 21:35 Dose: 10 mg Documented By: Admin: 10/04/24 07:28 Dose: 10 mg Documented By: Admin: 10/03/24 20:08 Dose: 10 mg Documented By: Admin: 10/03/24 08:21 Dose: 10 mg Documented By: Admin: 10/02/24 20:37 Dose: 10 mg Documented By: Admin: 10/02/24 08:41 Dose: 10 mg Documented By: Admin: 10/01/24 21:23 Dose: 10 mg Documented By: Admin: 10/01/24 09:15 Dose: 10 mg Documented By: KAILA Famotidine (Famotidine 20 Mg Tab) 20 mg PO BID LEE Stop: 10/31/24 08:59 Last Admin: 10/05/24 08:47 Dose: 20 mg Documented By: Admin: 10/04/24 21:34 Dose: 20 mg Documented By: Admin: 10/04/24 07:28 Dose: 20 mg Documented By: Admin: 10/03/24 20:05 Dose: 20 mg Documented By: Admin: 10/03/24 08:21 Dose: 20 mg Documented By: Admin: 10/02/24 20:37 Dose: 20 mg Documented By: Admin: 10/02/24 08:41 Dose: 20 mg Documented By: Admin: 10/01/24 21:23 Dose: 20 mg Documented By: Admin: 10/01/24 09:15 Dose: 20 mg Documented By: RRR Fluticasone Furoate (For Jaeli~Fluticasone Furoate 200mcg 14 Puffs/Inhaler) 1 puffs INH DAILY [facility] Stop: 10/31/24 08:59 Last Admin: 10/05/24 08:45 Dose: 1 puffs Documented By: Admin: 10/04/24 07:28 Dose: 1 puffs Documented By: Admin: 10/03/24 08:21 Dose: 1 puffs Documented By: Admin: 10/02/24 08:42 Dose: 1 puffs Documented By: Admin: 10/01/24 09:15 Dose: 1 puffs Documented By: RRR Furosemide (Furosemide 40 Mg/4 Ml Vial) 80 mg IV BID17 [facility] Stop: 10/31/24 16:59 Last Admin: 10/01/24 17:28 Dose: 80 mg Documented By: RRR Insulin Aspart (Insulin Aspart Per Unit Charge) 0 units SC ACHS LEE Stop: 10/31/24 07:29 Last Admin: 10/05/24 12:59 Dose: Not Given Documented By: Jamila Admin: 10/05/24 08:49 Dose: Not Given Documented By: Jamila Admin: 10/04/24 21:35 Dose: Not Given Documented By: Admin: 10/04/24 17:30 Dose: Not Given Documented By: Admin: 10/04/24 12:41 Dose: Not Given Documented By: Admin: 10/04/24 08:43 Dose: Not Given Documented By: Admin: 10/03/24 20:05 Dose: Not Given Documented By: Admin: 10/03/24 17:49 Dose: Not Given Documented By: Admin: 10/03/24 12:56 Dose: Not Given Documented By: Admin: 10/03/24 08:45 Dose: Not Given Documented By: Admin: 10/02/24 20:37 Dose: Not Given Documented By: Admin: 10/02/24 17:13 Dose: Not Given Documented By: Admin: 10/02/24 12:30 Dose: Not Given Documented By: Admin: 10/02/24 08:31 Dose: Not Given Documented By: Admin: 10/01/24 20:42 Dose: Not Given Documented By: Admin: 10/01/24 18:09 Dose: Not Given Documented By: Admin: 10/01/24 13:08 Dose: Not Given Documented By: Admin: 10/01/24 09:10 Dose: Not Given Documented By: ROSASR Levofloxacin (Levofloxacin 500 Mg Tab) 500 mg PO DAILY@1100 LEE; Protocol Stop: 10/09/24 12:04 Last Admin: 10/05/24 11:52 Dose: 500 mg Documented By: Admin: 10/04/24 13:05 Dose: 500 mg Documented By: EDEN Metoprolol Tartrate (Metoprolol Tartrate 25 Mg Tab) 25 mg PO BID [facility] Stop: 11/03/24 20:59 Last Admin: 10/05/24 08:46 Dose: 25 mg Documented By: Admin: 10/04/24 21:35 Dose: 25 mg Documented By: MG Miconazole Nitrate (Miconazole Nitrate Powder 85 Gm) 1 appln EXT PRN PRN PRN Reason: skin Stop: 10/31/24 02:09 Last Admin: 10/02/24 08:42 Dose: 1 appln Documented By: TANJA Montelukast Sodium (Montelukast Sodium 10 Mg Tablet) 10 mg PO DAILY [facility] Stop: 10/31/24 08:59 Last Admin: 10/05/24 08:45 Dose: 10 mg Documented By: Admin: 10/04/24 07:28 Dose: 10 mg Documented By: Admin: 10/03/24 08:20 Dose: 10 mg Documented By: Admin: 10/02/24 08:41 Dose: 10 mg Documented By: Admin: 10/01/24 09:15 Dose: 10 mg Documented By: KAILA Nystatin (Nystatin Cr 15 Gm Tube) 1 appln EXT DAILY [facility] Stop: 10/31/24 08:59 Last Admin: 10/05/24 08:47 Dose: 1 appln Documented By: Admin: 10/04/24 07:30 Dose: 1 appln Documented By: Admin: 10/03/24 08:21 Dose: 1 appln Documented By: Admin: 10/02/24 08:42 Dose: 1 appln Documented By: Admin: 10/01/24 09:25 Dose: Not Given Documented By: RRR Ondansetron HCl (Ondansetron Inj 2 Mg/Ml 2 Ml Vial) 4 mg IV Q6H PRN PRN Reason: Nausea And Vomiting Stop: 10/31/24 01:16 Last Admin: 10/01/24 12:59 Dose: 4 mg Documented By: ROSASR Pantoprazole Sodium (Pantoprazole 40 Mg Tab) 40 mg PO DAILY [facility] Stop: 10/31/24 08:59 Last Admin: 10/05/24 08:45 Dose: 40 mg Documented By: Admin: 10/04/24 07:29 Dose: 40 mg Documented By: Admin: 10/03/24 08:20 Dose: 40 mg Documented By: Admin: 10/02/24 08:41 Dose: 40 mg Documented By: Admin: 10/01/24 09:15 Dose: 40 mg Documented By: ROSASR Phenobarbital (Phenobarbital 30 Mg Tab) 30 mg PO BID [facility] Stop: 10/31/24 08:59 Last Admin: 10/05/24 08:53 Dose: 30 mg Documented By: Admin: 10/04/24 21:34 Dose: 30 mg Documented By: Admin: 10/04/24 07:33 Dose: 30 mg Documented By: Admin: 10/03/24 20:06 Dose: 30 mg Documented By: Admin: 10/03/24 09:32 Dose: 30 mg Documented By: Admin: 10/02/24 20:37 Dose: 30 mg Documented By: Admin: 10/02/24 08:42 Dose: 30 mg Documented By: Admin: 10/01/24 21:23 Dose: 30 mg Documented By: Admin: 10/01/24 09:18 Dose: 30 mg Documented By: ROSASR Polyethylene Glycol (Polyethylene (Miralax) 17 Gm Pack) 17 gm PO QPM LEE Stop: 10/31/24 20:59 Last Admin: 10/04/24 21:35 Dose: 17 gm Documented By: Admin: 10/03/24 20:07 Dose: 17 gm Documented By: Admin: 10/02/24 20:37 Dose: 17 gm Documented By: Admin: 10/01/24 21:23 Dose: 17 gm Documented By: ERIN Potassium Chloride (Potassium Chloride Crtab 20 Meq Tabcr) 40 meq PO QAM LEE Stop: 10/31/24 10:44 Last Admin: 10/04/24 07:33 Dose: 40 meq Documented By: Admin: 10/03/24 08:20 Dose: 40 meq Documented By: Admin: 10/02/24 08:41 Dose: 40 meq Documented By: Admin: 10/01/24 11:43 Dose: 40 meq Documented By: KAILA Simvastatin (Simvastatin 40 Mg Tab) 40 mg PO HS LEE Stop: 10/31/24 20:59 Last Admin: 10/04/24 21:35 Dose: 40 mg Documented By: Admin: 10/03/24 20:06 Dose: 40 mg Documented By: Admin: 10/02/24 20:37 Dose: 40 mg Documented By: Admin: 10/01/24 21:23 Dose: 40 mg Documented By: ERIN Spironolactone (Spironolactone 25 Mg Tab) 25 mg PO DAILY LEE Stop: 10/31/24 08:59 Last Admin: 10/05/24 08:46 Dose: 25 mg Documented By: Admin: 10/04/24 07:29 Dose: 25 mg Documented By: Admin: 10/03/24 08:20 Dose: 25 mg Documented By: Admin: 10/02/24 08:42 Dose: 25 mg Documented By: Admin: 10/01/24 09:15 Dose: 25 mg Documented By: KAILA Umeclidinium/Vilanterol (For Breztri~Umeclidinium/Vilanterol 62.5/25mcg 7 Puffs/Inhaler) 1 puffs INH DAILY LEE Stop: 10/31/24 08:59 Last Admin: 10/05/24 08:45 Dose: 1 puffs Documented By: Admin: 10/04/24 07:28 Dose: 1 puffs Documented By: Admin: 10/03/24 08:21 Dose: 1 puffs Documented By: Admin: 10/02/24 08:42 Dose: 1 puffs Documented By: Admin: 10/01/24 09:16 Dose: 1 puffs Documented By: KAILA Warfarin Sodium (Warfarin Sod 5 Mg Tab) 5 mg PO DAILY@1600 [facility] Stop: 10/31/24 15:59 Last Admin: 10/04/24 15:30 Dose: 5 mg Documented By: Admin: 10/03/24 15:10 Dose: 5 mg Documented By: Admin: 10/02/24 16:03 Dose: 5 mg Documented By: Admin: 10/01/24 16:12 Dose: 5 mg Documented By: RRR Discontinued Medications Acetaminophen (Acetaminophen 500 Mg Tab) 1,000 mg PO NOW STA Stop: 09/30/24 21:01 Last Admin: 09/30/24 21:04 Dose: 1,000 mg Documented By: QGV Furosemide (Furosemide 40 Mg/4 Ml Vial) 60 mg IV ONE ONE Stop: 09/30/24 21:32 Last Admin: 09/30/24 21:52 Dose: 60 mg Documented By: SALEEM Furosemide (Furosemide 40 Mg/4 Ml Vial) 80 mg IV DAILY LEE Stop: 10/31/24 08:59 Last Admin: 10/01/24 09:15 Dose: 80 mg Documented By: ROSASR Furosemide (Furosemide 40 Mg/4 Ml Vial) 40 mg IV ONE ONE Stop: 10/02/24 14:14 Last Admin: 10/02/24 14:57 Dose: 40 mg Documented By: TANJA Furosemide (Furosemide 40 Mg/4 Ml Vial) 40 mg IV ONE ONE Stop: 10/03/24 10:31 Last Admin: 10/03/24 12:22 Dose: 40 mg Documented By: EDEN Furosemide (Furosemide 40 Mg/4 Ml Vial) 40 mg IV ONE ONE Stop: 10/04/24 08:56 Last Admin: 10/04/24 10:18 Dose: 40 mg Documented By: EDEN Acetazolamide 250 mg/ Syringe 2.5 mls @ 0.833 mls/min IV ONE STA Stop: 10/03/24 10:30 Last Admin: 10/03/24 12:22 Dose: 0.833 mls/min Documented By: EDEN Acetazolamide 500 mg/ Syringe 5 mls @ 1.667 mls/min IV ONE STA Stop: 10/04/24 08:56 Last Admin: 10/04/24 10:18 Dose: 1.667 mls/min Documented By: EDEN Metoprolol Tartrate (Metoprolol Tartrate 100 Mg Tab) 100 mg PO BID LEE Stop: 10/31/24 08:59 Last Admin: 10/01/24 21:23 Dose: 100 mg Documented By: Admin: 10/01/24 09:15 Dose: 100 mg Documented By: KAILA Metoprolol Tartrate (Metoprolol Tartrate 50 Mg Tab) 50 mg PO BID [facility] Stop: 11/01/24 08:59 Last Admin: 10/02/24 08:38 Dose: Not Given Documented By: TANJA Metoprolol Tartrate (Metoprolol Tartrate 25 Mg Tab) 25 mg PO ONE ONE Stop: 10/02/24 14:54 Last Admin: 10/02/24 16:03 Dose: 25 mg Documented By: TANJA Metoprolol Tartrate (Metoprolol Tartrate 50 Mg Tab) 50 mg PO BID [facility] Stop: 11/01/24 20:59 Last Admin: 10/04/24 07:28 Dose: 50 mg Documented By: Admin: 10/03/24 20:06 Dose: 50 mg Documented By: Admin: 10/03/24 08:20 Dose: 50 mg Documented By: Admin: 10/02/24 20:37 Dose: 50 mg Documented By: ALEX Imaging Data Radiologist's Impression: Chest X-Ray 09/30/24 16:22 INDICATION: Shortness of breath. TECHNIQUE: Frontal radiograph of the chest. COMPARISON: Radiograph from 04/21/2020. FINDINGS: Cardiomegaly. Mild pulmonary vascular congestion. Sternal wires again noted. No infiltrate, pleural effusion or pneumothorax. No acute osseous abnormality evident. IMPRESSION: Mild pulmonary vascular congestion. Electronically signed by Schuyler Pendleton 09-30-2024 5:13 PM Abdomen/Pelvis CT 09/30/24 18:33 EXAM: CT abd pelvis wo con CLINICAL HISTORY: pancreatitis, contrast allergy. TECHNIQUE: CT of the abdomen and pelvis was performed, with the following protocol: axial images, and reconstructed coronal and sagittal images. No intravenous contrast was administered. One of the following dose reduction techniques was utilized for this exam: Automated exposure control, adjustment of the mA and/or kV according to patient size, and use of iterative reconstruction. COMPARISON: 09/10/2020. FINDINGS: Sections of lower thorax show mild bilateral pleural effusion, predominant on right side. Moderate cardiomegaly with left atrial dilatation. New interval findings. Bilateral pulmonary calcified nodules. Abdomen: Liver: Normal in size, however, it shows slightly altered parenchymal attenuation with nodular margins, representing liver parenchymal disease. No focal lesions, cysts, or masses were identified. Gallbladder and Biliary System: Post cholecystectomy status. Pancreas: Pancreatic parenchymal atrophy. Spleen: Normal in size, shape, and density. No splenic lesions or masses were identified. Kidneys and Adrenal Glands: Both kidneys are normal in size, shape, and position. No renal calculi or hydronephrosis. Mild bilateral perinephric fat stranding noted. Adrenal glands are unremarkable. Pelvis: Urinary Bladder: Partially distended. Post hysterectomy status. No adnexal regions Peritoneal and Retroperitoneal Structures: Mild free fluid in perihepatic, perisplenic regions and pelvis with mesenteric haziness. The abdominal aorta and its major branches shows atherosclerotic changes with calcified plaques. Bowel: The visualized bowel loops are normal in caliber and appearance. No evidence of bowel obstruction or wall thickening. The appendix is not well delineated. Recommended correlation with prior surgical history Bones and Soft Tissues: Degenerative changes in lumbar spine. Mild generalized anasarca. IMPRESSION: 1. No evidence of acute pancreatitis at present. 2. Mild free fluid in perihepatic, perisplenic regions and pelvis with mesenteric haziness and mild generalized anasarca. New interval finding 3. Chronic liver parenchymal disease, also seen in prior CT study. Recommended correlation with liver function tests. 4. Sections of the lower thorax show mild bilateral pleural effusion, predominant on right side. Moderate cardiomegaly with left atrial dilatation. New interval findings Electronically signed by Nathaniel Duran 09-30-2024 9:20 PM Discharge Plan Visit Data Chief Complaint: Cardiac Assessment Stated Complaint: CHEST PAIN, SOB, BACK PAIN, LEG WEAKNESS ED Provider: Nieves Carson Discharge Problem: Pulmonary vascular congestion, Atrial fibrillation, Chronic anticoagulation, Abdominal ascites Patient Disposition: Admitted As Inpatient Discharge Instructions Interventions: ED Discharge Assessment Last Done: 10/01/24 00:42 Discharge Problem: Atrial fibrillation Qualifiers: Atrial fibrillation type: unspecified Qualified Code(s): I48.91 - Unspecified atrial fibrillation Abdominal ascites Qualifiers: Ascites type: other type Qualified Code(s): R18.8 - Other ascites
--- NOTE | 2024-09-30 21:20 | CT Scan Report ---
EXAM: CT abd pelvis wo con CLINICAL HISTORY: pancreatitis, contrast allergy. TECHNIQUE: CT of the abdomen and pelvis was performed, with the following protocol: axial images, and reconstructed coronal and sagittal images. No intravenous contrast was administered. One of the following dose reduction techniques was utilized for this exam: Automated exposure control, adjustment of the mA and/or kV according to patient size, and use of iterative reconstruction. COMPARISON: 09/10/2020. FINDINGS: Sections of lower thorax show mild bilateral pleural effusion, predominant on right side. Moderate cardiomegaly with left atrial dilatation. New interval findings. Bilateral pulmonary calcified nodules. Abdomen: Liver: Normal in size, however, it shows slightly altered parenchymal attenuation with nodular margins, representing liver parenchymal disease. No focal lesions, cysts, or masses were identified. Gallbladder and Biliary System: Post cholecystectomy status. Pancreas: Pancreatic parenchymal atrophy. Spleen: Normal in size, shape, and density. No splenic lesions or masses were identified. Kidneys and Adrenal Glands: Both kidneys are normal in size, shape, and position. No renal calculi or hydronephrosis. Mild bilateral perinephric fat stranding noted. Adrenal glands are unremarkable. Pelvis: Urinary Bladder: Partially distended. Post hysterectomy status. No adnexal regions Peritoneal and Retroperitoneal Structures: Mild free fluid in perihepatic, perisplenic regions and pelvis with mesenteric haziness. The abdominal aorta and its major branches shows atherosclerotic changes with calcified plaques. Bowel: The visualized bowel loops are normal in caliber and appearance. No evidence of bowel obstruction or wall thickening. The appendix is not well delineated. Recommended correlation with prior surgical history Bones and Soft Tissues: Degenerative changes in lumbar spine. Mild generalized anasarca. IMPRESSION: 1. No evidence of acute pancreatitis at present. 2. Mild free fluid in perihepatic, perisplenic regions and pelvis with mesenteric haziness and mild generalized anasarca. New interval finding 3. Chronic liver parenchymal disease, also seen in prior CT study. Recommended correlation with liver function tests. 4. Sections of the lower thorax show mild bilateral pleural effusion, predominant on right side. Moderate cardiomegaly with left atrial dilatation. New interval findings Electronically signed by Nathaniel Duran 09-30-2024 9:20 PM
[2024-09-30] MEDS: FUROSEMIDE 40 MG/4 ML VIAL IV ONE (21:52)
--- NOTE | 2024-09-30 23:15 | History & Physical Report ---
Date of Service September 30, 2024 Assessment & Plan (1) Shortness of breath: Plan: 74yo female presenting with progressive shortness of breath ongoing since appx July 23. Patient on 2L supplemental O2 at baseline - has adequate oxygenation on this amount today. Patient with elevated BNP as well as edema/anasarca noted on imaging and pulmonary vascular congestion noted on imaging. Patient likely has missed several doses of her Lasix. -Observation to medical with telemetry -Check Mg and PO4 and replete as needed -Lasix 80mg IV daily -Continue Spironolactone 25mg po daily -Monitor I/Os and daily weights (2) Chronic obstructive pulmonary disease: Plan: Chronic. No wheezing noted -Continue nebs BID -Xopenex PRN (3) GERD (gastroesophageal reflux disease): Plan: Chronic -Continue Pepcid 20mg PO BID -Continue Protonix 40mg po daily (4) Diabetes: Plan: Chronic. Hold home medications -ISS -Goal blood sugar 110 - 140 (5) Hypertension: Plan: Chronic -Continue Metoprolol 100mg po BID (6) Hyperlipidemia: Plan: Chronic -Continue Simvastatin (7) Seizure: Plan: Chronic -Continue Phenobarbital at home dose (8) Atrial fibrillation: Plan: Chronic. Rate controlled. Anticoagulated on Coumadin -Continue metoprolol -Continue Coumadin -Check INR in AM History of Present Illness Chief Complaint: shortness of breath Primary Care Provider: Zainab Rayo DO Krystal Kong is a 74yo female with history of atrial fibrillation on Coumadin anticoagulation, mild , h/o bioprosthetic MV, HTN, HLP, DM, COPD presenting with progressive shortness of breath. Patient reports starting to feel short of breath two days before Thanksgiving. Symptoms have been progressive - noted mostly with exertion. She also notes decreased exercise tolerance as well as cough productive for clear/yellow sputum. She has been taking her nebs at home with some improvement in her shortness of breath. She denies orthopnea or worsening edema. She reports that her weight has been fluctuating 4-5 pounds. She has missed several doses of her Lasix 80mg. She typically takes this in the morning but has not taken it over the last 2-3 days. She is not sure if she has been taking her Spironolactone and has not taken any of her PRN Lasix. Otherwise patient reports occasional chills and occasional abdominal pain as well as some chest heaviness. In the ER she is afebrile, HD stable, NAD Allergies Allergy/AdvReac Type Severity Reaction Status Date / Time irbesartan Allergy Intermediate hives Verified 09/24/24 11:02 prednisone Allergy Intermediate Hives Verified 09/24/24 11:02 amlodipine Allergy Unknown HIVES Verified 09/24/24 11:02 aspirin Allergy Unknown UNKNOWN Verified 09/24/24 11:02 astemizole Allergy Unknown UNKNOWN Verified 09/24/24 11:02 atorvastatin Allergy Unknown Verified 09/24/24 11:02 caffeine Allergy Unknown UNKNOWN Verified 09/24/24 11:02 cefixime Allergy Unknown UNKNOWN Verified 09/24/24 11:02 cephalexin Allergy Unknown UNKNOWN Verified 09/24/24 11:02 Cephalosporins Allergy Unknown Verified 09/24/24 11:02 codeine Allergy Unknown UNKNOWN Verified 09/24/24 11:02 dexamethasone Allergy Unknown UNKNOWN Verified 09/24/24 11:02 diphenhydramine Allergy Unknown UNKNOWN Verified 09/24/24 11:02 erythromycin base Allergy Unknown UNKNOWN Verified 09/24/24 11:02 hydrochlorothiazide Allergy Unknown Verified 09/24/24 11:02 hydromorphone Allergy Unknown UNKNOWN Verified 09/24/24 11:02 ibuprofen Allergy Unknown UNKNOWN Verified 09/24/24 11:02 Iodinated Contrast Media Allergy Unknown UNKNOWN Verified 09/24/24 11:02 methylprednisolone Allergy Unknown UNKNOWN Verified 09/24/24 11:02 omeprazole Allergy Unknown Verified 09/24/24 11:02 orphenadrine Allergy Unknown UNKNOWN Verified 09/24/24 11:02 Penicillins Allergy Unknown UNKNOWN Verified 09/24/24 11:02 pentazocine Allergy Unknown UNKNOWN Verified 09/24/24 11:02 ramipril Allergy Unknown UNKNOWN Verified 09/24/24 11:02 sodium benzoate Allergy Unknown UNKNOWN Verified 09/24/24 11:02 sucralfate Allergy Unknown UNKNOWN Verified 09/24/24 11:02 tetracycline Allergy Unknown UNKNOWN Verified 09/24/24 11:02 theophylline Allergy Unknown UNKNOWN Verified 09/24/24 11:02 valacyclovir Allergy Unknown Verified 09/24/24 11:02 metoprolol [From Toprol XL] Allergy Unknown Verified 09/24/24 11:02 polymyxin B Allergy Unknown Verified 09/24/24 11:02 sodium bicarbonate Allergy Unknown Verified 09/24/24 11:02 [From Zegerid] nitrofurantoin AdvReac Severe shaky, Verified 09/24/24 11:02 chills, landeros, nausea Home Medications Medication Instructions Recorded Confirmed Type polyethylene glycol 3350 17 1 dose PO QPM 06/20/18 09/30/24 History gram/dose oral powder (Miralax) potassium chloride 10 mEq 10 meq PO QAM 06/20/18 09/30/24 History tablet,extended release allopurinol 100 mg tablet 100 mg PO DAILY 10/02/18 09/30/24 History Oxygen Home #1 ea 04/27/20 09/30/24 Rx spironolactone 25 mg tablet 25 mg PO DAILY #30 tabs 09/07/20 09/30/24 Rx CPAP Machine #1 ea 02/11/21 09/12/24 Rx CPAP Supplies #1 ea 07/14/21 09/12/24 Rx ondansetron HCl 4 mg tablet See Rx Instructions .Route 08/30/21 09/30/24 History .COMPLEX PRN Nausea fluticasone propionate 50 1 spray intranasal BID PRN Nasal 04/21/22 09/30/24 Rx mcg/actuation nasal Congestion #15.8 mL spray,suspension (Flonase Allergy Relief) cyclobenzaprine 5 mg tablet 5 mg PO TID PRN muscle spasm #10 10/24/22 09/30/24 Rx tabs nystatin 100,000 unit/gram topical 1 applic topical DAILY #30 grams 12/19/22 09/30/24 Rx cream clindamycin phosphate 1 % topical 1 applic topical DAILY PRN Back 01/03/23 09/30/24 History gel Pain betamethasone dipropionate 0.05 % 1 applic topical BID PRN skin 01/10/23 09/30/24 Rx topical cream irritation #45 grams omega 5-xtm-bip-fish oil 60 mg-90 1 cap PO DAILY #30 caps 01/12/23 09/30/24 Rx mg-500 mg capsule (Fish Oil) levalbuterol tartrate 45 1 inh inhalation Q6H #15 grams 03/13/23 09/30/24 Rx mcg/actuation aerosol inhaler cholecalciferol (vitamin D3) 125 125 mcg PO DAILY 05/05/23 09/30/24 History mcg (5,000 unit) capsule warfarin 4 mg tablet 4 mg PO .COMPLEX #90 tabs 05/17/23 09/12/24 Rx warfarin 1 mg tablet 1 mg PO DAILY #90 tabs 07/05/23 09/12/24 Rx cetirizine 10 mg tablet (Zyrtec) 10 mg PO BID 08/14/23 09/30/24 History hydroxyzine pamoate 25 mg capsule 25 mg PO Q8H PRN itching #30 caps 08/14/23 09/30/24 Rx (Vistaril) triamcinolone acetonide 0.1 % 1 applic topical BID #30 grams 08/14/23 09/12/24 Rx topical cream Oil of Oregano 1,500 mg PO DAILY 09/07/23 09/30/24 History ascorbate calcium (vitamin C) 500 500 mg PO DAILY 09/07/23 09/30/24 History mg tablet milk thistle mg PO DAILY 09/07/23 09/24/24 History famotidine 20 mg tablet 20 mg PO BID #180 tabs 10/06/23 09/30/24 Rx pantoprazole 40 mg tablet,delayed 40 mg PO DAILY #90 tabs 12/25/23 09/30/24 Rx release (Protonix) furosemide 80 mg tablet (Lasix) See Rx Instructions .Route 01/05/24 09/30/24 Rx .COMPLEX #90 tabs simvastatin 40 mg tablet 40 mg PO HS #90 tabs 03/22/24 09/30/24 Rx clobetasol 0.05 % topical cream 1 applic topical DAILY 04/01/24 09/24/24 History conjugated estrogens 0.625 mg/gram 0.625 mg vaginal .2 times per week 04/01/24 09/24/24 History vaginal cream (Premarin) phenobarbital 32.4 mg tablet 32.4 mg PO BID #180 tabs 04/02/24 09/30/24 Rx clobetasol 0.05 % topical ointment 1 applic topical BID 04/12/24 09/24/24 His tory estradiol 0.01% (0.1 mg/gram) 1 appful vaginal .2 times per week 04/12/24 09/24/24 History vaginal cream metformin 500 mg tablet 500 mg PO DAILY #100 tabs 05/13/24 09/30/24 Rx montelukast 10 mg tablet 10 mg PO DAILY #90 tabs 05/13/24 09/30/24 Rx fluticasone 100 mcg-salmeterol 50 1 inh inhalation BID #60 ea 08/13/24 09/24/24 Rx mcg/dose blistr powdr for inhalation warfarin 5 mg tablet (Jantoven) 5 mg PO DAILY #90 tabs 08/13/24 09/30/24 Rx metoprolol tartrate 100 mg tablet 100 mg PO BID #180 tabs 09/02/24 09/30/24 Rx ipratropium 0.5 mg-albuterol 3 mg 3 ml inhalation Q6H PRN wheezing 09/24/24 09/24/24 Rx (2.5 mg base)/3 mL nebulization #180 mL soln nebulizer accessories #1 ea 09/24/24 Rx budesonide 160 mcg-glycopyr 9 2 inh inhalation BID 09/30/24 09/30/24 History mcg-formot 4.8 mcg/actuation HFA inhaler Past Med/Surg History Problem List (Updated 09/30/24 @ 23:34 by Rhea Sousa DO) Shortness of breath Lichen sclerosus Atrophic vaginitis Joana Omalley syndrome (geniculate herpes zoster) VALERIA (obstructive sleep apnea) Mild persistent asthma Urinary incontinence Aortic stenosis Thyroid Nodule Daytime hypersomnia Osteoarthritis History of DVT (deep vein thrombosis) Chronic obstructive pulmonary disease History of mitral valve replacement (11/2011) 11/2011 @ [facility] [place]--follows with Dr. Son Hiatal hernia GERD (gastroesophageal reflux disease) Diabetes Hx of rheumatic fever Hypertension Hyperlipidemia Seizure Obese History of TIA (transient ischemic attack) Vitamin D deficiency Restrictive lung disease secondary to obesity Pulmonary nodule Mitral valve disorder Gastroparesis Depression with anxiety Coronary artery disease Chronic diastolic heart failure, NYHA class 1 Chronic constipation Bladder prolapse Bilateral carotid artery stenosis Asthma Chronic anticoagulation Atrial fibrillation (02/04/12) Medical History Dyspnea on exertion Vaccination hesitancy by patient Respiratory failure Tubular adenoma of colon Kidney stones Surgical History S/P balloon mitral valvuloplasty History of total abdominal hysterectomy and bilateral salpingo-oophorectomy History of appendectomy History of cholecystectomy History of esophagogastroduodenoscopy (EGD) Status post biopsy of thyroid gland benign Family History Brother Congestive heart failure Family/Other Family history of diabetes mellitus maternal aunt Family hx of colon cancer maternal aunt Mother Colorectal cancer Migraine headache Ovarian cancer Father Prostate cancer Denies family history of Breast cancer Lung cancer Social History Smoking Status: Never smoker Second Hand Exposure: Yes (father smoked); Do You Dip or Chew Tobacco: No; Hx Alcohol Use: No Hx Substance Use: No Preferred Language: Macedonian Communication Ability: Effective Visual Impairment: No Limitations Hearing Ability: Normal Operations Technician Required: No Beliefs That Will Affect Care: None marital status: Current Living Situation: Spouse current occupational status: retired How many Children do You have: 4 Feels Safe at Home: Yes Childhood Exposure to Second-Hand Smoke: Yes Diet: regular Diet Comment: regular caffeine: No during the past year weight has: remained stable Dental Care, Regularly: No Physical Activity Frequency: Other Physical Activity Frequency Comment: housework Seatbelt Use: always Sunscreen Use: No Assistive Devices: Walker Review of Systems Review of Systems: All systems reviewed & are unremarkable except as noted in HPI & below Physical Exam Physical Exam: General: patient resting comfortably, NAD, non-toxic in appearance, AA&O x 4, NC in place Skin: warm, dry, intact, no rashes or lesions HEENT: NC/AT, PERRL, EOMI, anicteric sclera, conjunctiva without injection, external ear normal to inspection and nontender, nares patent, moist mucus membranes, dentition intact, no oropharyngeal lesions, neck supple, trachea midline, no LAD, no thyromegaly, JVD noted to jawline bilaterally Heart: +S1/S2, irregularly irregular, no m/r/g Lungs: no dyspnea, +crackles to mid-lung moon bilaterally Abd: +BS, soft, ND, mildly tender in lower abdomen, no masses/organomegaly/ascites Ext: warm, 2+ pulses in UE/LE bilaterally, no clubbing/cyanosis, trace edema of bilateral LE Neuro: nonfocal, patient AA&O x 4, speech intact, no facial droop, moving all extremities on command with equal strength 5/5 Results & Data Results & Data Vital Signs (Past 12 Hours) Vital Signs Temp Pulse Pulse Resp BP BP Pulse Ox 09/30/24 22:22 90 09/30/24 22:00 99 H 26 H 128/66 94 09/30/24 20:00 91 H 18 147/69 H 94 09/30/24 18:26 105 H 09/30/24 18:24 95 09/30/24 18:24 95 09/30/24 18:24 93 H 20 138/51 L 93 09/30/24 16:23 88 L 09/30/24 16:15 36.9 C 77 24 118/60 88 L O2 Del Method O2 Flow Rate 09/30/24 22:22 09/30/24 22:00 Nasal Cannula 2 09/30/24 20:00 Room Air 09/30/24 18:26 09/30/24 18:24 Nasal Cannula 2 09/30/24 18:24 Nasal Cannula 2 09/30/24 18:24 Nasal Cannula 2 09/30/24 16:23 Room Air 0 09/30/24 16:15 Room Air Laboratory Results Laboratory Results WBC 5.37 K/ul (4.8-10.8) 09/30/24 16:40 RBC 4.61 M/uL (4.20-5.40) 09/30/24 16:40 Hgb 13.2 g/dl (12.0-16.0) 09/30/24 16:40 Hct 42.6 % (37.0-47.0) 09/30/24 16:40 MCV 92.4 fL (80.0-100.0) 09/30/24 16:40 MCH 28.6 pg (25.0-34.0) 09/30/24 16:40 MCHC 31.0 g/dL (32.0-36.0) L 09/30/24 16:40 RDW Std Deviation 52.5 fL (36.4-46.3) H 09/30/24 16:40 RDW Coeff of Trey 15.4 % (11.5-14.5) H 09/30/24 16:40 Plt Count 170 K/uL (130-400) 09/30/24 16:40 MPV 11.1 fL (9.4-12.4) 09/30/24 16:40 Immature Gran % (Auto) 0.4 % 09/30/24 16:40 Neut % (Auto) 57.9 % 09/30/24 16:40 Lymph % (Auto) 26.8 % 09/30/24 16:40 Mcduffie % (Auto) 12.8 % 09/30/24 16:40 Eos % (Auto) 1.7 % 09/30/24 16:40 Baso % (Auto) 0.4 % 09/30/24 16:40 Neut # (Auto) 3.11 K/uL (1.40-6.50) 09/30/24 16:40 Lymph # (Auto) 1.44 K/uL (1.20-3.40) 09/30/24 16:40 Mcduffie # (Auto) 0.69 K/uL (0.11-0.59) H 09/30/24 16:40 Eos # (Auto) 0.09 K/uL (0.00-0.50) 09/30/24 16:40 Baso # (Auto) 0.02 K/uL (0.00-0.20) 09/30/24 16:40 Immature Gran # (Auto) 0.02 K/uL (0.01-0.20) 09/30/24 16:40 PT 27.4 Seconds (9.0-12.0) H 09/30/24 16:40 INR 2.8 (0.9-1.1) H 09/30/24 16:40 APTT 38 Seconds (21-31) H 09/30/24 16:40 PTT Ratio 1.4 09/30/24 16:40 Sodium 140 mmol/L (136-145) 09/30/24 16:40 Potassium 3.7 mmol/L (3.5-5.1) 09/30/24 16:40 Chloride 99 mmol/L (98-107) 09/30/24 16:40 Carbon Dioxide 35 mmol/L (21-32) H 09/30/24 16:40 Anion Gap 6 (3-11) 09/30/24 16:40 BUN 23 mg/dl (6-23) 09/30/24 16:40 Creatinine 0.72 mg/dl (0.6-1.2) 09/30/24 16:40 Est Cr Clr Drug Dosing Not Reportable 09/30/24 16:40 eGFR 86.60 09/30/24 16:40 BUN/Creatinine Ratio 31.9 (10-20) H 09/30/24 16:40 Glucose 96 mg/dl (70-99(Fasting)) 09/30/24 16:40 Calcium 9.9 mg/dl (8.6-10.3) 09/30/24 16:40 Total Bilirubin 0.8 mg/dl (0.2-1.0) 09/30/24 16:40 AST 26 U/L (13-39) 09/30/24 16:40 ALT 13 U/L (7-52) 09/30/24 16:40 Alkaline Phosphatase 82 U/L (34-104) 09/30/24 16:40 Troponin I High Sens 11.5 pg/ml (0-14) 09/30/24 19:19 B-Natriuretic Peptide 468 pg/ml (0-100) H 09/30/24 16:40 Total Protein 8.2 gm/dl (6.0-8.3) 09/30/24 16:40 Albumin 4.0 gm/dl (3.4-5.0) 09/30/24 16:40 Globulin 4.2 gm/dl (2.5-4.0) H 09/30/24 16:40 Albumin/Globulin Ratio 1.0 (0.9-2) 09/30/24 16:40 Adenovirus (PCR) Not Detected (NotDetected) 09/30/24 16:40 B. pertussis DNA (PCR) Not Detected (NotDetected) 09/30/24 16:40 B.parapertussis DNA PCR Not Detected (NotDetected) 09/30/24 16:40 C. pneumoniae DNA (PCR) Not Detected (NotDetected) 09/30/24 16:40 Coronavirus OC43 (PCR) Not Detected (NotDetected) 09/30/24 16:40 Coronavirus HKU1 (PCR) Not Detected (NotDetected) 09/30/24 16:40 Coronavirus 229E (PCR) Not Detected (NotDetected) 09/30/24 16:40 SARS-CoV-2 (PCR) Not Detected (NotDetected) 09/30/24 16:40 Coronavirus NL63 (PCR) Not Detected (NotDetected) 09/30/24 16:40 Human Metapneumovir PCR Not Detected (NotDetected) 09/30/24 16:40 Influenza Type A (PCR) Not Detected (NotDetected) 09/30/24 16:40 Influenza Type B (PCR) Not Detected (NotDetected) 09/30/24 16:40 M. pneumoniae (PCR) Not Detected (NotDetected) 09/30/24 16:40 Parainfluenza 1 (PCR) Not Detected (NotDetected) 09/30/24 16:40 Parainfluenza 2 (PCR) Not Detected (NotDetected) 09/30/24 16:40 Parainfluenza 3 (PCR) Not Detected (NotDetected) 09/30/24 16:40 Parainfluenza 4 (PCR) Not Detected (NotDetected) 09/30/24 16:40 RSV (PCR) Not Detected (NotDetected) 09/30/24 16:40 Entero/Rhino (PCR) Not Detected (NotDetected) 09/30/24 16:40 Impressions Chest X-Ray 09/30/24 16:22 INDICATION: Shortness of breath. TECHNIQUE: Frontal radiograph of the chest. COMPARISON: Radiograph from 04/21/2020. FINDINGS: Cardiomegaly. Mild pulmonary vascular congestion. Sternal wires again noted. No infiltrate, pleural effusion or pneumothorax. No acute osseous abnormality evident. IMPRESSION: Mild pulmonary vascular congestion. Electronically signed by Schuyler Pendleton 09-30-2024 5:13 PM Abdomen/Pelvis CT 09/30/24 18:33 EXAM: CT abd pelvis wo con CLINICAL HISTORY: pancreatitis, contrast allergy. TECHNIQUE: CT of the abdomen and pelvis was performed, with the following protocol: axial images, and reconstructed coronal and sagittal images. No intravenous contrast was administered. One of the following dose reduction techniques was utilized for this exam: Automated exposure control, adjustment of the mA and/or kV according to patient size, and use of iterative reconstruction. COMPARISON: 09/10/2020. FINDINGS: Sections of lower thorax show mild bilateral pleural effusion, predominant on right side. Moderate cardiomegaly with left atrial dilatation. New interval findings. Bilateral pulmonary calcified nodules. Abdomen: Liver: Normal in size, however, it shows slightly altered parenchymal attenuation with nodular margins, representing liver parenchymal disease. No focal lesions, cysts, or masses were identified. Gallbladder and Biliary System: Post cholecystectomy status. Pancreas: Pancreatic parenchymal atrophy. Spleen: Normal in size, shape, and density. No splenic lesions or masses were identified. Kidneys and Adrenal Glands: Both kidneys are normal in size, shape, and position. No renal calculi or hydronephrosis. Mild bilateral perinephric fat stranding noted. Adrenal glands are unremarkable. Pelvis: Urinary Bladder: Partially distended. Post hysterectomy status. No adnexal regions Peritoneal and Retroperitoneal Structures: Mild free fluid in perihepatic, perisplenic regions and pelvis with mesenteric haziness. The abdominal aorta and its major branches shows atherosclerotic changes with calcified plaques. Bowel: The visualized bowel loops are normal in caliber and appearance. No evidence of bowel obstruction or wall thickening. The appendix is not well delineated. Recommended correlation with prior surgical history Bones and Soft Tissues: Degenerative changes in lumbar spine. Mild generalized anasarca. IMPRESSION: 1. No evidence of acute pancreatitis at present. 2. Mild free fluid in perihepatic, perisplenic regions and pelvis with mesenteric haziness and mild generalized anasarca. New interval finding 3. Chronic liver parenchymal disease, also seen in prior CT study. Recommended correlation with liver function tests. 4. Sections of the lower thorax show mild bilateral pleural effusion, predominant on right side. Moderate cardiomegaly with left atrial dilatation. New interval findings Electronically signed by Nathaniel Duran 09-30-2024 9:20 PM PG Care Time/CCT Total # of Minutes Spent Total Time Spent with Patient: Total time spent is greater than 50% in coordination of care (as documented) at patient's floor/unit and/or counseling patient: Coding Level of Care Code 25014 INT INP/OBS CARE 3/75MIN Diagnoses Shortness of breath R06.02 Chronic obstructive pulmonary disease J44.9 GERD (gastroesophageal reflux disease) K21.9 Diabetes E11.9 Hypertension I10 Hyperlipidemia E78.5 Seizure R56.9 Atrial fibrillation I48.91
[2024-10-01] MEDS ORDERED: DEXTROSE 50% 50 ML SYRINGE IV PRN (01:17)
[2024-10-01] MEDS ORDERED: LEVALBUTEROL TARTRATE 15 GM HFA.AER.AD INH SCH (01:17)
[2024-10-01] MEDS ORDERED: hydrOXYzine HCl 25 MG TAB PO PRN (01:17)
[2024-10-01] MEDS ORDERED: GLUCOSE 40% GEL 15 GM TUBE PO PRN (01:17)
[2024-10-01] MEDS ORDERED: GLUCAGON FOR INJ 1 MG VIAL SQ PRN (01:17)
[2024-10-01] MEDS ORDERED: CARBOHYDRATES FOR HYPOGLYCEMIA PO PRN (01:17)
[2024-10-01] MEDS ORDERED: GLUCOSE 10 TAB/TUBE PO PRN (01:17)
[2024-10-01] MEDS ORDERED: CYCLOBENZAPRINE HCL 10 MG TAB PO PRN (01:27)
[2024-10-01 01:38] LABS: Phosphorus 4.1 mg/dl (2.5-4.9)
[2024-10-01] MEDS: ACETAMINOPHEN 325 MG TAB PO PRN (07:44)
[2024-10-01 08:36] LABS: Hematocrit (blood only) 38.5 % (37.0-47.0); Mean Corpuscular Hemoglobin 29.1 pg (25.0-34.0); Mean Corpuscular Hgb Conc 31.2 g/dL (32.0-36.0); Mean Corpuscular Volume 93.2 fL (80.0-100.0); Mean Platelet Volume 11.3 fL (9.4-12.4); Platelet Count 127 K/uL (130-400); RDW Coefficient of Variation 15.3 % (11.5-14.5); RDW Standard Deviation 52.8 fL (36.4-46.3); Red Blood Count 4.13 M/uL (4.20-5.40); White Blood Count 4.89 K/ul (4.8-10.8)
[2024-10-01 08:52] LABS: INR 2.6 (0.9-1.1); Prothrombin Time 25.6 Seconds (9.0-12.0)
[2024-10-01 09:01] LABS: Albumin Level 3.4 gm/dl (3.4-5.0); BUN Creatinine Ratio 33.3 (10-20); Bilirubin Direct 0.3 mg/dl (0-0.2); Bilirubin,Total 0.8 mg/dl (0.2-1.0); Creatinine Clr Calc Pharmacy 81.5 ml/min; Potassium 3.6 mmol/L (3.5-5.1); Total Protein 7.1 gm/dl (6.0-8.3)
--- NOTE | 2024-10-01 09:01 | Electrocardiogram Report ---
Test Reason : Blood Pressure : */* mmHG Vent. Rate : 112 BPM Atrial Rate : * BPM P-R Int : * ms QRS Dur : 72 ms QT Int : 340 ms P-R-T Axes : * 64 225 degrees QTcB Int : 464 ms Atrial fibrillation with rapid ventricular response with premature ventricular or aberrantly conducte d complexes Diffuse Nonspecific T wave abnormality Abnormal ECG When compared with ECG of 21-Apr-2020 15:29, No significant change Confirmed by Giancarlo Tinoco ([id number]) on 10/01/2024 9:01:44 AM Referred By: Zainab Rayo Confirmed By: Giancarlo Tinoco
[2024-10-01] MEDS: INSULIN ASPART PER UNIT CHARGE SC SCH (09:10)
[2024-10-01] MEDS: For Breztri~FLUTICASONE FUROATE 200MCG 14 PUFFS/INHALER INH SCH (09:15)
[2024-10-01] MEDS: SPIRONOLACTONE 25 MG TAB PO SCH (09:15)
[2024-10-01] MEDS: METOPROLOL TARTRATE 100 MG TAB PO SCH (09:15)
[2024-10-01] MEDS: PANTOprazole 40 MG TAB PO SCH (09:15)
[2024-10-01] MEDS: FUROSEMIDE 40 MG/4 ML VIAL IV SCH ×2 (09:15→17:28)
[2024-10-01] MEDS: allopurinoL 100 MG TAB PO SCH (09:15)
[2024-10-01] MEDS: FAMOTIDINE 20 MG TAB PO SCH (09:15)
[2024-10-01] MEDS: CETIRIZINE HCL 10 MG TABLET PO SCH (09:15)
[2024-10-01] MEDS: MONTELUKAST SODIUM 10 MG TABLET PO SCH (09:15)
[2024-10-01] MEDS: For Breztri~UMECLIDINIUM/VILANTEROL 62.5/25MCG 7 PUFFS/INHALER INH SCH (09:16)
[2024-10-01] MEDS: PHENobarbitaL 30 MG TAB PO SCH (09:18)
[2024-10-01] MEDS: NYSTATIN CR 15 GM TUBE EXT SCH (09:25)
--- NOTE | 2024-10-01 10:42 | Hospitalist Progress Note ---
Date of Service October 01, 2024 Assessment & Plan (1) Acute on chronic diastolic (congestive) heart failure: Plan: 74-year-old woman with history of chronic diastolic heart failure, history of bioprosthetic MVR with mild to moderate mitral stenosis admitted with acute on chronic diastolic heart failure this has been progressive since after 2023, when questioned she notes she gained at least 5 pounds in the previous week prior to admission elevated BNP as well as edema/anasarca noted on imaging and pulmonary vascular congestion Followed by Dr. Son. Last TTE 06/22/24 EF 50-55%, bioprosthetic MVR, mild-mod mitral stenosis, mild AI/ today she continues to be in acute pulmonary edema -Continue diuresis lasix 80 IV increased to twice daily, added potassium 40 meq po daily. continue spironolactone -Monitor weight, I/O, daily BMP, mag - TTE ordered -GLP-1 or SGLT2 (2) Atrial fibrillation: Plan: Chronic. Rate controlled. Anticoagulated on Coumadin -Continue metoprolol -Continue Coumadin - INR therapeutic at 2.6 continue usual home dosing and daily a.m. INR, monitor for evidence of bleeding monitor CBC periodically (3) Chronic obstructive pulmonary disease: Plan: baseline 2 L per nasal cannula at home Chronic. No wheezing noted, doubt COPD exacerbation -Continue nebs BID, and as needed -Xopenex PRN (4) GERD (gastroesophageal reflux disease): Plan: Chronic -Continue Pepcid 20mg PO BID -Continue Protonix 40mg po daily (5) Diabetes: Plan: Chronic. Hold home medications -ISS - blood glucose at goal today (6) Hypertension: Plan: Chronic -Continue Metoprolol 100mg po BID remains normotensive, monitor BP (7) Hyperlipidemia: Plan: Chronic -Continue Simvastatin (8) Seizure: Plan: Chronic seizure disorder -Continue Phenobarbital at home dose Plan DVT prophylaxisanticoagulated on warfarin I updated her daughter and at bedside 10/01 Admission and Anticipated Discharge Date Admission Date: September 30, 2024 Subjective continues to be quite short of breath, having nonproductive cough, wheezing episodes, dyspnea on exertion, orthopnea reports she has been peeing a lot after a.m. dose of Lasix and leg edema has improved Physical Exam 2 Physical Exam: PHYSICAL EXAMINATION Last 24h vital signs reviewed, see documentation in flowsheet General: awake and alert sitting on edge of the bed HEENT: Normocephalic, atraumatic, pupils round and equal, sclerae anicteric, no conjunctival injection, moist mucus membranes Lungs: increased work of breathing fine crackles throughout bilaterally posteriorly all moon and also bilateral anteriorly, no wheezing currently Heart: regular mildly tachycardic systolic murmur JVD present sitting completely upright Abdomen: Soft, nontender, nondistended. Bowel sounds present. Extremities: Warm, dry, well-perfused. 1+ lower extremity edema. Neuro: Alert and oriented x 4, face symmetric, moves 4 extremities well Psych: Normal affect and behavior Results & Data Results & Data Vital Signs (Past 12 Hours) Vital Signs Temp Pulse Pulse Resp BP BP Pulse Ox 10/01/24 08:03 126 H 10/01/24 07:46 97.7 F 99 H 20 117/70 94 10/01/24 07:32 98.1 F 97 H 20 116/76 95 10/01/24 01:35 97 H 10/01/24 01:25 10/01/24 01:25 97.5 F L 115 H 18 106/76 96 10/01/24 01:17 97.5 F L 115 H 18 106/76 96 10/01/24 00:42 87 18 132/87 97 10/01/24 00:00 98 H 18 128/67 95 O2 Del Method O2 Flow Rate 10/01/24 08:03 10/01/24 07:46 Nasal Cannula 2 10/01/24 07:32 Nasal Cannula 2 10/01/24 01:35 10/01/24 01:25 Nasal Cannula 2 10/01/24 01:25 Nasal Cannula 2 10/01/24 01:17 Nasal Cannula 2 10/01/24 00:42 Room Air 10/01/24 00:00 Nasal Cannula 2 Laboratory Results 10/01/24 06:53 10/01/24 06:53 PG Care Time/CCT Total # of Minutes Spent Total Time Spent with Patient: Total time spent is greater than 50% in coordination of care (as documented) at patient's floor/unit and/or counseling patient: Coding Level of Care Code 69374 SUB INP/OBS CARE 3/50MIN Diagnoses Acute on chronic diastolic (congestive) heart failure I50.33 Atrial fibrillation I48.91 Chronic obstructive pulmonary disease J44.9 GERD (gastroesophageal reflux disease) K21.9 Diabetes E11.9 Hypertension I10 Hyperlipidemia E78.5 Seizure R56.9
[2024-10-01] MEDS: POTASSIUM CHLORIDE CRTAB 20 MEQ TABCR PO SCH (11:43)
[2024-10-01] MEDS: ONDANSETRON INJ 2 MG/ML 2 ML VIAL IV PRN (12:59)
[2024-10-01] MEDS ORDERED: ALBUT/IPRATROP 3MG/0.5MG NEB 3 ML VIAL NEB PRN (14:37)
[2024-10-01] MEDS ORDERED: BENZONATATE 100 MG CAPSULE PO PRN (14:37)
--- NOTE | 2024-10-01 16:06 | XCELERA ---
[id number] \\[email or web address]\[id number]
[2024-10-01] MEDS: WARFARIN SOD 5 MG TAB PO SCH (16:12)
[2024-10-01] MEDS: POLYETHYLENE (MIRALAX) 17 GM PACK PO SCH (21:23)
[2024-10-01] MEDS: SIMVASTATIN 40 MG TAB PO SCH (21:23)
[2024-10-02 08:08] LABS: BUN Creatinine Ratio 27.8 (10-20); Calcium 9.3 mg/dl (8.6-10.3); Creatinine Clr Calc Pharmacy 49.8 ml/min; Potassium 4.1 mmol/L (3.5-5.1)
--- NOTE | 2024-10-02 08:10 | Hospitalist Progress Note ---
Date of Service October 02, 2024 Assessment & Plan (1) Acute on chronic diastolic (congestive) heart failure: Plan: 74-year-old woman with history of chronic diastolic heart failure, history of bioprosthetic MVR with mild to moderate mitral stenosis admitted with acute on chronic diastolic heart failure this has been progressive since after 2023, when questioned she notes she gained at least 5 pounds in the previous week prior to admission elevated BNP as well as edema/anasarca noted on imaging and pulmonary vascular congestion Followed by Dr. Son. Last TTE 06/22/24 EF 50-55%, bioprosthetic MVR, mild-mod mitral stenosis, mild AI/ pulmonary edema persists though lung exam and symptoms significantly improved today on her BMP her creatinine has inflected up to 1 and she has contraction alkalosis, held diuretics this morning and decreased them for a single afternoon dose today - Lasix 40 mg IV x 1 today, potassium 40 meq po daily. continue spironolactone. reassess diuretics after chemistry panel in the morning -Dose reduced metoprolol to allow BP for diuresis. -Monitor weight, I/O, daily BMP, mag - TTE 10/01 reviewed - RV dilation and pressure/volume overload with normal systolic function and moderate pulmonary HTN are new, otherwise unchanged from fall 2023 - LVEF 60-65%, mild-mod , MS and TR -GLP-1 or SGLT2 - deferred to outpatient setting for initiation -CHF clinic referral Sent (2) Atrial fibrillation: Plan: Chronic. Anticoagulated on Coumadin -Continue metoprolol - tachycardic today with heart rate [id number] because a.m. metoprolol held for mild hypotension. 25 mg p.o. x 1 given, try to resume 50 mg twice daily tonight -Continue Coumadin - a.m. INR and CBC (3) Chronic obstructive pulmonary disease: Plan: baseline 2 L per nasal cannula at home Chronic. No wheezing noted, doubt COPD exacerbation -Continue nebs BID, and as needed -Xopenex PRN (4) GERD (gastroesophageal reflux disease): Plan: Chronic -Continue Pepcid 20mg PO BID -Continue Protonix 40mg po daily (5) Diabetes: Plan: Chronic. Hold home medications -ISS - blood glucose at goal today (6) Hypertension: Plan: Chronic -Continue Metoprolol (7) Hyperlipidemia: Plan: Chronic -Continue Simvastatin (8) Seizure: Plan: Chronic seizure disorder -Continue Phenobarbital at home dose Plan DVT prophylaxisanticoagulated on warfarin I updated her daughter and at bedside 10/01, by phone 10/02 discussed with child care attendant, ordered PT and OT paula's Admission and Anticipated Discharge Date Admission Date: September 30, 2024 Subjective continues to have dyspnea on exertion and somewhat at rest, wheezing resolved, cough improved. Was able to sleep well without PND with head of the bed elevated Physical Exam 2 Physical Exam: PHYSICAL EXAMINATION Last 24h vital signs reviewed, see documentation in flowsheet General: awake and alert lying in bed HEENT: Normocephalic, atraumatic, pupils round and equal, sclerae anicteric, no conjunctival injection, moist mucus membranes Lungs: work of breathing improved, crackles present one third of the way up bilaterally, no wheezing Heart: irregularly irregular tachycardic systolic murmur JVD present sitting completely upright Abdomen: Soft, nontender, nondistended. Bowel sounds present. Extremities: Warm, dry, well-perfused. 1+ left greater than right lower extremity edema. Neuro: Alert and oriented x 4, face symmetric, moves 4 extremities well Psych: Normal affect and behavior Results & Data Results & Data Vital Signs (Past 12 Hours) Vital Signs Temp Pulse Pulse Resp BP Pulse Ox O2 Del Method 10/02/24 07:54 97.3 F L 84 18 95/64 L 93 Nasal Cannula 10/02/24 07:39 88 10/02/24 03:56 98.1 F 83 18 97/64 L 92 Room Air 10/02/24 00:30 Nasal Cannula 10/01/24 23:23 97.7 F 101 H 18 112/72 91 Room Air 10/01/24 22:12 103 H 10/01/24 20:09 97.7 F 86 16 112/73 92 Nasal Cannula O2 Flow Rate 10/02/24 07:54 2 10/02/24 07:39 10/02/24 03:56 10/02/24 00:30 2 10/01/24 23:23 10/01/24 22:12 10/01/24 20:09 2 Laboratory Results 10/01/24 06:53 10/02/24 07:20 PG Care Time/CCT Total # of Minutes Spent Total Time Spent with Patient: Total time spent is greater than 50% in coordination of care (as documented) at patient's floor/unit and/or counseling patient: Coding Level of Care Code 37944 SUB INP/OBS CARE MIN Diagnoses Acute on chronic diastolic (congestive) heart failure I50.33 Atrial fibrillation I48.91 Chronic obstructive pulmonary disease J44.9 GERD (gastroesophageal reflux disease) K21.9 Diabetes E11.9 Hypertension I10 Hyperlipidemia E78.5 Seizure R56.9
[2024-10-02] MEDS: METOPROLOL TARTRATE 50 MG TAB PO SCH ×2 (08:38→20:37)
[2024-10-02] MEDS: MICONAZOLE NITRATE POWDER 85 GM EXT PRN (08:42)
[2024-10-02] MEDS: FUROSEMIDE 40 MG/4 ML VIAL IV ONE (14:57)
[2024-10-02] MEDS: METOPROLOL TARTRATE 25 MG TAB PO ONE (16:03)
[2024-10-02] MEDS ORDERED: METOPROLOL TARTRATE 25 MG TAB PO SCH (21:00)
[2024-10-03 09:52] LABS: Hematocrit (blood only) 37.3 % (37.0-47.0); Hemoglobin 11.5 g/dl (12.0-16.0); Mean Corpuscular Hemoglobin 28.8 pg (25.0-34.0); Mean Corpuscular Hgb Conc 30.8 g/dL (32.0-36.0); Mean Corpuscular Volume 93.3 fL (80.0-100.0); Mean Platelet Volume 11.2 fL (9.4-12.4); Platelet Count 150 K/uL (130-400); RDW Coefficient of Variation 15.2 % (11.5-14.5); RDW Standard Deviation 52.1 fL (36.4-46.3); White Blood Count 5.19 K/ul (4.8-10.8)
[2024-10-03 10:13] LABS: BUN Creatinine Ratio 39.2 (10-20); Calcium 9.1 mg/dl (8.6-10.3); Creatinine Clr Calc Pharmacy 68.1 ml/min; Magnesium 2.2 mg/dl (1.7-2.4); Potassium 4.5 mmol/L (3.5-5.1)
[2024-10-03 10:29] LABS: INR 1.8 (0.9-1.1); Prothrombin Time 18.1 Seconds (9.0-12.0)
[2024-10-03] MEDS: FUROSEMIDE 40 MG/4 ML VIAL IV ONE (12:22)
[2024-10-03] MEDS: acetaZOLAMIDE 250 MG in SYRINGE 0 ML IV STA (12:22)
--- NOTE | 2024-10-03 15:23 | XRay Report ---
XR chest 1V portable CLINICAL HISTORY: dyspnea, CHF COMPARISON STUDY: 09/30/2024 FINDINGS: Stable cardiac valve repair. Stable cardiomegaly with mild pulmonary vascular congestion. I nspiration is shallow. There is interval mild stranding opacity in the lung bases with mild blunting of the costophrenic angles. No pneumothorax. IMPRESSION: 1. CHF. 2. Possible small pleural effusions with adjacent mild lung base consolidation. ACT 112: Negative or not required by law. Electronically signed by: Bennett Patten M.D. 10/03/2024 3:21 PM
--- NOTE | 2024-10-03 18:08 | Hospitalist Progress Note ---
Date of Service October 03, 2024 Assessment & Plan (1) Acute on chronic diastolic (congestive) heart failure: Plan: 74-year-old woman with history of chronic diastolic heart failure, history of bioprosthetic MVR with mild to moderate mitral stenosis admitted with acute on chronic diastolic heart failure this has been progressive since after 2023, when questioned she notes she gained at least 5 pounds in the previous week prior to admission elevated BNP as well as edema/anasarca noted on imaging and pulmonary vascular congestion Followed by Dr. Son. Last TTE 06/22/24 EF 50-55%, bioprosthetic MVR, mild-mod mitral stenosis, mild AI/ - TTE 10/01 reviewed - RV dilation and pressure/volume overload with normal systolic function and moderate pulmonary HTN are new, otherwise unchanged from fall 2023 - LVEF 60-65%, mild-mod , MS and TR pulmonary edema and dyspnea persists though lung exam significantly improved - weight is unchanged and edema is unchanged, I's and O's not accurate unclear if we had effective diuresis with 40 mg of IV Lasix hesitate to push too far because she has significant contraction alkalosis the creatinine is back down to 0.7, today try Lasix 40 mg IV with Diamox 250 mg IV recheck BMP in a.m. - obtained repeat chest x-ray today I personally reviewed the film and shows mild to moderate pulmonary vascular congestion and small bilateral pleural effusions - continue spironolactone -Dose reduced metoprolol to allow BP for diuresis. -Monitor weight, I/O, daily BMP, mag -GLP-1 or SGLT2 - deferred to outpatient setting for initiation -CHF clinic referral Sent today updated her daughter over the phone (2) Atrial fibrillation: Plan: Chronic. Anticoagulated on Coumadin -Continue metoprolol - tachycardic today with heart rate [id number] because a.m. metoprolol held for mild hypotension. 25 mg p.o. x 1 given, try to resume 50 mg twice daily tonight -Continue Coumadin - hemoglobin stable today but INR decreased to 1.8, continue usual Coumadin 5 mg for now but may need higher dose tomorrow (3) Chronic obstructive pulmonary disease: Plan: baseline 2 L per nasal cannula at home Chronic. No wheezing noted, doubt COPD exacerbation -Continue nebs BID, and as needed -Xopenex PRN (4) GERD (gastroesophageal reflux disease): Plan: Chronic -Continue Pepcid 20mg PO BID -Continue Protonix 40mg po daily (5) Diabetes: Plan: Chronic. Hold home medications -ISS - blood glucose at goal 2/ (6) Hypertension: Plan: history of, blood pressures have been low to normal this admission (7) Hyperlipidemia: Plan: Chronic -Continue Simvastatin (8) Seizure: Plan: Chronic seizure disorder -Continue Phenobarbital at home dose Plan DVT prophylaxisanticoagulated on warfarin PT/OT - continuing inpatient PT and OT has poor exertional tolerance because of dyspnea and does have unsteady gait but has been refusing use of walker Admission and Anticipated Discharge Date Admission Date: September 30, 2024 Subjective lung exam improved and looks better than a few days ago however continues to have dyspnea at rest and especially exertion, has persistent nonproductive cough not clear the leg edema has improved at all last 24 to 48 hours Physical Exam 2 Physical Exam: PHYSICAL EXAMINATION Last 24h vital signs reviewed, see documentation in flowsheet General: sitting up on the edge of the bed HEENT: Normocephalic, atraumatic, pupils round and equal, sclerae anicteric, no conjunctival injection, moist mucus membranes Lungs: work of breathing now looks comfortable, crackles only in both bases,, no wheezing Heart: irregularly irregular not tachycardic systolic murmur JVD present sitting completely upright - though has improved probably 10 to 12 cm at this time Abdomen: Soft, nontender, nondistended. Bowel sounds present. Extremities: Warm, dry, well-perfused. 1-2+ bilateral pitting lower extremity edema. Neuro: Alert and oriented x 4, face symmetric, moves 4 extremities well Psych: Normal affect and behavior Results & Data Results & Data Vital Signs (Past 12 Hours) Vital Signs Temp Pulse Pulse Resp BP Pulse Ox O2 Del Method 10/03/24 16:19 97.5 F L 78 20 98/58 L 96 Nasal Cannula 10/03/24 13:37 Nasal Cannula 10/03/24 13:04 116 H 10/03/24 11:38 97.3 F L 75 18 107/66 100 Nasal Cannula 10/03/24 07:55 97.3 F L 94 H 18 117/77 96 Nasal Cannula O2 Flow Rate 10/03/24 16:19 10/03/24 13:37 2.5 10/03/24 13:04 10/03/24 11:38 10/03/24 07:55 Laboratory Results 10/03/24 09:13 10/03/24 09:13 PG Care Time/CCT Total # of Minutes Spent Total Time Spent with Patient: Total time spent is greater than 50% in coordination of care (as documented) at patient's floor/unit and/or counseling patient: Coding Level of Care Code 85616 SUB INP/OBS CARE 3/50MIN Diagnoses Acute on chronic diastolic (congestive) heart failure I50.33 Atrial fibrillation I48.91 Chronic obstructive pulmonary disease J44.9 GERD (gastroesophageal reflux disease) K21.9 Diabetes E11.9 Hypertension I10 Hyperlipidemia E78.5 Seizure R56.9
[2024-10-04 06:45] LABS: BUN Creatinine Ratio 37.7 (10-20); Creatinine Clr Calc Pharmacy 69.7 ml/min; Magnesium 2.2 mg/dl (1.7-2.4)
[2024-10-04 07:05] LABS: INR 1.9 (0.9-1.1); Prothrombin Time 19.6 Seconds (9.0-12.0)
--- NOTE | 2024-10-04 09:00 | Hospitalist Progress Note ---
Date of Service October 04, 2024 Assessment & Plan (1) Acute on chronic diastolic (congestive) heart failure: Plan: 74-year-old woman with history of chronic diastolic heart failure, history of bioprosthetic MVR with mild to moderate mitral stenosis admitted with acute on chronic diastolic heart failure. she was diuresed with IV Lasix and pulmonary edema resolved on exam, she was found to have cor pulmonale dyspnea has been progressive since after 2023, when questioned she notes she gained at least 5 pounds in the previous week prior to admission elevated BNP as well as edema/anasarca noted on imaging and pulmonary vascular congestion Followed by Dr. Son. Last TTE 06/22/24 EF 50-55%, bioprosthetic MVR, mild-mod mitral stenosis, mild AI/ - TTE 10/01 reviewed - RV dilation and pressure/volume overload with normal systolic function and moderate pulmonary HTN are new, otherwise unchanged from fall 2023 - LVEF 60-65%, mild-mod , MS and TR dyspnea persists at this time assess hypoxia, currently on 4 L however her lung exam is normal as of 10/04 - consulted cardiology, discussed with Dr. Tinoco - he said that diuresis would be limited by the cor pulmonale it was not surprising that she easily develops hypotension/orthostasis and that it was not likely we would be able to diurese her further, he agreed with reducing her metoprolol to allow a more physiologic heart rate - I gave her some IV Lasix this morning however she may be over diuresed since she had woozy episode this afternoon and heart rate was more elevated - continue spironolactone - continue metoprolol 25 mg twice daily -Monitor weight, I/O, daily BMP, mag -GLP-1 or SGLT2 - deferred to outpatient setting for initiation -CHF clinic referral Sent - a.m. BMP today updated her daughter at the bedside as well as her (2) Atrial fibrillation: Plan: Chronic. Anticoagulated on Coumadin -Continue metoprolol - tachycardia improved with diuresis reduce metoprolol dose for blood pressure, tachycardic this afternoon however possibly hypovolemic at this point -Continue Coumadin -INR remains 1.9 and H/h stable, continue usual Coumadin 5 mg daily -AM INR (3) Chronic obstructive pulmonary disease: Plan: baseline 2 L per nasal cannula at home Chronic. No wheezing noted, doubt COPD exacerbation she has had a very persistent and troublesome cough, she is allergic to basically unless all classes of antibiotics with unknown reactions or rashes, will treat for bronchitis with levofloxacin 500 mg daily x 5 days I doubt that steroids would be helpful here -Continue nebs BID, and as needed -Xopenex PRN -dyspnea may not get any better, there may be large component of anxiety and possibly depression will discuss further with her - has seen Dr. Gabriel in clinic untreated obstructive sleep apnea. she has a CPAP at home and 3 different masks but she does not use it because she feels like she is suffocating I have extensively discussed the effects of VALERIA on her current cardiac status - agreed for trial of CPAP here tonight - she should continue to follow-up with sleep medicine regarding any possible alternative therapies - GLP/1 may be helpful here, she is afraid of needles (4) GERD (gastroesophageal reflux disease): Plan: Chronic -Continue Pepcid 20mg PO BID -Continue Protonix 40mg po daily (5) Diabetes: Plan: Chronic. Hold home medications -ISS - blood glucose at goal rev 10/04 (6) Hypertension: Plan: history of, blood pressures have been low to normal this admission (7) Hyperlipidemia: Plan: Chronic -Continue Simvastatin (8) Seizure: Plan: Chronic seizure disorder -Continue Phenobarbital at home dose Plan DVT prophylaxisanticoagulated on warfarin PT/OT - continuing inpatient PT and OT has poor exertional tolerance because of dyspnea and does have unsteady gait but has been refusing use of walker Admission and Anticipated Discharge Date Admission Date: September 30, 2024 Subjective I saw Krystal in the morning she continues to have dyspnea on exertion, she did have some orthostatic lightheadedness yesterday I saw her again in the afternoon when her daughter was there, she had had a woozy episode her daughter thinks that she passed out however when RN was present she was conscious Physical Exam 2 Physical Exam: PHYSICAL EXAMINATION Last 24h vital signs reviewed, see documentation in flowsheet General: this a.m. sitting in the chair HEENT: Normocephalic, atraumatic, pupils round and equal, sclerae anicteric, no conjunctival injection, moist mucus membranes Lungs: work of breathing now looks comfortable, lungs are basically clear, no wheezing Heart: irregularly irregular not tachycardic systolic murmur JVD present sitting completely upright - though has improved probably 10 to 12 cm at this time Abdomen: Soft, nontender, nondistended. Bowel sounds present. Extremities: Warm, dry, well-perfused. 1-2+ bilateral pitting lower extremity edema unchanged. Neuro: Alert and oriented x 4, face symmetric, moves 4 extremities well Psych: Normal affect and behavior Results & Data Results & Data Vital Signs (Past 12 Hours) Vital Signs Temp Pulse Pulse Pulse Resp BP Pulse Ox 10/04/24 07:59 98.1 F 56 L 18 97/67 L 94 10/04/24 05:44 86 10/04/24 03:56 97.9 F 95 H 16 120/74 93 10/04/24 00:01 114 H 10/03/24 23:16 97.7 F 96 H 18 122/68 93 10/03/24 22:25 O2 Del Method O2 Flow Rate 10/04/24 07:59 Room Air 10/04/24 05:44 10/04/24 03:56 Nasal Cannula 2 10/04/24 00:01 10/03/24 23:16 Nasal Cannula 2 10/03/24 22:25 Nasal Cannula 2.5 Laboratory Results 10/03/24 09:13 10/04/24 05:44 PG Care Time/CCT Total # of Minutes Spent Total Time Spent with Patient: Total time spent is greater than 50% in coordination of care (as documented) at patient's floor/unit and/or counseling patient: Coding Level of Care Code 52977 SUB INP/OBS CARE 2/35MIN Diagnoses Acute on chronic diastolic (congestive) heart failure I50.33 Atrial fibrillation I48.91 Chronic obstructive pulmonary disease J44.9 GERD (gastroesophageal reflux disease) K21.9 Diabetes E11.9 Hypertension I10 Hyperlipidemia E78.5 Seizure R56.9
--- NOTE | 2024-10-04 09:47 | Cardiology Consultation ---
Date of Consultation October 04, 2024 Assessment & Plan (1) Shortness of breath: (2) Cor pulmonale, chronic: (3) Chronic obstructive pulmonary disease with hypoxia: (4) (HFpEF) heart failure with preserved ejection fraction: (5) S/P mitral valve replacement with bioprosthetic valve: (6) Mild aortic stenosis: (7) Moderate pulmonary hypertension: (8) Permanent atrial fibrillation: (9) VALERIA (obstructive sleep apnea): (10) Obese: Plan 74-year-old woman with longstanding oxygen dependent COPD, obesity, sleep apnea, who has valvular heart disease (mild to moderate, bioprosthetic MVR with mild to moderate stenosis) who presents with subacute worsening of her chronic dyspnea. Based on echocardiography (dilated right heart with pulmonary hypertension) and exam (elevated neck veins and leg edema with clear lungs), she appears to have cor pulmonale and is responding to diuretics as unfortunately might be expected. She requires significant preload and volume unloading often seems to result in relative hypotension and orthostatic lightheadedness. As such, expectations for improvement in her pulmonary status overall should be quite limited. She does not appear to have significant left heart failure, chest x-ray is unimpressive to my eye, BNP is only mildly elevated, and as noted her lung exam is clear. Agree with reducing metoprolol to allow more physiologic heart rate, she probably should be in the 90-100 bpm range with increased to 120 bpm range during exertion. Could consider more aggressive diuresis (higher dose furosemide or addition of metolazone) at some point, but suspect this would exacerbate orthostasis/hypotension without really improving her dyspneic symptoms. Once her heart rate has improved, if BP allows, reasonable to attempt more aggressive diuresis while she is an inpatient, but currently she is unlikely to tolerate more than her spironolactone 25 mg daily and her maintenance dose of furosemide [address] Ramsay will be rounding on the weekend, will ask him to reassess her volume status. Routine follow-up upon discharge is with Dr. Son. History of Present Illness Reason for Consultation: heart failure, old left, new RHF, difficult diures Requesting Physician: Purvi Gaming MD Attending Physician: Purvi Gaming MD History of Present Illness 74-year-old woman with COPD (chronic supplemental oxygen), permanent atrial fibrillation (metoprolol/warfarin), HFpEF, valvular heart disease (mild to moderate , bioprosthetic #25 [place] MVR 2011 with mild to moderate stenosis) who was admitted 09/30/24 with progressive dyspnea on exertion. She has had longstanding dyspnea on more than mild exertion, but since around she feels that this has gotten worse. She has difficulty even making her bed, has to stop to catch her breath. Her weight has been stable, her chronic leg edema largely unchanged, and she notes no orthopnea or PND. She does not have any routine chest discomfort, but did have mild discomfort at the time of admission when she was laboring to breathe. ECG and enzymes were negative. She does note fairly frequent orthostatic lightheadedness at home, she was unsure if this persist but feels that sometimes when she gets up from a chair she is lightheaded. No presyncope or syncope. Cardiac data: Admission ECG showed atrial fibrillation with ventricular rate 112 bpm, diffuse nonspecific T wave abnormality. Compared with 2019 ECG, no significant change. Current echocardiogram shows EF 60-65% with flattened septum consistent with RV pressure/volume overload, moderately dilated RV with normal systolic function, mild to moderate , bioprosthetic mitral valve with mild to moderate mitral stenosis, severely dilated left atrium, moderate pulmonary hypertension. Compared with 2023 study, right heart findings and moderate pulmonary hypertension are now seen, otherwise no significant change. Chest x-ray, when allowing for technique, does not show significant pulmonary edema. Troponin 12.9 and 11.5. BNP 468 (no historical baseline available). Telemetry shows atrial fibrillation with occasional aberrancy versus PVCs, rate 70-90 bpm. A 15 beat run of wide-complex tachycardia is most likely aberrant conduction. At the time of my evaluation this morning, she was comfortable at rest. Allergies Allergy/AdvReac Type Severity Reaction Status Date / Time irbesartan Allergy Intermediate hives Verified 09/24/24 11:02 prednisone Allergy Intermediate Hives Verified 09/24/24 11:02 amlodipine Allergy Unknown HIVES Verified 09/24/24 11:02 aspirin Allergy Unknown UNKNOWN Verified 09/24/24 11:02 astemizole Allergy Unknown UNKNOWN Verified 09/24/24 11:02 atorvastatin Allergy Unknown Verified 09/24/24 11:02 caffeine Allergy Unknown UNKNOWN Verified 09/24/24 11:02 cefixime Allergy Unknown UNKNOWN Verified 09/24/24 11:02 cephalexin Allergy Unknown UNKNOWN Verified 09/24/24 11:02 Cephalosporins Allergy Unknown Verified 09/24/24 11:02 codeine Allergy Unknown UNKNOWN Verified 09/24/24 11:02 dexamethasone Allergy Unknown UNKNOWN Verified 09/24/24 11:02 diphenhydramine Allergy Unknown UNKNOWN Verified 09/24/24 11:02 erythromycin base Allergy Unknown UNKNOWN Verified 09/24/24 11:02 hydrochlorothiazide Allergy Unknown Verified 09/24/24 11:02 hydromorphone Allergy Unknown UNKNOWN Verified 09/24/24 11:02 ibuprofen Allergy Unknown UNKNOWN Verified 09/24/24 11:02 Iodinated Contrast Media Allergy Unknown UNKNOWN Verified 09/24/24 11:02 methylprednisolone Allergy Unknown UNKNOWN Verified 09/24/24 11:02 omeprazole Allergy Unknown Verified 09/24/24 11:02 orphenadrine Allergy Unknown UNKNOWN Verified 09/24/24 11:02 Penicillins Allergy Unknown UNKNOWN Verified 09/24/24 11:02 pentazocine Allergy Unknown UNKNOWN Verified 09/24/24 11:02 ramipril Allergy Unknown UNKNOWN Verified 09/24/24 11:02 sodium benzoate Allergy Unknown UNKNOWN Verified 09/24/24 11:02 sucralfate Allergy Unknown UNKNOWN Verified 09/24/24 11:02 tetracycline Allergy Unknown UNKNOWN Verified 09/24/24 11:02 theophylline Allergy Unknown UNKNOWN Verified 09/24/24 11:02 valacyclovir Allergy Unknown Verified 09/24/24 11:02 metoprolol [From Toprol XL] Allergy Unknown Verified 09/24/24 11:02 polymyxin B Allergy Unknown Verified 09/24/24 11:02 sodium bicarbonate Allergy Unknown Verified 09/24/24 11:02 [From Zegerid] nitrofurantoin AdvReac Severe shaky, Verified 09/24/24 11:02 chills, landeros, nausea Home Medications Medication Instructions Recorded Confirmed Type polyethylene glycol 3350 17 1 dose PO QPM 06/20/18 09/30/24 History gram/dose oral powder (Miralax) potassium chloride 10 mEq 10 meq PO QAM 06/20/18 09/30/24 History tablet,extended release allopurinol 100 mg tablet 100 mg PO DAILY 10/02/18 09/30/24 History Oxygen Home #1 ea 04/27/20 09/30/24 Rx spironolactone 25 mg tablet 25 mg PO DAILY #30 tabs 09/07/20 09/30/24 Rx CPAP Machine #1 ea 02/11/21 09/12/24 Rx CPAP Supplies #1 ea 07/14/21 09/12/24 Rx ondansetron HCl 4 mg tablet See Rx Instructions .Route 08/30/21 09/30/24 History .COMPLEX PRN Nausea fluticasone propionate 50 1 spray intranasal BID PRN Nasal 04/21/22 09/30/24 Rx mcg/actuation nasal Congestion #15.8 mL spray,suspension (Flonase Allergy Relief) cyclobenzaprine 5 mg tablet 5 mg PO TID PRN muscle spasm #10 10/24/22 09/30/24 Rx tabs nystatin 100,000 unit/gram topical 1 applic topical DAILY #30 grams 12/19/22 09/30/24 Rx cream clindamycin phosphate 1 % topical 1 applic topical DAILY PRN Back 01/03/23 09/30/24 History gel Pain betamethasone dipropionate 0.05 % 1 applic topical BID PRN skin 01/10/23 09/30/24 Rx topical cream irritation #45 grams omega 8-rkb-ice-fish oil 60 mg-90 1 cap PO DAILY #30 caps 01/12/23 09/30/24 Rx mg-500 mg capsule (Fish Oil) levalbuterol tartrate 45 1 inh inhalation Q6H #15 grams 03/13/23 09/30/24 Rx mcg/actuation aerosol inhaler cholecalciferol (vitamin D3) 125 125 mcg PO DAILY 05/05/23 09/30/24 History mcg (5,000 unit) capsule warfarin 4 mg tablet 4 mg PO .COMPLEX #90 tabs 05/17/23 09/12/24 Rx warfarin 1 mg tablet 1 mg PO DAILY #90 tabs 07/05/23 09/12/24 Rx cetirizine 10 mg tablet (Zyrtec) 10 mg PO BID 08/14/23 09/30/24 History hydroxyzine pamoate 25 mg capsule 25 mg PO Q8H PRN itching #30 caps 08/14/23 09/30/24 Rx (Vistaril) triamcinolone acetonide 0.1 % 1 applic topical BID #30 grams 08/14/23 09/12/24 Rx topical cream Oil of Oregano 1,500 mg PO DAILY 09/07/23 09/30/24 History ascorbate calcium (vitamin C) 500 500 mg PO DAILY 09/07/23 09/30/24 History mg tablet milk thistle mg PO DAILY 09/07/23 09/24/24 History famotidine 20 mg tablet 20 mg PO BID #180 tabs 10/06/23 09/30/24 Rx pantoprazole 40 mg tablet,delayed 40 mg PO DAILY #90 tabs 12/25/23 09/30/24 Rx release (Protonix) furosemide 80 mg tablet (Lasix) See Rx Instructions .Route 01/05/24 09/30/24 Rx .COMPLEX #90 tabs simvastatin 40 mg tablet 40 mg PO HS #90 tabs 03/22/24 09/30/24 Rx clobetasol 0.05 % topical cream 1 applic topical DAILY 04/01/24 09/24/24 History conjugated estrogens 0.625 mg/gram 0.625 mg vaginal .2 times per week 04/01/24 09/24/24 History vaginal cream (Premarin) phenobarbital 32.4 mg tablet 32.4 mg PO BID #180 tabs 04/02/24 09/30/24 Rx clobetasol 0.05 % topical ointment 1 applic topical BID 04/12/24 09/24/24 History estradiol 0.01% (0.1 mg/gram) 1 appful vaginal .2 times per week 04/12/24 09/24/24 History vaginal cream metformin 500 mg tablet 500 mg PO DAILY #100 tabs 05/13/24 09/30/24 Rx montelukast 10 mg tablet 10 mg PO DAILY #90 tabs 05/13/24 09/30/24 Rx fluticasone 100 mcg-salmeterol 50 1 inh inhalation BID #60 ea 08/13/24 09/24/24 Rx mcg/dose blistr powdr for inhalation warfarin 5 mg tablet (Jantoven) 5 mg PO DAILY #90 tabs 08/13/24 09/30/24 Rx metoprolol tartrate 100 mg tablet 100 mg PO BID #180 tabs 09/02/24 09/30/24 Rx ipratropium 0.5 mg-albuterol 3 mg 3 ml inhalation Q6H PRN wheezing 09/24/24 09/24/24 Rx (2.5 mg base)/3 mL nebulization #180 mL soln nebulizer accessories #1 ea 09/24/24 Rx budesonide 160 mcg-glycopyr 9 2 inh inhalation BID 09/30/24 09/30/24 History mcg-formot 4.8 mcg/actuation HFA inhaler Patient History Medical History Dyspnea on exertion Vaccination hesitancy by patient Respiratory failure Tubular adenoma of colon Kidney stones Surgical History S/P balloon mitral valvuloplasty History of total abdominal hysterectomy and bilateral salpingo-oophorectomy History of appendectomy History of cholecystectomy History of esophagogastroduodenoscopy (EGD) Status post biopsy of thyroid gland benign Family History Brother Congestive heart failure Family/Other Family history of diabetes mellitus maternal aunt Family hx of colon cancer maternal aunt Mother Colorectal cancer Migraine headache Ovarian cancer Father Prostate cancer Denies family history of Breast cancer Lung cancer Social History Smoking Status: Never smoker Second Hand Exposure: Yes (father smoked); Do You Dip or Chew Tobacco: No; Hx Alcohol Use: Yes Alcohol type: wine Hx Substance Use: No Preferred Language: Khmer Communication Ability: Effective Visual Impairment: No Limitations Hearing Ability: Normal Fire Supervisor Required: No Beliefs That Will Affect Care: None marital status: Current Living Situation: Spouse current occupational status: retired How many Children do You have: 4 Feels Safe at Home: Yes Childhood Exposure to Second-Hand Smoke: Yes Diet: regular Diet Comment: regular caffeine: No during the past year weight has: remained stable Dental Care, Regularly: No Physical Activity Frequency: Other Physical Activity Frequency Comment: housework Seatbelt Use: always Sunscreen Use: No Assistive Devices: Glasses and Oxygen - Continuous Physical Exam Physical Exam: Elderly white female in no distress. BP 97/67 mmHg. Pulse 56 bpm and irregular. Respirations 18 and unlabored. Skin: no ecchymoses or generalized lesions. HEENT: unremarkable. Neck: JVP demonstrates wide respiratory variation, at peak reaches the angle of the jaw at 90 degrees, no obvious carotid bruits. Lungs: Markedly decreased breath sounds with occasional expiratory wheezing on forced exhalation. No accessory muscle use. Cardiac: irregular rhythm, readily audible aortic and bioprosthetic mitral closure sounds, 2/6 crescendo/decrescendo systolic ejection murmur right upper sternal border, no obvious diastolic murmur. Abdomen: Protuberant, mild diffuse tenderness. No guarding rigidity. Extremities: 2+ pretibial edema, pulses intact. Neurologic: normal affect and conversation, nonfocal. Results & Data Laboratory Results Hemoglobin 11.5 with normal white count platelet count. INR 1.9. Normal electrolytes, BUN 22, creatinine 0.77. Magnesium 2.2. Troponin and BNP as per HPI. PG Care Time/CCT Total # of Minutes Spent Total Time Spent with Patient: Total time spent is greater than 50% in coordination of care (as documented) at patient's floor/unit and/or counseling patient: Coding Level of Care Code 45584 IN/OBS CONSULT LVL 4,60M Diagnoses Shortness of breath R06.02 Cor pulmonale, chronic I27.81 Chronic obstructive pulmonary disease with hypoxia J44.9 (HFpEF) heart failure with preserved ejection fraction I50.30 S/P mitral valve replacement with bioprosthetic valve Z95.3 Mild aortic stenosis I35.0 Moderate pulmonary hypertension I27.20 Permanent atrial fibrillation I48.21 VALERIA (obstructive sleep apnea) G47.33 Obese E66.9
[2024-10-04] MEDS: FUROSEMIDE 40 MG/4 ML VIAL IV ONE (10:18)
[2024-10-04] MEDS: acetaZOLAMIDE 500 MG in SYRINGE 0 ML IV STA (10:18)
[2024-10-04] MEDS: levoFLOXacin 500 MG TAB PO SCH (13:05)
[2024-10-04] MEDS: METOPROLOL TARTRATE 25 MG TAB PO SCH (21:35)
[2024-10-05 06:22] LABS: Prothrombin Time 20.7 Seconds (9.0-12.0)
[2024-10-05] MEDS ORDERED: levoFLOXacin 500 MG TAB PO SCH (11:00)
--- NOTE | 2024-10-05 17:45 | Hospitalist Progress Note ---
Date of Service October 05, 2024 Assessment & Plan (1) Acute on chronic diastolic (congestive) heart failure: Plan: 74-year-old woman with history of chronic diastolic heart failure, history of bioprosthetic MVR with mild to moderate mitral stenosis admitted with acute on chronic diastolic heart failure. she was diuresed with IV Lasix and pulmonary edema resolved on exam, she was found to have cor pulmonale dyspnea has been progressive since after 2023, when questioned she notes she gained at least 5 pounds in the previous week prior to admission elevated BNP as well as edema/anasarca noted on imaging and pulmonary vascular congestion Followed by Dr. Son. Last TTE 06/22/24 EF 50-55%, bioprosthetic MVR, mild-mod mitral stenosis, mild AI/ - TTE 10/01 reviewed - RV dilation and pressure/volume overload with normal systolic function and moderate pulmonary HTN are new, otherwise unchanged from fall 2023 - LVEF 60-65%, mild-mod , MS and TR - consulted cardiology, discussed with Dr. Tinoco - he said that diuresis would be limited by the cor pulmonale it was not surprising that she easily develops hypotension/orthostasis and that it was not likely we would be able to diurese her further, he agreed with reducing her metoprolol to allow a more physiologic heart rate - held IV diuretics today - continue spironolactone - continue metoprolol 25 mg twice daily -Monitor weight, I/O, daily BMP, mag -GLP-1 or SGLT2 - deferred to outpatient setting for initiation -CHF clinic referral Sent - a.m. BMP 10/04 updated her daughter at the bedside as well as her , today updated her by phone (2) Atrial fibrillation: Plan: Chronic. Anticoagulated on Coumadin -Continue metoprolol - tachycardia improved with diuresis reduce metoprolol dose for blood pressure, tachycardic this afternoon however possibly hypovolemic at this point -Continue Coumadin -INR 2.0 and H/h stable, continue usual Coumadin 5 mg daily -AM INR (3) Chronic obstructive pulmonary disease: Plan: baseline 2 L per nasal cannula at home Chronic. No wheezing noted, doubt COPD exacerbation reviewed PFTs and pulmonary notes she has restrictive lung disease, may be COPD, has not been able to afford Trelegy Ellipta she has had a very persistent and troublesome cough, she is allergic to basical ly unless all classes of antibiotics with unknown reactions or rashes, will treat for bronchitis with levofloxacin 500 mg daily x 5 days I doubt that steroids would be helpful here -Continue nebs BID, and as needed -Xopenex PRN -dyspnea may not get any better, there may be large component of anxiety and possibly depression will discuss further with her - has seen Dr. Huizar untreated obstructive sleep apnea. she has a CPAP at home and 3 different masks but she does not use it because she feels like she is suffocating I have extensively discussed the effects of VALERIA on her current cardiac status - could not tolerate CPAP or on evening of 10/04 - she should continue to follow-up with sleep medicine regarding any possible alternative therapies - GLP/1 may be helpful here, she is afraid of needles consider chest CT tomorrow if no improvement on levofloxacin considered PE, but unlikely since there are several alternative explanations for dyspnea and hypoxia which are more likely especially since she is chronically anticoagulated. No DVT Sx. (4) GERD (gastroesophageal reflux disease): Plan: Chronic -Continue Pepcid 20mg PO BID -Continue Protonix 40mg po daily (5) Diabetes: Plan: Chronic. Hold home medications -ISS - blood glucose at goal rev 10/05 (6) Hypertension: Plan: history of, blood pressures have been low to normal this admission (7) Hyperlipidemia: Plan: Chronic -Continue Simvastatin (8) Seizure: Plan: Chronic seizure disorder -Continue Phenobarbital at home dose Plan DVT prophylaxisanticoagulated on warfarin PT/OT - continuing inpatient PT and OT has poor exertional tolerance because of dyspnea and does have unsteady gait but has been refusing use of walker Admission and Anticipated Discharge Date Admission Date: September 30, 2024 Subjective continues to have mostly dry cough, sometimes with yellow sputum, and dyspnea on exertion/tired Physical Exam Physical Exam: PHYSICAL EXAMINATION Last 24h vital signs reviewed, see documentation in flowsheet General: awake alert sitting up in the chair HEENT: Normocephalic, atraumatic, pupils round and equal, sclerae anicteric, no conjunctival injection, moist mucus membranes Lungs: work of breathing now looks comfortable, lungs are basically clear, no wheezing, coughing fairly frequently Heart: irregularly irregular not tachycardic systolic murmur JVD present sitting completely upright - though has improved probably 10 to 12 cm at this time - unchanged Abdomen: Soft, nontender, nondistended. Bowel sounds present. Extremities: Warm, dry, well-perfused. 1-2+ bilateral pitting lower extremity edema has improved a little bit. Neuro: Alert and oriented x 4, face symmetric, moves 4 extremities well Psych: Normal affect and behavior Results & Data Results & Data Vital Signs (Past 12 Hours) Vital Signs Temp Pulse Pulse Resp BP Pulse Ox O2 Del Method 10/05/24 17:01 98.4 F 83 20 96/59 L 100 Nasal Cannula 10/05/24 16:00 88 10/05/24 11:30 97.7 F 20 111/71 96 Nasal Cannula 10/05/24 09:36 Nasal Cannula 10/05/24 07:23 97.3 F L 92 H 20 111/79 96 Nasal Cannula 10/05/24 07:00 84 O2 Flow Rate 10/05/24 17:01 3 10/05/24 16:00 10/05/24 11:30 3 10/05/24 09:36 3 10/05/24 07:23 4 10/05/24 07:00 PG Care Time/CCT Total # of Minutes Spent Total Time Spent with Patient: Total time spent is greater than 50% in coordination of care (as documented) at patient's floor/unit and/or counseling patient: Coding Level of Care Code 16412 SUB INP/OBS CARE 2/35MIN Diagnoses Acute on chronic diastolic (congestive) heart failure I50.33 Atrial fibrillation I48.91 Chronic obstructive pulmonary disease J44.9 GERD (gastroesophageal reflux disease) K21.9 Diabetes E11.9 Hypertension I10 Hyperlipidemia E78.5 Seizure R56.9
[2024-10-05] MEDS: FLUTICASONE PROPIONATE NA SPR 16 GM BTL PRN (22:44)
[2024-10-06 05:54] LABS: BUN Creatinine Ratio 36.4 (10-20); Creatinine Clr Calc Pharmacy 81.4 ml/min; Potassium 3.8 mmol/L (3.5-5.1)
[2024-10-06 06:04] LABS: INR 1.7 (0.9-1.1); Prothrombin Time 17.6 Seconds (9.0-12.0)
[2024-10-06] MEDS: SPIRONOLACTONE 25 MG TAB PO SCH (09:32)
[2024-10-06] MEDS: TORSEMIDE 20 MG TAB PO SCH (09:32)
--- NOTE | 2024-10-06 16:39 | Hospitalist Progress Note ---
Date of Service October 06, 2024 Assessment & Plan (1) Acute on chronic diastolic (congestive) heart failure: Plan: 74-year-old woman with history of chronic diastolic heart failure, history of bioprosthetic MVR with mild to moderate mitral stenosis admitted with acute on chronic diastolic heart failure. she was diuresed with IV Lasix and pulmonary edema resolved on exam, she was found to have cor pulmonale dyspnea has been progressive since after 2023, when questioned she notes she gained at least 5 pounds in the previous week prior to admission elevated BNP as well as edema/anasarca noted on imaging and pulmonary vascular congestion, had diffuse crackles in all lung moon on initial lung exam which have cleared with diuretics Followed by Dr. Son. Last TTE 06/22/24 EF 50-55%, bioprosthetic MVR, mild-mod mitral stenosis, mild AI/ - TTE 10/01 reviewed - RV dilation and pressure/volume overload with normal systolic function and moderate pulmonary HTN are new, otherwise unchanged from fall 2023 - LVEF 60-65%, mild-mod , MS and TR - consulted cardiology, discussed with Dr. Tinoco - he said that diuresis would be limited by the cor pulmonale it was not surprising that she easily develops hypotension/orthostasis and that it was not likely we would be able to diurese her further, he agreed with reducing her metoprolol to allow a more physiologic heart rate - torsemide 40 mg dailystart today and assess response. She may have more success with this as compared to her usual 80 mg of furosemide - continue spironolactone increase to 50 mg - continue metoprolol 25 bid -Monitor weight, I/O, daily BMP, mag -GLP-1 or SGLT2 - deferred to outpatient setting for initiation. I think GLP- 1/GIP agonist would benefit her most, for example tirzepatide and she has multiple indications. Her daughter says she could give her the weekly SQ -CHF clinic referral Sent -BMP reviewed - good today Cr 0.6, K3.8 (2) Atrial fibrillation: Plan: Chronic. Anticoagulated on Coumadin -Continue metoprolol - tachycardia improved with diuresis reduce metoprolol dose for blood pressure, tachycardic this afternoon however possibly hypovolemic at this point -Continue Coumadin -INR 1.7 and H/h stable, continue usual Coumadin 5 mg daily - expect it will go up from levaquin -AM INR (3) Chronic obstructive pulmonary disease: Plan: baseline 2 L per nasal cannula at home Chronic. No wheezing noted, doubt COPD exacerbation reviewed PFTs and pulmonary notes she has restrictive lung disease, may be COPD, has not been able to afford Trelegy Ellipta she has had a very persistent and troublesome cough, she is allergic to basically unless all classes of antibiotics with unknown reactions or rashes, will treat for bronchitis with levofloxacin 500 mg daily x 5 days -maybe she is feeling better on levofloxacin? I ordered noncontrast chest CT. PE less likely because she is on chronic warfarin, and would not address change clerk much I doubt that steroids would be helpful here -Continue nebs BID, and as needed -Xopenex PRN -dyspnea may not get any better, there may be large component of anxiety and possibly depression will discuss further with her - has seen Dr. Huizar untreated obstructive sleep apnea. she has a CPAP at home and 3 different masks but she does not use it because she feels like she is suffocating I have extensively discussed the effects of VALERIA on her current cardiac status - could not tolerate CPAP or on evening of 10/04 - she should continue to follow-up with sleep medicine regarding any possible alternative therapies - discussed elevating HOB which she already does, has nocturnal O2 2L - again tirzepatide may be helpful (4) GERD (gastroesophageal reflux disease): Plan: Chronic -Continue Pepcid 20mg PO BID -Continue Protonix 40mg po daily (5) Diabetes: Plan: Chronic. Hold home medications -ISS - blood glucose at goal rev 10/06 (6) Hypertension: Plan: history of, blood pressures have been low to normal this admission (7) Hyperlipidemia: Plan: Chronic -Continue Simvastatin (8) Seizure: Plan: Chronic seizure disorder -Continue Phenobarbital at home dose Plan DVT prophylaxisanticoagulated on warfarin PT/OT - continuing inpatient PT and OT has poor exertional tolerance because of dyspnea and does have unsteady gait but has been refusing use of walker I updated her at bedside and daughter on phone 10/06 Home tomorrow with HH unless surprise finding on CT - discussed with family Admission and Anticipated Discharge Date Admission Date: September 30, 2024 Subjective Krystal does feel a little bit better today she is on minimal oxygen currently does not even have oxygen on, she is coughing up green-yellow sputum no chest pain, leg edema improved a little since admission she continues to have dyspnea on exertion Physical Exam 2 Physical Exam: PHYSICAL EXAMINATION Last 24h vital signs reviewed, see documentation in flowsheet General: sitting up on the edge of the bed HEENT: Normocephalic, atraumatic, pupils round and equal, sclerae anicteric, no conjunctival injection, moist mucus membranes Lungs: comfortable work of breathing at rest, clear to auscultation bilaterally Heart: irregularly irregular not tachycardic systolic murmur JVD present sitting completely upright Abdomen: Soft, nontender, nondistended. Bowel sounds present. Extremities: Warm, dry, well-perfused. 1+ bilateral pitting lower extremity edema has improved a little bit. Neuro: Alert and oriented x 4, face symmetric, moves 4 extremities well Psych: Normal affect and behavior Results & Data Results & Data Vital Signs (Past 12 Hours) Vital Signs Temp Pulse Pulse Resp BP Pulse Ox O2 Del Method 10/06/24 13:03 96 H 10/06/24 11:23 97.5 F L 70 20 103/70 99 Nasal Cannula 10/06/24 07:43 97.5 F L 77 18 134/71 97 Nasal Cannula 10/06/24 07:19 Nasal Cannula 10/06/24 05:45 72 O2 Flow Rate 10/06/24 13:03 10/06/24 11:23 2 10/06/24 07:43 2 10/06/24 07:19 2 10/06/24 05:45 Laboratory Results 10/03/24 09:13 10/06/24 05:07 PG Care Time/CCT Total # of Minutes Spent Total Time Spent with Patient: Total time spent is greater than 50% in coordination of care (as documented) at patient's floor/unit and/or counseling patient: Coding Level of Care Code 21431 SUB INP/OBS CARE 2/35MIN Diagnoses Acute on chronic diastolic (congestive) heart failure I50.33 Atrial fibrillation I48.91 Chronic obstructive pulmonary disease J44.9 GERD (gastroesophageal reflux disease) K21.9 Diabetes E11.9 Hypertension I10 Hyperlipidemia E78.5 Seizure R56.9
--- NOTE | 2024-10-07 11:28 | CT Scan Report ---
CT chest diagnostic wo con CT DOSE: 708.23 mGy.cm CLINICAL HISTORY: 74 years-old Female with chronic cough and dyspnea. Chronic cough or shortness of breath TECHNIQUE: Multiaxial CT images of the chest were performed without contrast. A dose lowering techni que was utilized adhering to the principles of ALARA. COMPARISON: Chest radiograph 10/03/2024, chest CT 09/11/2019 FINDINGS: Heterogeneous thyroid with 2 cm hypodense right-sided nodule again noted. A 9 mm right para tracheal lymph node on image 58 previously measured 7 mm. A few additional noncalcified mediastinal l ymph nodes have slightly increased in size. Unchanged partially calcified mildly enlarged lymph nodes of the mediastinum. Left atrial exclusion device. Median sternotomy. Moderate cardiomegaly without p ericardial effusion. Extensive coronary artery calcifications. Mitral valvular prosthesis. Atheroscle rosis of the aorta without aneurysm. Dilation of the main pulmonary artery measures up to 4.8 cm. Small left with [id number] right pleural effusions. There are a few scattered calcified granul omata of the lungs. No pneumothorax. Intralobular septal thickening with intermixed groundglass densi ties and mild subsegmental bibasilar atelectasis. No suspicious pulmonary nodules or masses. Central airways appear patent. Cholecystectomy. Mild nonspecific distal esophageal wall thickening. Mild generalized body wall edema . Degenerative changes of the spine and shoulders. No acute fracture identified. Bridging osteophytos is throughout the thoracic spine. IMPRESSION: 1. Cardiomegaly with interstitial pulmonary edema, layering pleural effusions with bibasilar atelecta sis. 2. No definite airspace consolidation typical for pneumonia. 3. Prior granulomatous disease. 4. Cardiomegaly with pulmonary arterial hypertension. ACT 112: Negative or not required by law. Electronically signed by: Yogi Jara M.D. 10/07/2024 11:27 AM
[2024-10-07 11:41] VITALS: BP 108/69; PULSE 88; RESP 18; TEMP 97.3; O2SAT 98
--- NOTE | 2024-10-07 20:44 | Discharge Summary ---
Discharge Summary Date of Service October 07, 2024 Principal Dx & Hospital Course #1 = Principal Diagnosis (1) Acute on chronic diastolic (congestive) heart failure: 74-year-old woman with history of chronic diastolic heart failure, history of bioprosthetic MVR with mild to moderate mitral stenosis admitted with acute on chronic diastolic heart failure. she clearly had acute pulmonary edema on my lung exams the first few days after admission. She was diuresed with IV Lasix and pulmonary edema resolved on exam, she was found to have cor pulmonale and pulmonary hypertension on echocardiogram, which is new. dyspnea has been progressive since after 2023, when questioned she notes she gained at least 5 pounds in the previous week prior to admission elevated BNP as well as edema/anasarca noted on imaging and pulmonary vascular congestion, had diffuse crackles in all lung moon on initial lung exam which have cleared with diuretics, further aggressive diuresis was limited by hypotension and increase in BUN/creatinine and bicarb. Weight remained unchanged this admission Followed by Dr. Son. Last TTE 06/22/24 EF 50-55%, bioprosthetic MVR, mild-mod mitral stenosis, mild AI/ - TTE 10/01 reviewed - RV dilation and pressure/volume overload with normal systolic function and moderate pulmonary HTN are new, otherwise unchanged from fall 2023 - LVEF 60-65%, mild-mod , MS and TR - consulted cardiology, discussed with Dr. Tinoco - he said that diuresis would be limited by the cor pulmonale it was not surprising that she easily develops hypotension/orthostasis and that it was not likely we would be able to diurese her further, he agreed with reducing her metoprolol to allow a more physiologic heart rate - change furosemide to torsemide 40 mg daily for better absorption. I also discussed with her the importance of compliance with her diuretics, she tends to skip doses when she needs to do things for her - continue spironolactone - continue metoprolol reduced to 25 bid, no problems with tachycardia on this reduced dose -GLP-1 or SGLT2 - deferred to outpatient setting for initiation. I think GLP- 1/GIP agonist would benefit her most, for example tirzepatide and she has multiple indications ( obesity, sleep apnea, diabetes, diastolic heart failure). Her daughter says she could give her the weekly SQ -CHF clinic referral Sent she continued to have dyspnea on exertion but remained on her baseline 2 L of oxygen continuously, I further evaluated her pulmonary status as discussed below, unfortunately I think she may be at a new baseline because of her development of cor pulmonale and pulmonary hypertension. (2) Atrial fibrillation: Chronic. Anticoagulated on Coumadin -Continue metoprolol - tachycardia improved with diuresis, reduced metoprolol dose for better blood pressure, was not tachycardic on reduced dose after diuresis -Continue Coumadin (3) Chronic obstructive pulmonary disease: baseline 2 L per nasal cannula at home Chronic. No wheezing noted, doubt COPD exacerbation reviewed PFTs and pulmonary notes she has restrictive lung disease, may be COPD, has not been able to afford Trelegy Ellipta she has had a very persistent and troublesome cough, she is allergic to basically unless all classes of antibiotics with unknown reactions or rashes, will treat for bronchitis with levofloxacin 500 mg daily x 5 days - not clear that levofloxacin is improving her symptoms she does have persistent cough with some purulent sputum however I doubt that steroids would be helpful here - continue her control inhalers and as needed albuterol/Xopenex I obtained chest CT noncontrast because of persistent cough, hypoxia and significant dyspnea on exertion - she has some pleural effusions on surprisi ngly that are not very large and some patchy pulmonary edema, no consolidations and no masses were seen - has seen Dr. Huizar, main diagnosis is restrictive lung disease untreated obstructive sleep apnea. she has a CPAP at home and 3 different masks but she does not use it because she feels like she is suffocating I have extensively discussed the effects of VALERIA on her current cardiac status - could not tolerate CPAP or on evening of 10/04 - she should continue to follow-up with sleep medicine regarding any possible alternative therapies, including potentially nasal cannula CPAP - discussed elevating HOB which she already does, has nocturnal O2 2L - again tirzepatide may be helpful (4) GERD (gastroesophageal reflux disease): Chronic -Continue Pepcid 20mg PO BID -Continue Protonix 40mg po daily (5) Diabetes: continue home medications (6) Hypertension: history of, blood pressures have been low to normal this admission (7) Hyperlipidemia: Chronic -Continue Simvastatin (8) Seizure: Chronic seizure disorder -Continue Phenobarbital at home dose Plan home with home health PT and OT and RN I updated her at bedside and daughter on phone 2/9 and 10/07 Notes For Next Care Provider monitor weight/edema and BMP, adjust diuretics accordingly recommend considering tirzepatide for morbid obesity BMI 33, diastolic heart failure, diabetes, and sleep apnea consider SGLT-2 but GLP-1 may have more benefits Medication Changes From Visit Changed furosemide to torsemide reduce metoprolol dose to allow higher blood pressure and more physiologic heart rate Admission HPI Per Admitting Provider Krystal Kong is a 74yo female with history of atrial fibrillation on Coumadin anticoagulation, mild , h/o bioprosthetic MV, HTN, HLP, DM, COPD presenting with progressive shortness of breath. Patient reports starting to feel short of breath two days before Thanksgiving. Symptoms have been progressive - noted mostly with exertion. She also notes decreased exercise tolerance as well as cough productive for clear/yellow sputum. She has been taking her nebs at home with some improvement in her shortness of breath. She denies orthopnea or worsening edema. She reports that her weight has been fluctuating 4-5 pounds. She has missed several doses of her Lasix 80mg. She typically takes this in the morning but has not taken it over the last 2-3 days. She is not sure if she has been taking her Spironolactone and has not taken any of her PRN Lasix. Otherwise patient reports occasional chills and occasional abdominal pain as well as some chest heaviness. In the ER she is afebrile, HD stable, NAD Discharge Exam PHYSICAL EXAMINATION Last 24h vital signs reviewed, see documentation in flowsheet General: sitting up on the edge of the bed HEENT: Normocephalic, atraumatic, pupils round and equal, sclerae anicteric, no conjunctival injection, moist mucus membranes Lungs: comfortable work of breathing at rest, clear to auscultation bilaterally Heart: irregularly irregular not tachycardic systolic murmur JVD present sitting completely upright Abdomen: Soft, nontender, nondistended. Bowel sounds present. Extremities: Warm, dry, well-perfused. 1+ bilateral pitting lower extremity edema has improved a little bit. Neuro: Alert and oriented x 4, face symmetric, moves 4 extremities well Psych: Normal affect and behavior Discharge Plan Discharge Items Patient Disposition: Home - Home Health Services Reason For Visit: PROGRESSIVE SOB Discharge Diagnosis: Acute on chronic diastolic heart failure, cor pulmonale, pulmonary hypertension, VALERIA Activity: Resume your previous activity Non-emergency contact: Primary Care Provider and Head End Desizing Machine Operator Call non-emergency contact if: you have any medication questions and your symptoms worsen Follow-up/Referrals: Baldev Parra PA-C [Physician Label Paster] - 10/17/24 1:00 pm (Hospital follow up scheduled October 17 at 1:00 with Baldev Parra) Zainab Rayo DO [Primary Care Provider] - 10/15/24 9:20 am (Hospital follow up scheduled October 15 at 9:[address] Rayo) Alissa Esquivel PA-C [Physician Label Paster] - Diet: Carb Consistent or DM2 and Low Sodium (2gm) Addtl Attending Provider Instructions: You were treated for acute heart failure which caused fluid buildup in your lungs -I've changed your diuretic from furosemide to torsemide for better absorption. You need to take this every day or you'll get fluid overloaded and have more cough and trouble breathing -we've reduced the dose of metoprolol because your blood pressure was too low on your previous dose -we're trying a course of antibiotic to see if there is a bronchitis component. There was no pneumonia or anything else (besides fluid) on your chest CT -wear your 2L oxygen as much as possible - low oxygen levels are causing high blood pressure in your lungs (pulmonary hypertension) and this is leading to right sided heart failure -a big cause of this is sleep apnea - follow up with sleep medicine to see if there are any other options to help you tolerate CPAP (like nasal cannula for example) -keep head of bed elevated as you do Talk to your primary care doctor about medication like tirzepatide (Mounjaro) - this would help with multiple things - diabetes, overweight, sleep apnea, and your diastolic heart failure Home health PT, OT, and RN to monitor heart failure Weigh yourself every day - if your weight goes up by more than 2 pounds in 1-2 days or more than 4 pounds in a week that is water weight. Take a double dose of the torsemide and call the heart failure clinic for advice It was a pleasure taking care of you in the hospital, Purvi Gaming MD Addtl Mat Man Provider Instructions: Call your Primary Care doctor if any of the following symptoms or problems start or get worse: * Shortness of breath or difficulty breathing * Wake up at night short of breath * Chest pain * Cough * Swelling of your hands, feet, or legs * More fatigued or tired with your normal activity * Palpitations - sudden fast heart beats WEIGHT * Weigh yourself every morning after using the bathroom. * Use the same scale. * Wear the same amount of clothing. * Write your weight down on a chart. * Call your Primary Care doctor if you gain more than 2-3 pounds in 1-2 days. MEDICATIONS * Use this discharge instruction sheet for medication instructions. * Take your medications at the time your doctor ordered. * Do not skip a dose of your medicines. * If you miss a dose of medicine, take it as soon as possible, but DO NOT DOUBLE A DOSE. * Read your medicine information when you get home. * Know all of the side effects of your medicine. If in doubt, ask your pharmacist * Call your Primary Care doctor's office if you have any side effects. * Be sure all of your doctors know what medicine and herbs you take (including cold, flu, and herbal medicine). Take the following with you to your follow-up doctor appointments: * Weight Chart * Medication List * List of questions Do not drink excessive alcohol, beer or wine. Pending Studies at Discharge: No Stand-Alone Forms: My [facility], Smoking Cessation Medications and DC Order Prescriptions: New levofloxacin 500 mg Tablet 500 mg PO DAILY@1100 Qty: 3 0RF torsemide 20 mg Tablet 40 mg PO QAM Qty: 60 0RF metoprolol tartrate 25 mg Tablet 25 mg PO BID Qty: 60 0RF Continued (DME) CPAP Machine Misc See Rx Instructions .MEDSUPPLY Qty: 1 0RF Rx Instructions: CPAP with autotitrate. Range of 8-16 cm H2O with humidification. Nasal pillow. Lifetime need. fluticasone propionate [Flonase Allergy Relief] 50 mcg/actuation spray,suspension 1 spray INTRANASAL BID PRN (Reason: Nasal Congestion) Qty: 15.8 1RF nystatin 100,000 unit/gram cream 1 applic topical DAILY Qty: 30 3RF betamethasone dipropionate 0.05 % cream 1 applic topical BID PRN (Reason: skin irritation) Qty: 45 0RF omega 9-nmz-owt-fish oil [Fish Oil] 60-90-500 mg capsule 1 cap PO DAILY Qty: 30 0RF warfarin 4 mg tablet 4 mg PO .COMPLEX Qty: 90 1RF Protocol: Dose Management Condition: Monday Dose/Route: 5 mg Instruction: 1 x 5 mg tablet Condition: Monday Dose/Route: 2.5 mg Instruction: 0.5 x 5 mg tablets Condition: Monday Dose/Route: 5 mg Instruction: 1 x 5 mg tablet Condition: Monday Dose/Route: 5 mg Instruction: 1 x 5 mg tablet Condition: Dose/Route: 5 mg Instruction: 1 x 5 mg tablet Condition: Monday Dose/Route: 2.5 mg Instruction: 0.5 x 5 mg tablets Condition: Monday Dose/Route: 5 mg Instruction: 1 x 5 mg tablet Protocol Text: Adjustment Start Date: Monday09/24/24 INR Value: 1.9 INR Date: 09/24/24 Recheck Date: 10/01/24 Rx Instructions: 4 mg PO per protocol; warfarin 1 mg tablet 1 mg PO DAILY Qty: 90 3RF Protocol: Dose Management Condition: Monday Dose/Route: 5 mg Instruction: 1 x 5 mg tablet Condition: Monday Dose/Route: 2.5 mg Instruction: 0.5 x 5 mg tablets Condition: Monday Dose/Route: 5 mg Instruction: 1 x 5 mg tablet Condition: Monday Dose/Route: 5 mg Instruction: 1 x 5 mg tablet Condition: Dose/Route: 5 mg Instruction: 1 x 5 mg tablet Condition: Monday Dose/Route: 2.5 mg Instruction: 0.5 x 5 mg tablets Condition: Monday Dose/Route: 5 mg Instruction: 1 x 5 mg tablet Protocol Text: Adjustment Start Date: Monday09/24/24 INR Value: 1.9 INR Date: 09/24/24 Recheck Date: 10/01/24 famotidine 20 mg tablet 20 mg PO BID Qty: 180 3RF simvastatin 40 mg tablet 40 mg PO HS Qty: 90 1RF phenobarbital 32.4 mg tablet 32.4 mg PO BID Qty: 180 3RF montelukast 10 mg tablet 10 mg PO DAILY Qty: 90 1RF metformin 500 mg tablet 500 mg PO DAILY Qty: 100 1RF warfarin [Jantoven] 5 mg tablet 5 mg PO DAILY Qty: 90 1RF Protocol: Dose Management Condition: Monday Dose/Route: 5 mg Instruction: 1 x 5 mg tablet Condition: Monday Dose/Route: 2.5 mg Instruction: 0.5 x 5 mg tablets Condition: Monday Dose/Route: 5 mg Instruction: 1 x 5 mg tablet Condition: Monday Dose/Route: 5 mg Instruction: 1 x 5 mg tablet Condition: Dose/Route: 5 mg Instruction: 1 x 5 mg tablet Condition: Monday Dose/Route: 2.5 mg Instruction: 0.5 x 5 mg tablets Condition: Monday Dose/Route: 5 mg Instruction: 1 x 5 mg tablet Protocol Text: Adjustment Start Date: Monday09/24/24 INR Value: 1.9 INR Date: 09/24/24 Recheck Date: 10/01/24 (DME) nebulizer accessories Kit See Rx Instructions .Route Qty: 1 0RF Rx Instructions: USE Q6H PRN cyclobenzaprine 5 mg tablet 5 mg PO TID PRN (Reason: muscle spasm) Qty: 10 0RF pantoprazole [Protonix] 40 mg tablet,delayed release (DR/EC) 40 mg PO DAILY Qty: 90 1RF (DME) Oxygen Home Liters Per Minute See Rx Instructions .ROUTE .MEDSUPPLY Qty: 1 0RF Rx Instructions: 2L NC continuous dx: J44.9, J96.90, dx: I50.32 Oil of Oregano 1,500 mg 1,500 mg PO DAILY Rx Instructions: pt buys otc ascorbate calcium (vitamin C) 500 mg tablet 500 mg PO DAILY milk thistle PO DAILY cetirizine [Zyrtec] 10 mg tablet 10 mg PO BID hydroxyzine pamoate [Vistaril] 25 mg capsule 25 mg PO Q8H PRN (Reason: itching) Qty: 30 0RF triamcinolone acetonide 0.1 % cream 1 applic topical BID Qty: 30 0RF ondansetron HCl 4 mg tablet See Rx Instructions .ROUTE .COMPLEX PRN (Reason: Nausea) Dose Instruction: take 1-2 tablets every 8 hours as needed for nausea Rx Instructions: take 1-2 tablets every 8 hours as needed for nausea PRN; (DME) CPAP Supplies Misc See Rx Instructions .MEDSUPPLY Qty: 1 0RF Rx Instructions: Patient needs a different mask. Please do a mask fitting. Lifetime need. levalbuterol tartrate 45 mcg/actuation HFA aerosol inhaler 1 inh inhalation Q6H Qty: 15 5RF clindamycin phosphate 1 % gel 1 applic topical DAILY PRN (Reason: Back Pain) Rx Instructions: apply to back spironolactone 25 mg tablet 25 mg PO DAILY Qty: 30 2RF cholecalciferol (vitamin D3) 125 mcg (5,000 unit) capsule 125 mcg PO DAILY estradiol 0.01 % (0.1 mg/gram) cream 1 appful vaginal .2 times per week clobetasol 0.05 % ointment 1 applic topical BID fluticasone propion-salmeterol 100-50 mcg/dose blister with device 1 inh inhalation BID Qty: 60 2RF ipratropium-albuterol 0.5 mg-3 mg(2.5 mg base)/3 mL solution for nebulization 3 ml inhalation Q6H PRN (Reason: wheezing) Qty: 180 1RF Premarin 0.625 mg/gram cream 0.625 mg vaginal .2 times per week clobetasol 0.05 % cream 1 applic topical DAILY potassium chloride 10 mEq Tablet Extended Release 10 meq PO QAM polyethylene glycol 3350 [Miralax] 17 gram/dose Powder 1 dose PO QPM allopurinol 100 mg Tablet 100 mg PO DAILY [id number] 160-9-4.8 mcg/actuation Hfa Aerosol Inhaler 2 inh INHALATION BID Discontinued furosemide [Lasix] 80 mg tablet See Rx Instructions .ROUTE .COMPLEX Qty: 90 1RF Rx Instructions: Take 1 tab PO in AM metoprolol tartrate 100 mg tablet 100 mg PO BID Qty: 180 1RF Discharge Orders: Discharge Order- CHF (Routine); Ordered 10/07/24 Ordered By: Purvi Morrell/Other Patient Handouts: Levofloxacin Oral Tablet, Metoprolol Oral Tablet, Torsemide Oral Tablet, Pulmonary Hypertension Admission Data Admit Date/Time: 09/30/24 23:10 Attending Provider: Purvi Gaming Admit Provider: Rhea Sousa Primary Care Provider: Zainab Rayo Other Providers: Rhea Sousa; Alissa Esquivel; Niraj Jimenez [facility]; Baldev Parra; Giancarlo Tinoco; Ismael Son; Massimo Milner; Geronimo Mendoza; Flavio Silva Jr; Bakari Ramsay; Swetha Sapp; Angie Moreno; Isaac Vanegas; Isaac Rick; Rick Burris; Todd Dan; Katty Clemons; Todd Harvey; Florian Mohan Other Interventions: Discharge Summary Assessment (RN) Last Done: 10/07/24 14:56 Hospital Stay Data Consultations 09/30/24 22:31 ED Decision to Admit Stat 10/02/24 14:14 [facility] CHF Program Referral Routine 10/04/24 08:55 Consult Cardiology Routine Diagnostic Imagining Performed 09/30/24 18:33 CT abd pelvis wo con Stat 10/06/24 14:29 CT chest diagnostic wo con Routine Pending Results Patient Have Any Pending Studies at Discharge: No Discharge Instructions Given to Patient (Per Discharging Provider) You were treated for acute heart failure which caused fluid buildup in your lungs -I've changed your diuretic from furosemide to torsemide for better absorption. You need to take this every day or you'll get fluid overloaded and have more cough and trouble breathing -we've reduced the dose of metoprolol because your blood pressure was too low on your previous dose -we're trying a course of antibiotic to see if there is a bronchitis component. There was no pneumonia or anything else (besides fluid) on your chest CT -wear your 2L oxygen as much as possible - low oxygen levels are causing high blood pressure in your lungs (pulmonary hypertension) and this is leading to right sided heart failure -a big cause of this is sleep apnea - follow up with sleep medicine to see if there are any other options to help you tolerate CPAP (like nasal cannula for example) -keep head of bed elevated as you do Talk to your primary care doctor about medication like tirzepatide (Mounjaro) - this would help with multiple things - diabetes, overweight, sleep apnea, and your diastolic heart failure Home health PT, OT, and RN to monitor heart failure Weigh yourself every day - if your weight goes up by more than 2 pounds in 1-2 days or more than 4 pounds in a week that is water weight. Take a double dose of the torsemide and call the heart failure clinic for advice It was a pleasure taking care of you in the hospital, Purvi Gaming MD Total Time Total Time Spent Total Time Spent (In Minutes): I personally spent: 45 minutes today on clinical care activities including: reviewing chart notes and vital signs reviewing studies including chest CT report and images discussion with home health care respiratory therapist examining and counseling the patient counseling the patient's family writing orders writing prescriptions, discharge instructions documentation Coding Level of Care Code 60801 INP/OBS DISCH >30 MIN Diagnoses Acute on chronic diastolic (congestive) heart failure I50.33 Atrial fibrillation I48.91 Chronic obstructive pulmonary disease J44.9 GERD (gastroesophageal reflux disease) K21.9 Diabetes E11.9 Hypertension I10 Hyperlipidemia E78.5 Seizure R56.9 Home Health Attestation I certify that this patient is under my care and that I, or a physicians development assistant working with me, had a face to-face encounter that meets the home health [id number] encounter requirements with this patient. The encounter with the patient was in whole, or in part, for the following medical condition, which is the primary reason for home health care (list medical condition): acute on chronic diastolic heart failure, new diagnosis of cor pulmonale and pulmonary hypertension I certify that, based on my findings, the following services are medically necessary home health services: physical therapy, Occupational Therapy, home health RN My clinical findings support the need for the above services because: Krystal significant decrease in her functional status compared to prior to admission and over the last several weeks to months. inpatient PT and OT evaluation said to consider rehab Stay which she has refused and recommended home health PT and OT. She has unsteady gait requires a walker and is requiring continuous oxygen. She has newly symptomatic heart failure and cor pulmonale/pulmonary hypertension which will require ongoing monitoring and adjustment of medications including diuretics Further, I certify that my clinical findings support that this patient is homebound (i.e. absences from home require considerable and taxing effort and are for medical reasons or latter-day services or infrequently or of short duration when for other reasons) because: Certification for Home Health Services: Based on the above findings, I certify that this patient is confined to the home and needs intermittent fdc care, physical therapy and/or speech therapy or continues to need occupational therapy. The patient is under my care, and I have initiated the establishment of the plan of care. This patient will be followed by a physician who will periodically review the plan of care.
== END 2024-10-07 15:46 | disposition home health service (06) | DRG 291 ==
LOC: ED 16:03 → SUATTDRO 23:10 → 2W 23:10

== ENCOUNTER 2024-10-11 14:36 | Inpatient (IN) ==
--- NOTE | 2024-10-11 16:30 | Electrocardiogram Report ---
Test Reason : Blood Pressure : */* mmHG Vent. Rate : 104 BPM Atrial Rate : * BPM P-R Int : * ms QRS Dur : 78 ms QT Int : 346 ms P-R-T Axes : * 56 -83 degrees QTcB Int : 454 ms Atrial fibrillation with rapid ventricular response Septal infarct , age undetermined Nonspecific ST and T wave abnormality Abnormal ECG When compared with ECG of 30-Sep-2024 16:34, No significant change was found Confirmed by Ismael Son ([id number]) on 10/11/2024 4:29:39 PM Referred By: Confirmed By: Ismael Son
[2024-10-11 16:31] LABS: Basophils # (auto) 0.02 K/uL (0.00-0.20); Basophils % (auto) 0.2 %; Eosinophils # (auto) 0.05 K/uL (0.00-0.50); Eosinophils % (auto) 0.6 %; Hemoglobin 12.5 g/dl (12.0-16.0); Immature Granulocytes # (auto) 0.03 K/uL (0.01-0.20); Immature Granulocytes % (auto) 0.3 %; Lymphocytes % (auto) 11.2 %; Mean Corpuscular Hemoglobin 29.3 pg (25.0-34.0); Mean Corpuscular Hgb Conc 31.3 g/dL (32.0-36.0); Mean Corpuscular Volume 93.9 fL (80.0-100.0); Mean Platelet Volume 10.3 fL (9.4-12.4); Monocytes # (auto) 0.96 K/uL (0.11-0.59); Monocytes % (auto) 10.8 %; Neutrophils # (auto) 6.83 K/uL (1.40-6.50); Neutrophils % (auto) 76.9 %; Platelet Count 175 K/uL (130-400); RDW Coefficient of Variation 15.4 % (11.5-14.5); RDW Standard Deviation 53.4 fL (36.4-46.3); Red Blood Count 4.26 M/uL (4.20-5.40); White Blood Count 8.89 K/ul (4.8-10.8)
[2024-10-11 16:44] LABS: Appearance Urine Clear (Clear); Bacteria Urine Automated None Seen (None Seen); Bilirubin Urine Negative (Negative); Blood Urine Negative (Negative); Color Urine Yellow; Epithelial Cell Urine Auto 0-2 /hpf (0-2); Glucose Urine UA Negative (Negative); Ketones Urine Negative (Negative); Leukocyte Esterase Urine Negative (Negative); Mucus Urine Present (None Prsent); Nitrite Urine Negative (Negative); Protein Urine 2+ (Negative); RBC Urine Automated 0-2 /hpf (0-2); Specific Gravity Urine 1.019 (1.000-1.030); Urobilinogen Urine Negative (Negative); WBC Urine Automated 0-5 /hpf (0-5)
[2024-10-11 16:49] LABS: Alanine Aminotransferase 21 U/L (7-52); Albumin Level 3.9 gm/dl (3.4-5.0); Alkaline Phosphatase 92 U/L (34-104); Anion Gap 4 (3-11); Aspartate Aminotransferase 37 U/L (13-39); BUN Creatinine Ratio 20.9 (10-20); Bilirubin,Total 0.6 mg/dl (0.2-1.0); Blood Urea Nitrogen 19 mg/dl (6-23); Calcium 9.5 mg/dl (8.6-10.3); Carbon Dioxide 38 mmol/L (21-32); Chloride 99 mmol/L (98-107); Globulin 4.1 gm/dl (2.5-4.0); Glucose 93 mg/dl (70-99(Fasting)); Magnesium 1.7 mg/dl (1.7-2.4); Potassium 3.7 mmol/L (3.5-5.1); Sodium 141 mmol/L (136-145)
[2024-10-11 16:56] LABS: Troponin I High Sensitivity 9.8 pg/ml (0-14)
[2024-10-11 16:57] LABS: INR 2.5 (0.9-1.1); Prothrombin Time 24.7 Seconds (9.0-12.0)
[2024-10-11 17:14] LABS: Adenovirus PCR Not Detected (NotDetected); Bordetella parapertussis PCR Not Detected (NotDetected); Bordetella pertussis PCR Not Detected (NotDetected); Chlamydia pneumoniae PCR Not Detected (NotDetected); Coronavirus 229E PCR Not Detected (NotDetected); Coronavirus CoV-2 (COVID19)PCR Not Detected (NotDetected); Coronavirus HKU1 PCR Not Detected (NotDetected); Coronavirus NL63 PCR Not Detected (NotDetected); Coronavirus OC43PCR DETECTED (NotDetected); Human Metapneumovirus PCR Not Detected (NotDetected); Influenza A PCR Not Detected (NotDetected); Influenza B PCR Not Detected (NotDetected); Mycoplasma pneumoniae PCR Not Detected (NotDetected); Parainfluenza Virus 1 PCR Not Detected (NotDetected); Parainfluenza Virus 2 PCR Not Detected (NotDetected); Parainfluenza Virus 3 PCR Not Detected (NotDetected); Parainfluenza Virus 4 PCR Not Detected (NotDetected); Respiratory Syncytial VirusPCR Not Detected (NotDetected); Rhinovirus/Enterovirus PCR Not Detected (NotDetected)
--- NOTE | 2024-10-11 17:33 | XRay Report ---
Chest radiograph, one view History: Chest pain Comparison: 10/07/2024 Findings: Single AP view of the chest performed. No focal consolidation. Continued small pleural effusions. No pneumothorax. The heart is enlarged. There is a mitral valve annuloplasty. Left atrial appendage clip. Median sternotomy wires. Enlarged pulmonary vascularity. No evidence for lymphadenopathy. No visualized bony or soft tissue abnormality. Impression: Cardiomegaly and small pleural effusions, as on prior CT Electronically signed by Isaac Jiménez 10-11-2024 5:29 PM
--- NOTE | 2024-10-11 18:38 | Emergency Department Note ---
Impression & Plan Coronavirus infection, unspecified, COPD with acute exacerbation, CHF (congestive heart failure) ED Provider Note NAME: GRZEGORZ BEARD AGE: 74 SEX: F : 1950 ARRIVES VIA: Walk-In INFORMANT: Patient ED PROVIDER(S): Harry Little MD CHIEF COMPLAINT: Shortness of breath, cough, blood-tinged sputum, referred. PLAN: Disposition: Admit MEDICAL DECISION MAKING: The patient a pleasant 74-year-old woman with a past medical history of COPD on home oxygen, diastolic heart failure, pulmonary hypertension, CAD, atrial fibrillation on warfarin presents to the emergency department via walk-in, accompanied by her for evaluation of worsening shortness of breath, cough and congestion in setting of being admitted this facility last week for CHF exacerbation. Patient reports she has been having productive sputum which is blood-tinged. She denies vomiting but reports nausea. She denies any diarrhea. She reports her weight has remained stable following her recent admission. Patient reports she contacted her PCP office and was referred to the emergency department. Of note, the patient did arrive to emergency department during time of high volume, acuity and prolonged emergency department waiting times. Critical pathways initiated from triage. On evaluation patient is fatigued/dyspneic appearing but in no distress, afebrile with stable vital signs. She appears mildly dyspneic with wheezes of bilateral lung moon. EKG demonstrates atrial fibrillation with RVR at 104 without overt acute ischemia. Chest x-ray negative for focal consolidation. WBC within normal limits. H/H and platelet within normal limits. INR therapeutic at 2.5. Chemistry with bicarbonate of 38 consistent with chronic CO2 retention in setting of COPD. LFTs unremarkable. High-sensitivity troponin 9.8, within normal limits. BNP is 300, improved from recent admission. UA without convincing evidence of infection. Respiratory BioFire was positive for coronavirus OC 43. Given the patient's worsening symptoms in setting of her comorbidities the patient does agree with plan for admission for further management. Treatment initiated with IV steroids, DuoNeb, guaifenesin, flutter valve. Case was discussed with Dr. Mejia, [facility] hospitalist, who will evaluate the patient for admission. Further management per admitting team. Triage Nursing notes reviewed and agree them. Prior/external medical records reviewed Vital Signs: reviewed Differential diagnosis: Reactive airway disease, pneumonia, pneumothorax, COPD, CHF, infections, cardiac ischemia, pulmonary embolism, musculoskeletal, gastrointestinal, as well as other pathologies. ER treatment provided: See below. Diagnostics interpreted by me: ECG: Atrial fibrillation with RVR, 104 bpm, no ectopy, no overt ST ovation depression, QTc 454, QRS 70. Cardiac Monitoring: An order for continuous cardiac monitoring was placed and demonstrated Atrial fibrillation with RVR, 104 bpm, no ectopy. Laboratory studies: See below Imaging studies: See below Consultation(s): Case was discussed with Dr. Mejia, [facility] hospitalist, who will evaluate the patient for admission. HPI: The patient a pleasant 74-year-old woman with a past medical history of COPD on home oxygen, diastolic heart failure, pulmonary hypertension, CAD, atrial fibrillation on warfarin presents to the emergency department via walk- in, accompanied by her for evaluation of worsening shortness of breath, cough and congestion in setting of being admitted this facility last week for CHF exacerbation. Patient reports she has been having productive sputum which is blood-tinged. She denies vomiting but reports nausea. She denies any diarrhea. She reports her weight has remained stable following her recent admission. Patient reports she contacted her PCP office and was referred to the emergency department. ROS: See above HPI for pertinent positives & negatives. A total of 10 systems reviewed and were otherwise negative. VITALS:See Below PHYSICAL EXAMINATION: GENERAL: Awake, alert, fatigued/dyspneic-appearing, in no distress HENT: Normocephalic, atraumatic. Boggy nasal turbinates. Oropharynx unremarkable. EYES: Normal conjunctiva. Sclera non-icteric. NECK: Supple. No nuchal rigidity. FROM. No JVD. RESPIRATORY: Wheezes of bilateral lung moon with mild increased work of breathing but no acute distress CARDIAC: Regular rate, irregular rhythm. Extremities warm and well perfused. Pulses equal. ABDOMEN: Soft, non-distended. No tenderness to palpation. No rebound or guarding. No masses. MUSCULOSKELETAL: Chest examination reveals no tenderness. The back is symmetrical on inspection without obvious abnormality. There is no CVA tenderness to palpation. No joint edema. LOWER EXTREMITIES: Calves are equal size bilaterally and non-tender. No edema. No discoloration. NEURO: Normal sensorium. No sensory or motor deficits noted. SKIN: No rash or jaundice noted. Harry Little MD Past Med/Surg History Problem List T2DM (type 2 diabetes mellitus) Hypomagnesemia Hypokalemia CHF (congestive heart failure) (Acute) COPD with acute exacerbation (Acute) Coronavirus infection, unspecified (Acute) Abdominal ascites (Acute) Pulmonary vascular congestion (Acute) Cor pulmonale, chronic Chronic obstructive pulmonary disease with hypoxia Mild aortic stenosis S/P mitral valve replacement with bioprosthetic valve (2011) Permanent atrial fibrillation (HFpEF) heart failure with preserved ejection fraction Moderate pulmonary hypertension Lichen sclerosus Atrophic vaginitis Joana Omalley syndrome (geniculate herpes zoster) VALERIA (obstructive sleep apnea) Mild persistent asthma Urinary incontinence Aortic stenosis Thyroid Nodule Daytime hypersomnia Osteoarthritis History of DVT (deep vein thrombosis) History of mitral valve replacement (11/2011) 11/2011 @ [facility]--follows with Dr. Son Hiatal hernia GERD (gastroesophageal reflux disease) Diabetes Hx of rheumatic fever Hypertension Hyperlipidemia Seizure Obese History of TIA (transient ischemic attack) Vitamin D deficiency Restrictive lung disease secondary to obesity Pulmonary nodule Mitral valve disorder Gastroparesis Depression with anxiety Coronary artery disease Chronic diastolic heart failure, NYHA class 1 Chronic constipation Bladder prolapse Bilateral carotid artery stenosis Asthma Chronic anticoagulation (Acute) Atrial fibrillation (02/04/12) Medical History Dyspnea on exertion Vaccination hesitancy by patient Respiratory failure Tubular adenoma of colon Kidney stones Surgical History S/P balloon mitral valvuloplasty History of total abdominal hysterectomy and bilateral salpingo-oophorectomy History of appendectomy History of cholecystectomy History of esophagogastroduodenoscopy (EGD) Status post biopsy of thyroid gland benign Family History Brother Congestive heart failure Family/Other Family history of diabetes mellitus maternal aunt Family hx of colon cancer maternal aunt Mother Colorectal cancer Migraine headache Ovarian cancer Father Prostate cancer Denies family history of Breast cancer Lung cancer Social History Smoking Status: Never smoker Second Hand Exposure: Yes (father smoked); Do You Dip or Chew Tobacco: No; Hx Alcohol Use: Yes Alcohol type: wine Hx Substance Use: No Preferred Language: Tajik Communication Ability: Effective Visual Impairment: No Limitations Hearing Ability: Normal Microsoft Exchange Administrator Required: No Beliefs That Will Affect Care: None marital status: Current Living Situation: Spouse current occupational status: retired How many Children do You have: 4 Other Information That Helps Us Care for You: No Feels Safe at Home: Yes Safety Concerns: Feels Safe At This Time Childhood Exposure to Second-Hand Smoke: Yes Diet: regular Diet Comment: regular caffeine: No during the past year weight has: remained stable Dental Care, Regularly: No Physical Activity Frequency: Other Physical Activity Frequency Comment: housework Seatbelt Use: always Sunscreen Use: No Assistive Devices: Glasses, Hearing Aid - Right and Oxygen - Continuous Allergies Allergies Allergy/AdvReac Type Severity Reaction Status Date / Time irbesartan Allergy Intermediate hives Verified 09/24/24 11:02 prednisone Allergy Intermediate Hives Verified 09/24/24 11:02 amlodipine Allergy Unknown HIVES Verified 09/24/24 11:02 aspirin Allergy Unknown UNKNOWN Verified 09/24/24 11:02 astemizole Allergy Unknown UNKNOWN Verified 09/24/24 11:02 atorvastatin Allergy Unknown Verified 09/24/24 11:02 caffeine Allergy Unknown UNKNOWN Verified 09/24/24 11:02 cefixime Allergy Unknown UNKNOWN Verified 09/24/24 11:02 cephalexin Allergy Unknown UNKNOWN Verified 09/24/24 11:02 Cephalosporins Allergy Unknown Verified 09/24/24 11:02 codeine Allergy Unknown UNKNOWN Verified 09/24/24 11:02 dexamethasone Allergy Unknown UNKNOWN Verified 09/24/24 11:02 diphenhydramine Allergy Unknown UNKNOWN Verified 09/24/24 11:02 erythromycin base Allergy Unknown UNKNOWN Verified 09/24/24 11:02 hydrochlorothiazide Allergy Unknown Verified 09/24/24 11:02 hydromorphone Allergy Unknown UNKNOWN Verified 09/24/24 11:02 ibuprofen Allergy Unknown UNKNOWN Verified 09/24/24 11:02 Iodinated Contrast Media Allergy Unknown UNKNOWN Verified 09/24/24 11:02 methylprednisolone Allergy Unknown UNKNOWN Verified 09/24/24 11:02 omeprazole Allergy Unknown Verified 09/24/24 11:02 orphenadrine Allergy Unknown UNKNOWN Verified 09/24/24 11:02 Penicillins Allergy Unknown UNKNOWN Verified 09/24/24 11:02 pentazocine Allergy Unknown UNKNOWN Verified 09/24/24 11:02 ramipril Allergy Unknown UNKNOWN Verified 09/24/24 11:02 sodium benzoate Allergy Unknown UNKNOWN Verified 09/24/24 11:02 sucralfate Allergy Unknown UNKNOWN Verified 09/24/24 11:02 tetracycline Allergy Unknown UNKNOWN Verified 09/24/24 11:02 theophylline Allergy Unknown UNKNOWN Verified 09/24/24 11:02 valacyclovir Allergy Unknown Verified 09/24/24 11:02 metoprolol [From Toprol XL] Allergy Unknown Verified 09/24/24 11:02 polymyxin B Allergy Unknown Verified 09/24/24 11:02 sodium bicarbonate Allergy Unknown Verified 09/24/24 11:02 [From Zegerid] nitrofurantoin AdvReac Severe shaky, Verified 09/24/24 11:02 chills, landeros, nausea Home Meds Home Medications Medication Instructions Recorded Confirmed polyethylene glycol 3350 17 1 dose PO QPM 06/20/18 10/11/24 gram/dose oral powder (Miralax) potassium chloride 10 mEq 10 meq PO QAM 06/20/18 10/11/24 tablet,extended release allopurinol 100 mg tablet 100 mg PO DAILY 10/02/18 10/11/24 ondansetron HCl 4 mg tablet See Rx Instructions .Route 08/30/21 10/11/24 .COMPLEX PRN Nausea cholecalciferol (vitamin D3) 125 125 mcg PO DAILY 05/05/23 10/11/24 mcg (5,000 unit) capsule cetirizine 10 mg tablet (Zyrtec) 10 mg PO BID 08/14/23 10/11/24 ascorbate calcium (vitamin C) 500 500 mg PO DAILY 09/07/23 10/11/24 mg tablet milk thistle 1 dose PO DAILY 09/07/23 10/11/24 conjugated estrogens 0.625 mg/gram 0.625 mg vaginal .2 times per week 04/01/24 10/11/24 vaginal cream (Premarin) clobetasol 0.05 % topical ointment 1 applic topical BID PRN 04/12/24 10/11/24 DIRECTED budesonide 160 mcg-glycopyr 9 2 inh inhalation BID 09/30/24 10/11/24 mcg-formot 4.8 mcg/actuation HFA inhaler Previous Rx's Medication Instructions Recorded Oxygen Home #1 ea 04/27/20 spironolactone 25 mg tablet 25 mg PO DAILY #30 tabs 09/07/20 CPAP Machine #1 ea 02/11/21 CPAP Supplies #1 ea 07/14/21 fluticasone propionate 50 1 spray intranasal BID PRN Nasal 04/21/22 mcg/actuation nasal Congestion #15.8 mL spray,suspension (Flonase Allergy Relief) cyclobenzaprine 5 mg tablet 5 mg PO TID PRN muscle spasm #10 10/24/22 tabs nystatin 100,000 unit/gram topical 1 applic topical DAILY #30 grams 12/19/22 cream betamethasone dipropionate 0.05 % 1 applic topical BID PRN skin 01/10/23 topical cream irritation #45 grams omega [id number]-fish oil 60 mg-90 1 cap PO DAILY #30 caps 01/12/23 mg-500 mg capsule (Fish Oil) levalbuterol tartrate 45 1 inh inhalation Q6H #15 grams 03/13/23 mcg/actuation aerosol inhaler warfarin 4 mg tablet 4 mg PO .COMPLEX #90 tabs 05/17/23 warfarin 1 mg tablet 1 mg PO DAILY #90 tabs 07/05/23 hydroxyzine pamoate 25 mg capsule 25 mg PO Q8H PRN itching #30 caps 08/14/23 (Vistaril) famotidine 20 mg tablet 20 mg PO BID #180 tabs 10/06/23 pantoprazole 40 mg tablet,delayed 40 mg PO DAILY #90 tabs 12/25/23 release (Protonix) simvastatin 40 mg tablet 40 mg PO HS #90 tabs 03/22/24 metformin 500 mg tablet 500 mg PO DAILY #100 tabs 05/13/24 montelukast 10 mg tablet 10 mg PO DAILY #90 tabs 05/13/24 fluticasone 100 mcg-salmeterol 50 1 inh inhalation BID #60 ea 08/13/24 mcg/dose blistr powdr for inhalation warfarin 5 mg tablet (Jantoven) 5 mg PO DAILY #90 tabs 08/13/24 ipratropium 0.5 mg-albuterol 3 mg 3 ml inhalation Q6H PRN wheezing 09/24/24 (2.5 mg base)/3 mL nebulization #180 mL soln nebulizer accessories #1 ea 09/24/24 levofloxacin 500 mg tablet 500 mg PO DAILY@1100 #3 tabs 10/07/24 metoprolol tartrate 25 mg tablet 25 mg PO BID #60 tabs 10/07/24 torsemide 20 mg tablet 40 mg (2 x 20 mg) PO QAM #60 tabs 10/07/24 phenobarbital 32.4 mg tablet 32.4 mg PO BID #180 tabs 10/08/24 benzonatate 100 mg capsule 100 mg PO TID PRN cough #30 caps 10/11/24 Results & Data (ED) Vital Signs Vital Signs - 24 hr 10/11/24 14:40 10/11/24 18:26 10/11/24 19:30 Temperature 36.1 C L Temperature Source Temporal Artery Scan Pulse Rate 91 H 97 H Pulse Rate [Apical] 97 H Respiratory Rate 20 20 Blood Pressure 118/77 Blood Pressure [Right Arm] 93/65 L Blood Pressure Mean 90 Blood Pressure Mean [Right Arm] 74 Pulse Oximetry 96 95 Oxygen Delivery Method Room Air Nasal Cannula Oxygen Flow Rate 2 Sepsis Recent Fever Within 48 Hours No Sepsis New/Unexplained Change in Mental Status N/A Sepsis Action Taken by Nursing No Action Required 10/11/24 19:30 Temperature Temperature Source Pulse Rate Pulse Rate [Apical] Respiratory Rate Blood Pressure Blood Pressure [Right Arm] Blood Pressure Mean Blood Pressure Mean [Right Arm] Pulse Oximetry Oxygen Delivery Method Nasal Cannula Oxygen Flow Rate Sepsis Recent Fever Within 48 Hours Sepsis New/Unexplained Change in Mental Status Sepsis Action Taken by Nursing Laboratory Data Attestation: I reviewed the patient's lab results. 10/11/24 16:07 10/11/24 16:11 Lab Results 10/11/24 10/11/24 10/11/24 Range/Units 16:07 16:11 19:24 WBC 8.89 (4.8-10.8) K/ul RBC 4.26 (4.20-5.40) M/uL Hgb 12.5 (12.0-16.0) g/dl Hct 40.0 (37.0-47.0) % MCV 93.9 (80.0-100.0) fL MCH 29.3 (25.0-34.0) pg MCHC 31.3 L (32.0-36.0) g/dL RDW Std Deviation 53.4 H (36.4-46.3) fL RDW Coeff of Trey 15.4 H (11.5-14.5) % Plt Count 175 (130-400) K/uL MPV 10.3 (9.4-12.4) fL Immature Gran % (Auto) 0.3 % Neut % (Auto) 76.9 % Lymph % (Auto) 11.2 % [place] % (Auto) 10.8 % Eos % (Auto) 0.6 % Baso % (Auto) 0.2 % Neut # (Auto) 6.83 H (1.40-6.50) K/uL Lymph # (Auto) 1.00 L (1.20-3.40) K/uL [place] # (Auto) 0.96 H (0.11-0.59) K/uL Eos # (Auto) 0.05 (0.00-0.50) K/uL Baso # (Auto) 0.02 (0.00-0.20) K/uL Immature Gran # (Auto) 0.03 (0.01-0.20) K/uL PT 24.7 H (9.0-12.0) Seconds INR 2.5 H (0.9-1.1) Sodium 141 (136-145) mmol/L Potassium 3.7 (3.5-5.1) mmol/L Chloride 99 (98-107) mmol/L Carbon Dioxide 38 H (21-32) mmol/L Anion Gap 4 (3-11) BUN 19 (6-23) mg/dl Creatinine 0.91 (0.6-1.2) mg/dl Est Cr Clr Drug Dosing Not Reportable eGFR 65.38 BUN/Creatinine Ratio 20.9 H (10-20) Glucose 93 (70-99(Fasting)) mg/dl Calcium 9.5 (8.6-10.3) mg/dl Magnesium 1.7 (1.7-2.4) mg/dl Total Bilirubin 0.6 (0.2-1.0) mg/dl AST 37 (13-39) U/L ALT 21 (7-52) U/L Alkaline Phosphatase 92 (34-104) U/L Troponin I High Sens 9.8 (0-14) pg/ml B-Natriuretic Peptide 304 H (0-100) pg/ml Total Protein 8.0 (6.0-8.3) gm/dl Albumin 3.9 (3.4-5.0) gm/dl Globulin 4.1 H (2.5-4.0) gm/dl Albumin/Globulin Ratio 1.0 (0.9-2) Procalcitonin Cancelled < 0.02 Urine Color Yellow Urine Appearance Clear (Clear) Urine pH 5.0 (4.5-7.5) Ur Specific [place] 1.019 (1.000-1.030) Urine Protein 2+ H (Negative) Urine Glucose (UA) Negative (Negative) Urine Ketones Negative (Negative) Urine Blood Negative (Negative) Urine Nitrite Negative (Negative) Urine Bilirubin Negative (Negative) Urine Urobilinogen Negative (Negative) Ur Leukocyte Esterase Negative (Negative) Urine WBC (Auto) 0-5 (0-5) /hpf Urine RBC (Auto) 0-2 (0-2) /hpf U Hyaline Cast (Auto) 11-20 H (0-2) /lpf U Epithel Cells (Auto) 0-2 (0-2) /hpf Urine Bacteria (Auto) None Seen (None Seen) Urine Mucus Present A (None Prsent) Adenovirus (PCR) Not Detected (NotDetected) B. pertussis DNA (PCR) Not Detected (NotDetected) B.parapertussis DNA PCR Not Detected (NotDetected) C. pneumoniae DNA (PCR) Not Detected (NotDetected) Coronavirus OC43 (PCR) DETECTED A (NotDetected) Coronavirus HKU1 (PCR) Not Detected (NotDetected) Coronavirus 229E (PCR) Not Detected (NotDetected) SARS-CoV-2 (PCR) Not Detected (NotDetected) Coronavirus NL63 (PCR) Not Detected (NotDetected) Human Metapneumovir PCR Not Detected (NotDetected) Influenza Type A (PCR) Not Detected (NotDetected) Influenza Type B (PCR) Not Detected (NotDetected) M. pneumoniae (PCR) Not Detected (NotDetected) Parainfluenza 1 (PCR) Not Detected (NotDetected) Parainfluenza 2 (PCR) Not Detected (NotDetected) Parainfluenza 3 (PCR) Not Detected (NotDetected) Parainfluenza 4 (PCR) Not Detected (NotDetected) RSV (PCR) Not Detected (NotDetected) Entero/Rhino (PCR) Not Detected (NotDetected) Administered Medications Famotidine (Famotidine 20 Mg Tab) 20 mg PO BID LEE Stop: 11/10/24 21:55 Last Admin: 10/11/24 22:36 Dose: 20 mg Documented By: RAY Metoprolol Tartrate (Metoprolol Tartrate 25 Mg Tab) 25 mg PO BID LEE Stop: 11/10/24 21:55 Last Admin: 10/11/24 22:37 Dose: 25 mg Documented By: RAY Phenobarbital (Phenobarbital 30 Mg Tab) 30 mg PO BID LEE Stop: 11/10/24 21:55 Last Admin: 10/11/24 22:38 Dose: 30 mg Documented By: RAY Discontinued Medications Acetaminophen (Acetaminophen 325 Mg Tab) 650 mg PO NOW STA Stop: 10/11/24 19:43 Last Admin: 10/11/24 20:46 Dose: 650 mg Documented By: OG Albuterol (Albut/Ipratrop 3mg/0.5mg Neb 3 Ml Vial) 3 ml NEB NOW STA; Protocol Stop: 10/11/24 18:28 Last Admin: 10/11/24 18:53 Dose: 3 ml Documented By: OG Guaifenesin (Guaifenesin 600 Mg Tabcr) 600 mg PO NOW STA Stop: 10/11/24 18:28 Last Admin: 10/11/24 18:52 Dose: 600 mg Documented By: OG Famotidine (Pepcid 20mg Iv Push) 20 mg in 5 mls @ 2.5 mls/min IV NOW STA Stop: 10/11/24 18:38 Last Admin: 10/11/24 18:52 Dose: 2.5 mls/min Documented By: OG Magnesium Sulfate/Dextrose (Magnesium Sulfate / D5w) 1 gm in 100 mls @ 50 mls/hr IV ONE ONE Stop: 10/11/24 21:42 Last Infusion: 10/11/24 22:52 Dose: Infused Documented By: label sewer: 10/11/24 20:46 Dose: 50 mls/hr Documented By: OG Methylprednisolone (Methylprednisolone 125 Mg/2 Ml Vial) 60 mg IV NOW STA Stop: 10/11/24 18:28 Last Admin: 10/11/24 18:53 Dose: 60 mg Documented By: OG Ondansetron HCl (Ondansetron Inj 2 Mg/Ml 2 Ml Vial) 4 mg IV NOW STA Stop: 10/11/24 18:38 Last Admin: 10/11/24 18:53 Dose: 4 mg Documented By: ROSEMARIEK Potassium Chloride (Potassium Chloride 10 Meq Tabcr) 30 meq PO NOW STA Stop: 10/11/24 19:44 Last Admin: 10/11/24 20:46 Dose: 30 meq Documented By: BMK Warfarin Sodium (Warfarin Sod 2.5 Mg Tab) 2.5 mg PO NOW STA Stop: 10/11/24 21:14 Last Admin: 10/11/24 22:36 Dose: 2.5 mg Documented By: MED Imaging Data Radiologist's Impression: Chest X-Ray 10/11/24 15:36 Chest radiograph, one view History: Chest pain Comparison: 10/07/2024 Findings: Single AP view of the chest performed. No focal consolidation. Continued small pleural effusions. No pneumothorax. The heart is enlarged. There is a mitral valve annuloplasty. Left atrial appendage clip. Median sternotomy wires. Enlarged pulmonary vascularity. No evidence for lymphadenopathy. No visualized bony or soft tissue abnormality. Impression: Cardiomegaly and small pleural effusions, as on prior CT Electronically signed by Isaac Jiménez 10-11-2024 5:29 PM Discharge Plan Visit Data Chief Complaint: Cough Stated Complaint: COUGH/NOT FEELING WELL - DISCHARGED LAST [facility] ED Provider: Harry Little Discharge Problem: Coronavirus infection, unspecified, COPD with acute exacerbation, CHF (congestive heart failure) Patient Disposition: Admitted As Inpatient Discharge Instructions Interventions: ED Discharge Assessment Last Done: 10/11/24 21:12 Discharge Problem: CHF (congestive heart failure) Qualifiers: Heart failure type: unspecified Heart failure chronicity: chronic Qualified Code(s): I50.9 - Heart failure, unspecified
[2024-10-11] MEDS: guaiFENesin 600 MG TABCR PO STA (18:52)
[2024-10-11] MEDS: FAMOTIDINE 20MG IV PUSH 20 MG/5 ML SYR IV STA (18:52)
[2024-10-11] MEDS: ONDANSETRON INJ 2 MG/ML 2 ML VIAL IV STA (18:53)
[2024-10-11] MEDS: ALBUT/IPRATROP 3MG/0.5MG NEB 3 ML VIAL NEB STA (18:53)
[2024-10-11] MEDS: methylPREDNISolone 125 MG/2 ML VIAL IV STA (18:53)
--- NOTE | 2024-10-11 19:17 | History & Physical Report ---
Date of Service October 11, 2024 Assessment & Plan (1) Coronavirus infection, unspecified: (2) COPD with acute exacerbation: (3) CHF (congestive heart failure): (4) Hypokalemia: (5) Hypomagnesemia: (6) VALERIA (obstructive sleep apnea): (7) T2DM (type 2 diabetes mellitus): Plan Patient is a 74-year-old female with a past medical history of HFpEF, COPD on chronic oxygen 2L NC, untreated VALERIA, GERD, T2DM, hypertension, hyperlipidemia, A-fib on Coumadin, seizure disorder, mitral valve replacement. She was recently admitted from 09/30 to 10/07 for an acute CHF exacerbation which she was diagnosed with new findings of coronary pulmonology and pulmonary hypertension. Patient was transitioned from Lasix to torsemide 40mg daily and her metoprolol was decreased to 25 twice daily. She completed a course of levofloxacin x5 days. Patient presented to the ED due to cough, blood in sputum, nausea, decreased p.o. intake, and feeling ill since Monday. She tested positive for coronavirus OC 43. #coronavirus infection/COPD with chronic hypoxia chronic oxygen use 2L NC Positive for coronavirus OC 43 on admitting [employer] CXR showed improved pleural effusions, no pneumonia No leukocytosis, procal negative, baseline oxygen Completed course of levofloxacin 500 Mg x 5 days with recent admission Many antibiotic allergies; defer antibiotic use on admission Received Solu-Medrol 60 Mg IV in ED; continue with Solu-Medrol 20 Mg IV daily Supportive care with Tylenol, Zofran, Mucinex, Tessalon Perles, DuoNeb Incentive spirometry and flutter valve Poor p.o. intake and clinically appears dry hypotensive (109/62), and tachycardic (110) - hold diuretics and promote oral hydration isolation precautions continue home inhalers K+ and Mag optimized - K+ 3.7 - 30 meq Po ordered + continue daily 10meq supplement - mg 1.7 - 1 g iv ordered - nonspecific st changes on EKG likely / #HFpEF recent admission 09/30-10/07 with medications changes as above - patient stated has been compliant Echo showed new findings of cor pulmonale and pulmonary HTN, EF 60-65% clinically appears volume depleted CXR improved pleural effusions, BL edema resolved BNP improved from 468 to 304 holding furosemide and spironolactone daily weights and strict I's and O's Continue metoprolol 25 Mg twice daily; reduced during previous admission Referral to CHF clinic during previous admission May benefit from GLP-1 or SGLT2 in outpatient setting #VALERIA untreated - patient noncompliant on CPAP, cannot tolerated - Follow-up with sleep clinic in outpatient setting continuous oxygen at 2l NC HS hypercapnia - CO2 38 on admission (baseline) #t2DM on metformin at home; hold patient refuses insulin BSG ACHS without insulin control on admission - can add if consistently hyperglycemic A1C 6.0 06/2024 Chronic stable diagnoses: Hx mitral valve replacementcontinue Coumadin History of chronic A-fibcontinue metoprolol and Coumadin HTNholding diuretics as hypotensive above Hyperlipidemiacontinue statin seizure orderedcontinue phenobarb GERDcontinue Pepcid and Protonix VTE ppx: continue Warfarin Diet: heart healthy, low NA, t2dm Dispo: med/tele Admission and Anticipated Discharge Date Admission Date: 10/11/24 History of Present Illness Chief Complaint: cough Primary Care Provider: Zainab Rayo DO Patient is a 74-year-old female with a past medical history of HFpEF, COPD on chronic oxygen 2L NC, untreated VALERIA, GERD, T2DM, hypertension, hyperlipidemia, A-fib on Coumadin, seizure disorder. She was recently admitted from 09/30 to 10/07 for an acute CHF exacerbation which she was diagnosed with new findings of coronary pulmonology and pulmonary hypertension. Patient was transition from Lasix to torsemide 40mg daily and her metoprolol was decreased to 25 twice daily. She completed a course of levofloxacin x5 days. Patient presented to the ED due to cough, blood in sputum, nausea, decreased p.o. intake, and feeling ill since Monday. She tested positive for coronavirus OC 43. Patient seen at bedside with her present. She stated she has had decreased oral intake due to feeling ill. She stated she has been nauseous and with an upset stomach but denies vomiting or diarrhea. She stated she has a chronic cough but it has been worse and she is coughing up blood colored sputum. She also endorses dyspnea on exertion. She has been using her 2L nasal cannula oxygen at home, has not needed increased requirements. She has been compliant on her home medications including her diuretics. She also has been trying to limit her fluid intake. Patient does appear dry on exam along with tachycardia (HR 97) and hypotension (93/65). She denies fevers, chills, chest pain, abdominal pain. The edema in her bilateral lower extremities is resolved from recent admission. She does not use nicotine products. She did take her morning medications today but is due for her evening medications. She wishes to be full code at this time. Allergies Allergy/AdvReac Type Severity Reaction Status Date / Time irbesartan Allergy Intermediate hives Verified 09/24/24 11:02 prednisone Allergy Intermediate Hives Verified 09/24/24 11:02 amlodipine Allergy Unknown HIVES Verified 09/24/24 11:02 aspirin Allergy Unknown UNKNOWN Verified 09/24/24 11:02 astemizole Allergy Unknown UNKNOWN Verified 09/24/24 11:02 atorvastatin Allergy Unknown Verified 09/24/24 11:02 caffeine Allergy Unknown UNKNOWN Verified 09/24/24 11:02 cefixime Allergy Unknown UNKNOWN Verified 09/24/24 11:02 cephalexin Allergy Unknown UNKNOWN Verified 09/24/24 11:02 Cephalosporins Allergy Unknown Verified 09/24/24 11:02 codeine Allergy Unknown UNKNOWN Verified 09/24/24 11:02 dexamethasone Allergy Unknown UNKNOWN Verified 09/24/24 11:02 diphenhydramine Allergy Unknown UNKNOWN Verified 09/24/24 11:02 erythromycin base Allergy Unknown UNKNOWN Verified 09/24/24 11:02 hydrochlorothiazide Allergy Unknown Verified 09/24/24 11:02 hydromorphone Allergy Unknown UNKNOWN Verified 09/24/24 11:02 ibuprofen Allergy Unknown UNKNOWN Verified 09/24/24 11:02 Iodinated Contrast Media Allergy Unknown UNKNOWN Verified 09/24/24 11:02 methylprednisolone Allergy Unknown UNKNOWN Verified 09/24/24 11:02 omeprazole Allergy Unknown Verified 09/24/24 11:02 orphenadrine Allergy Unknown UNKNOWN Verified 09/24/24 11:02 Penicillins Allergy Unknown UNKNOWN Verified 09/24/24 11:02 pentazocine Allergy Unknown UNKNOWN Verified 09/24/24 11:02 ramipril Allergy Unknown UNKNOWN Verified 09/24/24 11:02 sodium benzoate Allergy Unknown UNKNOWN Verified 09/24/24 11:02 sucralfate Allergy Unknown UNKNOWN Verified 09/24/24 11:02 tetracycline Allergy Unknown UNKNOWN Verified 09/24/24 11:02 theophylline Allergy Unknown UNKNOWN Verified 09/24/24 11:02 valacyclovir Allergy Unknown Verified 09/24/24 11:02 metoprolol [From Toprol XL] Allergy Unknown Verified 09/24/24 11:02 polymyxin B Allergy Unknown Verified 09/24/24 11:02 sodium bicarbonate Allergy Unknown Verified 09/24/24 11:02 [From Zegerid] nitrofurantoin AdvReac Severe shaky, Verified 09/24/24 11:02 chills, landeros, nausea Home Medications Medication Instructions Recorded Confirmed Type polyethylene glycol 3350 17 1 dose PO QPM 06/20/18 10/11/24 History gram/dose oral powder (Miralax) potassium chloride 10 mEq 10 meq PO QAM 06/20/18 10/11/24 History tablet,extended release allopurinol 100 mg tablet 100 mg PO DAILY 10/02/18 10/11/24 History Oxygen Home #1 ea 04/27/20 10/11/24 Rx spironolactone 25 mg tablet 25 mg PO DAILY #30 tabs 09/07/20 10/11/24 Rx CPAP Machine #1 ea 02/11/21 10/11/24 Rx CPAP Supplies #1 ea 07/14/21 10/11/24 Rx ondansetron HCl 4 mg tablet See Rx Instructions .Route 08/30/21 10/11/24 History .COMPLEX PRN Nausea fluticasone propionate 50 1 spray intranasal BID PRN Nasal 04/21/22 10/11/24 Rx mcg/actuation nasal Congestion #15.8 mL spray,suspension (Flonase Allergy Relief) cyclobenzaprine 5 mg tablet 5 mg PO TID PRN muscle spasm #10 10/24/22 10/11/24 Rx tabs nystatin 100,000 unit/gram topical 1 applic topical DAILY #30 grams 12/19/22 10/11/24 Rx cream betamethasone dipropionate 0.05 % 1 applic topical BID PRN skin 01/10/23 10/11/24 Rx topical cream irritation #45 grams omega 4-fhw-edu-fish oil 60 mg-90 1 cap PO DAILY #30 caps 01/12/23 10/11/24 Rx mg-500 mg capsule (Fish Oil) levalbuterol tartrate 45 1 inh inhalation Q6H #15 grams 03/13/23 10/11/24 Rx mcg/actuation aerosol inhaler cholecalciferol (vitamin D3) 125 125 mcg PO DAILY 05/05/23 10/11/24 History mcg (5,000 unit) capsule warfarin 4 mg tablet 4 mg PO .COMPLEX #90 tabs 05/17/23 10/11/24 Rx warfarin 1 mg tablet 1 mg PO DAILY #90 tabs 07/05/23 10/11/24 Rx cetirizine 10 mg tablet (Zyrtec) 10 mg PO BID 08/14/23 10/11/24 History hydroxyzine pamoate 25 mg capsule 25 mg PO Q8H PRN itching #30 caps 08/14/23 10/11/24 Rx (Vistaril) ascorbate calcium (vitamin C) 500 500 mg PO DAILY 09/07/23 10/11/24 History mg tablet milk thistle 1 dose PO DAILY 09/07/23 10/11/24 History famotidine 20 mg tablet 20 mg PO BID #180 tabs 10/06/23 10/11/24 Rx pantoprazole 40 mg tablet,delayed 40 mg PO DAILY #90 tabs 12/25/23 10/11/24 Rx release (Protonix) simvastatin 40 mg tablet 40 mg PO HS #90 tabs 03/22/24 10/11/24 Rx conjugated estrogens 0.625 mg/gram 0.625 mg vaginal .2 times per week 04/01/24 10/11/24 History vaginal cream (Premarin) clobetasol 0.05 % topical ointment 1 applic topical BID PRN 04/12/24 10/11/24 History DIRECTED metformin 500 mg tablet 500 mg PO DAILY #100 tabs 05/13/24 10/11/24 Rx montelukast 10 mg tablet 10 mg PO DAILY #90 tabs 05/13/24 10/11/24 Rx fluticasone 100 mcg-salmeterol 50 1 inh inhalation BID #60 ea 08/13/24 10/11/24 Rx mcg/dose blistr powdr for inhalation warfarin 5 mg tablet (Jantoven) 5 mg PO DAILY #90 tabs 08/13/24 10/11/24 Rx ipratropium 0.5 mg-albuterol 3 mg 3 ml inhalation Q6H PRN wheezing 09/24/24 10/11/24 Rx (2.5 mg base)/3 mL nebulization #180 mL soln nebulizer accessories #1 ea 09/24/24 10/11/24 Rx budesonide 160 mcg-glycopyr 9 2 inh inhalation BID 09/30/24 10/11/24 History mcg-formot 4.8 mcg/actuation HFA inhaler levofloxacin 500 mg tablet 500 mg PO DAILY@1100 #3 tabs 10/07/24 10/11/24 Rx metoprolol tartrate 25 mg tablet 25 mg PO BID #60 tabs 10/07/24 10/11/24 Rx torsemide 20 mg tablet 40 mg (2 x 20 mg) PO QAM #60 tabs 10/07/24 10/11/24 Rx phenobarbital 32.4 mg tablet 32.4 mg PO BID #180 tabs 10/08/24 10/11/24 Rx benzonatate 100 mg capsule 100 mg PO TID PRN cough #30 caps 10/11/24 10/11/24 Rx Past Med/Surg History Problem List T2DM (type 2 diabetes mellitus) Hypomagnesemia Hypokalemia CHF (congestive heart failure) (Acute) COPD with acute exacerbation (Acute) Coronavirus infection, unspecified (Acute) Abdominal ascites (Acute) Pulmonary vascular congestion (Acute) Cor pulmonale, chronic Chronic obstructive pulmonary disease with hypoxia Mild aortic stenosis S/P mitral valve replacement with bioprosthetic valve (2011) Permanent atrial fibrillation (HFpEF) heart failure with preserved ejection fraction Moderate pulmonary hypertension Lichen sclerosus Atrophic vaginitis Joana Omalley syndrome (geniculate herpes zoster) VALERIA (obstructive sleep apnea) Mild persistent asthma Urinary incontinence Aortic stenosis Thyroid Nodule Daytime hypersomnia Osteoarthritis History of DVT (deep vein thrombosis) History of mitral valve replacement (11/2011) 11/2011 @ [facility] [place]--follows with Dr. Son Hiatal hernia GERD (gastroesophageal reflux disease) Diabetes Hx of rheumatic fever Hypertension Hyperlipidemia Seizure Obese History of TIA (transient ischemic attack) Vitamin D deficiency Restrictive lung disease secondary to obesity Pulmonary nodule Mitral valve disorder Gastroparesis Depression with anxiety Coronary artery disease Chronic diastolic heart failure, NYHA class 1 Chronic constipation Bladder prolapse Bilateral carotid artery stenosis Asthma Chronic anticoagulation (Acute) Atrial fibrillation (02/04/12) Medical History Dyspnea on exertion Vaccination hesitancy by patient Respiratory failure Tubular adenoma of colon Kidney stones Surgical History S/P balloon mitral valvuloplasty History of total abdominal hysterectomy and bilateral salpingo-oophorectomy History of appendectomy History of cholecystectomy History of esophagogastroduodenoscopy (EGD) Status post biopsy of thyroid gland benign Family History Brother Congestive heart failure Family/Other Family history of diabetes mellitus maternal aunt Family hx of colon cancer maternal aunt Mother Colorectal cancer Migraine headache Ovarian cancer Father Prostate cancer Denies family history of Breast cancer Lung cancer Social History Smoking Status: Never smoker Second Hand Exposure: Yes (father smoked); Do You Dip or Chew Tobacco: No; Hx Alcohol Use: Yes Alcohol type: wine Hx Substance Use: No Preferred Language: Syriac Communication Ability: Effective Visual Impairment: No Limitations Hearing Ability: Normal Medical Records Assistant Required: No Beliefs That Will Affect Care: None marital status: Current Living Situation: Spouse current occupational status: retired How many Children do You have: 4 Other Information That Helps Us Care for You: No Feels Safe at Home: Yes Safety Concerns: Feels Safe At This Time Childhood Exposure to Second-Hand Smoke: Yes Diet: regular Diet Comment: regular caffeine: No during the past year weight has: remained stable Dental Care, Regularly: No Physical Activity Frequency: Other Physical Activity Frequency Comment: housework Seatbelt Use: always Sunscreen Use: No Assistive Devices: Oxygen - Continuous and Wheelchair Review of Systems Review of Systems: see HPI Physical Exam Physical Exam: The patient is awake, alert and oriented 3, well developed and well nourished, normocephalic and atraumatic, in no acute distress. Non-toxic appearing. HEENT- EOMI, mucous membranes dry. Hearing grossly intact. Heart-normal S1 and S2. No murmurs, rubs or gallops. Lungs-wheezing bilaterally, no respiratory distress, no accessory muscle use. 2L NC. Abdomen-normal bowel sounds and soft. No ascites noted. Non-tender. Extremities- no clubbing, cyanosis, or edema. Rheumatologic-normal range of motion. Psychiatric-normal affect. Results & Data Results & Data Vital Signs (Past 12 Hours) Vital Signs Temp Pulse Resp BP Pulse Ox O2 Del Method 10/11/24 18:26 97 H 10/11/24 14:40 36.1 C L 91 H 20 118/77 96 Room Air Laboratory Results Reviewed CBC, PT/INR, CMP, Pro-Mario, bio fire, troponin, mag, UA Diagnostic Findings reviewed CXR Medications Administered ed - zofran 4mg IV, pepcid IV, Mucinex, douneb x1, solu-medrol 60mg IV ECG Additional Comments: a fib rvr with nonspecific ST changes rate 104 QTC 454 Code Status & VTE Plan Code Status full code VTE Prophylaxis Plan VTE Prophylaxis will be ordered: Yes Supervising Physician Co-Signing Physician Notes Attending addendum: I have physically seen this patient, have supervised the JEET's activities, and agree with the H&P unless as otherwise noted. Assessment and Plan: The patient is a 74-year-old female with past medical history including HFpEF, 2 L oxygen dependent COPD, untreated VALERIA, GERD, diabetes mellitus type 2, hypertension, hyperlipidemia, atrial fibrillation on warfarin, seizure disorder and history of mitral valve replacement. She was most recently admitted to [facility] from 09/30-10/07/2024 for CHF exacerbation and pulmonary hyperte nsion. At that visit, she was transition from furosemide to torsemide 40 mg daily and metoprolol was decreased to 25 mg twice daily. She completed a course of levofloxacin x 5 days due to additional presenting symptoms of of cough, blood in sputum, nausea and decreased oral intake. She was positive for coronavirus OC 43 and respiratory [employer] testing, which was treated symptomatically as below. #Acute on chronic respiratory failure with hypoxia/COPD exacerbation/coronavirus OC 43 infection- Baseline oxygen requirement 2 L Levofloxacin 500 mg IV daily Solu-Medrol given 60 mg IV in ED, continue 20 mg IV every morning Tylenol 650 mg by mouth every 6 hours as needed for mild pain or fever Zofran 4 mg IV every 6 hours as needed Mucinex 600 mg p.o. every 12 hours Tessalon Perles 100 mg p.o. 3 times daily as needed DuoNeb every 2 hours as needed Incentive spirometry and flutter valve Isolation precautions droplet precautions #HFpEF-during admission admission from 09/30-to 02/04, echo showed ejection fraction 60-65% with cor pulmonale and pulmonary hypertension Modification of torsemide and metoprolol as noted above Consideration to be given for GLP1 or SGLT 2 Following up with cardiology #VALERIA- Patient noncompliant with CPAP due to intolerance #Diabetes mellitus holding metformin as inpatient Patient Accu-Cheks with NovoLog SSI as noted Remaining orders and notations as noted PG Care Time/CCT Total # of Minutes Spent Total Time Spent with Patient: Total time spent is greater than 50% in coordination of care (as documented) at patient's floor/unit and/or counseling patient: Coding Level of Care Code 82273 INT INP/OBS CARE MIN Diagnoses Coronavirus infection, unspecified B34.2 COPD with acute exacerbation J44.1 CHF (congestive heart failure) I50.9 Hypokalemia E87.6 Hypomagnesemia E83.42 VALERIA (obstructive sleep apnea) G47.33 T2DM (type 2 diabetes mellitus) E11.9
[2024-10-11] MEDS ORDERED: ALBUT/IPRATROP 3MG/0.5MG NEB 3 ML VIAL NEB PRN (19:42)
[2024-10-11] MEDS: ACETAMINOPHEN 325 MG TAB PO STA (20:46)
[2024-10-11] MEDS: POTASSIUM CHLORIDE 10 MEQ TABCR PO STA (20:46)
[2024-10-11] MEDS: MAGNESIUM SULFATE / D5W 1 GM/100 ML BAG IV ONE (20:46)
[2024-10-11] MEDS ORDERED: BENZONATATE 100 MG CAPSULE PO PRN (21:56)
[2024-10-11] MEDS ORDERED: ONDANSETRON INJ 2 MG/ML 2 ML VIAL IV PRN (21:56)
[2024-10-11] MEDS ORDERED: FLUTICASONE PROPIONATE NA SPR 16 GM BTL PRN (21:56)
[2024-10-11] MEDS ORDERED: hydrOXYzine HCl 25 MG TAB PO PRN (21:56)
[2024-10-11] MEDS: WARFARIN SOD 2.5 MG TAB PO STA (22:36)
[2024-10-11] MEDS: FAMOTIDINE 20 MG TAB PO SCH (22:36)
[2024-10-11] MEDS: METOPROLOL TARTRATE 25 MG TAB PO SCH (22:37)
[2024-10-11] MEDS: PHENobarbitaL 30 MG TAB PO SCH (22:38)
[2024-10-12] MEDS: LEVALBUTEROL TARTRATE 15 GM HFA.AER.AD INH SCH (01:58)
[2024-10-12 06:34] LABS: Hematocrit (blood only) 37.3 % (37.0-47.0); Hemoglobin 11.4 g/dl (12.0-16.0); Immature Granulocytes # (auto) 0.03 K/uL (0.01-0.20); Immature Granulocytes % (auto) 0.5 %; Lymphocytes # (auto) 0.69 K/uL (1.20-3.40); Lymphocytes % (auto) 12.4 %; Mean Corpuscular Hemoglobin 28.7 pg (25.0-34.0); Mean Corpuscular Hgb Conc 30.6 g/dL (32.0-36.0); Mean Platelet Volume 10.4 fL (9.4-12.4); Monocytes # (auto) 0.32 K/uL (0.11-0.59); Monocytes % (auto) 5.7 %; Neutrophils # (auto) 4.54 K/uL (1.40-6.50); Neutrophils % (auto) 81.4 %; Platelet Count 148 K/uL (130-400); RDW Coefficient of Variation 15.4 % (11.5-14.5); RDW Standard Deviation 52.9 fL (36.4-46.3); Red Blood Count 3.97 M/uL (4.20-5.40); White Blood Count 5.58 K/ul (4.8-10.8)
[2024-10-12 06:52] LABS: Prothrombin Time 20.6 Seconds (9.0-12.0)
[2024-10-12 07:00] LABS: BUN Creatinine Ratio 29.9 (10-20); Calcium 9.2 mg/dl (8.6-10.3); Creatinine Clr Calc Pharmacy 70.3 ml/min; Magnesium 2.1 mg/dl (1.7-2.4); Potassium 4.5 mmol/L (3.5-5.1)
[2024-10-12] MEDS: MONTELUKAST SODIUM 10 MG TABLET PO SCH (08:01)
[2024-10-12] MEDS: FLUTICASONE/VILANTEROL 100/25MCG 14 PUFFS/INHALER INH SCH (08:02)
[2024-10-12] MEDS: PANTOprazole 40 MG TAB PO SCH (08:02)
[2024-10-12] MEDS: guaiFENesin 600 MG TABCR PO SCH (08:02)
[2024-10-12] MEDS: CETIRIZINE HCL 10 MG TABLET PO SCH (08:02)
[2024-10-12] MEDS: allopurinoL 100 MG TAB PO SCH (08:02)
[2024-10-12] MEDS: POTASSIUM CHLORIDE 10 MEQ TABCR PO SCH (10:08)
[2024-10-12] MEDS: methylPREDNISolone 20 MG in SYRINGE 0 ML IV SCH (10:58)
--- NOTE | 2024-10-12 11:21 | Hospitalist Progress Note ---
Date of Service October 12, 2024 Assessment & Plan (1) Coronavirus infection, unspecified: Plan: non-COVID coronavirus infection with resulting acute bronchitis/COPD exacerbation as below cont droplet precautions & supportive care (2) COPD with acute exacerbation: Plan: 2nd to #1 above no apparent superimposed bacterial infection on imaging thus defer on abx (she just completed a course of levaquin in the last week) increase solumedrol to 30mg TID add saline nebs BID schedule duonebs QID mucinex tessalon flutter valve incentive spirometry send sputum cx diurese with bumex today stable on home O2 amount (3) Acute on chronic heart failure with preserved ejection fraction (HFpEF): Plan: suspect an element of decompensated CHF contributing to current symptomatology pulmonary edema could be causing the streaky hemoptysis bumex 1mg IV x 1 now reassess tomorrow cont metoprolol tartrate BID (4) Chronic hypoxic respiratory failure: Plan: on home O2 continuously (5) VALERIA (obstructive sleep apnea): Plan: not tolerant of NIPPV simply cont O2 at night-time (6) T2DM (type 2 diabetes mellitus): Plan: previous a1c 6% in 06/2024 she is only on metformin 500mg daily at home a1c is more c/w pre-DM (7) S/P mitral valve replacement with bioprosthetic valve: Plan: echo during recent admission showed intact MV but there is mild-moderate MS follows with Dr Son (8) Permanent atrial fibrillation: Plan: cont coumadin cont meto tartrate BID daily INR while here (9) Moderate pulmonary hypertension: Plan: as seen on echo earlier this month certainly this contributes to her hypoxia and need for NC O2 (10) History of DVT (deep vein thrombosis): Plan: noted cont coumadin daily INR (11) GERD (gastroesophageal reflux disease): Plan: cont PPI (12) Hypertension: Plan: cont metoprolol tartrate BID Plan updated by phone this evening PT/OT eliud requested Admission and Anticipated Discharge Date Admission Date: October 11, 2024 Subjective patient c/o "hurting all over," cough, congestion, sputum production, tinge of blood in her sputum, just feeling poorly in general also with nasal/sinus congestion despite the above has good appetite feels short of breath at rest at times and with exertion stomach feels a little off but no emesis no abd pain Review of Systems Review of Systems: gen - no fevers or chills cv - no chest pain pulm - wheezes present Physical Exam Physical Exam: gen - sitting at side of bed, coughing, but no distress neck - JVD present at 30 degrees mouth - MMM nose - no epistaxis heart - irregularly irregular, s1 s2, 2/6 systolic murmur RUSB lungs - diffuse wheezes all lung segments, scattered rales, no increased work of breathing abd - tender multiple locations (abd wall from coughing), tender lower costal margin, BS+, no HSM ext - no edema, pulses 2+ b/l Results & Data Results & Data Vital Signs (Past 12 Hours) Vital Signs Temp Pulse Resp BP Pulse Ox O2 Del Method O2 Flow Rate 10/12/24 07:37 99 H 18 95 Nasal Cannula 3 10/12/24 07:14 36.6 C 97 H 20 112/81 92 Nasal Cannula 2 10/12/24 03:55 36.5 C 103 H 18 117/78 95 Nasal Cannula 2 10/12/24 02:00 103 H 19 93 Nasal Cannula 2 Laboratory Results Laboratory Results - last 24 hr 10/11/24 10/11/24 10/11/24 16:07 16:11 19:24 WBC 8.89 RBC 4.26 Hgb 12.5 Hct 40.0 MCV 93.9 MCH 29.3 MCHC 31.3 L RDW Std Deviation 53.4 H RDW Coeff of Trey 15.4 H Plt Count 175 MPV 10.3 Immature Gran % (Auto) 0.3 Neut % (Auto) 76.9 Lymph % (Auto) 11.2 [place] % (Auto) 10.8 Eos % (Auto) 0.6 Baso % (Auto) 0.2 Neut # (Auto) 6.83 H Lymph # (Auto) 1.00 L [place] # (Auto) 0.96 H Eos # (Auto) 0.05 Baso # (Auto) 0.02 Immature Gran # (Auto) 0.03 PT 24.7 H INR 2.5 H Sodium 141 Potassium 3.7 Chloride 99 Carbon Dioxide 38 H Anion Gap 4 BUN 19 Creatinine 0.91 Est Cr Clr Drug Dosing Not Reportable eGFR 65.38 BUN/Creatinine Ratio 20.9 H Glucose 93 POC Glucose Calcium 9.5 Magnesium 1.7 Total Bilirubin 0.6 AST 37 ALT 21 Alkaline Phosphatase 92 Troponin I High Sens 9.8 B-Natriuretic Peptide 304 H Total Protein 8.0 Albumin 3.9 Globulin 4.1 H Albumin/Globulin Ratio 1.0 Procalcitonin Cancelled < 0.02 Urine Color Yellow Urine Appearance Clear Urine pH 5.0 Ur Specific [place] 1.019 Urine Protein 2+ H Urine Glucose (UA) Negative Urine Ketones Negative Urine Blood Negative Urine Nitrite Negative Urine Bilirubin Negative Urine Urobilinogen Negative Ur Leukocyte Esterase Negative Urine WBC (Auto) 0-5 Urine RBC (Auto) 0-2 U Hyaline Cast (Auto) 11-20 H U Epithel Cells (Auto) 0-2 Urine Bacteria (Auto) None Seen Urine Mucus Present A Adenovirus (PCR) Not Detected B. pertussis DNA (PCR) Not Detected B.parapertussis DNA PCR Not Detected C. pneumoniae DNA (PCR) Not Detected Coronavirus OC43 (PCR) DETECTED A Coronavirus HKU1 (PCR) Not Detected Coronavirus 229E (PCR) Not Detected SARS-CoV-2 (PCR) Not Detected Coronavirus NL63 (PCR) Not Detected Human Metapneumovir PCR Not Detected Influenza Type A (PCR) Not Detected Influenza Type B (PCR) Not Detected M. pneumoniae (PCR) Not Detected Parainfluenza 1 (PCR) Not Detected Parainfluenza 2 (PCR) Not Detected Parainfluenza 3 (PCR) Not Detected Parainfluenza 4 (PCR) Not Detected RSV (PCR) Not Detected Entero/Rhino (PCR) Not Detected 10/12/24 10/12/24 05:54 08:11 WBC 5.58 RBC 3.97 L Hgb 11.4 L Hct 37.3 MCV 94.0 MCH 28.7 MCHC 30.6 L RDW Std Deviation 52.9 H RDW Coeff of Trey 15.4 H Plt Count 148 MPV 10.4 Immature Gran % (Auto) 0.5 Neut % (Auto) 81.4 Lymph % (Auto) 12.4 [place] % (Auto) 5.7 Eos % (Auto) 0.0 Baso % (Auto) 0.0 Neut # (Auto) 4.54 Lymph # (Auto) 0.69 L [place] # (Auto) 0.32 Eos # (Auto) 0.00 Baso # (Auto) 0.00 Immature Gran # (Auto) 0.03 PT 20.6 H INR 2.0 H Sodium 140 Potassium 4.5 D Chloride 100 Carbon Dioxide 34 H Anion Gap 6 BUN 20 Creatinine 0.67 Est Cr Clr Drug Dosing 70.3 eGFR 90.53 BUN/Creatinine Ratio 29.9 H Glucose 139 H POC Glucose 114 H Calcium 9.2 Magnesium 2.1 Total Bilirubin AST ALT Alkaline Phosphatase Troponin I High Sens B-Natriuretic Peptide Total Protein Albumin Globulin Albumin/Globulin Ratio Procalcitonin Urine Color Urine Appearance Urine pH Ur Specific [place] Urine Protein Urine Glucose (UA) Urine Ketones Urine Blood Urine Nitrite Urine Bilirubin Urine Urobilinogen Ur Leukocyte Esterase Urine WBC (Auto) Urine RBC (Auto) U Hyaline Cast (Auto) U Epithel Cells (Auto) Urine Bacteria (Auto) Urine Mucus Adenovirus (PCR) B. pertussis DNA (PCR) B.parapertussis DNA PCR C. pneumoniae DNA (PCR) Coronavirus OC43 (PCR) Coronavirus HKU1 (PCR) Coronavirus 229E (PCR) SARS-CoV-2 (PCR) Coronavirus NL63 (PCR) Human Metapneumovir PCR Influenza Type A (PCR) Influenza Type B (PCR) M. pneumoniae (PCR) Parainfluenza 1 (PCR) Parainfluenza 2 (PCR) Parainfluenza 3 (PCR) Parainfluenza 4 (PCR) RSV (PCR) Entero/Rhino (PCR) PG Care Time/CCT Total # of Minutes Spent Total Time Spent with Patient: Total time spent is greater than 50% in coordination of care (as documented) at patient's floor/unit and/or counseling patient: Coding Level of Care Code 21805 SUB INP/OBS CARE 3/50MIN Diagnoses Coronavirus infection, unspecified B34.2 COPD with acute exacerbation J44.1 Acute on chronic heart failure with preserved ejection fraction (HFpEF) I50.33 Chronic hypoxic respiratory failure J96.11 VALERIA (obstructive sleep apnea) G47.33 T2DM (type 2 diabetes mellitus) E11.9 S/P mitral valve replacement with bioprosthetic valve Z95.3 Permanent atrial fibrillation I48.21 Moderate pulmonary hypertension I27.20 History of DVT (deep vein thrombosis) Z86.718 GERD (gastroesophageal reflux disease) K21.9 Hypertension I10
[2024-10-12] MEDS: BUMETANIDE 1 MG in SYRINGE 0 ML IV STA (13:30)
[2024-10-12] MEDS: BENZONATATE 100 MG CAPSULE PO SCH (13:31)
[2024-10-12] MEDS: methylPREDNISolone 30 MG in SYRINGE 0 ML IV SCH (13:31)
[2024-10-12] MEDS: LEVALBUTEROL TARTRATE 15 GM HFA.AER.AD INH PRN (14:45)
[2024-10-12] MEDS: ALBUT/IPRATROP 3MG/0.5MG NEB 3 ML VIAL NEB SCH (14:45)
[2024-10-12] MEDS: WARFARIN SOD 5 MG TAB PO SCH (18:40)
[2024-10-12] MEDS: SIMVASTATIN 40 MG TAB PO SCH (20:29)
[2024-10-12] MEDS: SODIUM CHLOR 7% 4 ML NEB NEB SCH (20:51)
[2024-10-12] MEDS: ACETAMINOPHEN 325 MG TAB PO PRN (22:11)
[2024-10-13] MEDS: LANTUS PER UNIT CHARGE SQ SCH (08:38)
[2024-10-13 09:04] LABS: Calcium 9.1 mg/dl (8.6-10.3); Potassium 4.5 mmol/L (3.5-5.1)
[2024-10-13 09:10] LABS: BUN Creatinine Ratio 40.5 (10-20); Creatinine Clr Calc Pharmacy 65.3 ml/min
[2024-10-13 09:49] LABS: INR 2.5 (0.9-1.1); Prothrombin Time 25.1 Seconds (9.0-12.0)
[2024-10-13] MEDS: INSULIN ASPART PER UNIT CHARGE SC SCH (13:05)
--- NOTE | 2024-10-13 15:57 | Hospitalist Progress Note ---
Date of Service October 13, 2024 Assessment & Plan (1) Coronavirus infection, unspecified: Plan: non-COVID coronavirus infection with resulting acute bronchitis/COPD exacerbation as below cont droplet precautions & supportive care (2) COPD with acute exacerbation: Plan: 2nd to #1 above no apparent superimposed bacterial infection on imaging - thus defer on abx (she just completed a course of levaquin in the last week) cont solumedrol 30mg TID --> no wean today cont saline nebs BID change duonebs QID to xopenex/atrovent nebs - latter may not affect HR as much as standard albuterol cont mucinex, tessalon (increase to 200mg TID scheduled), flutter valve, incentive spirometry sent sputum cx diurese with lasix remains stable on home O2 amount (2 liters) (3) Acute on chronic heart failure with preserved ejection fraction (HFpEF): Plan: decompensated on exam pulmonary edema could be causing the streaky hemoptysis give additional diuretic today IV cont metoprolol tartrate BID - titrate to 50mg BID for better a.fib rate control (4) Chronic hypoxic respiratory failure: Plan: on home O2 continuously stable O2 sats (5) VALERIA (obstructive sleep apnea): Plan: not tolerant of NIPPV simply cont O2 at night-time (6) T2DM (type 2 diabetes mellitus): Plan: previous a1c 6% in 06/2024 she is only on metformin 500mg daily at home a1c is more c/w pre-DM [id number] sugars are high due to steroids add lantus add novolog SSI (7) S/P mitral valve replacement with bioprosthetic valve: Plan: echo during recent admission showed intact MV but there is mild-moderate MS follows with Dr Son (8) Permanent atrial fibrillation: Plan: POOR rate control gave additional dose of PO metoprolol this afternoon, then increase meto tartrate to 50mg BID titrate further if needed could also consider digoxin load also changed albuterol to Xopenex - this may help HRs as well cont coumadin daily INR while here INR today therapeutic (9) Moderate pulmonary hypertension: Plan: as seen on echo earlier this month certainly this contributes to her hypoxia and need for NC O2 (10) History of DVT (deep vein thrombosis): Plan: noted cont coumadin daily INR (11) GERD (gastroesophageal reflux disease): Plan: cont PPI (12) Hypertension: Plan: cont metoprolol tartrate BID Plan updated by phone 10/12 PT/OT when able labs in am Admission and Anticipated Discharge Date Admission Date: October 11, 2024 Subjective tele - a.fib, rates as high as 150s during my visit she was sitting in the chair and rates were 120s she continues to have cough and congestion with sputum production scant blood eating well c/o chest soreness from coughing Review of Systems Review of Systems: gen - still tired/weak but no fevers or chills cv - no substernal cp pulm - no sob at rest but + GIFFORD GI - no N/V Physical Exam Physical Exam: gen - sitting in chair, looks better today, just occasional cough neck - JVD present sitting upright at 90 degrees mouth - MMM heart - irregularly irregular, s1 s2, 2/6 systolic murmur RUSB; tachy lungs - b/l wheezes all lung segments, scattered rales, no increased work of breathing abd - soft, ND, BS+, abd wall near the costal margin tender to palpation ext - no edema, pulses 2+ b/l Results & Data Results & Data Vital Signs (Past 12 Hours) Vital Signs Temp Pulse Pulse Resp BP Pulse Ox O2 Del Method 10/13/24 14:03 91 H 18 93 Nasal Cannula 10/13/24 14:00 109 H 10/13/24 12:09 36.4 C L 101 H 16 125/66 96 Nasal Cannula 10/13/24 10:55 88 18 95 Nasal Cannula 10/13/24 07:55 35.6 C L 90 20 96/59 L 99 Nebulizer 10/13/24 07:22 85 18 99 Nasal Cannula 10/13/24 07:00 102 H 10/13/24 04:11 36.4 C L 100 H 20 101/59 L 91 Nasal Cannula O2 Flow Rate 10/13/24 14:03 3 10/13/24 14:00 10/13/24 12:09 2 10/13/24 10:55 2 10/13/24 07:55 10/13/24 07:22 3 10/13/24 07:00 10/13/24 04:11 3 Laboratory Results Laboratory Results - last 24 hr 10/13/24 10/13/24 10/13/24 08:11 08:22 12:22 PT 25.1 H INR 2.5 H Sodium 137 Potassium 4.5 Chloride 99 Carbon Dioxide 33 H Anion Gap 5 BUN 30 H Creatinine 0.74 Est Cr Clr Drug Dosing 65.3 eGFR 83.80 BUN/Creatinine Ratio 40.5 H Glucose 116 H POC Glucose 122 H 169 H Calcium 9.1 10/13/24 10/13/24 17:06 20:59 PT INR Sodium Potassium Chloride Carbon Dioxide Anion Gap BUN Creatinine Est Cr Clr Drug Dosing eGFR BUN/Creatinine Ratio Glucose POC Glucose 141 H 150 H Calcium Diagnostic Findings Microbiology 10/12/24 Unknown Sputum, Expectorated Gram Stain - Final 10/12/24 Unknown Sputum, Expectorated Sputum Culture - Preliminary Light normal lei present, final report to follow. PG Care Time/CCT Total # of Minutes Spent Total Time Spent with Patient: Total time spent is greater than 50% in coordination of care (as documented) at patient's floor/unit and/or counseling patient: Coding Level of Care Code 57893 SUB INP/OBS CARE 3/50MIN Diagnoses Coronavirus infection, unspecified B34.2 COPD with acute exacerbation J44.1 Acute on chronic heart failure with preserved ejection fraction (HFpEF) I50.33 Chronic hypoxic respiratory failure J96.11 VALERIA (obstructive sleep apnea) G47.33 T2DM (type 2 diabetes mellitus) E11.9 S/P mitral valve replacement with bioprosthetic valve Z95.3 Permanent atrial fibrillation I48.21 Moderate pulmonary hypertension I27.20 History of DVT (deep vein thrombosis) Z86.718 GERD (gastroesophageal reflux disease) K21.9 Hypertension I10
[2024-10-13] MEDS: METOPROLOL TARTRATE 25 MG TAB PO STA (16:19)
[2024-10-13] MEDS: FUROSEMIDE INJ 20 MG/2 ML VIAL IV ONE (16:20)
[2024-10-13] MEDS: LEVALBUTEROL 1.25 MG/3 ML NEB NEB SCH (20:12)
[2024-10-13] MEDS: IPRATROPIUM BROMIDE NEB SOLN 0.02% 0.5MG/2.5ML VIAL NEB SCH (20:13)
[2024-10-13] MEDS: BENZONATATE 100 MG CAPSULE PO SCH (21:52)
[2024-10-13] MEDS: METOPROLOL TARTRATE 50 MG TAB PO SCH (21:53)
[2024-10-14 07:33] LABS: INR 1.7 (0.9-1.1); Prothrombin Time 17.9 Seconds (9.0-12.0)
[2024-10-14 07:42] LABS: BUN Creatinine Ratio 43.8 (10-20); Calcium 8.8 mg/dl (8.6-10.3); Creatinine Clr Calc Pharmacy 60.4 ml/min; Potassium 4.9 mmol/L (3.5-5.1)
[2024-10-14] MEDS: CYCLOBENZAPRINE HCL 5 MG TAB PO PRN (08:45)
[2024-10-14] MEDS: BUMETANIDE 1 MG in SYRINGE 0 ML IV ONE (08:52)
--- NOTE | 2024-10-14 16:11 | Hospitalist Progress Note ---
Date of Service October 14, 2024 Assessment & Plan (1) Coronavirus infection, unspecified: Plan: non-COVID coronavirus infection with resulting acute bronchitis/COPD exacerbation as below cont droplet precautions & supportive care improving (2) COPD with acute exacerbation: Plan: 2nd to #1 above no apparent superimposed bacterial infection on imaging - thus defer on abx (she just completed a course of levaquin in the last week) cont solumedrol --> wean from 30mg TID to 30mg BID cont saline nebs BID cont xopenex/atrovent nebs QID cont mucinex, tessalon, flutter valve, incentive spirometry sputum cx negative diurese will ask respiratory to perform chest percussion vest twice daily to help promote mucous clearance (this is one of her biggest complaints) remains stable on home O2 amount (2 liters) (3) Acute on chronic heart failure with preserved ejection fraction (HFpEF): Plan: remains decompensated on exam give additional diuretic today -- bumex 1mg IV x 1 cont metoprolol tartrate BID - titrated to 50mg BID for better a.fib rate control I am unclear what her "dry" weight is she typically does not check her weights at home bmp in am daily weights here etc. (4) Chronic hypoxic respiratory failure: Plan: on home O2 continuously stable O2 sats (5) VALERIA (obstructive sleep apnea): Plan: not tolerant of NIPPV simply cont O2 at night-time (6) T2DM (type 2 diabetes mellitus): Plan: previous a1c 6% in 06/2024 she is only on metformin 500mg daily at home a1c is more c/w pre-DM controlled with low-dose lantus + novolog SSI (7) S/P mitral valve replacement with bioprosthetic valve: Plan: echo during recent admission showed intact MV but there is mild-moderate MS follows with Dr Son (8) Permanent atrial fibrillation: Plan: POOR rate control seen early in admission meto tartrate titrated to 50mg BID titrate further if needed could also consider digoxin load also changed albuterol to Xopenex - this may help HRs as well cont coumadin give 2.5mg extra (total 5mg today) as INR is 1.7 & down-trending daily INR while here (9) Moderate pulmonary hypertension: Plan: as seen on echo earlier this month certainly this contributes to her hypoxia and need for NC O2 (10) History of DVT (deep vein thrombosis): Plan: noted cont coumadin - see above daily INR (11) GERD (gastroesophageal reflux disease): Plan: cont PPI (12) Hypertension: Plan: cont metoprolol tartrate BID at higher dose Plan updated by phone 10/12 attempted 2x's this evening, 10/14, to call pt's he would answer the phone but then the phone would quickly disconnect ultimately I was unable to give him an update PT/OT when able Admission and Anticipated Discharge Date Admission Date: October 11, 2024 Subjective a.fib rates improved with titration of meto tartrate to 50mg BID she was sitting in the chair during the visit she overall feels better has robust appetite generalized weakness/fatigue/myalgias improved she still has cough/wheezing/chest congestion she feels she still has mucous in lungs and can't get it out Review of Systems Review of Systems: gen - no fevers or chills cv - no chest pain GI - no N/V Physical Exam Physical Exam: gen - sitting in chair, looks good today, coughing neck - JVD present even sitting upright at 90 degrees mouth - MMM heart - irregularly irregular, s1 s2, 2/6 systolic murmur RUSB; not tachy today lungs - b/l wheezes all lung segments, still with basilar rales, no increased work of breathing abd - soft, ND, BS+, abd wall near the costal margin tender to palpation ext - trace edema b/l, pulses 2+ b/l psych - a/o x 3 Results & Data Results & Data Vital Signs (Past 12 Hours) Vital Signs Temp Pulse Pulse Resp BP Pulse Ox O2 Del Method 10/14/24 15:57 36.4 C L 95 H 18 105/68 95 Nasal Cannula 10/14/24 14:12 93 H 20 87 L Room Air 10/14/24 13:01 103 H 10/14/24 11:08 36.4 C L 99 H 18 113/63 97 Nasal Cannula 10/14/24 11:04 109 H 18 97 Nasal Cannula 10/14/24 11:03 Nasal Cannula 10/14/24 07:30 36.5 C 93 H 18 110/72 97 Nasal Cannula 10/14/24 06:02 95 H 18 98 Nasal Cannula 10/14/24 05:43 98 H O2 Flow Rate 10/14/24 15:57 2 10/14/24 14:12 10/14/24 13:01 10/14/24 11:08 10/14/24 11:04 2 10/14/24 11:03 2 10/14/24 07:30 10/14/24 06:02 2 10/14/24 05:43 Laboratory Results Laboratory Results - last 24 hr 10/13/24 10/13/24 10/14/24 17:06 20:59 07:04 PT 17.9 H INR 1.7 H Sodium 138 Potassium 4.9 Chloride 100 Carbon Dioxide 36 H Anion Gap 2 L BUN 35 H Creatinine 0.80 Est Cr Clr Drug Dosing 60.4 eGFR 76.31 BUN/Creatinine Ratio 43.8 H Glucose 134 H POC Glucose 141 H 150 H Calcium 8.8 10/14/24 10/14/24 08:12 11:42 PT INR Sodium Potassium Chloride Carbon Dioxide Anion Gap BUN Creatinine Est Cr Clr Drug Dosing eGFR BUN/Creatinine Ratio Glucose POC Glucose 121 H 162 H Calcium PG Care Time/CCT Total # of Minutes Spent Total Time Spent with Patient: Total time spent is greater than 50% in coordination of care (as documented) at patient's floor/unit and/or counseling patient: Coding Level of Care Code 17278 SUB INP/OBS CARE 3/50MIN Diagnoses Coronavirus infection, unspecified B34.2 COPD with acute exacerbation J44.1 Acute on chronic heart failure with preserved ejection fraction (HFpEF) I50.33 Chronic hypoxic respiratory failure J96.11 VALERIA (obstructive sleep apnea) G47.33 T2DM (type 2 diabetes mellitus) E11.9 S/P mitral valve replacement with bioprosthetic valve Z95.3 Permanent atrial fibrillation I48.21 Moderate pulmonary hypertension I27.20 History of DVT (deep vein thrombosis) Z86.718 GERD (gastroesophageal reflux disease) K21.9 Hypertension I10
[2024-10-14] MEDS: WARFARIN SOD 2.5 MG TAB PO SCH (16:23)
[2024-10-14] MEDS: WARFARIN SOD 2.5 MG TAB PO ONE (16:23)
[2024-10-15 07:36] LABS: INR 1.8 (0.9-1.1); Prothrombin Time 18.2 Seconds (9.0-12.0)
[2024-10-15 07:50] LABS: BUN Creatinine Ratio 59.4 (10-20); Calcium 8.8 mg/dl (8.6-10.3); Potassium 4.3 mmol/L (3.5-5.1)
[2024-10-15] MEDS: methylPREDNISolone 30 MG in SYRINGE 0 ML IV SCH (08:06)
--- NOTE | 2024-10-15 17:19 | Hospitalist Progress Note ---
Date of Service October 15, 2024 Assessment & Plan (1) Coronavirus infection, unspecified: Plan: non-COVID coronavirus infection with resulting acute bronchitis/COPD exacerbation as below cont droplet precautions & supportive care improving (2) COPD with acute exacerbation: Plan: 2nd to #1 above no apparent superimposed bacterial infection on imaging - thus defer on abx (she just completed a course of levaquin in the last week) continue steroids for decreased to prednisone 40 mg daily cont saline nebs BID cont xopenex/atrovent nebs QID cont mucinex, tessalon, flutter valve, incentive spirometry sputum cx negative diurese continue chest percussion with vest twice dailyshe reports significant improvement in mucus clearance with this remains stable on home O2 amount (2 liters) (3) Acute on chronic heart failure with preserved ejection fraction (HFpEF): Plan: improved compared to a few weeks ago but continues to appear mildly volume overloadedordered Bumex 1 mg IV x 1 today cont metoprolol tartrate BID - titrated to 50mg BID for better a.fib rate control I am unclear what her "dry" weight is she typically does not check her weights at home creatinine and potassium are normal today, a.m. BMP ordered (4) Chronic hypoxic respiratory failure: Plan: on home O2 continuously stable O2 sats (5) VALERIA (obstructive sleep apnea): Plan: not tolerant of NIPPV simply cont O2 at night-time (6) T2DM (type 2 diabetes mellitus): Plan: previous a1c 6% in 06/2024 she is only on metformin 500mg daily at home a1c is more c/w pre-DM controlled with low-dose lantus + novolog SSI (7) S/P mitral valve replacement with bioprosthetic valve: Plan: echo during recent admission showed intact MV but there is mild-moderate MS follows with Dr Son (8) Permanent atrial fibrillation: Plan: POOR rate control seen early in admission meto tartrate titrated to 50mg BID titrate further if needed could also consider digoxin load also changed albuterol to Xopenex - this may help HRs as well cont coumadin usual dose, INR 1.8 today and trending upward daily INR while here (9) Moderate pulmonary hypertension: Plan: as seen on echo earlier this month certainly this contributes to her hypoxia and need for NC O2 (10) History of DVT (deep vein thrombosis): Plan: on Coumadin (11) GERD (gastroesophageal reflux disease): Plan: cont PPI (12) Hypertension: Plan: cont metoprolol tartrate BID at higher dose - has been normotensive to hypotensive Plan updated by phone 10/12 attempted 2x's this evening, 10/14, to call pt's he would answer the phone but then the phone would quickly disconnect ultimately I was unable to give him an update PT/OT recommendations reviewedOT recommended home, PT recommended rehab and a walker but she declined both of these, plan to return home with PT/OT/home health RN. she should be ready for discharge tomorrow morning Admission and Anticipated Discharge Date Admission Date: October 11, 2024 Subjective dyspnea on exertion improving slowly, now clearing a lot of junky mucus from chest PT vest leg edema significantly improved compared to a few weeks ago when I last saw her Physical Exam 2 Physical Exam: PHYSICAL EXAMINATION Last 24h vital signs reviewed, see documentation in flowsheet General: comfortable appearing, no distress HEENT: Normocephalic, atraumatic, pupils round and equal, sclerae anicteric, no conjunctival injection, moist mucus membranes Lungs: Normal respiratory effort. bibasilar right greater than left crackles no wheezing Heart: Regular rate and rhythm, no murmurs. mild JVD Abdomen: Soft, nontender, nondistended. Bowel sounds present. Extremities: Warm, dry, well-perfused. 1+ lower extremity edema. improved compared to 10 days ago Neuro: Alert and oriented x 4, face symmetric, moves 4 extremities well Psych: Normal affect and behavior Results & Data Results & Data Vital Signs (Past 12 Hours) Vital Signs Temp Pulse Pulse Resp BP BP Pulse Ox 10/15/24 16:33 97.7 F 93 H 20 120/81 96 10/15/24 15:34 86 18 98 10/15/24 11:15 97.9 F 73 18 101/60 96 10/15/24 10:14 81 18 89 L 10/15/24 08:10 97.9 F 85 18 124/82 98 10/15/24 08:00 10/15/24 07:34 82 18 95 10/15/24 07:25 73 10/15/24 05:33 88 O2 Del Method O2 Flow Rate 10/15/24 16:33 Nasal Cannula 2 10/15/24 15:34 Nasal Cannula 2 10/15/24 11:15 Nasal Cannula 2 10/15/24 10:14 Room Air 10/15/24 08:10 Nasal Cannula 2 10/15/24 08:00 Nasal Cannula 2 10/15/24 07:34 Nasal Cannula 2 10/15/24 07:25 10/15/24 05:33 Laboratory Results 10/12/24 05:54 10/15/24 06:58 PG Care Time/CCT Total # of Minutes Spent Total Time Spent with Patient: Total time spent is greater than 50% in coordination of care (as documented) at patient's floor/unit and/or counseling patient: Coding Level of Care Code 70696 SUB INP/OBS CARE 2MIN Diagnoses Coronavirus infection, unspecified B34.2 COPD with acute exacerbation J44.1 Acute on chronic heart failure with preserved ejection fraction (HFpEF) I50.33 Chronic hypoxic respiratory failure J96.11 VALERIA (obstructive sleep apnea) G47.33 T2DM (type 2 diabetes mellitus) E11.9 S/P mitral valve replacement with bioprosthetic valve Z95.3 Permanent atrial fibrillation I48.21 Moderate pulmonary hypertension I27.20 History of DVT (deep vein thrombosis) Z86.718 GERD (gastroesophageal reflux disease) K21.9 Hypertension I10
[2024-10-15] MEDS: BUMETANIDE 1 MG in SYRINGE 0 ML IV ONE (17:48)
[2024-10-15] MEDS: POLYETHYLENE (MIRALAX) 17 GM PACK PO PRN (18:18)
--- NOTE | 2024-10-15 19:05 | Communication Note ---
Date of Service: October 15, 2024 Called for 45 beats WCT occurred while sitting in chair talking on phone, feels anxious Subsequent to that in afib/flutter rate of 120 VT vs afib with aberrancy -metoprolol 5 mg IV x 1, already on 50 mg po bid -will empirically replace lytes since she had 1 mg bumex IV this afternoon - magnesium 2 g IV and potassium 40 meq po -check BMP, mag, phos -monitor tele, stat EKG if sustained recurrence, will review strips -discussed with ISABELLA Gutierrez
[2024-10-15] MEDS: POTASSIUM CHLORIDE CRTAB 20 MEQ TABCR PO STA (19:43)
[2024-10-15] MEDS: METOPROLOL TARTRATE 1 MG/ML VIAL IV STA (19:43)
[2024-10-15] MEDS: MAGNESIUM SULFATE / D5W 1 GM/100 ML BAG IV SCH (19:58)
[2024-10-15 20:19] LABS: BUN Creatinine Ratio 43.4 (10-20); Calcium 9.1 mg/dl (8.6-10.3); Creatinine Clr Calc Pharmacy 59.2 ml/min; Phosphorus 3.2 mg/dl (2.5-4.9); Potassium 4.2 mmol/L (3.5-5.1)
[2024-10-16] MEDS ORDERED: predniSONE 20 MG TAB PO SCH (09:00)
[2024-10-16 09:49] LABS: INR 1.9 (0.9-1.1); Prothrombin Time 19.5 Seconds (9.0-12.0)
[2024-10-16 10:02] LABS: BUN Creatinine Ratio 45.7 (10-20); Calcium 9.3 mg/dl (8.6-10.3); Creatinine Clr Calc Pharmacy 68.8 ml/min
[2024-10-16 11:52] VITALS: RESP 18; TEMP 97.7
[2024-10-16 12:41] VITALS: BP 120/81
[2024-10-16 14:07] VITALS: PULSE 88; O2SAT 94
== END 2024-10-16 16:18 | disposition home health service (06) | DRG 865 ==
LOC: ED 14:36 → 2W 19:52 → SUATTDRO 19:52 → 2W 21:12

== ENCOUNTER 2024-10-24 12:35 | Inpatient (IN) ==
[2024-10-24 14:24] LABS: Basophils # (auto) 0.02 K/uL (0.00-0.20); Basophils % (auto) 0.2 %; Eosinophils # (auto) 0.07 K/uL (0.00-0.50); Eosinophils % (auto) 0.8 %; Hematocrit (blood only) 35.8 % (37.0-47.0); Hemoglobin 11.3 g/dl (12.0-16.0); Immature Granulocytes # (auto) 0.03 K/uL (0.01-0.20); Immature Granulocytes % (auto) 0.3 %; Lymphocytes # (auto) 0.82 K/uL (1.20-3.40); Lymphocytes % (auto) 9.3 %; Mean Corpuscular Hemoglobin 29.3 pg (25.0-34.0); Mean Corpuscular Hgb Conc 31.6 g/dL (32.0-36.0); Mean Corpuscular Volume 92.7 fL (80.0-100.0); Mean Platelet Volume 11.6 fL (9.4-12.4); Monocytes % (auto) 12.5 %; Neutrophils # (auto) 6.75 K/uL (1.40-6.50); Neutrophils % (auto) 76.9 %; Platelet Count 145 K/uL (130-400); RDW Coefficient of Variation 16.1 % (11.5-14.5); RDW Standard Deviation 54.4 fL (36.4-46.3); Red Blood Count 3.86 M/uL (4.20-5.40); White Blood Count 8.79 K/ul (4.8-10.8)
[2024-10-24 14:30] LABS: Alanine Aminotransferase 18 U/L (7-52); Albumin Level 3.6 gm/dl (3.4-5.0); Alkaline Phosphatase 71 U/L (34-104); Anion Gap 6 (3-11); Aspartate Aminotransferase 25 U/L (13-39); BUN Creatinine Ratio 35.2 (10-20); Bilirubin,Total 0.9 mg/dl (0.2-1.0); Blood Urea Nitrogen 25 mg/dl (6-23); Calcium 8.9 mg/dl (8.6-10.3); Carbon Dioxide 34 mmol/L (21-32); Chloride 101 mmol/L (98-107); Globulin 3.7 gm/dl (2.5-4.0); Glucose 112 mg/dl (70-99(Fasting)); Potassium 3.8 mmol/L (3.5-5.1); Sodium 141 mmol/L (136-145); Total Protein 7.3 gm/dl (6.0-8.3)
--- NOTE | 2024-10-24 14:30 | XRay Report ---
XR chest 1V portable CLINICAL HISTORY: Chest pain, nonspecific COMPARISON STUDY: 10/11/2024 FINDINGS: Stable cardiac valve repair. Stable cardiomegaly with increased pulmonary vascular congesti on. Inspiration is shallow limiting the exam. No definite consolidation or pleural effusion. No pneum othorax. IMPRESSION: Increased CHF. ACT 112: Negative or not required by law. Electronically signed by: Bennett Patten M.D. 10/24/2024 2:29 PM
[2024-10-24 14:37] LABS: Troponin I High Sensitivity 15.8 pg/ml (0-14)
[2024-10-24 14:39] LABS: INR 1.1 (0.9-1.1); Partial Thromboplastin Time 26 Seconds (21-31); Prothrombin Time 11.8 Seconds (9.0-12.0)
--- NOTE | 2024-10-24 15:23 | Emergency Department Note ---
Impression & Plan Acute congestive heart failure, Pulmonary vascular congestion, Shortness of breath, Elevated troponin ED Provider Note NAME: GRZEGORZ BAERD AGE: 74 SEX: F : 1950 ARRIVES VIA: Walk-In INFORMANT: Patient ED PROVIDER(S): Mark Yates DO CHIEF COMPLAINT: shortness of breath HPI: Patient is a 74-year-old female with a past medical history of acute on chronic heart failure with preserved EF, COPD, cor pulmonale, aortic stenosis who presents to the ER for worsening shortness of breath. She was discharged about a week ago and notes chest pain and shortness of breath have been worsening. She has midsternal chest tightness. She feels like someone sitting on her chest. She admits to increased weight gain of about 4 pounds. She does have some swelling in her legs. Daughter/family present at bedside notes that she is significantly weaker and more short of breath. ADDITIONAL HISTORY OBTAINED:Daughter/family present at bedside notes that she is significantly weaker and more short of breath. Chronic Medical/Social Conditions Affecting Care: Per HPI PAST MEDICAL HISTORY:See Below PAST SURGICAL HISTORY:See Below FAMILY HISTORY:See Below SOCIAL HISTORY:See Below HOME MEDICATIONS:See Below ALLERGIES:See Below VITALS:See Below PHYSICAL EXAMINATION: GENERAL: Sitting up in bed, alert, chronically ill-appearing, disheveled EYE EXAM: normal conjunctiva. OROPHARYNX: no exudate, no erythema, lips, buccal mucosa, and tongue normal and mucous membranes are moist NECK: +JVD LUNGS: Clear to auscultation. Normal chest wall mechanics HEART: no murmurs, S1 normal and S2 normal ABDOMEN: abdomen soft, non-tender, normo-active bowel sounds, no masses, no rebound or guarding. UPPER EXTREMITIES: upper extremities are grossly normal. LOWER EXTREMITIES: Pitting edema bilateral lower extremities NEURO EXAM: Normal sensorium, cranial nerves II-XII grossly intact, normal speech, no gross weakness of arms, no gross weakness of legs. MEDICAL DECISION MAKING: Patient is a 74-year-old female who presents to the ER for the below stated complaint. IV was established and blood work was obtained. Labs show no significant leukocytosis. Mild anemia 11.3. INR unremarkable. D-dimer was negative and low risk patient and will not be pursued any further. BMP on LFTs bilirubin was unremarkable. Troponin was mildly elevated at 15. BNP elevated at 440. Viral panel was negative. Chest x-ray with congestive changes. Patient has weight gain and pitting edema all consistent with CHF. Patient was given IV Lasix. Updated at bedside. Discussed case with the hospitalist Dr. Godwin for further evaluation management and treatment. Consults/Care Managements Discussions: Per MDM Triage Nursing notes reviewed. Limited review of prior medical records performed Vital Signs: reviewed and remarkable for on 2 L nasal cannula chronically Differential diagnosis: Differential diagnoses includes but is not limited to pneumonia, bronchitis, COPD/Asthma exacerbation, pneumothorax, pulmonary embolism, congestive heart failure, acute coronary syndrome ER treatment provided: See below Diagnostics interpreted by me include EKG and cardiac monitoring as listed below: -Cardiac Monitoring: An order was placed for continuous cardiac monitoring. The monitor shows a rate of 80 with sinus rhythm. -ECG: A-fib rate of [address] wave changes in the inferior and lateral leads QTc 479 Normal axis No PVCs -Laboratory studies:Interpreted by me as stated above in MDM and shown below. Imaging studies: Xrays: As interpreted by me: Portable AP upright 1 view of the chest shows congestive changes CTs show: none Procedures:none Critical Care: None Past Med/Surg History Problem List (Updated 10/24/24 @ 19:44 by Mark Yates DO) Elevated troponin (Acute) Shortness of breath (Acute) Acute congestive heart failure (Acute) Acute on chronic hypoxic respiratory failure Acute heart failure with preserved ejection fraction (HFpEF) Chronic hypoxic respiratory failure Acute on chronic heart failure with preserved ejection fraction (HFpEF) T2DM (type 2 diabetes mellitus) Hypomagnesemia Hypokalemia CHF (congestive heart failure) (Acute) COPD with acute exacerbation (Acute) Coronavirus infection, unspecified (Acute) Abdominal ascites (Acute) Pulmonary vascular congestion (Acute) Cor pulmonale, chronic Chronic obstructive pulmonary disease with hypoxia Mild aortic stenosis S/P mitral valve replacement with bioprosthetic valve (2011) Permanent atrial fibrillation (HFpEF) heart failure with preserved ejection fraction Moderate pulmonary hypertension [place]hen sclerosus Atrophic vaginitis [place] Omalley syndrome (geniculate herpes zoster) VALERIA (obstructive sleep apnea) Mild persistent asthma Urinary incontinence Aortic stenosis Thyroid Nodule Daytime hypersomnia Osteoarthritis History of DVT (deep vein thrombosis) History of mitral valve replacement (11/2011) 11/2011 @ [facility] [place]follows with Dr. Son Hiatal hernia GERD (gastroesophageal reflux disease) Diabetes Hx of rheumatic fever Hypertension Hyperlipidemia Seizure Obese History of TIA (transient ischemic attack) Vitamin D deficiency Restrictive lung disease secondary to obesity Pulmonary nodule Mitral valve disorder Gastroparesis Depression with anxiety Coronary artery disease Chronic diastolic heart failure, NYHA class 1 Chronic constipation Bladder prolapse Bilateral carotid artery stenosis Asthma Chronic anticoagulation (Acute) Atrial fibrillation (02/04/12) Medical History Dyspnea on exertion Vaccination hesitancy by patient Respiratory failure Tubular adenoma of colon Kidney stones Surgical History S/P balloon mitral valvuloplasty History of total abdominal hysterectomy and bilateral salpingo-oophorectomy History of appendectomy History of cholecystectomy History of esophagogastroduodenoscopy (EGD) Status post biopsy of thyroid gland benign Family History Brother Congestive heart failure Family/Other Family history of diabetes mellitus maternal aunt Family hx of colon cancer maternal aunt Mother Colorectal cancer Migraine headache Ovarian cancer Father Prostate cancer Denies family history of Breast cancer Lung cancer Social History Smoking Status: Never smoker Second Hand Exposure: Yes (father smoked); Do You Dip or Chew Tobacco: No; Hx Alcohol Use: Yes Alcohol type: wine Hx Substance Use: No Preferred Language: Ukrainian Communication Ability: Effective Visual Impairment: No Limitations Hearing Ability: Normal Obstetrical Tech Required: No Beliefs That Will Affect Care: None marital status: Current Living Situation: Spouse current occupational status: retired How many Children do You have: 4 Feels Safe at Home: No Is there a partner from a previous relationship who is making you feel unsafe now?: No Childhood Exposure to Second-Hand Smoke: Yes Diet: regular Diet Comment: regular caffeine: No during the past year weight has: remained stable Dental Care, Regularly: No Physical Activity Frequency: Other Physical Activity Frequency Comment: housework Seatbelt Use: always Sunscreen Use: No Assistive Devices: Oxygen - Continuous and Wheelchair Allergies Allergies Allergy/AdvReac Type Severity Reaction Status Date / Time irbesartan Allergy Intermediate hives Verified 09/24/24 11:02 prednisone Allergy Intermediate Hives Verified 09/24/24 11:02 amlodipine Allergy Unknown HIVES Verified 09/24/24 11:02 aspirin Allergy Unknown UNKNOWN Verified 09/24/24 11:02 astemizole Allergy Unknown UNKNOWN Verified 09/24/24 11:02 atorvastatin Allergy Unknown Verified 09/24/24 11:02 caffeine Allergy Unknown UNKNOWN Verified 09/24/24 11:02 cefixime Allergy Unknown UNKNOWN Verified 09/24/24 11:02 cephalexin Allergy Unknown UNKNOWN Verified 09/24/24 11:02 Cephalosporins Allergy Unknown Verified 09/24/24 11:02 codeine Allergy Unknown UNKNOWN Verified 09/24/24 11:02 dexamethasone Allergy Unknown UNKNOWN Verified 09/24/24 11:02 diphenhydramine Allergy Unknown UNKNOWN Verified 09/24/24 11:02 erythromycin base Allergy Unknown UNKNOWN Verified 09/24/24 11:02 hydrochlorothiazide Allergy Unknown Verified 09/24/24 11:02 hydromorphone Allergy Unknown UNKNOWN Verified 09/24/24 11:02 ibuprofen Allergy Unknown UNKNOWN Verified 09/24/24 11:02 Iodinated Contrast Media Allergy Unknown UNKNOWN Verified 09/24/24 11:02 methylprednisolone Allergy Unknown UNKNOWN Verified 09/24/24 11:02 omeprazole Allergy Unknown Verified 09/24/24 11:02 orphenadrine Allergy Unknown UNKNOWN Verified 09/24/24 11:02 Penicillins Allergy Unknown UNKNOWN Verified 09/24/24 11:02 pentazocine Allergy Unknown UNKNOWN Verified 09/24/24 11:02 ramipril Allergy Unknown UNKNOWN Verified 09/24/24 11:02 sodium benzoate Allergy Unknown UNKNOWN Verified 09/24/24 11:02 sucralfate Allergy Unknown UNKNOWN Verified 09/24/24 11:02 tetracycline Allergy Unknown UNKNOWN Verified 09/24/24 11:02 theophylline Allergy Unknown UNKNOWN Verified 09/24/24 11:02 valacyclovir Allergy Unknown Verified 09/24/24 11:02 metoprolol [From Toprol XL] Allergy Unknown Verified 09/24/24 11:02 polymyxin B Allergy Unknown Verified 09/24/24 11:02 sodium bicarbonate Allergy Unknown Verified 09/24/24 11:02 [From Zegerid] nitrofurantoin AdvReac Severe shaky, Verified 09/24/24 11:02 chills, landeros, nausea Home Meds Home Medications Medication Instructions Recorded Confirmed polyethylene glycol 3350 17 1 dose PO QPM 06/20/18 10/24/24 gram/dose oral powder (Miralax) potassium chloride 10 mEq 10 meq PO QAM 06/20/18 10/24/24 tablet,extended release allopurinol 100 mg tablet 100 mg PO DAILY 10/02/18 10/24/24 ondansetron HCl 4 mg tablet See Rx Instructions .Route 08/30/21 10/24/24 .COMPLEX PRN Nausea cholecalciferol (vitamin D3) 125 125 mcg PO DAILY 05/05/23 10/24/24 mcg (5,000 unit) capsule cetirizine 10 mg tablet (Zyrtec) 10 mg PO BID 08/14/23 10/24/24 ascorbate calcium (vitamin C) 500 500 mg PO DAILY 09/07/23 10/24/24 mg tablet milk thistle 1 dose PO DAILY 09/07/23 10/24/24 conjugated estrogens 0.625 mg/gram 0.625 mg vaginal .2 times per week 04/01/24 10/24/24 vaginal cream (Premarin) clobetasol 0.05 % topical ointment 1 applic topical BID PRN 04/12/24 10/24/24 DIRECTED budesonide 160 mcg-glycopyr 9 2 inh inhalation BID 09/30/24 10/24/24 mcg-formot 4.8 mcg/actuation HFA inhaler Previous Rx's Medication Instructions Recorded Oxygen Home #1 ea 04/27/20 spironolactone 25 mg tablet 25 mg PO DAILY #30 tabs 09/07/20 CPAP Machine #1 ea 02/11/21 CPAP Supplies #1 ea 07/14/21 fluticasone propionate 50 1 spray intranasal BID PRN Nasal 04/21/22 mcg/actuation nasal Congestion #15.8 mL spray,suspension (Flonase Allergy Relief) cyclobenzaprine 5 mg tablet 5 mg PO TID PRN muscle spasm #10 10/24/22 tabs nystatin 100,000 unit/gram topical 1 applic topical DAILY #30 grams 12/19/22 cream betamethasone dipropionate 0.05 % 1 applic topical BID PRN skin 01/10/23 topical cream irritation #45 grams omega 0-oxh-qgj-fish oil 60 mg-90 1 cap PO DAILY #30 caps 01/12/23 mg-500 mg capsule (Fish Oil) levalbuterol tartrate 45 1 inh inhalation Q6H #15 grams 03/13/23 mcg/actuation aerosol inhaler warfarin 4 mg tablet 4 mg PO .COMPLEX #90 tabs 05/17/23 warfarin 1 mg tablet 1 mg PO DAILY #90 tabs 07/05/23 hydroxyzine pamoate 25 mg capsule 25 mg PO Q8H PRN itching #30 caps 08/14/23 (Vistaril) famotidine 20 mg tablet 20 mg PO BID #180 tabs 10/06/23 pantoprazole 40 mg tablet,delayed 40 mg PO DAILY #90 tabs 12/25/23 release (Protonix) simvastatin 40 mg tablet 40 mg PO HS #90 tabs 03/22/24 metformin 500 mg tablet 500 mg PO DAILY #100 tabs 05/13/24 montelukast 10 mg tablet 10 mg PO DAILY #90 tabs 05/13/24 fluticasone 100 mcg-salmeterol 50 1 inh inhalation BID #60 ea 08/13/24 mcg/dose blistr powdr for inhalation warfarin 5 mg tablet (Jantoven) 5 mg PO DAILY #90 tabs 08/13/24 ipratropium 0.5 mg-albuterol 3 mg 3 ml inhalation Q6H PRN wheezing 09/24/24 (2.5 mg base)/3 mL nebulization #180 mL soln nebulizer accessories #1 ea 09/24/24 torsemide 20 mg tablet 40 mg (2 x 20 mg) PO QAM #60 tabs 10/07/24 phenobarbital 32.4 mg tablet 32.4 mg PO BID #180 tabs 10/08/24 benzonatate 100 mg capsule 100 mg PO TID PRN cough #30 caps 10/11/24 guaifenesin 600 mg tablet, 1,200 mg (2 x 600 mg) PO Q12 #0 10/16/24 extended release 12 hr (Mucinex) tabs methylprednisolone 16 mg tablet 16 mg PO BID #10 tabs 10/16/24 (Medrol) metoprolol succinate 50 mg 50 mg PO BID #60 tabs 10/16/24 tablet,extended release 24 hr Results & Data (ED) Vital Signs Vital Signs - 24 hr 10/24/24 12:43 10/24/24 12:46 10/24/24 14:34 Temperature 36.7 C Temperature Source Temporal Artery Scan Pulse Rate 96 H 92 H Pulse Rate [Apical] Pulse Rate from SpO2 Sensor Pulse Rhythm Regular Pulse Strength Normal Respiratory Rate 20 Respiratory Effort / Characteristics Non-Labored Spontaneous Respiratory Depth Normal Blood Pressure 105/69 Blood Pressure [Left Arm] Blood Pressure Mean 81 Blood Pressure Mean [Left Arm] Blood Pressure Position [Left Arm] Pulse Oximetry 86 L 86 L Oxygen Delivery Method Nasal Cannula Room Air Nasal Cannula Oxygen Flow Rate 0 Sepsis Recent Fever Within 48 Hours No Sepsis New/Unexplained Change in Mental Status N/A Sepsis Action Taken by Nursing No Action Required Oxygen Flow Rate - Titration 2 Pulse Oximetry Post Tiitration 92 10/24/24 15:19 10/24/24 15:19 10/24/24 15:19 Temperature Temperature Source Pulse Rate 84 Pulse Rate [Apical] 83 Pulse Rate from SpO2 Sensor Pulse Rhythm Pulse Strength Respiratory Rate 22 21 Respiratory Effort / Characteristics Non-Labored Spontaneous Respiratory Depth Normal Blood Pressure Blood Pressure [Left Arm] 126/63 Blood Pressure Mean Blood Pressure Mean [Left Arm] 84 Blood Pressure Position [Left Arm] Semi-fowlers Pulse Oximetry 95 95 95 Oxygen Delivery Method Nasal Cannula Nasal Cannula Nasal Cannula Oxygen Flow Rate 2 2 2 Sepsis Recent Fever Within 48 Hours Sepsis New/Unexplained Change in Mental Status Sepsis Action Taken by Nursing Oxygen Flow Rate - Titration Pulse Oximetry Post Tiitration 10/24/24 17:30 10/24/24 17:48 10/24/24 17:57 Temperature Temperature Source Pulse Rate 89 86 Pulse Rate [Apical] 108 H Pulse Rate from SpO2 Sensor 91 H 87 Pulse Rhythm Pulse Strength Respiratory Rate 14 21 23 Respiratory Effort / Characteristics Non-Labored Spontaneous Respiratory Depth Normal Blood Pressure Blood Pressure [Left Arm] 111/54 L Blood Pressure Mean Blood Pressure Mean [Left Arm] 73 Blood Pressure Position [Left Arm] Semi-fowlers Pulse Oximetry 97 93 98 Oxygen Delivery Method Nasal Cannula Oxygen Flow Rate 2 Sepsis Recent Fever Within 48 Hours Sepsis New/Unexplained Change in Mental Status Sepsis Action Taken by Nursing Oxygen Flow Rate - Titration Pulse Oximetry Post Tiitration 10/24/24 18:00 10/24/24 18:00 10/24/24 18:00 Temperature Temperature Source Pulse Rate Pulse Rate [Apical] Pulse Rate from SpO2 Sensor Pulse Rhythm Pulse Strength Respiratory Rate Respiratory Effort / Characteristics Respiratory Depth Blood Pressure 108/82 108/82 108/82 Blood Pressure [Left Arm] Blood Pressure Mean 93 93 93 Blood Pressure Mean [Left Arm] Blood Pressure Position [Left Arm] Pulse Oximetry Oxygen Delivery Method Oxygen Flow Rate Sepsis Recent Fever Within 48 Hours Sepsis New/Unexplained Change in Mental Status Sepsis Action Taken by Nursing Oxygen Flow Rate - Titration Pulse Oximetry Post Tiitration 10/24/24 18:00 10/24/24 18:18 10/24/24 19:00 Temperature Temperature Source Pulse Rate 94 H 92 H Pulse Rate [Apical] 85 Pulse Rate from SpO2 Sensor 91 H 89 Pulse Rhythm Pulse Strength Respiratory Rate 22 27 H 22 Respiratory Effort / Characteristics Non-Labored Spontaneous Respiratory Depth Normal Blood Pressure Blood Pressure [Left Arm] 114/83 Blood Pressure Mean Blood Pressure Mean [Left Arm] 93 Blood Pressure Position [Left Arm] Semi-fowlers Pulse Oximetry 98 97 97 Oxygen Delivery Method Nasal Cannula Oxygen Flow Rate 2 Sepsis Recent Fever Within 48 Hours Sepsis New/Unexplained Change in Mental Status Sepsis Action Taken by Nursing Oxygen Flow Rate - Titration Pulse Oximetry Post Tiitration 10/24/24 19:05 Temperature Temperature Source Pulse Rate 94 H Pulse Rate [Apical] Pulse Rate from SpO2 Sensor Pulse Rhythm Pulse Strength Respiratory Rate Respiratory Effort / Characteristics Respiratory Depth Blood Pressure Blood Pressure [Left Arm] Blood Pressure Mean Blood Pressure Mean [Left Arm] Blood Pressure Position [Left Arm] Pulse Oximetry Oxygen Delivery Method Oxygen Flow Rate Sepsis Recent Fever Within 48 Hours Sepsis New/Unexplained Change in Mental Status Sepsis Action Taken by Nursing Oxygen Flow Rate - Titration Pulse Oximetry Post Tiitration Laboratory Data 10/24/24 13:48 10/24/24 13:48 Lab Results 10/24/24 10/24/24 10/24/24 Range/Units 13:45 13:48 17:58 WBC 8.79 (4.8-10.8) K/ul RBC 3.86 L (4.20-5.40) M/uL Hgb 11.3 L (12.0-16.0) g/dl Hct 35.8 L (37.0-47.0) % MCV 92.7 (80.0-100.0) fL MCH 29.3 (25.0-34.0) pg MCHC 31.6 L (32.0-36.0) g/dL RDW Std Deviation 54.4 H (36.4-46.3) fL RDW Coeff of Trey 16.1 H (11.5-14.5) % Plt Count 145 (130-400) K/uL MPV 11.6 (9.4-12.4) fL Immature Gran % (Auto) 0.3 % Neut % (Auto) 76.9 % Lymph % (Auto) 9.3 % [place] % (Auto) 12.5 % Eos % (Auto) 0.8 % Baso % (Auto) 0.2 % Neut # (Auto) 6.75 H (1.40-6.50) K/uL Lymph # (Auto) 0.82 L (1.20-3.40) K/uL [place] # (Auto) 1.10 H (0.11-0.59) K/uL Eos # (Auto) 0.07 (0.00-0.50) K/uL Baso # (Auto) 0.02 (0.00-0.20) K/uL Immature Gran # (Auto) 0.03 (0.01-0.20) K/uL PT 11.8 (9.0-12.0) Seconds INR 1.1 (0.9-1.1) APTT 26 (21-31) Seconds PTT Ratio 1.0 D-Dimer 470 (0-500) ug/L FEU Sodium 141 (136-145) mmol/L Potassium 3.8 (3.5-5.1) mmol/L Chloride 101 (98-107) mmol/L Carbon Dioxide 34 H (21-32) mmol/L Anion Gap 6 (3-11) BUN 25 H (6-23) mg/dl Creatinine 0.71 (0.6-1.2) mg/dl Est Cr Clr Drug Dosing Not Reportable eGFR 88.06 BUN/Creatinine Ratio 35.2 H (10-20) Glucose 112 H (70-99(Fasting)) mg/dl Calcium 8.9 (8.6-10.3) mg/dl Total Bilirubin 0.9 (0.2-1.0) mg/dl AST 25 (13-39) U/L ALT 18 (7-52) U/L Alkaline Phosphatase 71 (34-104) U/L Troponin I High Sens 15.8 H 14.5 H (0-14) pg/ml B-Natriuretic Peptide 442 H (0-100) pg/ml Total Protein 7.3 (6.0-8.3) gm/dl Albumin 3.6 (3.4-5.0) gm/dl Globulin 3.7 (2.5-4.0) gm/dl Albumin/Globulin Ratio 1.0 (0.9-2) TSH 0.968 (0.300-4.500) uIu/ml Adenovirus (PCR) Not Detected (NotDetected) B. pertussis DNA (PCR) Not Detected (NotDetected) B.parapertussis DNA PCR Not Detected (NotDetected) C. pneumoniae DNA (PCR) Not Detected (NotDetected) Coronavirus OC43 (PCR) Not Detected (NotDetected) Coronavirus HKU1 (PCR) Not Detected (NotDetected) Coronavirus 229E (PCR) Not Detected (NotDetected) SARS-CoV-2 (PCR) Not Detected (NotDetected) Coronavirus NL63 (PCR) Not Detected (NotDetected) Human Metapneumovir PCR Not Detected (NotDetected) Influenza Type A (PCR) Not Detected (NotDetected) Influenza Type B (PCR) Not Detected (NotDetected) M. pneumoniae (PCR) Not Detected (NotDetected) Parainfluenza 1 (PCR) Not Detected (NotDetected) Parainfluenza 2 (PCR) Not Detected (NotDetected) Parainfluenza 3 (PCR) Not Detected (NotDetected) Parainfluenza 4 (PCR) Not Detected (NotDetected) RSV (PCR) Not Detected (NotDetected) Entero/Rhino (PCR) Not Detected (NotDetected) Administered Medications Heparin Sodium/Dextrose (Heparin 02073 Unit/500 Ml D5w) 25,000 units in 500 mls @ 26 mls/hr IV .[id number] [facility]; Protocol Stop: 11/23/24 17:44 Last Admin: 10/24/24 18:03 Dose: 1,300 units/hr, 26 mls/hr Documented By: MWHollie Co-signed By: ARS Discontinued Medications Furosemide (Furosemide 40 Mg/4 Ml Vial) 40 mg IV NOW STA Stop: 10/24/24 15:24 Last Admin: 10/24/24 16:15 Dose: 40 mg Documented By: MMF Heparin Sodium (Porcine) (Heparin Sod (Porcine) 1000 Unit/Ml) 6,000 units IV NOW ONE Stop: 10/24/24 17:46 Last Admin: 10/24/24 18:04 Dose: 6,000 units Documented By: LUKE Co-signed By: PILY Heparin Sodium/Dextrose (Heparin Iv Adult Wt-Based Standard W/ Initial Bolus Protocol) 1 each IV NOW STA; Protocol Stop: 10/24/24 17:30 Last Admin: 10/24/24 18:03 Dose: 1 each Documented By: LUKE Imaging Data Radiologist's Impression: Chest X-Ray 10/24/24 12:47 XR chest 1V portable CLINICAL HISTORY: Chest pain, nonspecific COMPARISON STUDY: 10/11/2024 FINDINGS: Stable cardiac valve repair. Stable cardiomegaly with increased pulmonary vascular congestion. Inspiration is shallow limiting the exam. No definite consolidation or pleural effusion. No pneumothorax. IMPRESSION: Increased CHF. ACT 112: Negative or not required by law. Electronically signed by: Bennett Patten M.D. 10/24/2024 2:29 PM Discharge Plan Visit Data Chief Complaint: Shortness of Breath/Dyspnea Stated Complaint: SOB BREATH NEEDS OX ED Provider: Mark Yates Discharge Problem: Acute congestive heart failure, Pulmonary vascular congestion, Shortness of breath, Elevated troponin Forms Stand Alone Forms: My [facility] Prescriptions Prescriptions: No Action (DME) CPAP Machine Misc See Rx Instructions .MEDSUPPLY Qty: 1 0RF Rx Instructions: CPAP with autotitrate. Range of 8-16 cm H2O with humidification. Nasal pillow. Lifetime need. fluticasone propionate [Flonase Allergy Relief] 50 mcg/actuation spray,suspension 1 spray INTRANASAL BID PRN (Reason: Nasal Congestion) Qty: 15.8 1RF nystatin 100,000 unit/gram cream 1 applic topical DAILY Qty: 30 3RF betamethasone dipropionate 0.05 % cream 1 applic topical BID PRN (Reason: skin irritation) Qty: 45 0RF omega 7-[id number]-fish oil [Fish Oil] 60-90-500 mg capsule 1 cap PO DAILY Qty: 30 0RF warfarin 4 mg tablet 4 mg PO .COMPLEX Qty: 90 1RF Protocol: Dose Management Condition: Monday Dose/Route: 5 mg Instruction: 1 x 5 mg tablet Condition: Monday Dose/Route: 2.5 mg Instruction: 0.5 x 5 mg tablets Condition: Monday Dose/Route: 5 mg Instruction: 1 x 5 mg tablet Condition: Monday Dose/Route: 5 mg Instruction: 1 x 5 mg tablet Condition: Dose/Route: 5 mg Instruction: 1 x 5 mg tablet Condition: Monday Dose/Route: 2.5 mg Instruction: 0.5 x 5 mg tablets Condition: Monday Dose/Route: 5 mg Instruction: 1 x 5 mg tablet Protocol Text: Adjustment Start Date: Monday09/24/24 INR Value: 1.9 INR Date: 09/24/24 Recheck Date: 10/01/24 Rx Instructions: 4 mg PO per protocol; warfarin 1 mg tablet 1 mg PO DAILY Qty: 90 3RF Protocol: Dose Management Condition: Monday Dose/Route: 5 mg Instruction: 1 x 5 mg tablet Condition: Monday Dose/Route: 2.5 mg Instruction: 0.5 x 5 mg tablets Condition: Monday Dose/Route: 5 mg Instruction: 1 x 5 mg tablet Condition: Monday Dose/Route: 5 mg Instruction: 1 x 5 mg tablet Condition: Dose/Route: 5 mg Instruction: 1 x 5 mg tablet Condition: Monday Dose/Route: 2.5 mg Instruction: 0.5 x 5 mg tablets Condition: Monday Dose/Route: 5 mg Instruction: 1 x 5 mg tablet Protocol Text: Adjustment Start Date: Monday09/24/24 INR Value: 1.9 INR Date: 09/24/24 Recheck Date: 10/01/24 famotidine 20 mg tablet 20 mg PO BID Qty: 180 3RF simvastatin 40 mg tablet 40 mg PO HS Qty: 90 1RF montelukast 10 mg tablet 10 mg PO DAILY Qty: 90 1RF metformin 500 mg tablet 500 mg PO DAILY Qty: 100 1RF warfarin [Jantoven] 5 mg tablet 5 mg PO DAILY Qty: 90 1RF Protocol: Dose Management Condition: Monday Dose/Route: 5 mg Instruction: 1 x 5 mg tablet Condition: Monday Dose/Route: 2.5 mg Instruction: 0.5 x 5 mg tablets Condition: Monday Dose/Route: 5 mg Instruction: 1 x 5 mg tablet Condition: Monday Dose/Route: 5 mg Instruction: 1 x 5 mg tablet Condition: Dose/Route: 5 mg Instruction: 1 x 5 mg tablet Condition: Monday Dose/Route: 2.5 mg Instruction: 0.5 x 5 mg tablets Condition: Monday Dose/Route: 5 mg Instruction: 1 x 5 mg tablet Protocol Text: Adjustment Start Date: Monday09/24/24 INR Value: 1.9 INR Date: 09/24/24 Recheck Date: 10/01/24 (DME) nebulizer accessories Kit See Rx Instructions .Route Qty: 1 0RF Rx Instructions: USE Q6H PRN phenobarbital 32.4 mg tablet 32.4 mg PO BID Qty: 180 3RF benzonatate 100 mg capsule 100 mg PO TID PRN (Reason: cough) Qty: 30 0RF cyclobenzaprine 5 mg tablet 5 mg PO TID PRN (Reason: muscle spasm) Qty: 10 0RF pantoprazole [Protonix] 40 mg tablet,delayed release (DR/EC) 40 mg PO DAILY Qty: 90 1RF (DME) Oxygen Home Liters Per Minute See Rx Instructions .ROUTE .MEDSUPPLY Qty: 1 0RF Rx Instructions: 2L NC continuous dx: J44.9, J96.90, dx: I50.32 ascorbate calcium (vitamin C) 500 mg tablet 500 mg PO DAILY milk thistle 1 dose PO DAILY cetirizine [Zyrtec] 10 mg tablet 10 mg PO BID hydroxyzine pamoate [Vistaril] 25 mg capsule 25 mg PO Q8H PRN (Reason: itching) Qty: 30 0RF ondansetron HCl 4 mg tablet See Rx Instructions .ROUTE .COMPLEX PRN (Reason: Nausea) Dose Instruction: take 1-2 tablets every 8 hours as needed for nausea Rx Instructions: take 1-2 tablets every 8 hours as needed for nausea PRN; (DME) CPAP Supplies Misc See Rx Instructions .MEDSUPPLY Qty: 1 0RF Rx Instructions: Patient needs a different mask. Please do a mask fitting. Lifetime need. levalbuterol tartrate 45 mcg/actuation HFA aerosol inhaler 1 inh inhalation Q6H Qty: 15 5RF spironolactone 25 mg tablet 25 mg PO DAILY Qty: 30 2RF cholecalciferol (vitamin D3) 125 mcg (5,000 unit) capsule 125 mcg PO DAILY clobetasol 0.05 % ointment 1 applic topical BID PRN (Reason: DIRECTED) fluticasone propion-salmeterol 100-50 mcg/dose blister with device 1 inh inhalation BID Qty: 60 2RF ipratropium-albuterol 0.5 mg-3 mg(2.5 mg base)/3 mL solution for nebulization 3 ml inhalation Q6H PRN (Reason: wheezing) Qty: 180 1RF Premarin 0.625 mg/gram cream 0.625 mg vaginal .2 times per week potassium chloride 10 mEq Tablet Extended Release 10 meq PO QAM polyethylene glycol 3350 [Miralax] 17 gram/dose Powder 1 dose PO QPM allopurinol 100 mg Tablet 100 mg PO DAILY [id number]-fppwimue-hwfpwociom 160-9-4.8 mcg/actuation Hfa Aerosol Inhaler 2 inh INHALATION BID torsemide 20 mg Tablet 40 mg PO QAM Qty: 60 0RF metoprolol succinate 50 mg tablet extended release 24 hr 50 mg PO BID Qty: 60 0RF methylprednisolone [Medrol] 16 mg Tablet 16 mg PO BID Qty: 10 0RF guaifenesin [Mucinex] 600 mg Tablet Extended Release 12hr 1,200 mg PO Q12 Qty: 0 0RF Rx Instructions: may buy over the counter Referrals Referrals: Zainab Rayo DO [Primary Care Provider] - Discharge Problem: Acute congestive heart failure Qualifiers: Heart failure type: unspecified Qualified Code(s): I50.9 - Heart failure, unspecified
[2024-10-24 15:38] LABS: Adenovirus PCR Not Detected (NotDetected); Bordetella parapertussis PCR Not Detected (NotDetected); Bordetella pertussis PCR Not Detected (NotDetected); Chlamydia pneumoniae PCR Not Detected (NotDetected); Coronavirus 229E PCR Not Detected (NotDetected); Coronavirus CoV-2 (COVID19)PCR Not Detected (NotDetected); Coronavirus HKU1 PCR Not Detected (NotDetected); Coronavirus NL63 PCR Not Detected (NotDetected); Coronavirus OC43PCR Not Detected (NotDetected); Human Metapneumovirus PCR Not Detected (NotDetected); Influenza A PCR Not Detected (NotDetected); Influenza B PCR Not Detected (NotDetected); Mycoplasma pneumoniae PCR Not Detected (NotDetected); Parainfluenza Virus 1 PCR Not Detected (NotDetected); Parainfluenza Virus 2 PCR Not Detected (NotDetected); Parainfluenza Virus 3 PCR Not Detected (NotDetected); Parainfluenza Virus 4 PCR Not Detected (NotDetected); Respiratory Syncytial VirusPCR Not Detected (NotDetected); Rhinovirus/Enterovirus PCR Not Detected (NotDetected)
--- NOTE | 2024-10-24 15:44 | History & Physical Report ---
Date of Service October 24, 2024 Assessment & Plan (1) Acute heart failure with preserved ejection fraction (HFpEF): (2) Acute on chronic hypoxic respiratory failure: (3) Permanent atrial fibrillation: Vidal Rice is a pleasant 74-year-old female with PMH of permanent atrial fibrillation (on Coumadin), TIA, asthma, CHF, seizure, HTN, HLD, rheumatic fever, DVT, mitral valve replacement, VALERIA, Joana Omalley syndrome, and COPD. She presented on 10/24 for ongoing SOB/dyspnea. Patient was recently [facility] - 10/16 with non-COVID coronavirus, COPD exacerbation, and acute CHF. She reports that she was still feeling somewhat lousy upon discharge. She then reports that she developed intermittent cough, including hemoptysis, upon discharge; as well as SOB both at rest and with exertion and orthopnea. Patient reports that she has had a 10 pound weight gain since leaving the hospital; she believes she was around 190 when she left, and is currently around 200lb. #Acute CHF Last echocardiogram on 10/01/2024 revealed LVEF at 60 to 65% BNP ordered, pending CXR did reveal cardiomegaly with increased pulmonary vascular congestion Daily weights Strict I&O monitoring Lasix 40 mg IV BID17 + K supplementation # Acute on chronic hypoxic respiratory failure Patient is on supplemental oxygen 2L NC at baseline However, patient used to be on 2L NC HS, but has required increased oxygen amount since last hospitalization, and has been on continuous oxygen since discharge BioFire negative on admission; coronavirus negative Titrate supplemental oxygen as needed Continuous pulse oximetry #COPD Continue home inhalers Incentive spirometry, flutter valve Guaifenesin 1200 mg p.o. BID Xopenex PRN #Hemoptysis ? Secondary to bronchitis v. PE Patient also endorses pleuritic CP and new onset of pain in her ribs/back INR 1.1 on arrival Chest CTA initially ordered; while patient initially reported that she did not have an iodinated contrast dye allergy, she later said that she believes he did Will obtain D-dimer If positive, will empirically heparinize If negative, will continue on Coumadin #Permanent atrial fibrillation Rate controlled Continue Coumadin, metoprolol Daily PT/INR #T2DM Last A1c at 6.0% on 07/04/2024 Hold metformin SSI; with target BSG range 110-140mg/dL, CF 50, carb ratio 15 T2DM diet BSG ACHS Adjust regimen as needed [facility] Full code Heart healthy, T2DM, low-sodium diet VTE PPx: Coumadin (or Heparin) History of Present Illness Chief Complaint: SOB/dyspnea Primary Care Provider: Zainab Rayo DO Rice is a pleasant 74-year-old female with PMH of permanent atrial fibrillation (on Coumadin), TIA, T2DM, asthma, CHF, seizure, HTN, HLD, rheumatic fever, DVT, mitral valve replacement, VALERIA, Joana Omalley syndrome, and COPD. She presented on 10/24 for ongoing SOB/dyspnea. Patient was recently hospitalized [facility] from 10/[facility] - 10/16 with non-COVID coronavirus, COPD exacerbation, and acute CHF. She re ports that she was still feeling somewhat lousy upon discharge. She then reports that she developed intermittent cough, including hemoptysis, upon discharge; as well as SOB both at rest and with exertion and orthopnea. Patient reports that she has had a 10 pound weight gain since leaving the hospital; she believes she was around 190 when she left, and is currently around 200lb. Patient reports she has not been eating much since discharge, but does watch her salt intake; she has been drinking water though. Additionally, patient endorses chest heaviness like something is "laying on her chest". She reports that they is occasional pain when she takes deep breaths. She does have a history of a blood clot in her heart on December 19, 20192011; she denies prior history of DVT/PE. Patient is chronically on supplemental oxygen; she used to be on 2L NC at nighttime, but started require continuous oxygen prior to coming in the hospital in the middle of September. She also reports that they would bump her up above 2 L while in the hospital. Patient reports that she took all her regular morning medicine today, and reports good compliance with her diuretic at home. She sleeps in a recliner and, and while she is supposed to use a CPAP at night, she has not been using it. Patient denies smoking, tobacco use, or recent alcohol use. Patient is requesting a bed with her , who is c urrently in the hospital; they are set to celebrate their 60th wedding anniversary on October 31. Patient denies any allergies to IV contrast dye. Patient's vitals are stable at time of admission. ED course: Lasix 40 mg IV ROS: Patient endorses weight gain, SOB at rest and with exertion, orthopnea, dizziness/lightheadedness when walking, pleuritic CP, productive cough, chest palpitations, chest pressure/ heaviness, back pain, nausea, and swelling in the legs. Patient denies fever, night-sweats, syncope, chest pain, vomiting, diarrhea, changes in urinary/bowl habits, or decreased urinary frequency. Allergies Allergy/AdvReac Type Severity Reaction Status Date / Time irbesartan Allergy Intermediate hives Verified 09/24/24 11:02 prednisone Allergy Intermediate Hives Verified 09/24/24 11:02 amlodipine Allergy Unknown HIVES Verified 09/24/24 11:02 aspirin Allergy Unknown UNKNOWN Verified 09/24/24 11:02 astemizole Allergy Unknown UNKNOWN Verified 09/24/24 11:02 atorvastatin Allergy Unknown Verified 09/24/24 11:02 caffeine Allergy Unknown UNKNOWN Verified 09/24/24 11:02 cefixime Allergy Unknown UNKNOWN Verified 09/24/24 11:02 cephalexin Allergy Unknown UNKNOWN Verified 09/24/24 11:02 Cephalosporins Allergy Unknown Verified 09/24/24 11:02 codeine Allergy Unknown UNKNOWN Verified 09/24/24 11:02 dexamethasone Allergy Unknown UNKNOWN Verified 09/24/24 11:02 diphenhydramine Allergy Unknown UNKNOWN Verified 09/24/24 11:02 erythromycin base Allergy Unknown UNKNOWN Verified 09/24/24 11:02 hydrochlorothiazide Allergy Unknown Verified 09/24/24 11:02 hydromorphone Allergy Unknown UNKNOWN Verified 09/24/24 11:02 ibuprofen Allergy Unknown UNKNOWN Verified 09/24/24 11:02 Iodinated Contrast Media Allergy Unknown UNKNOWN Verified 09/24/24 11:02 methylprednisolone Allergy Unknown UNKNOWN Verified 09/24/24 11:02 omeprazole Allergy Unknown Verified 09/24/24 11:02 orphenadrine Allergy Unknown UNKNOWN Verified 09/24/24 11:02 Penicillins Allergy Unknown UNKNOWN Verified 09/24/24 11:02 pentazocine Allergy Unknown UNKNOWN Verified 09/24/24 11:02 ramipril Allergy Unknown UNKNOWN Verified 09/24/24 11:02 sodium benzoate Allergy Unknown UNKNOWN Verified 09/24/24 11:02 sucralfate Allergy Unknown UNKNOWN Verified 09/24/24 11:02 tetracycline Allergy Unknown UNKNOWN Verified 09/24/24 11:02 theophylline Allergy Unknown UNKNOWN Verified 09/24/24 11:02 valacyclovir Allergy Unknown Verified 09/24/24 11:02 metoprolol [From Toprol XL] Allergy Unknown Verified 09/24/24 11:02 polymyxin B Allergy Unknown Verified 09/24/24 11:02 sodium bicarbonate Allergy Unknown Verified 09/24/24 11:02 [From Zegerid] nitrofurantoin AdvReac Severe shaky, Verified 09/24/24 11:02 chills, landeros, nausea Home Medications Medication Instructions Recorded Confirmed Type polyethylene glycol 3350 17 1 dose PO QPM 06/20/18 10/11/24 History gram/dose oral powder (Miralax) potassium chloride 10 mEq 10 meq PO QAM 06/20/18 10/11/24 History tablet,extended release allopurinol 100 mg tablet 100 mg PO DAILY 10/02/18 10/11/24 History Oxygen Home #1 ea 04/27/20 10/11/24 Rx spironolactone 25 mg tablet 25 mg PO DAILY #30 tabs 09/07/20 10/11/24 Rx CPAP Machine #1 ea 02/11/21 10/11/24 Rx CPAP Supplies #1 ea 07/14/21 10/11/24 Rx ondansetron HCl 4 mg tablet See Rx Instructions .Route 08/30/21 10/11/24 History .COMPLEX PRN Nausea fluticasone propionate 50 1 spray intranasal BID PRN Nasal 04/21/22 10/11/24 Rx mcg/actuation nasal Congestion #15.8 mL spray,suspension (Flonase Allergy Relief) cyclobenzaprine 5 mg tablet 5 mg PO TID PRN muscle spasm #10 10/24/22 10/11/24 Rx tabs nystatin 100,000 unit/gram topical 1 applic topical DAILY #30 grams 12/19/22 10/11/24 Rx cream betamethasone dipropionate 0.05 % 1 applic topical BID PRN skin 01/10/23 10/11/24 Rx topical cream irritation #45 grams omega 2-sse-niw-fish oil 60 mg-90 1 cap PO DAILY #30 caps 01/12/23 10/11/24 Rx mg-500 mg capsule (Fish Oil) levalbuterol tartrate 45 1 inh inhalation Q6H #15 grams 03/13/23 10/11/24 Rx mcg/actuation aerosol inhaler cholecalciferol (vitamin D3) 125 125 mcg PO DAILY 05/05/23 10/11/24 History mcg (5,000 unit) capsule warfarin 4 mg tablet 4 mg PO .COMPLEX #90 tabs 05/17/23 10/11/24 Rx warfarin 1 mg tablet 1 mg PO DAILY #90 tabs 07/05/23 10/11/24 Rx cetirizine 10 mg tablet (Zyrtec) 10 mg PO BID 08/14/23 10/11/24 History hydroxyzine pamoate 25 mg capsule 25 mg PO Q8H PRN itching #30 caps 08/14/23 10/11/24 Rx (Vistaril) ascorbate calcium (vitamin C) 500 500 mg PO DAILY 09/07/23 10/11/24 History mg tablet milk thistle 1 dose PO DAILY 09/07/23 10/11/24 History famotidine 20 mg tablet 20 mg PO BID #180 tabs 10/06/23 10/11/24 Rx pantoprazole 40 mg tablet,delayed 40 mg PO DAILY #90 tabs 12/25/23 10/11/24 Rx release (Protonix) simvastatin 40 mg tablet 40 mg PO HS #90 tabs 03/22/24 10/11/24 Rx conjugated estrogens 0.625 mg/gram 0.625 mg vaginal .2 times per week 04/01/24 10/11/24 History vaginal cream (Premarin) clobetasol 0.05 % topical ointment 1 applic topical BID PRN 04/12/24 10/11/24 History DIRECTED metformin 500 mg tablet 500 mg PO DAILY #100 tabs 05/13/24 10/11/24 Rx montelukast 10 mg tablet 10 mg PO DAILY #90 tabs 05/13/24 10/11/24 Rx fluticasone 100 mcg-salmeterol 50 1 inh inhalation BID #60 ea 08/13/24 10/11/24 Rx mcg/dose blistr powdr for inhalation warfarin 5 mg tablet (Jantoven) 5 mg PO DAILY #90 tabs 08/13/24 10/11/24 Rx ipratropium 0.5 mg-albuterol 3 mg 3 ml inhalation Q6H PRN wheezing 09/24/24 10/11/24 Rx (2.5 mg base)/3 mL nebulization #180 mL soln nebulizer accessories #1 ea 09/24/24 10/11/24 Rx budesonide 160 mcg-glycopyr 9 2 inh inhalation BID 09/30/24 10/11/24 History mcg-formot 4.8 mcg/actuation HFA inhaler torsemide 20 mg tablet 40 mg (2 x 20 mg) PO QAM #60 tabs 10/07/24 10/11/24 Rx phenobarbital 32.4 mg tablet 32.4 mg PO BID #180 tabs 10/08/24 10/11/24 Rx benzonatate 100 mg capsule 100 mg PO TID PRN cough #30 caps 10/11/24 10/11/24 Rx guaifenesin 600 mg tablet, 1,200 mg (2 x 600 mg) PO Q12 #0 10/16/24 Rx extended release 12 hr (Mucinex) tabs methylprednisolone 16 mg tablet 16 mg PO BID #10 tabs 10/16/24 Rx (Medrol) metoprolol succinate 50 mg 50 mg PO BID #60 tabs 10/16/24 Rx tablet,extended release 24 hr Past Med/Surg History Problem List (Updated 10/24/24 @ 16:42 by Blane Vivas PA-C) Acute on chronic hypoxic respiratory failure Acute heart failure with preserved ejection fraction (HFpEF) Chronic hypoxic respiratory failure Acute on chronic heart failure with preserved ejection fraction (HFpEF) T2DM (type 2 diabetes mellitus) Hypomagnesemia Hypokalemia CHF (congestive heart failure) (Acute) COPD with acute exacerbation (Acute) Coronavirus infection, unspecified (Acute) Abdominal ascites (Acute) Pulmonary vascular congestion (Acute) Cor pulmonale, chronic Chronic obstructive pulmonary disease with hypoxia Mild aortic stenosis S/P mitral valve replacement with bioprosthetic valve (2011) Permanent atrial fibrillation (HFpEF) heart failure with preserved ejection fraction Moderate pulmonary hypertension Lichen sclerosus Atrophic vaginitis Joana Omalley syndrome (geniculate herpes zoster) VALERIA (obstructive sleep apnea) Mild persistent asthma Urinary incontinence Aortic stenosis Thyroid Nodule Daytime hypersomnia Osteoarthritis History of DVT (deep vein thrombosis) History of mitral valve replacement (11/2011) 11/2011 @ [facility] [place]follows with Dr. Huy Thorntonatal hernia GERD (gastroesophageal reflux disease) Diabetes Hx of rheumatic fever Hypertension Hyperlipidemia Seizure Obese History of TIA (transient ischemic attack) Vitamin D deficiency Restrictive lung disease secondary to obesity Pulmonary nodule Mitral valve disorder Gastroparesis Depression with anxiety Coronary artery disease Chronic diastolic heart failure, NYHA class 1 Chronic constipation Bladder prolapse Bilateral carotid artery stenosis Asthma Chronic anticoagulation (Acute) Atrial fibrillation (02/04/12) Medical History Dyspnea on exertion Vaccination hesitancy by patient Respiratory failure Tubular adenoma of colon Kidney stones Surgical History S/P balloon mitral valvuloplasty History of total abdominal hysterectomy and bilateral salpingo-oophorectomy History of appendectomy History of cholecystectomy History of esophagogastroduodenoscopy (EGD) Status post biopsy of thyroid gland benign Family History Brother Congestive heart failure Family/Other Family history of diabetes mellitus maternal aunt Family hx of colon cancer maternal aunt Mother Colorectal cancer Migraine headache Ovarian cancer Father Prostate cancer Denies family history of Breast cancer Lung cancer Social History Smoking Status: Never smoker Second Hand Exposure: Yes (father smoked); Do You Dip or Chew Tobacco: No; Hx Alcohol Use: Yes Alcohol type: wine Hx Substance Use: No Preferred Language: Nepali Communication Ability: Effective Visual Impairment: No Limitations Hearing Ability: Normal Barrel Turner Required: No Beliefs That Will Affect Care: None marital status: Current Living Situation: Spouse current occupational status: retired How many Children do You have: 4 Feels Safe at Home: No Is there a partner from a previous relationship who is making you feel unsafe now?: No Childhood Exposure to Second-Hand Smoke: Yes Diet: regular Diet Comment: regular caffeine: No during the past year weight has: remained stable Dental Care, Regularly: No Physical Activity Frequency: Other Physical Activity Frequency Comment: housework Seatbelt Use: always Sunscreen Use: No Assistive Devices: Oxygen - Continuous and Wheelchair Review of Systems Review of Systems: See HPI above Physical Exam Physical Exam: General: Mild respiratory distress; family bedside; non-toxic appearing; cooperative; SpO2 95% on 2L NC HEENT: normocephalic, atraumatic; no scleral icterus; PERRLA; vision and hearing intact Neck: supple; no lymphadenopathy; trachea midline Skin: warm, dry without signs of tenting; no cyanosis; no rashes, bruising, lesions, or erythema noted CV: chest wall NTP; irregularly irregular rhythm; S1/S2 normal; no murmurs/rubs/gallops; pulses intact and symmetric at radial, DP, and PT Lungs: Mild respiratory distress; symmetrical chest wall expansion; clear breath sounds across all lung moon w/o adventitious sounds; no wheezing ABD: Soft; mildly TTP in the upper quadrants bilaterally; BS present; no r ebound/guarding; no distention MSK: no tics or fasciculations; +1 pitting edema in the lower extremities bilaterally, nonerythematous Neuro: A&Ox3; normal mood and affect; fluent speech; no focal deficits; sensation intact and symmetric in the lower extremities bilaterally Results & Data Results & Data Vital Signs (Past 12 Hours) Vital Signs Temp Pulse Pulse Resp BP BP Pulse Ox 10/24/24 15:19 84 21 95 10/24/24 15:19 95 10/24/24 15:19 83 22 126/63 95 10/24/24 14:34 92 H 10/24/24 12:46 86 L 10/24/24 12:43 36.7 C 96 H 20 105/69 86 L O2 Del Method O2 Flow Rate 10/24/24 15:19 Nasal Cannula 2 10/24/24 15:19 Nasal Cannula 2 10/24/24 15:19 Nasal Cannula 2 10/24/24 14:34 10/24/24 12:46 Room Air, Nasal Cannula 0 10/24/24 12:43 Nasal Cannula Laboratory Results Abnormal lab results 10/24/24 Range/Units 13:48 RBC 3.86 L (4.20-5.40) M/uL Hgb 11.3 L (12.0-16.0) g/dl Hct 35.8 L (37.0-47.0) % MCHC 31.6 L (32.0-36.0) g/dL RDW Std Deviation 54.4 H (36.4-46.3) fL RDW Coeff of Trey 16.1 H (11.5-14.5) % Neut # (Auto) 6.75 H (1.40-6.50) K/uL Lymph # (Auto) 0.82 L (1.20-3.40) K/uL Wright # (Auto) 1.10 H (0.11-0.59) K/uL Carbon Dioxide 34 H (21-32) mmol/L BUN 25 H (6-23) mg/dl BUN/Creatinine Ratio 35.2 H (10-20) Glucose 112 H (70-99(Fasting)) mg/dl Troponin I High Sens 15.8 H (0-14) pg/ml Diagnostic Findings Chest X-Ray 10/24/24 12:47 XR chest 1V portable CLINICAL HISTORY: Chest pain, nonspecific COMPARISON STUDY: 10/11/2024 FINDINGS: Stable cardiac valve repair. Stable cardiomegaly with increased pulmonary vascular congestion. Inspiration is shallow limiting the exam. No definite consolidation or pleural effusion. No pneumothorax. IMPRESSION: Increased CHF. ACT 112: Negative or not required by law. Electronically signed by: Bennett Patten M.D. 10/24/2024 2:29 PM ECG Additional Comments: ECG revealed atrial fibrillation at 100 bpm; QTc 479 Code Status & VTE Plan Code Status Full code VTE Prophylaxis Plan VTE Prophylaxis will be ordered: Yes Supervising Physician Co-Signing Physician Notes I have personally seen, evaluated and examined the patient. I have also personally discussed the management of the patient with the resident physician/JEET and I agree with the exam findings documented in the history and physical examination and the documented assessment and plan unless otherwise stated below. Brief Exam: In general is a 74-year-old female is alert and oriented x 3, exam she does admit to increased oxygen requirements. She states he is compliant with her Coumadin however her INR is only 1.1. She initially denied IV CAT scan dye contrast. However when she went over to the CT department. CT of the chest she stated she was allergic to dye. They brought her back to the room. We went to question her. She states that when she had a cardiac stress test they injected that "dye and her heart took off"-we explained to her that this was not IV CAT scan dye however she is still very hesitant to try a CTA of the chest. Therefore we have ordered a D-dimer. It is pending but given her subtherapeutic INR 1.1 and the potential for possible pulmonary embolism, we are just going to empirically heparinize the patient overnight. If her D-dimer is positive VQ scan can be entertained in the morning. Otherwise she can be bridged to therapeutic INR versus consideration for switching her over to a DOAC as opposed to warfarin given her recurrent subtherapeutic INRs. HEENT: Normocephalic atraumatic. Heart: Irregular rate rhythm consistent with atrial fibrillation. Lungs: Cardiac rales bilaterally. Abdomen: Soft nontender positive bowel sounds. Extremities: Intact trace peripheral edema. Neurologically: Anxious appearing but alert and oriented. She interacts appropriately. Assessment/plan: As discussed above. Again we will heparinize the patient overnight. If D-dimer positive VQ scan to be entertained tomorrow. If negative decision needs to be made whether to continue on with Coumadin versus perhaps and Eliquis take medication given her again recurrent subtherapeutic INR's. In the meantime we will continue to IV diurese the patient. Please refer to orders for further planning PG Care Time/CCT Total # of Minutes Spent Total Time Spent with Patient: Total time spent is greater than 50% in coordination of care (as documented) at patient's floor/unit and/or counseling patient: Coding [place] [address] INT INP/OBS CARE 3/75MIN Patient Type Established Medical Decision Making High Complexity Diagnoses Acute heart failure with preserved ejection fraction (HFpEF) I50.31 Acute on chronic hypoxic respiratory failure J96.21 Permanent atrial fibrillation I48.21
[2024-10-24] MEDS: FUROSEMIDE 40 MG/4 ML VIAL IV STA (16:15)
[2024-10-24 17:09] LABS: Thyroid Stimulating Hormone 0.968 uIu/ml (0.300-4.500)
[2024-10-24] MEDS: HEPARIN 25000 UNIT/500 ML D5W 25,000 UNITS/500 ML BAG IV SCH (18:03)
[2024-10-24] MEDS: Heparin IV Adult Wt-Based Standard w/ INITIAL Bolus Protocol IV STA (18:03)
[2024-10-24] MEDS: HEPARIN SOD (PORCINE) 1000 UNIT/ML IV ONE (18:04)
[2024-10-24 18:48] LABS: D Dimer 470 ug/L FEU (0-500)
[2024-10-24] MEDS ORDERED: CARBOHYDRATES FOR HYPOGLYCEMIA PO PRN (20:09)
[2024-10-24] MEDS ORDERED: CYCLOBENZAPRINE HCL 5 MG TAB PO PRN (20:09)
[2024-10-24] MEDS ORDERED: GLUCOSE 10 TAB/TUBE PO PRN (20:09)
[2024-10-24] MEDS ORDERED: GLUCOSE 40% GEL 15 GM TUBE PO PRN (20:09)
[2024-10-24] MEDS ORDERED: FLUTICASONE PROPIONATE NA SPR 16 GM BTL PRN (20:09)
[2024-10-24] MEDS ORDERED: GLUCAGON FOR INJ 1 MG VIAL SQ PRN (20:09)
[2024-10-24] MEDS ORDERED: LEVALBUTEROL 1.25 MG/3 ML NEB NEB PRN (20:09)
[2024-10-24] MEDS ORDERED: DEXTROSE 50% 50 ML SYRINGE IV PRN (20:09)
[2024-10-24] MEDS ORDERED: FLUTICASONE/SALMETEROL 100/50 (ADVAIR) 14 PUFF/1 INHALER INH SCH (21:00)
--- NOTE | 2024-10-24 21:13 | Electrocardiogram Report ---
Test Reason : Blood Pressure : */* mmHG Vent. Rate : 100 BPM Atrial Rate : * BPM P-R Int : * ms QRS Dur : 90 ms QT Int : 372 ms P-R-T Axes : * 65 171 degrees QTcB Int : 479 ms Atrial fibrillation Cannot rule out Anterior infarct (cited on or before 11-Oct-2024) Nonspecific ST and T wave abnormality Abnormal ECG When compared with ECG of 11-Oct-2024 16:03, No significant change Confirmed by Bakari Ramsay ([id number]) on 10/24/2024 9:13:36 PM Referred By: Confirmed By: Bakari Ramsay
[2024-10-24] MEDS: ACETAMINOPHEN 325 MG TAB PO PRN (22:00)
[2024-10-24] MEDS: BENZONATATE 100 MG CAPSULE PO PRN (22:01)
[2024-10-24] MEDS: INSULIN ASPART PER UNIT CHARGE SC SCH (22:05)
[2024-10-24] MEDS: FAMOTIDINE 20 MG TAB PO SCH (22:40)
[2024-10-24] MEDS: guaiFENesin 600 MG TABCR PO SCH (22:40)
[2024-10-24] MEDS: PHENobarbitaL 30 MG TAB PO SCH (22:40)
[2024-10-24] MEDS: SIMVASTATIN 40 MG TAB PO SCH (22:41)
[2024-10-24] MEDS: CETIRIZINE HCL 10 MG TABLET PO SCH (22:41)
[2024-10-24] MEDS: POLYETHYLENE (MIRALAX) 17 GM PACK PO SCH (22:41)
[2024-10-24] MEDS: METOPROLOL SUCC 50MG EXT REL TAB PO SCH (22:41)
[2024-10-25 01:32] LABS: ANTI-Xa, UFH(UnfractionatedHep 1.02 IU/ml (0.3-0.7)
[2024-10-25] MEDS ORDERED: POTASSIUM CHLORIDE CRTAB 20 MEQ TABCR PO SCH (09:00)
[2024-10-25] MEDS: FUROSEMIDE 40 MG/4 ML VIAL IV SCH (09:39)
[2024-10-25] MEDS: allopurinoL 100 MG TAB PO SCH (09:40)
[2024-10-25] MEDS: PANTOprazole 40 MG TAB PO SCH (09:40)
[2024-10-25] MEDS: SPIRONOLACTONE 25 MG TAB PO SCH (09:40)
[2024-10-25] MEDS: MONTELUKAST SODIUM 10 MG TABLET PO SCH (09:40)
[2024-10-25] MEDS: For Breztri~FLUTICASONE FUROATE 200MCG 14 PUFFS/INHALER INH SCH (09:41)
[2024-10-25] MEDS: For Breztri~UMECLIDINIUM/VILANTEROL 62.5/25MCG 7 PUFFS/INHALER INH SCH (09:41)
[2024-10-25] MEDS: FLUTICASONE/VILANTEROL 100/25MCG 14 PUFFS/INHALER INH SCH (09:41)
[2024-10-25] MEDS: POTASSIUM CHLORIDE 10 MEQ TABCR PO SCH (09:46)
[2024-10-25 09:47] LABS: Basophils # (auto) 0.02 K/uL (0.00-0.20); Basophils % (auto) 0.3 %; Eosinophils # (auto) 0.17 K/uL (0.00-0.50); Eosinophils % (auto) 2.3 %; Hematocrit (blood only) 35.7 % (37.0-47.0); Immature Granulocytes # (auto) 0.02 K/uL (0.01-0.20); Immature Granulocytes % (auto) 0.3 %; Lymphocytes % (auto) 14.8 %; Mean Corpuscular Hemoglobin 28.6 pg (25.0-34.0); Mean Corpuscular Hgb Conc 30.8 g/dL (32.0-36.0); Mean Corpuscular Volume 92.7 fL (80.0-100.0); Mean Platelet Volume 11.6 fL (9.4-12.4); Monocytes # (auto) 0.76 K/uL (0.11-0.59); Monocytes % (auto) 10.2 %; Neutrophils # (auto) 5.38 K/uL (1.40-6.50); Neutrophils % (auto) 72.1 %; Platelet Count 115 K/uL (130-400); RDW Coefficient of Variation 16.3 % (11.5-14.5); RDW Standard Deviation 54.9 fL (36.4-46.3); Red Blood Count 3.85 M/uL (4.20-5.40); White Blood Count 7.45 K/ul (4.8-10.8)
[2024-10-25 10:03] LABS: BUN Creatinine Ratio 29.4 (10-20); Calcium 8.5 mg/dl (8.6-10.3); Creatinine Clr Calc Pharmacy 81.2 ml/min; Magnesium 1.8 mg/dl (1.7-2.4); Potassium 3.4 mmol/L (3.5-5.1)
[2024-10-25 10:14] LABS: ANTI-Xa, UFH(UnfractionatedHep 0.52 IU/ml (0.3-0.7)
[2024-10-25 10:18] LABS: INR 1.1 (0.9-1.1); Prothrombin Time 11.9 Seconds (9.0-12.0)
[2024-10-25] MEDS: POTASSIUM CHLORIDE CRTAB 20 MEQ TABCR PO STA (10:50)
[2024-10-25 17:50] LABS: Base Excess VBG 12.4 mEq/L; HCO3 VBG 40 mmol/L; Oxygen Saturation VBG < 60.0 %; PCO2 VBG 63 mmHg (38-50); PO2 VBG 21 mmHg; pH VBG 7.41 (7.36-7.41)
[2024-10-25] MEDS: WARFARIN SOD 5 MG TAB PO ONE (18:12)
--- NOTE | 2024-10-25 18:24 | Hospitalist Progress Note ---
Date of Service October 25, 2024 Assessment & Plan (1) Acute on chronic heart failure with preserved ejection fraction (HFpEF): (2) Chronic hypoxic respiratory failure: (3) T2DM (type 2 diabetes mellitus): (4) Chronic obstructive pulmonary disease with hypoxia: (5) S/P mitral valve replacement with bioprosthetic valve: (6) Elevated troponin: (7) Permanent atrial fibrillation: (8) VALERIA (obstructive sleep apnea): (9) History of DVT (deep vein thrombosis): (10) Coronary artery disease: Plan 74yo female with permanent atrial fibrillation (on Coumadin), TIA, asthma/COPD, chronic diastolic CHF, seizure, HTN, rheumatic fever, DVT, mitral valve replacement, VALERIA, [place]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 She presented on 10/24 for ongoing SOB/dyspnea. Patient was recently hospitalized at [facility] from 10/11 - 10/16 with non-COVID coronavirus, COPD exacerbation, and acute CHF. In addition to dyspnea has had intermittent cough and hemoptysis. Has had a 10 pound weight gain since leaving the hospital. #Acute on chronic diastolic CHF Last echocardiogram on 10/01/2024 revealed LVEF at 60 to 65% but signs of RV pressure overload & pulmonary HTN Examines significantly volume overloaded today - cont lasix 40 mg IV BID Dry weight is uncertain Cont aldactone daily # Acute on chronic hypoxic respiratory failure Patient is on supplemental oxygen 2L [place] continuously at baseline BioFire negative on admission; coronavirus negative #COPD w/o exacerbation Continue home inhalers Incentive spirometry, flutter valve Guaifenesin 1200 mg p.o. BID Xopenex PRN #Hemoptysis Suspect 2nd to pulmonary edema Recent chest CT on 10/06/24 without tumor or mass lesion Can't rule out bronchitis causing hemoptysis but unlikely She has been started on heparin drip as INR is very subtherapeutic and thus far no increase in hemoptysis Follow carefully #Permanent atrial fibrillation Rates controlled Cont metoprolol succ 50mg BID Daily PT/INR Resume coumadin - 5mg x 1 now #T2DM Last A1c at 6.0% on 07/04/2024 Hold metformin Repeat a1c in am SSI; with target BSG range 110-140mg/dL, CF 50, carb ratio 15 T2DM diet BSG ACHS Mild sleepiness - check VBG, ensure no hypercapnia; check ammonia level - r/o early hepatic encephalopathy Seizure d/o - cont phenobarbital 30mg BID; check a level in am will need PT/OT Admission and Anticipated Discharge Date Admission Date: October 24, 2024 Subjective patient sitting in a chair during the visit states her breathing is better than yesterday but still not back to baseline appetite is fair she mentions her is currently hospitalized at [facility] she also mentions numerous stressors outside the hospital including difficulties with her sons she states that when she left [facility] on 10/16 she didn't feel back to normal she admits she had missed her coumadin most days after the recent hospitalization she also says it is possible she missed her diuretics tele overnight - a.fib Review of Systems Review of Systems: gen - no fevers or chills cv - no chest pain; +edema of legs Pulm - dyspnea - ongoing GI - feels bloated with "fluid"; no N/V Physical Exam Physical Exam: gen - looks tired, looks weak, but no distress; sitting in chair neck - JVD to the jaw mouth - MMM heart - irregularly irregular, s1 s2, 2/6 systolic murmur LSB lungs - diffuse rales 2/[address] up back; decreased BS both bases worse on right abd - distended, BS+, reducible hernia in the midline, NT, liver edge palpable? ext - 1-2+ edema b/l shins and feet; pulses b/l feet 2+ neuro - no asterixis psych - a/o x 3 Results & Data Results & Data Vital Signs (Past 12 Hours) Vital Signs Temp Pulse Resp BP Pulse Ox O2 Del Method O2 Flow Rate 10/25/24 17:56 Nasal Cannula 2 10/25/24 15:30 36.4 C L 67 18 107/68 98 Nasal Cannula 2 10/25/24 11:00 36.4 C L 78 18 118/80 94 Room Air 10/25/24 07:37 36.5 C 81 18 105/65 91 Room Air Laboratory Results Laboratory Results - last 24 hr 10/24/24 10/24/24 10/25/24 22:00 23:00 00:35 WBC RBC Hgb Hct MCV MCH MCHC RDW Std Deviation RDW Coeff of Trey Plt Count MPV Immature Gran % (Auto) Neut % (Auto) Lymph % (Auto) [place] % (Auto) Eos % (Auto) Baso % (Auto) Neut # (Auto) Lymph # (Auto) [place] # (Auto) Eos # (Auto) Baso # (Auto) Immature Gran # (Auto) PT INR Heparin Anti-Xa, Unfract 1.02 H* VBG pH VBG pCO2 VBG pO2 VBG HCO3 VBG O2 Saturation VBG Base Excess Sodium Potassium Chloride Carbon Dioxide Anion Gap BUN Creatinine Est Cr Clr Drug Dosing eGFR BUN/Creatinine Ratio Glucose POC Glucose 135 H Calcium Magnesium Ammonia Troponin I High Sens 18.2 H 10/25/24 10/25/24 10/25/24 08:17 09:28 12:05 WBC 7.45 RBC 3.85 L Hgb 11.0 L Hct 35.7 L MCV 92.7 MCH 28.6 MCHC 30.8 L RDW Std Deviation 54.9 H RDW Coeff of Trey 16.3 H Plt Count 115 L MPV 11.6 Immature Gran % (Auto) 0.3 Neut % (Auto) 72.1 Lymph % (Auto) 14.8 [place] % (Auto) 10.2 Eos % (Auto) 2.3 Baso % (Auto) 0.3 Neut # (Auto) 5.38 Lymph # (Auto) 1.10 L [place] # (Auto) 0.76 H Eos # (Auto) 0.17 Baso # (Auto) 0.02 Immature Gran # (Auto) 0.02 PT 11.9 INR 1.1 Heparin Anti-Xa, Unfract 0.52 VBG pH VBG pCO2 VBG pO2 VBG HCO3 VBG O2 Saturation VBG Base Excess Sodium 141 Potassium 3.4 L Chloride 99 Carbon Dioxide 39 H Anion Gap 3 BUN 20 Creatinine 0.68 Est Cr Clr Drug Dosing 81.2 eGFR 90.20 BUN/Creatinine Ratio 29.4 H Glucose 118 H POC Glucose 103 H 96 Calcium 8.5 L Magnesium 1.8 Ammonia Troponin I High Sens 10/25/24 10/25/24 10/25/24 16:51 17:38 20:39 WBC RBC Hgb Hct MCV MCH MCHC RDW Std Deviation RDW Coeff of Trey Plt Count MPV Immature Gran % (Auto) Neut % (Auto) Lymph % (Auto) [place] % (Auto) Eos % (Auto) Baso % (Auto) Neut # (Auto) Lymph # (Auto) [place] # (Auto) Eos # (Auto) Baso # (Auto) Immature Gran # (Auto) PT INR Heparin Anti-Xa, Unfract VBG pH 7.41 VBG pCO2 63 H VBG pO2 21 VBG HCO3 40 VBG O2 Saturation < 60.0 VBG Base Excess 12.4 Sodium Potassium Chloride Carbon Dioxide Anion Gap BUN Creatinine Est Cr Clr Drug Dosing eGFR BUN/Creatinine Ratio Glucose POC Glucose 109 H 117 H Calcium Magnesium Ammonia 29.0 Troponin I High Sens PG Care Time/CCT Total # of Minutes Spent Total Time Spent with Patient: Total time spent is greater than 50% in coordination of care (as documented) at patient's floor/unit and/or counseling patient: Coding Level of Care Code 67019 SUB INP/OBS CARE 3/50MIN Diagnoses Acute on chronic heart failure with preserved ejection fraction (HFpEF) I50.33 Chronic hypoxic respiratory failure J96.11 T2DM (type 2 diabetes mellitus) E11.9 Chronic obstructive pulmonary disease with hypoxia J44.9 S/P mitral valve replacement with bioprosthetic valve Z95.3 Elevated troponin R79.89 Permanent atrial fibrillation I48.21 VALERIA (obstructive sleep apnea) G47.33 History of DVT (deep vein thrombosis) Z86.718 Coronary artery disease I25.10
[2024-10-25] MEDS: POTASSIUM CHLORIDE CRTAB 20 MEQ TABCR PO SCH (21:33)
[2024-10-25] MEDS: NYSTATIN POWDER 15GM BTL EXT PRN (21:33)
[2024-10-26 04:49] LABS: Hematocrit (blood only) 32.6 % (37.0-47.0); Hemoglobin 10.5 g/dl (12.0-16.0); Mean Corpuscular Hemoglobin 29.7 pg (25.0-34.0); Mean Corpuscular Hgb Conc 32.2 g/dL (32.0-36.0); Mean Corpuscular Volume 92.4 fL (80.0-100.0); Mean Platelet Volume 11.9 fL (9.4-12.4); Platelet Count 113 K/uL (130-400); RDW Coefficient of Variation 16.1 % (11.5-14.5); RDW Standard Deviation 53.9 fL (36.4-46.3); Red Blood Count 3.53 M/uL (4.20-5.40); White Blood Count 6.48 K/ul (4.8-10.8)
[2024-10-26 05:03] LABS: BUN Creatinine Ratio 30.6 (10-20); Calcium 8.6 mg/dl (8.6-10.3); Creatinine Clr Calc Pharmacy 76.7 ml/min; Potassium 4.2 mmol/L (3.5-5.1)
[2024-10-26 05:08] LABS: ANTI-Xa, UFH(UnfractionatedHep 0.53 IU/ml (0.3-0.7)
[2024-10-26 05:12] LABS: INR 1.1 (0.9-1.1)
[2024-10-26 08:03] LABS: Estimated Average Glucose 131 mg/dl; Hemoglobin A1C 6.2 % (4.5-5.6)
--- NOTE | 2024-10-26 13:49 | Hospitalist Progress Note ---
Date of Service October 26, 2024 Assessment & Plan (1) Acute on chronic heart failure with preserved ejection fraction (HFpEF): (2) Chronic hypoxic respiratory failure: (3) T2DM (type 2 diabetes mellitus): (4) Chronic obstructive pulmonary disease with hypoxia: (5) S/P mitral valve replacement with bioprosthetic valve: (6) Elevated troponin: (7) Permanent atrial fibrillation: (8) VALERIA (obstructive sleep apnea): (9) History of DVT (deep vein thrombosis): (10) Coronary artery disease: Plan 74yo female with permanent atrial fibrillation (on Coumadin), TIA, asthma/COPD, chronic diastolic CHF, seizure, HTN, rheumatic fever, DVT, mitral valve replacement, VALERIA, [place]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 She presented on 10/24 for ongoing SOB/dyspnea. Patient was recently hospitalized at [facility] from 10/11 - 10/16 with non-COVID coronavirus, COPD exacerbation, and acute CHF. In addition to dyspnea has had intermittent cough and hemoptysis. Has had a 10 pound weight gain since leaving the hospital. #Acute on chronic diastolic CHF Last echocardiogram on 10/01/2024 revealed LVEF at 60 to 65% but signs of RV pressure overload & pulmonary HTN Still decompensated - cont lasix 40 mg IV BID Dry weight is uncertain Cont aldactone daily BMP am Daily weights # Acute on chronic hypoxic respiratory failure Patient is on supplemental oxygen 2L [place] continuously at baseline BioFire negative on admission; coronavirus negative #COPD w/o exacerbation Continue home inhalers Incentive spirometry, flutter valve Guaifenesin 1200 mg p.o. BID Xopenex PRN #Hemoptysis Suspect 2nd to pulmonary edema; she has not mentioned such since admission Recent chest CT on 10/06/24 without tumor or mass lesion Can't rule out bronchitis causing hemoptysis but unlikely She has been started on heparin drip as INR is very subtherapeutic and thus far no increase in hemoptysis Follow carefully #Permanent atrial fibrillation Rates controlled Cont metoprolol succ 50mg BID Daily PT/INR Resumed coumadin yesterday; gave 5mg x 1 on 10/25; give another 5mg today #T2DM Last A1c at 6.0% on 07/04/2024 Hold metformin Repeat a1c in am SSI; with target BSG range 110-140mg/dL, CF 50, carb ratio 15 T2DM diet BSG ACHS #low back pain - CT lumbar spine in 2019 showed - "Severe disc space narrowing with probable fusion of the L5-S1 level. The remaining disc spaces demonstrate mild disc space narrowing. The visualized sacrum appears intact. Mild central canal and mild bilateral neural foraminal narrowing at L3-L4, L4-L5." CT a/p a few weeks ago without kidney stones or other pathology to account for current symptoms would treat as severe l-spine DJD start baclofen 5mg BID k-pad tylenol 1gm TID lidoderm patches if no relief consider short course of PO steroids Mild sleepiness - checked VBG - no hypercapnia; checked ammonia level - wnl; phenobarbital level pending although previous levels have been wnl untreated VALERIA does not help her fatigue/sleepiness Seizure d/o - cont phenobarbital 30mg BID; level pending PT/OT Admission and Anticipated Discharge Date Admission Date: October 24, 2024 Subjective c/o significant right lower back pain she mentioned this yesterday to me as well states it is chronic - she has it frequently at home - and takes tylenol prn for such pain does not radiate no radicular symptoms breathing modestly improved today tele overnight - a.fib, rates <100 Review of Systems Review of Systems: cv - no chest pain pulm - still with cough and congestion along with GIFFORD; no dyspnea at rest GI - no abd pain or N/V Physical Exam Physical Exam: gen - looks tired, sitting in chair, was talking on the phone when I arrived to see her neck - JVD to the jaw mouth - MMM heart - irregularly irregular, s1 s2, 2/6 systolic murmur LSB lungs - rales 1/3 [address] up back; decreased BS both bases worse on right; no wheezes; airation modestly improved today abd - less distension, BS+, reducible hernia in the midline, NT, liver edge palpable ext - 1+ edema b/l shins and feet; pulses b/l feet 2+ psych - a/o x 3 musculo - no tenderness to palpation along the t-spine or l-spine; very tender paraspinal region on right in the lumbar area and tender over right SI joint Results & Data Results & Data Vital Signs (Past 12 Hours) Vital Signs Temp Pulse Pulse Resp BP Pulse Ox O2 Del Method 10/26/24 11:41 36.3 C L 77 20 99/66 L 97 Nasal Cannula 10/26/24 07:48 36.3 C L 71 18 103/70 97 Room Air 10/26/24 07:42 Nasal Cannula 10/26/24 07:30 68 10/26/24 03:35 36.3 C L 66 16 91/58 L 92 Nasal Cannula O2 Flow Rate 10/26/24 11:41 2 10/26/24 07:48 10/26/24 07:42 2 10/26/24 07:30 10/26/24 03:35 2 Laboratory Results Laboratory Results - last 48 hr 10/25/24 10/25/24 10/25/24 08:17 09:28 12:05 WBC 7.45 RBC 3.85 L Hgb 11.0 L Hct 35.7 L MCV 92.7 MCH 28.6 MCHC 30.8 L RDW Std Deviation 54.9 H RDW Coeff of Trey 16.3 H Plt Count 115 L MPV 11.6 Immature Gran % (Auto) 0.3 Neut % (Auto) 72.1 Lymph % (Auto) 14.8 [place] % (Auto) 10.2 Eos % (Auto) 2.3 Baso % (Auto) 0.3 Neut # (Auto) 5.38 Lymph # (Auto) 1.10 L [place] # (Auto) 0.76 H Eos # (Auto) 0.17 Baso # (Auto) 0.02 Immature Gran # (Auto) 0.02 PT 11.9 INR 1.1 Heparin Anti-Xa, Unfract 0.52 VBG pH VBG pCO2 VBG pO2 VBG HCO3 VBG O2 Saturation VBG Base Excess Sodium 141 Potassium 3.4 L Chloride 99 Carbon Dioxide 39 H Anion Gap 3 BUN 20 Creatinine 0.68 Est Cr Clr Drug Dosing 81.2 eGFR 90.20 BUN/Creatinine Ratio 29.4 H Glucose 118 H POC Glucose 103 H 96 Estimat Average Glucose Hemoglobin A1c Calcium 8.5 L Magnesium 1.8 Ammonia 10/25/24 10/25/24 10/25/24 16:51 17:38 20:39 WBC RBC Hgb Hct MCV MCH MCHC RDW Std Deviation RDW Coeff of Trey Plt Count MPV Immature Gran % (Auto) Neut % (Auto) Lymph % (Auto) [place] % (Auto) Eos % (Auto) Baso % (Auto) Neut # (Auto) Lymph # (Auto) [place] # (Auto) Eos # (Auto) Baso # (Auto) Immature Gran # (Auto) PT INR Heparin Anti-Xa, Unfract VBG pH 7.41 VBG pCO2 63 H VBG pO2 21 VBG HCO3 40 VBG O2 Saturation < 60.0 VBG Base Excess 12.4 Sodium Potassium Chloride Carbon Dioxide Anion Gap BUN Creatinine Est Cr Clr Drug Dosing eGFR BUN/Creatinine Ratio Glucose POC Glucose 109 H 117 H Estimat Average Glucose Hemoglobin A1c Calcium Magnesium Ammonia 29.0 10/26/24 10/26/24 10/26/24 04:12 08:01 12:08 WBC 6.48 RBC 3.53 L Hgb 10.5 L Hct 32.6 L MCV 92.4 MCH 29.7 MCHC 32.2 RDW Std Deviation 53.9 H RDW Coeff of Trey 16.1 H Plt Count 113 L MPV 11.9 Immature Gran % (Auto) Neut % (Auto) Lymph % (Auto) [place] % (Auto) Eos % (Auto) Baso % (Auto) Neut # (Auto) Lymph # (Auto) [place] # (Auto) Eos # (Auto) Baso # (Auto) Immature Gran # (Auto) PT 12.0 INR 1.1 Heparin Anti-Xa, Unfract 0.53 VBG pH VBG pCO2 VBG pO2 VBG HCO3 VBG O2 Saturation VBG Base Excess Sodium 137 Potassium 4.2 D Chloride 100 Carbon Dioxide 35 H Anion Gap 2 L BUN 22 Creatinine 0.72 Est Cr Clr Drug Dosing 76.7 eGFR 86.60 BUN/Creatinine Ratio 30.6 H Glucose 122 H POC Glucose 106 H 122 H Estimat Average Glucose 131 Hemoglobin A1c 6.2 H Calcium 8.6 Magnesium Ammonia PG Care Time/CCT Total # of Minutes Spent Total Time Spent with Patient: Total time spent is greater than 50% in coordination of care (as documented) at patient's floor/unit and/or counseling patient: Coding Level of Care Code 58941 SUB INP/OBS CARE 3/50MIN Diagnoses Acute on chronic heart failure with preserved ejection fraction (HFpEF) I50.33 Chronic hypoxic respiratory failure J96.11 T2DM (type 2 diabetes mellitus) E11.9 Chronic obstructive pulmonary disease with hypoxia J44.9 S/P mitral valve replacement with bioprosthetic valve Z95.3 Elevated troponin R79.89 Permanent atrial fibrillation I48.21 VALERIA (obstructive sleep apnea) G47.33 History of DVT (deep vein thrombosis) Z86.718 Coronary artery disease I25.10
[2024-10-26] MEDS: BACLOFEN 10 MG TAB PO SCH (14:39)
[2024-10-26] MEDS: WARFARIN SOD 5 MG TAB PO ONE (14:39)
[2024-10-26] MEDS: LIDOCAINE 5% 1 PATCH TD SCH (14:40)
[2024-10-26] MEDS: ACETAMINOPHEN 500 MG TAB PO SCH (17:18)
[2024-10-26] MEDS: hydrOXYzine HCl 25 MG TAB PO PRN (21:06)
[2024-10-26] MEDS: SODIUM CHLORIDE 0.65% NA SOLN 45 ML (OCEAN) PRN (21:09)
[2024-10-27 06:01] LABS: Platelet Count 123 K/uL (130-400)
[2024-10-27 06:07] LABS: BUN Creatinine Ratio 29.6 (10-20); Creatinine Clr Calc Pharmacy 68.4 ml/min; Potassium 4.1 mmol/L (3.5-5.1)
[2024-10-27 06:12] LABS: ANTI-Xa, UFH(UnfractionatedHep 0.41 IU/ml (0.3-0.7)
[2024-10-27 06:16] LABS: INR 1.1 (0.9-1.1); Prothrombin Time 12.2 Seconds (9.0-12.0)
[2024-10-27] MEDS: WARFARIN SOD 7.5 MG TAB PO ONE (15:05)
--- NOTE | 2024-10-27 18:41 | Hospitalist Progress Note ---
Date of Service October 27, 2024 Assessment & Plan (1) Acute on chronic heart failure with preserved ejection fraction (HFpEF): (2) Chronic hypoxic respiratory failure: (3) T2DM (type 2 diabetes mellitus): (4) Chronic obstructive pulmonary disease with hypoxia: (5) S/P mitral valve replacement with bioprosthetic valve: (6) Elevated troponin: (7) Permanent atrial fibrillation: (8) VALERIA (obstructive sleep apnea): (9) History of DVT (deep vein thrombosis): (10) Coronary artery disease: Plan 74yo female with permanent atrial fibrillation (on Coumadin), TIA, asthma/COPD, chronic diastolic CHF, seizure, HTN, rheumatic fever, DVT, mitral valve replacement, VALERIA, [place]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 She presented on 10/24 for ongoing SOB/dyspnea. Patient was recently hospitalized at [facility] from 10/11 - 10/16 with non-COVID coronavirus, COPD exacerbation, and acute CHF. In addition to dyspnea had had intermittent cough and hemoptysis. 10 pound weight gain since leaving the hospital as well. #Acute on chronic diastolic CHF Last echocardiogram on 10/01/2024 revealed LVEF at 60 to 65% but signs of RV pressure overload & pulmonary HTN Still decompensated but improving - cont lasix 40 mg IV BID until there is a rise in creatinine Dry weight is uncertain Cont aldactone daily BMP am Daily weights # Acute on chronic hypoxic respiratory failure acute component 2nd to decompensated CHF - improved chronic component - COPD, pulm HTN, etc. #COPD w/o exacerbation Continue home inhalers Incentive spirometry, flutter valve Guaifenesin 1200 mg p.o. BID Xopenex PRN #Hemoptysis Suspect 2nd to pulmonary edema - resolved Recent chest CT on 10/06/24 without tumor or mass lesion #Permanent atrial fibrillation Rates controlled Cont metoprolol succ 50mg BID Daily PT/INR Resumed coumadin - 5mg x 1 on 10/25; 5mg x 1 on 10/26; no rise in INR thus give 7.5mg today Cont heparin bridge in meantime #T2DM Last A1c at 6.0% on 07/04/2024 Hold metformin Repeat a1c 6.2% this admission Cont novolog sliding scale T2DM diet #low back pain - CT lumbar spine in 2019 showed - "Severe disc space narrowing with probable fusion of the L5-S1 level. The remaining disc spaces demonstrate mild disc space narrowing. The visualized sacrum appears intact. Mild central canal and mild bilateral neural foraminal narrowing at L3-L4, L4-L5." CT a/p a few weeks ago without kidney stones or other pathology to account for current symptoms Pain improved today cont baclofen 5mg BID tylenol 1gm TID lidoderm patches if no relief consider short course of PO steroids Mild sleepiness - checked VBG - no hypercapnia; checked ammonia level - wnl; phenobarbital level pending although previous levels have been wnl untreated VALERIA does not help her fatigue/sleepiness Seizure d/o - cont phenobarbital 30mg BID; level pending PT/OT progressing nicely Admission and Anticipated Discharge Date Admission Date: October 24, 2024 Subjective patient feeling much better today still coughing but improved no hemoptysis had had a bloody nose earlier in the stay - resolved, has not recurred right lower back pain is better today no dyspnea at rest GIFFORD is improved no wheezing eating well Review of Systems Review of Systems: gen - no fevers or chills cv - no chest pain pulm - no PND GI - no N/V Physical Exam Physical Exam: gen - sitting in chair, looks well today neck - JVD present but improved mouth - MMM heart - irregularly irregular, s1 s2, 2/6 systolic murmur LSB, rate <100 lungs - b/l rales improved; bases with modestly improved airation; no wheezing; no increased work of breathing abd - soft NT ND BS+ ext - <1+ edema b/l shins and feet; pulses b/l feet 2+ psych - a/o x 3 Results & Data Results & Data Vital Signs (Past 12 Hours) Vital Signs Temp Pulse Pulse Resp BP Pulse Ox O2 Del Method 10/27/24 16:29 74 10/27/24 14:58 36.5 C 85 18 102/72 93 Nasal Cannula 10/27/24 11:16 36.6 C 77 18 105/71 90 Nasal Cannula 10/27/24 07:30 36.5 C 73 18 106/72 95 Nasal Cannula 10/27/24 07:20 Nasal Cannula 10/27/24 06:53 75 O2 Flow Rate 10/27/24 16:29 10/27/24 14:58 2 10/27/24 11:16 2 10/27/24 07:30 2 10/27/24 07:20 2 10/27/24 06:53 Laboratory Results Laboratory Results - last 24 hr 10/26/24 10/27/24 10/27/24 20:36 05:28 07:50 Plt Count 123 L PT 12.2 H INR 1.1 Heparin Anti-Xa, Unfract 0.41 Sodium 138 Potassium 4.1 Chloride 100 Carbon Dioxide 35 H Anion Gap 3 BUN 24 H Creatinine 0.81 Est Cr Clr Drug Dosing 68.4 eGFR 75.19 BUN/Creatinine Ratio 29.6 H Glucose 115 H POC Glucose 151 H 108 H Calcium 8.0 L 10/27/24 10/27/24 12:29 17:06 Plt Count PT INR Heparin Anti-Xa, Unfract Sodium Potassium Chloride Carbon Dioxide Anion Gap BUN Creatinine Est Cr Clr Drug Dosing eGFR BUN/Creatinine Ratio Glucose POC Glucose 91 100 H Calcium PG Care Time/CCT Total # of Minutes Spent Total Time Spent with Patient: Total time spent is greater than 50% in coordination of care (as documented) at patient's floor/unit and/or counseling patient: Coding Level of Care Code 25238 SUB INP/OBS CARE 3/50MIN Diagnoses Acute on chronic heart failure with preserved ejection fraction (HFpEF) I50.33 Chronic hypoxic respiratory failure J96.11 T2DM (type 2 diabetes mellitus) E11.9 Chronic obstructive pulmonary disease with hypoxia J44.9 S/P mitral valve replacement with bioprosthetic valve Z95.3 Elevated troponin R79.89 Permanent atrial fibrillation I48.21 VALERIA (obstructive sleep apnea) G47.33 History of DVT (deep vein thrombosis) Z86.718 Coronary artery disease I25.10
[2024-10-28 04:21] LABS: BUN Creatinine Ratio 29.3 (10-20); Calcium 8.8 mg/dl (8.6-10.3); Creatinine Clr Calc Pharmacy 73.3 ml/min; Magnesium 2.1 mg/dl (1.7-2.4); Potassium 4.2 mmol/L (3.5-5.1)
[2024-10-28 04:46] LABS: ANTI-Xa, UFH(UnfractionatedHep 0.43 IU/ml (0.3-0.7)
[2024-10-28 04:49] LABS: INR 1.2 (0.9-1.1)
--- NOTE | 2024-10-28 14:29 | Hospitalist Progress Note ---
Date of Service October 28, 2024 Assessment & Plan (1) Acute on chronic heart failure with preserved ejection fraction (HFpEF): (2) Chronic hypoxic respiratory failure: (3) T2DM (type 2 diabetes mellitus): (4) Chronic obstructive pulmonary disease with hypoxia: (5) S/P mitral valve replacement with bioprosthetic valve: (6) Elevated troponin: (7) Permanent atrial fibrillation: (8) VALERIA (obstructive sleep apnea): (9) History of DVT (deep vein thrombosis): (10) Coronary artery disease: Plan 74yo female with permanent atrial fibrillation (on Coumadin), TIA, asthma/COPD, chronic diastolic CHF, seizure, HTN, rheumatic fever, DVT, mitral valve replacement, VALERIA, Mohler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 She presented on 10/24 for ongoing SOB/dyspnea. Patient was recently hospitalized at [facility] from 10/11 - 10/16 with non-COVID coronavirus, COPD exacerbation, and acute CHF. In addition to dyspnea had had intermittent cough and hemoptysis. 10 pound weight gain since leaving the hospital as well. Presentation this admission c/w decompensated CHF. I suspect after last hospital stay there were issues with not taking her medicines including diuretics, coumadin (INR 1.1 upon coming back), etc. #Acute on chronic diastolic CHF Last echocardiogram on 10/01/2024 revealed LVEF at 60 to 65% but signs of RV pressure overload & pulmonary HTN Still decompensated but slowly improving - cont lasix 40 mg IV BID until there is a rise in creatinine Dry weight is uncertain Cont aldactone daily in addition to IV lasix BMP am Daily weights Needs CHF clinic f/u post-discharge # Acute on chronic hypoxic respiratory failure acute component 2nd to decompensated CHF - improved chronic component - COPD, pulm HTN, etc. #COPD No exacerbation at this time Continue home inhalers Incentive spirometry, flutter valve Guaifenesin 1200 mg p.o. BID Xopenex PRN #Hemoptysis Suspect 2nd to pulmonary edema - resolved Recent chest CT on 10/06/24 without tumor or mass lesion #Permanent atrial fibrillation Rates controlled Cont metoprolol succ 50mg BID Daily PT/INR Resumed coumadin - 5mg x 1 on 10/25; 5mg x 1 on 10/26; 7.5mg x 1 on 10/27; 5mg x 1 today Cont heparin bridge in meantime Will need coumadin re-dosed on 10/29/24 #T2DM Last A1c at 6.0% on 07/04/2024 Hold metformin Repeat a1c 6.2% this admission Cont novolog sliding scale T2DM diet #low back pain - CT lumbar spine in 2019 showed - "Severe disc space narrowing with probable fusion of the L5-S1 level. The remaining disc spaces demonstrate mild disc space narrowing. The visualized sacrum appears intact. Mild central canal and mild bilateral neural foraminal narrowing at L3-L4, L4-L5." CT a/p a few weeks ago without kidney stones or other pathology to account for current symptoms Pain ongoing thus repeat x-rays to ensure no compression fracture, etc. cont baclofen but increase to 5mg TID tylenol 1gm TID lidoderm patches if no relief consider short course of PO steroids offered narcotics but she continues to decline such #Seizure d/o - cont phenobarbital 30mg BID; level returned at 14.5 -- NOT elevated; no changes PT/OT - passed evals, can return home I am concerned that she & her have difficulties with medicines, compliance, etc. They have strained relationships with their children (1 child is in [facility]) I asked Katey Crooks - outpatient [employer] - to follow Mr/Mrs Cerda post-discharge Admission and Anticipated Discharge Date Admission Date: October 24, 2024 Subjective c/o low back pain again states tylenol helps but doesn't relieve the pain completely she does NOT want to take any narcotics - offered such to her, declines it consistently no radicular pain states breathing continues to improve each day edema improving still with cough no recent hemoptysis eating well had stomach upset earlier today - blames it on stress related to issues with her kids she reports her who was hospitalized at [facility] is home she is worried about him Review of Systems Review of Systems: CV - no chest pain pulm - cough still present but improved GI - had fleeting nausea but never had emesis Physical Exam Physical Exam: gen - sitting in chair, looks well today, very talkative neck - JVD present mouth - MMM heart - irregularly irregular, s1 s2, 2/6 systolic murmur LSB, rate <100 lungs - b/l rales improved; bases still with decreased airation; no wheezing; no increased work of breathing abd - soft NT ND BS+ ext - <1+ edema b/l shins and feet; pulses b/l feet 2+ psych - a/o x 3 musculo - tender right SI joint region and inferior portion of lumbar spine Results & Data Results & Data Vital Signs (Past 12 Hours) Vital Signs Temp Pulse Pulse Resp BP Pulse Ox O2 Del Method 10/28/24 13:02 36.7 C 72 17 106/67 100 Nasal Cannula 10/28/24 11:25 36.3 C L 99 H 17 100/59 L 99 Nasal Cannula 10/28/24 08:02 Nasal Cannula 10/28/24 07:37 36.6 C 97 H 17 114/64 96 Nasal Cannula 10/28/24 07:11 79 10/28/24 02:57 36.8 C 74 18 91/52 L 97 Nasal Cannula O2 Flow Rate 10/28/24 13:02 2 10/28/24 11:25 2 10/28/24 08:02 2 10/28/24 07:37 2.5 10/28/24 07:11 10/28/24 02:57 2.5 Laboratory Results Laboratory Results - last 48 hr 10/26/24 10/27/24 10/27/24 04:12 05:28 07:50 PT 12.2 H INR 1.1 Heparin Anti-Xa, Unfract 0.41 Sodium 138 Potassium 4.1 Chloride 100 Carbon Dioxide 35 H Anion Gap 3 BUN 24 H Creatinine 0.81 Est Cr Clr Drug Dosing 68.4 eGFR 75.19 BUN/Creatinine Ratio 29.6 H Glucose 115 H POC Glucose 108 H Calcium 8.0 L Magnesium Phenobarbital 14.5 L 10/27/24 10/27/24 10/27/24 12:29 17:06 20:24 PT INR Heparin Anti-Xa, Unfract Sodium Potassium Chloride Carbon Dioxide Anion Gap BUN Creatinine Est Cr Clr Drug Dosing eGFR BUN/Creatinine Ratio Glucose POC Glucose 91 100 H 157 H Calcium Magnesium Phenobarbital 10/28/24 10/28/24 10/28/24 03:49 07:46 12:06 PT 13.0 H INR 1.2 H Heparin Anti-Xa, Unfract 0.43 Sodium 137 Potassium 4.2 Chloride 101 Carbon Dioxide 37 H Anion Gap -1 L BUN 22 Creatinine 0.75 Est Cr Clr Drug Dosing 73.3 eGFR 82.46 BUN/Creatinine Ratio 29.3 H Glucose 123 H POC Glucose 120 H 90 Calcium 8.8 Magnesium 2.1 Phenobarbital PG Care Time/CCT Total # of Minutes Spent Total Time Spent with Patient: Total time spent is greater than 50% in coordination of care (as documented) at patient's floor/unit and/or counseling patient: Coding Level of Care Code 13062 SUB INP/OBS CARE 3/50MIN Diagnoses Acute on chronic heart failure with preserved ejection fraction (HFpEF) I50.33 Chronic hypoxic respiratory failure J96.11 T2DM (type 2 diabetes mellitus) E11.9 Chronic obstructive pulmonary disease with hypoxia J44.9 S/P mitral valve replacement with bioprosthetic valve Z95.3 Elevated troponin R79.89 Permanent atrial fibrillation I48.21 VALERIA (obstructive sleep apnea) G47.33 History of DVT (deep vein thrombosis) Z86.718 Coronary artery disease I25.10
--- NOTE | 2024-10-28 15:55 | XRay Report ---
XR lumbar spine 2-3V CLINICAL HISTORY: severe R SI joint pain COMPARISON STUDY: CT of the abdomen and pelvis September 30, 2024. FINDINGS: Sacroiliac joints are intact without evidence for ankylosis. There is mild to moderate oste oarthritis of the bilateral sacroiliac joints. No lumbar spine fractures are present. Vertebral body heights are maintained. There is severe disc space narrowing at L5-S1. Severe facet arthrosis within the lumbar spine is present. IMPRESSION: 1. No lumbar spine fractures. 2. 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 3. Moderate multilevel degenerative changes within the lumbar spine. ACT 112: Negative or not required by law. Electronically signed by: Aj Villegas M.D. 10/28/2024 3:54 PM
[2024-10-28] MEDS: WARFARIN SOD 5 MG TAB PO ONE (16:00)
[2024-10-28] MEDS: BACLOFEN 10 MG TAB PO ONE (16:00)
[2024-10-29 06:20] LABS: BUN Creatinine Ratio 32.9 (10-20); Calcium 8.9 mg/dl (8.6-10.3); Creatinine Clr Calc Pharmacy 78.4 ml/min; Potassium 4.9 mmol/L (3.5-5.1)
[2024-10-29 06:28] LABS: INR 1.5 (0.9-1.1); Prothrombin Time 15.4 Seconds (9.0-12.0)
--- NOTE | 2024-10-29 08:14 | XRay Report ---
XR chest 1V portable CLINICAL HISTORY: CHF COMPARISON STUDY: 10/24/2024 FINDINGS: Stable cardiac valve repair. Stable cardiomegaly with pulmonary vascular congestion. Stable diffuse interstitial and faint patchy pulmonary opacities. No pneumothorax. IMPRESSION: Stable exam with findings of CHF and pulmonary edema versus interstitial pneumonia. ACT 112: Negative or not required by law. Electronically signed by: Bennett Patten M.D. 10/29/2024 8:13 AM
[2024-10-29] MEDS: WARFARIN SOD 5 MG TAB PO ONE (08:50)
[2024-10-29] MEDS: BACLOFEN 10 MG TAB PO SCH (08:54)
--- NOTE | 2024-10-29 12:40 | Hospitalist Progress Note ---
Date of Service October 29, 2024 Assessment & Plan (1) Acute on chronic heart failure with preserved ejection fraction (HFpEF): Plan: Continue parenteral Lasix diuresis. Will add Zaroxolyn every Monday at discharge to hopefully prevent CHF recurrence. (2) Chronic hypoxic respiratory failure: Plan: Currently on 2 L of oxygen with saturation 97% (3) T2DM (type 2 diabetes mellitus): Plan: Glucose 115 this morning. Continue ADA diet and current treatment plan (4) Chronic obstructive pulmonary disease with hypoxia: Plan: Stable. Treat underlying CHF (5) S/P mitral valve replacement with bioprosthetic valve: Plan: Continue Coumadin therapy. No indication for heparin drip at this time (6) Elevated troponin: Plan: Mild on admission. No chest pain. No evidence of acute coronary syndrome (7) Permanent atrial fibrillation: Plan: Rate controlled. Continue Coumadin therapy (8) History of DVT (deep vein thrombosis): Plan: Continue Coumadin therapy (9) Coronary artery disease: Plan: Stable. Continue current medical management Plan Hopeful discharge back to home within the next day or 2 Admission and Anticipated Discharge Date Admission Date: October 24, 2024 Subjective Alert and oriented. She states she is voiding frequently with the parenteral Lasix. Intake and output measurements are not accurate because a Basurto catheter is not in place. Chest x-ray done today, October 29, continues to show evidence of CHF. INR is up to 1.5 and Coumadin replacement continues. She does not have a mechanical heart valve and heparin drip is not necessary at this time. Review of Systems 2 Review of Systems: Constitutionalno fever or chills ENTno blurred vision, no double vision, no epistaxis, no sore throat Respiratoryno cough, no wheezing. She notices shortness of breath with exertion Cardiacno palpitations, no chest pain, no syncope Chasidy nausea, vomiting, diarrhea, melena, hematochezia GUno urinary retention, no urinary incontinence, no dysuria, no hematuria Musculoskeletalno joint pain, no muscle tenderness. Peripheral edema in both legs has lessened with diuresis Skinno bruising, no rashes, no pruritus Neurono isolated weakness, no paresthesia, no weakness Psychno depression, no anxiety Physical Exam 2 Physical Exam: General-alert and oriented x3, no fever, no chills HEENT-head atraumatic and normocephalic, pupils equal and reactive to light, extraocular muscles intact Neck-no lymphadenopathy or thyromegaly, trachea midline Chest-diminished breath sounds bilaterally with inspiratory rales. No wheezes. No dullness to percussion. Cardiac-regular rate and rhythm, normal S1 and S2 Abdomen-normal bowel sounds, no hepatosplenomegaly Extremities-no cyanosis, clubbing. 1+ pitting edema bilateral lower extremities below the knees Neuro-cranial nerves II through XII intact, motor and sensory function within normal limits, strength symmetrical, no focal deficits Psych-normal affect, normal mood Results & Data Results & Data Vital Signs (Past 12 Hours) Vital Signs Temp Pulse Pulse Resp BP Pulse Ox O2 Del Method 10/29/24 11:00 36.5 C 84 18 122/78 99 Nasal Cannula 10/29/24 07:48 Nasal Cannula 10/29/24 07:28 92 H 10/29/24 07:00 36.5 C 83 18 102/70 96 Nasal Cannula 10/29/24 03:15 36.7 C 90 18 91/59 L 97 Nasal Cannula 10/29/24 01:13 102 H O2 Flow Rate 10/29/24 11:00 10/29/24 07:48 2 10/29/24 07:28 10/29/24 07:00 10/29/24 03:15 2 10/29/24 01:13 Laboratory Results 10/27/24 05:28 10/29/24 05:45 PG Care Time/CCT Total # of Minutes Spent Total Time Spent with Patient: Total time spent is greater than 50% in coordination of care (as documented) at patient's floor/unit and/or counseling patient: Coding Level of Care Code 29991 SUB INP/OBS CARE 3/50MIN Diagnoses Acute on chronic heart failure with preserved ejection fraction (HFpEF) I50.33 Chronic hypoxic respiratory failure J96.11 T2DM (type 2 diabetes mellitus) E11.9 Chronic obstructive pulmonary disease with hypoxia J44.9 S/P mitral valve replacement with bioprosthetic valve Z95.3 Elevated troponin R79.89 Permanent atrial fibrillation I48.21 History of DVT (deep vein thrombosis) Z86.718 Coronary artery disease I25.10
[2024-10-30 07:33] VITALS: RESP 18
--- NOTE | 2024-10-30 07:50 | XRay Report ---
EXAM: XR chest 1V portable CLINICAL HISTORY: CHF TECHNIQUE: An X-ray image of the chest is obtained in 1 AP projection. COMPARISON: 10/24/2024. FINDINGS: Stable post-operative changes related to open heart surgery with sternotomy sutures were noted. Pulmonary Parenchyma: Bilateral hilar vascaurl congestion was noted. Widespread reticulonodularity of likely interstetial thickening noted. No evidence of pleural effusion or pleural thickening. Heart and Mediastinum: Enlarged cardiac size and bilateral hilar vascular congestion were noted. No mediastinal widening or masses. No hilar or mediastinal lymphadenopathy. Bony Thorax: The bony thorax appears intact without fractures or deformities. Soft Tissues: Soft tissues overlying the chest wall are unremarkable. IMPRESSION: 1. Bilateral hilar congestion was noted. 2. Unchanged cardiomegaly. 3. Widespread reticulonodularity of likely interstetial thickening noted. may suggest congestion/mild interstetial edema. Correlate clinically. 4. Compared to prior study no detected interval changes. Electronically signed by Nathaniel Duran 10-30-2024 07:50 AM
[2024-10-30 09:11] LABS: BUN Creatinine Ratio 33.3 (10-20); Creatinine Clr Calc Pharmacy 87.1 ml/min; Potassium 4.4 mmol/L (3.5-5.1)
[2024-10-30 09:12] LABS: INR 1.5 (0.9-1.1)
[2024-10-30] MEDS: WARFARIN SOD 7.5 MG TAB PO ONE (09:57)
[2024-10-30 11:13] VITALS: BP 108/70; TEMP 97.7; O2SAT 95
--- NOTE | 2024-10-30 11:43 | Discharge Summary ---
Discharge Summary Date of Service October 30, 2024 Principal Dx & Hospital Course #1 = Principal Diagnosis (1) Acute on chronic heart failure with preserved ejection fraction (HFpEF): Treated while hospitalized with parenteral Lasix diuresis. Will add Zaroxolyn 5 mg every Monday at discharge to hopefully prevent CHF recurrence. (2) Chronic hypoxic respiratory failure: Currently on 2 L of oxygen with saturation 97%. She is now down to her baseline oxygen use. She has oxygen at home (3) T2DM (type 2 diabetes mellitus): Stable. Continue ADA diet and current treatment plan (4) Chronic obstructive pulmonary disease with hypoxia: Stable. Treat underlying CHF (5) S/P mitral valve replacement with bioprosthetic valve: Continue Coumadin therapy. No indication for heparin drip at this time (6) Elevated troponin: Mild on admission. No chest pain. No evidence of acute coronary syndrome (7) Permanent atrial fibrillation: Rate controlled. Continue Coumadin therapy (8) History of DVT (deep vein thrombosis): Continue Coumadin therapy (9) Coronary artery disease: Stable. Continue current medical management Plan Home today, October 30, with home health services. She will be discharged after she completes her barium swallow this afternoon. Admission HPI Per Admitting Provider Krystal is a pleasant 74-year-old female with PMH of permanent atrial fibrillation (on Coumadin), TIA, T2DM, asthma, CHF, seizure, HTN, HLD, rheumatic fever, DVT, mitral valve replacement, VALERIA, [place] O[place] syndrome, and COPD. She presented on 10/24 for ongoing SOB/dyspnea. Patient was recently hospitalized at [facility] from 10/11 - 10/16 with non-COVID coronavirus, COPD exacerbation, and acute CHF. She reports that she was still feeling somewhat lousy upon discharge. She then reports that she developed intermittent cough, including hemoptysis, upon discharge; as well as SOB both at rest and with exertion and orthopnea. Patient reports that she has had a 10 pound weight gain since leaving the hospital; she believes she was around 190 when she left, and is currently around 200lb. Patient reports she has not been eating much since discharge, but does watch her salt intake; she has been drinking water though. Additionally, patient endorses chest heaviness like something is "laying on her chest". She reports that they is occasional pain when she takes deep breaths. She does have a history of a blood clot in her heart on December 19, 20192011; she denies prior history of DVT/PE. Patient is chronically on supplemental oxygen; she used to be on 2L NC at nighttime, but started require continuous oxygen prior to coming in the hospital in the middle of September. She also reports that they would bump her up above 2 L while in the hospital. Patient reports that she took all her regular morning medicine today, and reports good compliance with her diuretic at home. She sleeps in a recliner and, and while she is supposed to use a CPAP at night, she has not been using it. Patient denies smoking, tobacco use, or recent alcohol use. Patient is requesting a bed with her , who is currently in the hospital; they are set to celebrate their 60 anniversary on October 31. Patient denies any allergies to IV contrast dye. Patient's vitals are stable at time of admission. ED course: Lasix 40 mg IV ROS: Patient endorses weight gain, SOB at rest and with exertion, orthopnea, dizziness/lightheadedness when walking, pleuritic CP, productive cough, chest palpitations, chest pressure/ heaviness, back pain, nausea, and swelling in the legs. Patient denies fever, night-sweats, syncope, chest pain, vomiting, diarrhea, changes in urinary/bowl habits, or decreased urinary frequency. Discharge Exam General-alert and oriented x3, no fever, no chills HEENT-head atraumatic and normocephalic, pupils equal and reactive to light, extraocular muscles intact Neck-no lymphadenopathy or thyromegaly, trachea midline Chest-diminished breath sounds bilaterally with inspiratory rales. No wheezes. No dullness to percussion. Cardiac-regular rate and rhythm, normal S1 and S2 Abdomen-normal bowel sounds, no hepatosplenomegaly Extremities-no cyanosis, clubbing. 1+ pitting edema bilateral lower extremities below the knees Neuro-cranial nerves II through XII intact, motor and sensory function within normal limits, strength symmetrical, no focal deficits Psych-normal affect, normal mood Discharge Plan Discharge Items Patient Disposition: Home - Home Health Services Reason For Visit: ACUTE CHF Discharge Diagnosis: Acute on chronic diastolic CHF, acute on chronic hypoxic respiratory failure, dysphagia Activity: Resume your previous activity Non-emergency contact: Primary Care Provider and Silver Cleaner Call non-emergency contact if: your symptoms worsen Follow-up/Referrals: Zainab Rayo DO [Primary Care Provider] - 11/06/24 8:20 am Diet: Carb Consistent or DM2 and Heart Healthy Addtl Attending Provider Instructions: Take Zaroxolyn (metolazone) 5 mg every Monday and Monday to prevent further fluid buildup. A prescription has been sent to your [facility] pharmacy in [place]. All other medications remain the same Pending Studies at Discharge: No Stand-Alone Forms: [facility], Smoking Cessation Medications and DC Order Prescriptions: New metolazone 5 mg tablet See Rx Instructions .ROUTE .COMPLEX Qty: 60 0RF Rx Instructions: 5 mg orally every Monday and Monday and Monday Continued (DME) CPAP Machine Misc See Rx Instructions .MEDSUPPLY Qty: 1 0RF Rx Instructions: CPAP with autotitrate. Range of 8-16 cm H2O with humidification. Nasal pillow. Lifetime need. fluticasone propionate [Flonase Allergy Relief] 50 mcg/actuation spray,suspension 1 spray INTRANASAL BID PRN (Reason: Nasal Congestion) Qty: 15.8 1RF nystatin 100,000 unit/gram cream 1 applic topical DAILY Qty: 30 3RF betamethasone dipropionate 0.05 % cream 1 applic topical BID PRN (Reason: skin irritation) Qty: 45 0RF omega 4-pce-mww-fish oil [Fish Oil] 60-90-500 mg capsule 1 cap PO DAILY Qty: 30 0RF warfarin 4 mg tablet 4 mg PO .COMPLEX Qty: 90 1RF Protocol: Dose Management Condition: Monday Dose/Route: 5 mg Instruction: 1 x 5 mg tablet Condition: Monday Dose/Route: 2.5 mg Instruction: 0.5 x 5 mg tablets Condition: Monday Dose/Route: 5 mg Instruction: 1 x 5 mg tablet Condition: Monday Dose/Route: 5 mg Instruction: 1 x 5 mg tablet Condition: Dose/Route: 5 mg Instruction: 1 x 5 mg tablet Condition: Monday Dose/Route: 2.5 mg Instruction: 0.5 x 5 mg tablets Condition: Monday Dose/Route: 5 mg Instruction: 1 x 5 mg tablet Protocol Text: Adjustment Start Date: Monday09/24/24 INR Value: 1.9 INR Date: 09/24/24 Recheck Date: 10/01/24 Rx Instructions: 4 mg PO per protocol; warfarin 1 mg tablet 1 mg PO DAILY Qty: 90 3RF Protocol: Dose Management Condition: Monday Dose/Route: 5 mg Instruction: 1 x 5 mg tablet Condition: Monday Dose/Route: 2.5 mg Instruction: 0.5 x 5 mg tablets Condition: Monday Dose/Route: 5 mg Instruction: 1 x 5 mg tablet Condition: Monday Dose/Route: 5 mg Instruction: 1 x 5 mg tablet Condition: Dose/Route: 5 mg Instruction: 1 x 5 mg tablet Condition: Monday Dose/Route: 2.5 mg Instruction: 0.5 x 5 mg tablets Condition: Monday Dose/Route: 5 mg Instruction: 1 x 5 mg tablet Protocol Text: Adjustment Start Date: Monday09/24/24 INR Value: 1.9 INR Date: 09/24/24 Recheck Date: 10/01/24 famotidine 20 mg tablet 20 mg PO BID Qty: 180 3RF simvastatin 40 mg tablet 40 mg PO HS Qty: 90 1RF montelukast 10 mg tablet 10 mg PO DAILY Qty: 90 1RF metformin 500 mg tablet 500 mg PO DAILY Qty: 100 1RF warfarin [Augtoven] 5 mg tablet 5 mg PO DAILY Qty: 90 1RF Protocol: Dose Management Condition: Monday Dose/Route: 5 mg Instruction: 1 x 5 mg tablet Condition: Monday Dose/Route: 2.5 mg Instruction: 0.5 x 5 mg tablets Condition: Monday Dose/Route: 5 mg Instruction: 1 x 5 mg tablet Condition: Monday Dose/Route: 5 mg Instruction: 1 x 5 mg tablet Condition: Dose/Route: 5 mg Instruction: 1 x 5 mg tablet Condition: Monday Dose/Route: 2.5 mg Instruction: 0.5 x 5 mg tablets Condition: Monday Dose/Route: 5 mg Instruction: 1 x 5 mg tablet Protocol Text: Adjustment Start Date: Monday09/24/24 INR Value: 1.9 INR Date: 09/24/24 Recheck Date: 10/01/24 (DME) nebulizer accessories Kit See Rx Instructions .Route Qty: 1 0RF Rx Instructions: USE Q6H PRN phenobarbital 32.4 mg tablet 32.4 mg PO BID Qty: 180 3RF benzonatate 100 mg capsule 100 mg PO TID PRN (Reason: cough) Qty: 30 0RF cyclobenzaprine 5 mg tablet 5 mg PO TID PRN (Reason: muscle spasm) Qty: 10 0RF pantoprazole [Protonix] 40 mg tablet,delayed release (DR/EC) 40 mg PO DAILY Qty: 90 1RF (DME) Oxygen Home Liters Per Minute See Rx Instructions .ROUTE .MEDSUPPLY Qty: 1 0RF Rx Instructions: 2L NC continuous dx: J44.9, J96.90, dx: I50.32 ascorbate calcium (vitamin C) 500 mg tablet 500 mg PO DAILY milk thistle 1 dose PO DAILY cetirizine [Zyrtec] 10 mg tablet 10 mg PO BID hydroxyzine pamoate [Vistaril] 25 mg capsule 25 mg PO Q8H PRN (Reason: itching) Qty: 30 0RF ondansetron HCl 4 mg tablet See Rx Instructions .ROUTE .COMPLEX PRN (Reason: Nausea) Dose Instruction: take 1-2 tablets every 8 hours as needed for nausea Rx Instructions: take 1-2 tablets every 8 hours as needed for nausea PRN; (DME) CPAP Supplies Misc See Rx Instructions .MEDSUPPLY Qty: 1 0RF Rx Instructions: Patient needs a different mask. Please do a mask fitting. Lifetime need. levalbuterol tartrate 45 mcg/actuation HFA aerosol inhaler 1 inh inhalation Q6H Qty: 15 5RF spironolactone 25 mg tablet 25 mg PO DAILY Qty: 30 2RF cholecalciferol (vitamin D3) 125 mcg (5,000 unit) capsule 125 mcg PO DAILY clobetasol 0.05 % ointment 1 applic topical BID PRN (Reason: DIRECTED) fluticasone propion-salmeterol 100-50 mcg/dose blister with device 1 inh inhalation BID Qty: 60 2RF ipratropium-albuterol 0.5 mg-3 mg(2.5 mg base)/3 mL solution for nebulization 3 ml inhalation Q6H PRN (Reason: wheezing) Qty: 180 1RF Premarin 0.625 mg/gram cream 0.625 mg vaginal .2 times per week potassium chloride 10 mEq Tablet Extended Release 10 meq PO QAM polyethylene glycol 3350 [Miralax] 17 gram/dose Powder 1 dose PO QPM allopurinol 100 mg Tablet 100 mg PO DAILY [id number] 160-9-4.8 mcg/actuation Hfa Aerosol Inhaler 2 inh INHALATION BID torsemide 20 mg Tablet 40 mg PO QAM Qty: 60 0RF metoprolol succinate 50 mg tablet extended release 24 hr 50 mg PO BID Qty: 60 0RF methylprednisolone [Medrol] 16 mg Tablet 16 mg PO BID Qty: 10 0RF guaifenesin [Mucinex] 600 mg Tablet Extended Release 12hr 1,200 mg PO Q12 Qty: 0 0RF Rx Instructions: may buy over the counter Discharge Orders: Discharge Order- CHF (Routine); Ordered 10/30/24 Ordered By: Rick Howard Admission Data Admit Date/Time: 10/24/24 16:54 Attending Provider: Rcik Howard Admit Provider: Oscar Godwin Primary Care Provider: Zainab Rayo Other Providers: Oscar Godwin; Niraj Jimenez [facility] Other Interventions: Discharge Summary Assessment (RN) Last Done: 10/30/24 11:58 Hospital Stay Data Consultations 10/24/24 15:25 ED Decision to Admit Stat Diagnostic Imagining Performed 10/30/24 13:00 Ba Swallow [FL barium swallow] Routine Pending Results Patient Have Any Pending Studies at Discharge: No Discharge Instructions Given to Patient (Per Discharging Provider) Take Zaroxolyn (metolazone) 5 mg every Monday and Monday to prevent further fluid buildup. A prescription has been sent to your [facility] pharmacy in [place]. All other medications remain the same Total Time Total Time Spent Total Time Spent (In Minutes): 50 minutes Coding Level of Care Code 55532 INP/OBS DISCH >30 MIN Diagnoses Acute on chronic heart failure with preserved ejection fraction (HFpEF) I50.33 Chronic hypoxic respiratory failure J96.11 T2DM (type 2 diabetes mellitus) E11.9 Chronic obstructive pulmonary disease with hypoxia J44.9 S/P mitral valve replacement with bioprosthetic valve Z95.3 Elevated troponin R79.89 Permanent atrial fibrillation I48.21 History of DVT (deep vein thrombosis) Z86.718 Coronary artery disease I25.10
[2024-10-30 14:45] VITALS: PULSE 111
--- NOTE | 2024-10-31 08:26 | Fluoroscopy Report ---
DOUBLE CONTRAST BARIUM SWALLOW CLINICAL HISTORY: s/s esophageal dysfunction; globus sensation COMPARISON STUDY: Neck CT April 19, 2024. Chest CT October 07, 2024. FLUOROSCOPY TIME: 33 seconds FLUOROSCOPY IMAGES: 11 Ka,r: 25.5 mGy FINDINGS: Median sternotomy wires, prosthetic cardiac valve and left atrial appendage occluder device are in place. Mucosal detail is diminished on this exam. No esophageal mass or stricture is identifi ed. Esophageal motility was within normal limits. No hiatal hernia was identified. No gastroesophagea l reflux was elicited. Patient was unable to swallow the 13 mm barium tablet. IMPRESSION: 1. No significant abnormality within the esophagus by fluoroscopy. 2. Mild diminished mucosal detail. ACT 112: Negative or not required by law. Electronically signed by: Aj Villegas M.D. 10/31/2024 8:24 AM
== END 2024-10-30 15:38 | disposition home health service (06) | DRG 291 ==
LOC: ED 12:35 → SUATTDRO 16:54 → EDINP 16:54 → 2N 20:10